=== PATIENT | male | born 1950 | race Caucasian/White ===

== ENCOUNTER 2019-10-28 12:38 | Emergency (ER) | payer OTHER ==
[2019-10-28 14:39] LABS: INR 1.2 (<1.2); Partial Thromboplastin Time 25.7 sec (22.0-30.0); Prothrombin Time 12.2 sec (9.0-12.0)
[2019-10-28 14:46] LABS: Albumin 3.4 g/dL (3.5-5.0); Calcium 8.4 mg/dL (8.4-10.2); Potassium 4.8 mmol/L (3.5-5.1); Total Bilirubin 0.5 mg/dL (0.2-1.3); Total Protein 6.2 g/dL (6.3-8.2)
[2019-10-28 14:49] LABS: Anisocytosis Slight; Basophils % (A) 1 %; Eosinophils % (A) 1 %; HCT 24.4 % (39.0-53.0); Hypochromasia Marked; Lymphocytes # (A) 0.5 k/uL (1.0-4.8); Lymphocytes % (A) 16 %; MCHC 27.3 g/dL (31.0-37.0); MCV 84.3 fL (80.0-100.0); Mean Platelet Volume 9.6; Monocytes # (A) 0.2 k/uL (0-1.0); Monocytes % (A) 6 %; Neutrophils # (A) 2.3 k/uL (1.3-7.7); Neutrophils % (A) 75 %; Platelet Count 115 k/uL (150-450); Poikilocytosis Moderate; RDW 18.5 % (11.5-15.5); WBC 3.1 k/uL (3.8-10.6)
[2019-10-28 14:52] LABS: HGB 6.7 gm/dL (13.0-17.5)
--- NOTE | 2019-10-28 15:34 | ED ---
General Adult HPI <Aníbal Dale - Last Filed: 10/28/19 15:52> - General Source: patient, RN notes reviewed Mode of arrival: wheelchair Limitations: physical limitation <Arnold Israel - Last Filed: 10/28/19 16:27> - General Chief complaint: Recheck/Abnormal Lab/Rx Stated complaint: abn labs Time Seen by Provider: 10/28/19 14:57 - History of Present Illness Initial comments: This a 69-year-old male presents emergency Department from home chief complaint of low hemoglobin. Patient states he had work on Monday received a call phone call from his primary to go to the emergency Department. Patient states that has not required transfusion in the past. Patient does admit that approximately month ago had some bleeding from his ileostomy. Patient does not take any current blood thinners. He states his stool is normal color at this time. Patient denies any fevers, chills, shortness breath, headache or dizziness. 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 (Arnold Israel) - Related Data Home Medications Medication Instructions Recorded Confirmed Ibuprofen [Motrin] 600 mg PO Q6H PRN 10/28/19 10/28/19 Lidocaine 5% Patch [Lidoderm] 1 patch TOPICAL DAILY 10/28/19 10/28/19 Methadone [Dolophine] 10 mg PO TID PRN 10/28/19 10/28/19 Metoprolol Tartrate [Lopressor] 25 mg PO BID 10/28/19 10/28/19 Naloxone HCl [Narcan] 4 mg NASAL ONCE PRN 10/28/19 10/28/19 amLODIPine [Norvasc] 10 mg PO DAILY 10/28/19 10/28/19 glipiZIDE [Glucotrol] 10 mg PO AC-BID 10/28/19 10/28/19 tiZANidine [Zanaflex] 8 mg PO TID 10/28/19 10/28/19 Allergies Allergy/AdvReac Type Severity Reaction Status Date / Time baclofen Allergy Rash/Hives Verified 10/28/19 15:34 Review of Systems ROS Other: All systems not noted in ROS Statement are negative. <Aníbal Dale - Last Filed: 10/28/19 15:52> ROS Other: All systems not noted in ROS Statement are negative. <Arnold Israel - Last Filed: 10/28/19 16:27> ROS Statement: Those systems with pertinent positive or pertinent negative responses have been documented in the HPI. 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 self caths. left foot 3 toes amputated 1990. back sx Past Psychological History: No Psychological Hx Reported Smoking Status: Never smoker Past Alcohol Use History: None Reported Past Drug Use History: None Reported <Arnold Israel - Last Filed: 10/28/19 16:27> General Exam Limitations: physical limitation General appearance: alert, in no apparent distress Head exam: Present: atraumatic, normocephalic, normal inspection Eye exam: Present: normal appearance, PERRL, EOMI. Absent: scleral icterus, conjunctival injection, periorbital swelling ENT exam: Present: normal exam, normal oropharynx, mucous membranes moist, TM's normal bilaterally Neck exam: Present: normal inspection, full ROM. Absent: tenderness, meningismus, lymphadenopathy Respiratory exam: Present: normal lung sounds bilaterally. Absent: respiratory distress, wheezes, rales, rhonchi, stridor Cardiovascular Exam: Present: regular rate, normal rhythm, normal heart sounds. Absent: systolic murmur, diastolic murmur, rubs, gallop, clicks Neurological exam: Present: alert, oriented X3, CN II-XII intact Skin exam: Present: warm, dry, intact, normal color. Absent: rash <Arnold Israel - Last Filed: 10/28/19 16:27> Course <Aníbal Dale - Last Filed: 10/28/19 15:52> Vital Signs 10/28/19 13:04 Temperature 98.5 F Pulse Rate 65 Respiratory 18 Rate Blood Pressure 144/70 O2 Sat by Pulse 98 Oximetry - Reevaluation(s) Reevaluation #1: 10/28/19 15:52 PA supervision: I did personally evaluate this case patient was sent in for evaluation of low hemoglobin will require a transfusion he was offered admission but is refusing at this time. He will state however to get a unit of blood and is signing out against our advice. (Aníbal Dale) Procedures - [facility] Protocol (Time Out) Nurse: Julissa Johnson <Arnold Israel - Last Filed: 10/28/19 16:27> Medical Decision Making - Lab Data Result diagrams: 10/28/19 14:16 10/28/19 14:16 <Aníbal Dale - Last Filed: 10/28/19 15:52> - Lab Data Result diagrams: 10/28/19 14:16 10/28/19 14:16 <Arnold Israel - Last Filed: 10/28/19 16:27> - Medical Decision Making 69-year-old male presented from for abnormal labs. Patient has a hemoglobin is 6.8 patient's reports that it was 6.1 on Monday. Patient does have iron pills at home and which she'll start. Patient advised that he needs to be adm itted for further evaluation by hematology and GI. Patient refuses admission patient is willing to receive his blood transfusion and will sign out AGAINST MEDICAL ADVICE understands risk of . (Arnold Israel) - Lab Data Lab Results 10/28/19 10/28/19 10/28/19 Range/Units 14:16 14:16 14:16 WBC 3.1 L (3.8-10.6) k/uL RBC 2.90 L (4.30-5.90) m/uL Hgb 6.7 L* (13.0-17.5) gm/dL Hct 24.4 L (39.0-53.0) % MCV 84.3 (80.0-100.0) fL MCH 23.0 L (25.0-35.0) pg MCHC 27.3 L (31.0-37.0) g/dL RDW 18.5 H (11.5-15.5) % Plt Count 115 L (150-450) k/uL Neutrophils % 75 % Lymphocytes % 16 % Monocytes % 6 % Eosinophils % 1 % Basophils % 1 % Neutrophils # 2.3 (1.3-7.7) k/uL Lymphocytes # 0.5 L (1.0-4.8) k/uL Monocytes # 0.2 (0-1.0) k/uL Eosinophils # 0.0 (0-0.7) k/uL Basophils # 0.0 (0-0.2) k/uL Hypochromasia Marked Poikilocytosis Moderate Anisocytosis Slight PT 12.2 H (9.0-12.0) sec INR 1.2 H (<1.2) APTT 25.7 (22.0-30.0) sec Sodium 134 L (137-145) mmol/L Potassium 4.8 (3.5-5.1) mmol/L Chloride 106 (98-107) mmol/L Carbon Dioxide 22 (22-30) mmol/L Anion Gap 6 mmol/L BUN 16 (9-20) mg/dL Creatinine 1.22 (0.66-1.25) mg/dL Est GFR (CKD-EPI)AfAm 70 (>60 ml/min/1.73 sqM) Est GFR (CKD-EPI)NonAf 61 (>60 ml/min/1.73 sqM) Glucose 226 H (74-99) mg/dL Calcium 8.4 (8.4-10.2) mg/dL Total Bilirubin 0.5 (0.2-1.3) mg/dL AST 27 (17-59) U/L ALT 13 (4-49) U/L Alkaline Phosphatase 86 (38-126) U/L Troponin I (0.000-0.034) ng/mL Total Protein 6.2 L (6.3-8.2) g/dL Albumin 3.4 L (3.5-5.0) g/dL 10/28/19 Range/Units 14:16 WBC (3.8-10.6) k/uL RBC (4.30-5.90) m/uL Hgb (13.0-17.5) gm/dL Hct (39.0-53.0) % MCV (80.0-100.0) fL MCH (25.0-35.0) pg MCHC (31.0-37.0) g/dL RDW (11.5-15.5) % Plt Count (150-450) k/uL Neutrophils % % Lymphocytes % % Monocytes % % Eosinophils % % Basophils % % Neutrophils # (1.3-7.7) k/uL Lymphocytes # (1.0-4.8) k/uL Monocytes # (0-1.0) k/uL Eosinophils # (0-0.7) k/uL Basophils # (0-0.2) k/uL Hypochromasia Poikilocytosis Anisocytosis PT (9.0-12.0) sec INR (<1.2) APTT (22.0-30.0) sec Sodium (137-145) mmol/L Potassium (3.5-5.1) mmol/L Chloride (98-107) mmol/L Carbon Dioxide (22-30) mmol/L Anion Gap mmol/L BUN (9-20) mg/dL Creatinine (0.66-1.25) mg/dL Est GFR (CKD-EPI)AfAm (>60 ml/min/1.73 sqM) Est GFR (CKD-EPI)NonAf (>60 ml/min/1.73 sqM) Glucose (74-99) mg/dL Calcium (8.4-10.2) mg/dL Total Bilirubin (0.2-1.3) mg/dL AST (17-59) U/L ALT (4-49) U/L Alkaline Phosphatase (38-126) U/L Troponin I <0.012 (0.000-0.034) ng/mL Total Protein (6.3-8.2) g/dL Albumin (3.5-5.0) g/dL Disposition <Aníbal Dale - Last Filed: 10/28/19 15:52> Is patient prescribed a controlled substance at d/c from ED?: No Time of Disposition: 16:27 <Arnold Israel - Last Filed: 10/28/19 16:27> Clinical Impression: Anemia Disposition: Left Against Medical Advice Instructions (If sedation given, give patient instructions): Anemia (ED) Additional Instructions: Please return to the Emergency Department if symptoms worsen or any other concerns. Referrals: [facility],Clinic [Primary Care Provider] - 1-2 days Glenn Boucher MD [STAFF PHYSICIAN] - 1-2 days Fadi Hahn MD [STAFF PHYSICIAN] - 1-2 days
[2019-10-28 19:44] VITALS: BP 141/68; PULSE 47; RESP 416; TEMP 97
== END 2019-10-28 20:01 | disposition left against medical advice (07) ==
LOC: EC 12:38
DX: D64.9 Anemia, unspecified (principal); E11.9 Type 2 diabetes mellitus without complications; I10 Essential (primary) hypertension; Z79.84 Long term (current) use of oral hypoglycemic drugs; Z79.899 Other long term (current) drug therapy; Z88.8 Allergy status to other drugs, medicaments and biological substances; Z86.14 Personal history of Methicillin resistant Staphylococcus aureus infection; Z93.2 Ileostomy status; Z53.29 Procedure and treatment not carried out because of patient's decision for other reasons
CPT/HCPCS: 36415; 86900; 86901; 80053; 84484; 85025; 85610; 85730; 86850; 86920; 99283; P9016; 36430

== ENCOUNTER 2020-06-22 10:27 | Inpatient (IN) | payer OTHER, MEDICARE ==
[2020-06-22] MEDS ORDERED: MORPHINE SULFATE 4 MG/ML SYRINGE IV STA (11:03)
[2020-06-22] MEDS ORDERED: ONDANSETRON 4 MG/2 ML VIAL IVP STA (11:03)
[2020-06-22] MEDS ORDERED: SODIUM CHLORIDE 0.9% 1,000 ML IV STA ×2 (11:03→12:34)
[2020-06-22] MEDS ORDERED: PIPERACILLIN-TAZOBACTAM 3.375 GM in SODIUM CHLORIDE 0.9% 100 ML IVPB STA (11:05)
--- NOTE | 2020-06-22 11:09 | ED ---
General Adult HPI <Aníbal Dale - Last Filed: 06/22/20 11:31> - General Source: patient, RN notes reviewed Mode of arrival: EMS Limitations: physical limitation <Moris Hoskins - Last Filed: 06/22/20 12:03> - General Chief complaint: Skin/Abscess/Foreign Body Stated complaint: Wound Time Seen by Provider: 06/22/20 10:43 - History of Present Illness Initial comments: Patient is a 70-year-old male significant past medical history for paraplegia, presented to the emergency room today with a chief complaint of decubitus ulcer. Some that it started as a small spot approximal to go. She states even family doctor last week for this. He was supposed to get into her care. He states it is trying to be set up. They did start him on oral antibiotic. He does admit that over the last few days she's noticed that it is getting worse. His has been checking it. Patient does admit that he's been feeling hot and cold been running fever at home. Patient denies any other complaints or symptoms. Patient denies any shortness of breath, chest pain, back pain, abdominal pain, nausea or vomiting, headaches or visual changes, or any other complaints. (Moris Hoskins) - Related Data Home Medications Medication Instructions Recorded Confirmed Lidocaine 5% Patch [Lidoderm] 1 patch TRANSDERM DAILY PRN 10/28/19 06/22/20 Methadone [Dolophine] 10 mg PO TID PRN 10/28/19 06/22/20 Metoprolol Tartrate [Lopressor] 12.5 mg PO BID 10/28/19 06/22/20 amLODIPine [Norvasc] 10 mg PO DAILY 10/28/19 06/22/20 glipiZIDE [Glucotrol] 10 mg PO AC-BID 10/28/19 06/22/20 tiZANidine [Zanaflex] 8 mg PO TID 10/28/19 06/22/20 Ferrous Sulfate [Feosol] 325 mg PO BID 06/22/20 06/22/20 Allergies Allergy/AdvReac Type Severity Reaction Status Date / Time baclofen Allergy Nausea & Verified 06/22/20 11:26 Vomiting meperidine [From Demerol] Allergy Rash/Hives Verified 06/22/20 11:26 sulfamethoxazole AdvReac Dry Verified 06/22/20 11:26 [From Bactrim] Mouth/Tremors trimethoprim [From Bactrim] AdvReac Dry Verified 06/22/20 11:26 Mouth/Tremors Review of Systems ROS Other: All systems not noted in ROS Statement are negative. <Aníbal Dale - Last Filed: 06/22/20 11:31> ROS Other: All systems not noted in ROS Statement are negative. <Moris Hoskins - Last Filed: 06/22/20 12:03> ROS Statement: Those systems with pertinent positive or pertinent negative responses have been documented in the HPI. 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 self caths. left foot 3 toes amputated 1990. back sx Past Psychological History: No Psychological Hx Reported Smoking Status: Never smoker Past Alcohol Use History: Occasional Past Drug Use History: None Reported <Moris Hoskins - Last Filed: 06/22/20 12:03> General Exam Limitations: physical limitation <Moris Hoskins - Last Filed: 06/22/20 12:03> - General Exam Comments Initial Comments: General: The patient is awake and alert, in no distress, and does not appear acutely ill. Eye: , extra-ocular movements are intact. There is normal conjunctiva bilaterally. No signs of icterus. Ears, nose, mouth and throat: There are moist mucous membranes and no oral lesions. Neck: The neck is supple Cardiovascular: There is a regular rate and rhythm. no rub or gallop is appreciated. Respiratory: Lungs are clear to auscultation, respirations are non-labored, breath sounds are equal. No wheezes, stridor, rales, or rhonchi. Musculoskeletal: Normal ROM, no tenderness. Strength 5/5. Sensation intact. Pulses equal bilaterally 2+. Neurological: A&O x 3. CN II-XII intact, There are no obvious motor or sensory deficits. Coordination appears grossly intact. Speech is normal. Skin: Patient does have a decubitus ulcer to the left buttocks. There is a tunneling wound that measures approximately 3 cm across with a eschar area measuring approximately another 4-5 cm. Psychiatric: Cooperative, appropriate mood & affect, normal judgment. (Moris Hoskins) Course <Aníbal Dale - Last Filed: 06/22/20 11:31> Vital Signs 06/22/20 06/22/20 10:50 11:32 Temperature 100.4 F H 99.1 F Pulse Rate 121 H 133 H Respiratory 18 18 Rate Blood Pressure 178/82 173/78 O2 Sat by Pulse 98 99 Oximetry - Reevaluation(s) Reevaluation #1: 06/22/20 11:31 PA supervision: I did personally do evaluation the patient he did present with complains of a pressure sore. He does have evidence of decubitus ulceration on the buttock on the left. Will be admitted. The case was discussed with Dr. Rubin. (Aníbal Dale) Medical Decision Making - Lab Data Result diagrams: 06/22/20 11:26 06/22/20 11:26 <Moris Hoskins - Last Filed: 06/22/20 12:03> - Medical Decision Making Patient reexamined shows an comfortably. Patient does have a decubitus ulcer to the left buttocks. States does have fever and was tachycardic at triage. Was given liter bolus along with Tylenol for fever. Patient's blood pressure is stable. Patient's creatinine is mildly elevated. Patient started on antibiotics of Zosyn here in emergency room. Patient will be admitted to the hospital case was discussed with Dr. Rubin. Patient is aware of plan states understanding and is in agreement. (Moris Hoskins) - Lab Data Lab Results 06/22/20 06/22/20 06/22/20 Range/Units 11:26 11:26 11:26 WBC 10.9 H (3.8-10.6) k/uL RBC 4.60 (4.30-5.90) m/uL Hgb 13.1 (13.0-17.5) gm/dL Hct 41.0 (39.0-53.0) % MCV 89.2 (80.0-100.0) fL MCH 28.5 (25.0-35.0) pg MCHC 31.9 (31.0-37.0) g/dL RDW 15.6 H (11.5-15.5) % Plt Count 100 L (150-450) k/uL MPV 10.0 Neutrophils % 85 % Lymphocytes % 1 % Monocytes % 7 % Eosinophils % 1 % Basophils % 3 % Neutrophils # 9.3 H (1.3-7.7) k/uL Lymphocytes # 0.1 L (1.0-4.8) k/uL Monocytes # 0.7 (0-1.0) k/uL Eosinophils # 0.1 (0-0.7) k/uL Basophils # 0.3 H (0-0.2) k/uL Hypochromasia Moderate PT 14.7 H (9.0-12.0) sec INR 1.5 H (<1.2) APTT 26.8 (22.0-30.0) sec Sodium 132 L (137-145) mmol/L Potassium 4.9 (3.5-5.1) mmol/L Chloride 100 (98-107) mmol/L Carbon Dioxide 18 L (22-30) mmol/L Anion Gap 14 mmol/L BUN 42 H (9-20) mg/dL Creatinine 1.83 H (0.66-1.25) mg/dL Est GFR (CKD-EPI)AfAm 43 (>60 ml/min/1.73 sqM) Est GFR (CKD-EPI)NonAf 37 (>60 ml/min/1.73 sqM) Glucose 318 H (74-99) mg/dL Calcium 8.4 (8.4-10.2) mg/dL Total Bilirubin 1.0 (0.2-1.3) mg/dL AST 28 (17-59) U/L ALT 29 (4-49) U/L Alkaline Phosphatase 151 H (38-126) U/L Total Protein 5.8 L (6.3-8.2) g/dL Albumin 2.6 L (3.5-5.0) g/dL Disposition <Aníbal Dale - Last Filed: 06/22/20 11:31> Is patient prescribed a controlled substance at d/c from ED?: No Time of Disposition: 12:03 <Moris Hoskins - Last Filed: 06/22/20 12:03> Clinical Impression: Decubitus ulcer, Failure of outpatient treatment, Sepsis Disposition: ADMITTED IP TO THIS [facility] Condition: Stable Referrals: [facility],Clinic [Primary Care Provider] - 1-2 days
[2020-06-22 11:34] LABS: Basophils # (A) 0.3 k/uL (0-0.2); Basophils % (A) 3 %; Eosinophils # (A) 0.1 k/uL (0-0.7); Eosinophils % (A) 1 %; HGB 13.1 gm/dL (13.0-17.5); Hypochromasia Moderate; Lymphocytes # (A) 0.1 k/uL (1.0-4.8); Lymphocytes % (A) 1 %; MCH 28.5 pg (25.0-35.0); MCHC 31.9 g/dL (31.0-37.0); MCV 89.2 fL (80.0-100.0); Monocytes # (A) 0.7 k/uL (0-1.0); Monocytes % (A) 7 %; Neutrophils # (A) 9.3 k/uL (1.3-7.7); Neutrophils % (A) 85 %; Platelet Count 100 k/uL (150-450); RDW 15.6 % (11.5-15.5); WBC 10.9 k/uL (3.8-10.6)
[2020-06-22 11:45] LABS: INR 1.5 (<1.2); Partial Thromboplastin Time 26.8 sec (22.0-30.0); Prothrombin Time 14.7 sec (9.0-12.0)
[2020-06-22 11:46] LABS: Albumin 2.6 g/dL (3.5-5.0); Calcium 8.4 mg/dL (8.4-10.2); Potassium 4.9 mmol/L (3.5-5.1); Total Protein 5.8 g/dL (6.3-8.2)
[2020-06-22] MEDS ORDERED: ACETAMINOPHEN TAB 500 MG TAB PO STA (12:02)
[2020-06-22] MEDS ORDERED: NALOXONE 0.4 MG/ML 1 ML VIAL IV PRN (12:03)
[2020-06-22] MEDS ORDERED: ONDANSETRON 4 MG/2 ML VIAL IVP PRN (12:03)
[2020-06-22 12:29] LABS: Appearance,Urine Turbid (Clear); Bilirubin,Urine Negative (Negative); Blood,Urine Large (Negative); Budding Yeast,Urine Many /hpf; Color,Urine Yellow; Glucose,Urine (UA) Negative (Negative); Hyaline Casts,Urine 57 /lpf (0-2); Ketones,Urine Negative (Negative); Leukocyte Esterase,Urine Large (Negative); Mucus,Urine Few /hpf; Nitrite,Urine Negative (Negative); PH, Urine 5.5 (5.0-8.0); Protein,Urine 2+ (Negative); RBC,Urine >182 /hpf (0-5); Squamous Epithelial Cell,Urine 13 /hpf (0-4); Urobilinogen,Urine <2.0 mg/dL (<2.0); WBC,Urine >182 /hpf (0-5)
[2020-06-22 12:30] LABS: Specific Gravity,Urine 1.019 (1.001-1.035)
[2020-06-22] MEDS ORDERED: SODIUM CHLORIDE 0.9% 500 ML 500 ML IV STA (12:34)
[2020-06-22] MEDS: SODIUM CHLORIDE 0.9% 1,000 ML IV SCH (12:59)
--- NOTE | 2020-06-22 13:51 | ED ---
Medical Decision Making - Lab Data Result diagrams: 06/22/20 11:26 06/22/20 11:26 Lab Results 06/22/20 06/22/20 06/22/20 Range/Units 11:26 11:26 11:26 WBC 10.9 H (3.8-10.6) k/uL RBC 4.60 (4.30-5.90) m/uL Hgb 13.1 (13.0-17.5) gm/dL Hct 41.0 (39.0-53.0) % MCV 89.2 (80.0-100.0) fL MCH 28.5 (25.0-35.0) pg MCHC 31.9 (31.0-37.0) g/dL RDW 15.6 H (11.5-15.5) % Plt Count 100 L (150-450) k/uL MPV 10.0 Neutrophils % 85 % Lymphocytes % 1 % Monocytes % 7 % Eosinophils % 1 % Basophils % 3 % Neutrophils # 9.3 H (1.3-7.7) k/uL Lymphocytes # 0.1 L (1.0-4.8) k/uL Monocytes # 0.7 (0-1.0) k/uL Eosinophils # 0.1 (0-0.7) k/uL Basophils # 0.3 H (0-0.2) k/uL Hypochromasia Moderate PT 14.7 H (9.0-12.0) sec INR 1.5 H (<1.2) APTT 26.8 (22.0-30.0) sec Sodium 132 L (137-145) mmol/L Potassium 4.9 (3.5-5.1) mmol/L Chloride 100 (98-107) mmol/L Carbon Dioxide 18 L (22-30) mmol/L Anion Gap 14 mmol/L BUN 42 H (9-20) mg/dL Creatinine 1.83 H (0.66-1.25) mg/dL Est GFR (CKD-EPI)AfAm 43 (>60 ml/min/1.73 sqM) Est GFR (CKD-EPI)NonAf 37 (>60 ml/min/1.73 sqM) Glucose 318 H (74-99) mg/dL Plasma Lactic Acid Davion (0.7-2.0) mmol/L Calcium 8.4 (8.4-10.2) mg/dL Total Bilirubin 1.0 (0.2-1.3) mg/dL AST 28 (17-59) U/L ALT 29 (4-49) U/L Alkaline Phosphatase 151 H (38-126) U/L Total Protein 5.8 L (6.3-8.2) g/dL Albumin 2.6 L (3.5-5.0) g/dL 06/22/20 Range/Units 11:26 WBC (3.8-10.6) k/uL RBC (4.30-5.90) m/uL Hgb (13.0-17.5) gm/dL Hct (39.0-53.0) % MCV (80.0-100.0) fL MCH (25.0-35.0) pg MCHC (31.0-37.0) g/dL RDW (11.5-15.5) % Plt Count (150-450) k/uL MPV Neutrophils % % Lymphocytes % % Monocytes % % Eosinophils % % Basophils % % Neutrophils # (1.3-7.7) k/uL Lymphocytes # (1.0-4.8) k/uL Monocytes # (0-1.0) k/uL Eosinophils # (0-0.7) k/uL Basophils # (0-0.2) k/uL Hypochromasia PT (9.0-12.0) sec INR (<1.2) APTT (22.0-30.0) sec Sodium (137-145) mmol/L Potassium (3.5-5.1) mmol/L Chloride (98-107) mmol/L Carbon Dioxide (22-30) mmol/L Anion Gap mmol/L BUN (9-20) mg/dL Creatinine (0.66-1.25) mg/dL Est GFR (CKD-EPI)AfAm (>60 ml/min/1.73 sqM) Est GFR (CKD-EPI)NonAf (>60 ml/min/1.73 sqM) Glucose (74-99) mg/dL Plasma Lactic Acid Davion 4.0 H* (0.7-2.0) mmol/L Calcium (8.4-10.2) mg/dL Total Bilirubin (0.2-1.3) mg/dL AST (17-59) U/L ALT (4-49) U/L Alkaline Phosphatase (38-126) U/L Total Protein (6.3-8.2) g/dL Albumin (3.5-5.0) g/dL Disposition Clinical Impression: Decubitus ulcer, Failure of outpatient treatment, Sepsis Disposition: ADMITTED IP TO THIS HOSP Condition: Stable Procedures - Sepsis Sepsis Focused Exam #1 Time Sepsis Criteria Met: 11:10 Sepsis Focused Exam Date: 06/22/20 Sepsis Focused Exam Time: 12:30 Sepsis Focused Exam Complete: Yes Vital Signs & RN Notes Reviewed: Yes Capillary Refill: < 2 Seconds: Fingers, Toes Peripheral Pulses: Normal: Radial (R), Radial (L), Dorsalis Pedis (R), Dorsalis Pedis (L) Skin Color: Normal for Patient Respiratory Exam: normal lung sounds Cardiovascular Exam: tachycardia
[2020-06-22] MEDS ORDERED: VANCOMYCIN IV PER PHARMACY 1 EACH MISC MISCELLANE PRN (15:15)
[2020-06-22] MEDS ORDERED: LIDOCAINE 5% PATCH TOPICAL PRN (15:18)
[2020-06-22] MEDS ORDERED: METHADONE 10 MG TAB PO PRN (15:18)
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
[2020-06-22] MEDS ORDERED: VANCOMYCIN 2,000 MG in SODIUM CHLORIDE 0.9% 500 ML 500 ML IVPB ONE (15:30)
[2020-06-22] MEDS: tiZANidine 4 MG TAB PO SCH (16:50)
[2020-06-22 17:55] LABS: Glucose,Whole Blood 253 mg/dL (75-99)
[2020-06-22] MEDS: INSULIN ASPART (NovoLOG) 100 UNIT/ML VIAL SQ SCH ×2 (18:21→21:20)
[2020-06-22] MEDS: glipiZIDE 10 MG TAB PO SCH (18:23)
[2020-06-22] MEDS ORDERED: PIPERACILLIN-TAZOBACTAM 3.375 GM in SODIUM CHLORIDE 0.9% 100 ML IVPB SCH (19:00)
[2020-06-22 19:32] LABS: Glucose,Whole Blood 275 mg/dL (75-99)
[2020-06-22 20:09] LABS: Glucose,Whole Blood 298 mg/dL (75-99)
[2020-06-22 21:18] LABS: Glucose,Whole Blood 308 mg/dL (75-99)
[2020-06-22] MEDS: HEPARIN SODIUM,PORCINE 5,000 UNIT/ML 1 ML VIAL SQ SCH (21:20)
[2020-06-22] MEDS: METOPROLOL TARTRATE 12.5 MG TAB PO SCH (23:08)
--- NOTE | 2020-06-22 23:17 | CONS ---
CONSULTATION DATE OF SERVICE: 06/22/2020 REASON FOR CONSULTATION: Infected pressure ulcer. HISTORY OF PRESENT ILLNESS: The patient is a 70 -year-old male with a past medical history significant for T11 paraplegia. He also has diabetes and hypertension. Patient presented to the ER with worsening of his sacral pressure ulcer. Apparently the patient developed small ulcers about a month ago. They seemed to have gotten worse, and have been worse in the last one week. The patient was evaluated in the outpatient setting by his primary care physician. The patient was started on oral Keflex, without any significant improvement. The patient was noted to have more discoloration and blackish surrounding redness and minimally foul-smelling. With that concern by his , the patient was brought into the ER. The patient does not have any sensation in his lumbosacral spine area; hence denies any pain. The patient denies having any headache. No chest pain, shortness of breath or cough. No abdominal pain or diarrhea. On presentation to the hospital the patient did have a fever of 100.4 degrees Fahrenheit. The patient was tachycardic. He did have a white count of 10.9 with a left shift. Lactic acid was 2.4. Creatinine was 1.83. The patient was started on vancomycin and Zosyn. Infectious Disease was consulted for further management of antibiotic therapy. REVIEW OF SYSTEMS: Positive points have been mentioned in the HPI. Rest of the systems are negative. PAST MEDICAL HISTORY: T11 paraplegia, hypertension, diabetes mellitus, previous history of MRSA infection from the leg wound, positive history of ileostomy, self-catheterization, three toes removed from the left foot, and back surgery. SOCIAL HISTORY: No history of smoking. Occasionally drinks. No drug use. FAMILY HISTORY: No pertinent findings noticed. ALLERGIES: SULFAMETHOXAZOLE, MEPERIDINE AND BACLOFEN. MEDICATIONS: The patient is currently on Tylenol, Norvasc, glucotrol, heparin, NovoLog, Lidoderm, Dolophine, Lopressor, Narcan, Zofran, piperacillin tazobactam, Zanaflex, vancomycin. PHYSICAL EXAMINATION: Blood pressure is 112/60 with a pulse of 58, temperature 97.5. He is 96% on room air. General description is an elderly male lying in bed in no distress. No tachypnea or accessory muscle of respiration use. HEENT: Examination shows no pallor or scleral icterus. Oral mucous membrane is dry. No pharyngeal erythema or thrush. NECK: Trachea is central. No thyromegaly. LUNGS: Unlabored breathing. Clear to auscultation anteriorly. No wheeze or crackle. HEART: S1, S2. Regular rate and rhythm. ABDOMEN: Soft. No tenderness. No guarding or rigidity. EXTREMITIES: No edema of the feet. SKIN EXAMINATION: No rash or mass palpable. Neurologically the patient is awake, alert, oriented x3. Mood and affect normal. LABS: Hemoglobin 13.1, white count 10.9. Lactic acid 2.4, BUN of 42, creatinine is 1.83. Urine is positive. [place]into PCR was negative. DIAGNOSTIC IMPRESSION AND PLAN: 1. Patient admitted to hospital with sepsis in this patient who did have a fever, tachycardia, elevated lactic acid, white count with a left shift. Source is likely infected sacral pressure ulcer plus/minus catheter-associated UTI. We will need to cover for both Gram-positive skin aaliyah as well as Gram-negative pathogen. 2. Patient with renal insufficiency; high risk of nephrotoxicity from vancomycin, especially with the Zosyn combination. PLAN: 1. Will wait for the surgical debridement and deep culture. 2. Will keep the patient on vancomycin while watching his kidney function closely; however, switch Zosyn to Unasyn. 3. Will follow his clinical condition and culture to further adjust medication if needed. Patient's at the bedside; questions and concerns were answered. MMODL / IJN: [id number] / MTDD
[2020-06-23] MEDS: tiZANidine 4 MG TAB PO SCH ×4 (00:42→20:53)
[2020-06-23] MEDS: SODIUM CHLORIDE 0.9% 1,000 ML IV SCH ×4 (00:47→23:34)
[2020-06-23] MEDS: AMPICILLIN-SULBACTAM 3 GM in SODIUM CHLORIDE 0.9% 100 ML IVPB SCH ×4 (01:27→17:49)
[2020-06-23 06:53] LABS: Glucose,Whole Blood 209 mg/dL (75-99)
[2020-06-23] MEDS: amLODIPine 10 MG TAB PO SCH (08:00)
[2020-06-23] MEDS: HEPARIN SODIUM,PORCINE 5,000 UNIT/ML 1 ML VIAL SQ SCH ×2 (08:00→20:51)
[2020-06-23] MEDS: METOPROLOL TARTRATE 12.5 MG TAB PO SCH ×2 (08:00→20:53)
[2020-06-23] MEDS: glipiZIDE 10 MG TAB PO SCH (08:00)
[2020-06-23] MEDS: INSULIN ASPART (NovoLOG) 100 UNIT/ML VIAL SQ SCH ×4 (08:00→20:54)
[2020-06-23] MEDS ORDERED: VANCOMYCIN 2,000 MG in SODIUM CHLORIDE 0.9% 500 ML 500 ML IVPB SCH (09:00)
[2020-06-23 09:50] LABS: African American GFR (CKD) 43.5 (60.0-200.0); Anion Gap 7.8 mmol/L (4.00-12.00); Calcium 7.6 mg/dL (8.7-10.3); Carbon Dioxide 22.2 mmol/L (21.6-31.8); Non-African American GFR(CKD) 37.6 (60.0-200.0); Potassium 5.1 mmol/L (3.5-5.5)
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
[2020-06-23 11:57] LABS: Glucose,Whole Blood 208 mg/dL (75-99)
[2020-06-23 12:01] LABS: INR 1.7 (<1.2); Prothrombin Time 16.8 sec (9.0-12.0)
[2020-06-23 12:03] LABS: Basophils # (A) 0.03 X 10*3/uL (0.00-0.10); Basophils % (A) 0.3 %; Eosinophils # (A) 0.04 X 10*3/uL (0.04-0.35); Eosinophils % (A) 0.5 %; HCT 34.7 % (39.6-50.0); HGB 10.8 g/dL (13.0-17.0); Lymphocytes # (A) 0.29 X 10*3/uL (0.90-5.00); Lymphocytes % (A) 3.3 %; MCH 27.1 pg (27.0-32.0); MCHC 31.1 g/dL (32.0-37.0); MCV 87.2 fL (80.0-97.0); Mean Platelet Volume 12.5 fL (9.5-12.2); Monocytes # (A) 0.61 X 10*3/uL (0.20-1.00); Monocytes % (A) 6.9 %; Neutrophils # (A) 7.75 X 10*3/uL (1.80-7.70); Neutrophils % (A) 88.1 %; Platelet Count 104 X 10*3/uL (140-440); RBC 3.98 X 10*6/uL (4.40-5.60); RDW 15.6 % (11.5-14.5)
--- NOTE | 2020-06-23 14:42 | P.PN ---
Subjective Progress Note Date: 06/23/20 68-year-old pleasant gentleman with paraplegia came in because of infection of the decubitus ulcer. Patient had a small 6 sparred started a few days ago which was initially clean and now appear to be infected with the redness local is of temperature in the surrounding skin and pulses swelling discharge. Patient has a big sacral acute is ulcer appears to be stage IV ulcer. Patient was started on oral antibiotic. I do not have any cultures available from the wound cultures will be obtained aerobic and anaerobic patient will be admitted with broad-spectrum antibiotics. She was having on and off fevers with chills patient is a low-grade fever here. Patient's creatinine is 1.83 baseline is around 1.2 patient is bit hyponatremic as well. Patient denied any dysuria patient has a Bacon catheter urine is significantly abnormal with large leukocyte esterase with WBC clumps, squamous epithelial cells 06/23/2020 Patient seen and evaluated and follow-up currently awaiting to undergo surgical debridement for decubitus ulcer. Patient is lethargic although arousable alert and oriented 3. Retina and continues to be 1.8 and BUN is 45. Current INR is 1.7. White blood count is 8.80 and hemoglobin is 10.8. Will decrease methadone to twice daily. Blood pressure elevated today and will continue to monitor and continue with Norvasc and resume home dose after the procedure. Patient has been afebrile since yesterday. Patient is maintained on IV antibiotics in the form of Unasyn and vancomycin while awaiting cultures. Infectious disease following. Preliminary culture showing gram-negative bacilli. Review of systems: Constitutional: No reports of fatigue, fever, or chills Cardiovascular: No reports of chest pain or palpitations Respiratory: No reports of shortness of breath or cough GI: No reports of nausea, vomiting, or diarrhea : No reports of dysuria or retention Neurovascular: Reports weakness All medications have been reviewed Objective - Vital Signs Vital signs: Vital Signs Temp 98.0 F 06/23/20 07:23 Pulse 84 06/23/20 07:23 Resp 19 06/23/20 07:23 BP 179/64 06/23/20 07:23 Pulse Ox 96 06/23/20 07:23 Intake & Output 06/22/20 06/23/20 06/23/20 18:59 06:59 18:59 Output Total 300 Balance -300 Weight 124.738 kg Output: Urine 300 Other: Voiding Method Indwelling Catheter - Exam GENERAL: The patient is lethargic although arousable, alert and oriented x3, not in any acute distress. Obese HEENT: Pupils are round and equally reacting to light. EOMI. No scleral icterus. No conjunctival pallor. Normocephalic, atraumatic. No pharyngeal erythema. No thyromegaly. CARDIOVASCULAR: S1 and S2 present. No murmurs, rubs, or gallops. PULMONARY: Chest is clear to auscultation, no wheezing or crackles. ABDOMEN: Soft, nontender, nondistended, normoactive bowel sounds. No palpable organomegaly. MUSCULOSKELETAL: No joint swelling or deformity. EXTREMITIES: No cyanosis, clubbing, or pedal edema. NEUROLOGICAL: Gross neurological examination did not reveal any new focal deficits. Paraplegic SKIN: sacral decubitus ulcer with a blackish or surrounding skin redness localization of temperature and surrounding cellulitis - Labs CBC & Chem 7: 06/23/20 05:40 06/23/20 05:40 Labs: Abnormal Lab Results - Last 24 Hours (Table) 06/22/20 06/22/20 06/22/20 Range/Units 15:08 17:53 17:56 RBC (4.40-5.60) X 10*6/uL Hgb (13.0-17.0) g/dL Hct (39.6-50.0) % MCHC (32.0-37.0) g/dL RDW (11.5-14.5) % Plt Count (140-440) X 10*3/uL Plt Count Comment MPV (9.5-12.2) fL Immature Gran # (0.00-0.04) X 10*3/uL Neutrophils # (1.80-7.70) X 10*3/uL Lymphocytes # (0.90-5.00) X 10*3/uL PT (9.0-12.0) sec INR (<1.2) BUN (9.0-27.0) mg/dL Creatinine (0.6-1.5) mg/dL Est GFR (CKD-EPI)AfAm (60.0-200.0) Est GFR (CKD-EPI)NonAf (60.0-200.0) BUN/Creatinine Ratio (12.00-20.00) Ratio Glucose (70-110) mg/dL POC Glucose (mg/dL) 253 H (75-99) mg/dL Plasma Lactic Acid Davion 3.1 H* 2.4 H* (0.7-2.0) mmol/L Calcium (8.7-10.3) mg/dL 06/22/20 06/22/20 06/22/20 Range/Units 19:28 19:58 21:06 RBC (4.40-5.60) X 10*6/uL Hgb (13.0-17.0) g/dL Hct (39.6-50.0) % MCHC (32.0-37.0) g/dL RDW (11.5-14.5) % Plt Count (140-440) X 10*3/uL Plt Count Comment MPV (9.5-12.2) fL Immature Gran # (0.00-0.04) X 10*3/uL Neutrophils # (1.80-7.70) X 10*3/uL Lymphocytes # (0.90-5.00) X 10*3/uL PT (9.0-12.0) sec INR (<1.2) BUN (9.0-27.0) mg/dL Creatinine (0.6-1.5) mg/dL Est GFR (CKD-EPI)AfAm (60.0-200.0) Est GFR (CKD-EPI)NonAf (60.0-200.0) BUN/Creatinine Ratio (12.00-20.00) Ratio Glucose (70-110) mg/dL POC Glucose (mg/dL) 275 H 298 H 308 H (75-99) mg/dL Plasma Lactic Acid Davion (0.7-2.0) mmol/L Calcium (8.7-10.3) mg/dL 06/23/20 06/23/20 06/23/20 Range/Units 05:40 05:40 06:51 RBC 3.98 L (4.40-5.60) X 10*6/uL Hgb 10.8 L (13.0-17.0) g/dL Hct 34.7 L (39.6-50.0) % MCHC 31.1 L (32.0-37.0) g/dL RDW 15.6 H (11.5-14.5) % Plt Count 104 L (140-440) X 10*3/uL Plt Count Comment DECREASED A MPV 12.5 H (9.5-12.2) fL Immature Gran # 0.08 H (0.00-0.04) X 10*3/uL Neutrophils # 7.75 H (1.80-7.70) X 10*3/uL Lymphocytes # 0.29 L (0.90-5.00) X 10*3/uL PT (9.0-12.0) sec INR (<1.2) BUN 45.0 H (9.0-27.0) mg/dL Creatinine 1.8 H (0.6-1.5) mg/dL Est GFR (CKD-EPI)AfAm 43.5 L (60.0-200.0) Est GFR (CKD-EPI)NonAf 37.6 L (60.0-200.0) BUN/Creatinine Ratio 25.00 H (12.00-20.00) Ratio Glucose 226 H (70-110) mg/dL POC Glucose (mg/dL) 209 H (75-99) mg/dL Plasma Lactic Acid Davion (0.7-2.0) mmol/L Calcium 7.6 L (8.7-10.3) mg/dL 06/23/20 06/23/20 Range/Units 10:54 11:55 RBC (4.40-5.60) X 10*6/uL Hgb (13.0-17.0) g/dL Hct (39.6-50.0) % MCHC (32.0-37.0) g/dL RDW (11.5-14.5) % Plt Count (140-440) X 10*3/uL Plt Count Comment MPV (9.5-12.2) fL Immature Gran # (0.00-0.04) X 10*3/uL Neutrophils # (1.80-7.70) X 10*3/uL Lymphocytes # (0.90-5.00) X 10*3/uL PT 16.8 H (9.0-12.0) sec INR 1.7 H (<1.2) BUN (9.0-27.0) mg/dL Creatinine (0.6-1.5) mg/dL Est GFR (CKD-EPI)AfAm (60.0-200.0) Est GFR (CKD-EPI)NonAf (60.0-200.0) BUN/Creatinine Ratio (12.00-20.00) Ratio Glucose (70-110) mg/dL POC Glucose (mg/dL) 208 H (75-99) mg/dL Plasma Lactic Acid Davion (0.7-2.0) mmol/L Calcium (8.7-10.3) mg/dL Microbiology - Last 24 Hours (Table) 06/22/20 14:47 Gram Stain - Preliminary Buttock Wound Culture - Preliminary Gram Neg Bacilli 06/22/20 14:47 Anaerobic Culture - Preliminary Buttock 06/22/20 11:32 Urine Culture - Preliminary Urine,Voided Assessment and Plan Assessment: -Severe sepsis: Secondary to infected sacral decubitus stage IV ulcer, present on admission. lactic acidosis with elevated lactic acid of 24. Patient will be continued on IV fluids and the patient will be started on broad-spectrum antibiotics in the form of Unasyn and vancomycin. Infectious disease following. Surgery following as well and patient will undergo debridement today of the decubitus ulcer -Type 2 diabetes mellitus; continue with sliding scale insulin, hold off on glipizide -acute renal failure: Secondary to prerenal azotemia secondary to sepsis patient will be continued on IV fluids -Hypertension -Hypovolemic hyponatremia IV fluids as mentioned above -Tachycardia and due to sepsis continue with IV fluids and patient was started back on metoprolol -DVT prophylaxis with subcutaneous heparin -GI prophylaxis Pepcid Plan: Continue with current medications and IV antibiotics. Infectious disease and surgery following. Patient to undergo surgical debridement of the decubitus ulcer. Will await report. Will continue with IV fluids and monitor vital signs and labs closely. Will repeat a.m. labs. Preliminary culture showing gram- negative bacilli and awaiting finalization to determine antibiotic coverage.
[2020-06-23 15:44] VITALS: BMI 35.3
[2020-06-23] MEDS ORDERED: IV FLUID CONTINUATION 900 ML IV ONE (15:50)
[2020-06-23 15:58] LABS: Glucose,Whole Blood 231 mg/dL (75-99)
[2020-06-23] MEDS ORDERED: MIDAZOLAM 2 MG/2 ML VIAL ONE (16:13)
[2020-06-23] MEDS ORDERED: fentaNYL (PF) 50 MCG/ML 2 ML AMP ONE (16:13)
--- NOTE | 2020-06-23 17:58 | P.OP ---
Date of Procedure: 06/23/20 Procedure(s) Performed: PREOPERATIVE DIAGNOSIS: Left buttocks decubitus ulcer POSTOPERATIVE DIAGNOSIS: Same PROCEDURE: Debridement left buttocks decubitus ulcer SURGEON: Camille EBL: 10 mL ANESTHESIA: Sedation COMPLICATIONS: None OPERATIVE PROCEDURE: Patient placed in the operating table in the right decubitu s position. The patient's left buttock was sterilely prepped. The patient had a 6 x 7 cm area of necrotic skin. The necrotic skin and subcutaneous fat and muscle was excised sharply using a scalpel. The depth of dissection 4-5 cm. No palpable necrotic bone. Minimal necrotic tissue left after the debridement. Bleeding controlled using electrocautery. Wound packed with sterile saline soaked Kerlix roll. DISPOSITION: Stable to recovery room
[2020-06-23 20:26] LABS: Glucose,Whole Blood 235 mg/dL (75-99)
[2020-06-23] MEDS: METHADONE 10 MG TAB PO SCH (20:52)
--- NOTE | 2020-06-23 22:59 | PN ---
PROGRESS NOTE DATE OF SERVICE: 06/23/2020 REASON FOR FOLLOWUP: Pressure ulcer. INTERVAL HISTORY: The patient did have a low-grade fever of 100.2. The patient is status post debridement of his pressure ulcer. The patient tolerated the procedure. He denies having any chest pain, shortness of breath or cough. No abdominal pain or diarrhea. PHYSICAL EXAMINATION: Blood pressure 101/66, pulse of 73, temperature 99.2. He is 94% on room air. General description is an elderly male lying in bed in no distress. RESPIRATORY SYSTEM: Unlabored breathing. Clear to auscultation anteriorly. HEART: S1, S2. Regular rate and rhythm. ABDOMEN: Soft. No tenderness. LABS: Culture is currently showing Gram-negative. Urine is showing yeast. DIAGNOSTIC IMPRESSION AND PLAN: 1. Patient with left gluteal/sacral area pressure ulcer, status post debridement, stage III. Culture has been obtained which is currently pending. Initial culture shows Gram-negative. Antibiotic will be adjusted to Zosyn. 2. Urine culture positive for yeast. Bacon catheter will be changed. Diflucan will be added and we will monitor his clinical course closely. MMODL / IJN: [id number] /
[2020-06-23] MEDS: PIPERACILLIN-TAZOBACTAM 3.375 GM in SODIUM CHLORIDE 0.9% 100 ML IVPB SCH (23:33)
[2020-06-24 07:15] LABS: Glucose,Whole Blood 292 mg/dL (75-99)
[2020-06-24] MEDS: PIPERACILLIN-TAZOBACTAM 3.375 GM in SODIUM CHLORIDE 0.9% 100 ML IVPB SCH ×3 (07:56→21:53)
[2020-06-24] MEDS: INSULIN ASPART (NovoLOG) 100 UNIT/ML VIAL SQ SCH ×4 (07:57→21:09)
[2020-06-24] MEDS: HEPARIN SODIUM,PORCINE 5,000 UNIT/ML 1 ML VIAL SQ SCH ×2 (07:57→21:55)
[2020-06-24] MEDS: METOPROLOL TARTRATE 12.5 MG TAB PO SCH ×2 (07:57→21:54)
[2020-06-24] MEDS: METHADONE 10 MG TAB PO SCH ×2 (07:57→21:54)
[2020-06-24] MEDS: amLODIPine 10 MG TAB PO SCH (07:57)
[2020-06-24] MEDS: FLUCONAZOLE 100 MG TAB PO SCH (07:57)
[2020-06-24] MEDS: tiZANidine 4 MG TAB PO SCH ×3 (07:58→21:57)
[2020-06-24 09:46] LABS: African American GFR (CKD) 54.3 (60.0-200.0); Non-African American GFR(CKD) 46.8 (60.0-200.0)
[2020-06-24 10:13] LABS: African American GFR (CKD) 54 (>60 ml/min/1.73 sqM); Anion Gap 5 mmol/L; Blood Urea Nitrogen 39 mg/dL (9-20); Calcium 7.5 mg/dL (8.4-10.2); Carbon Dioxide 21 mmol/L (22-30); Chloride 107 mmol/L (98-107); Glucose 337 mg/dL (74-99); Non-African American GFR(CKD) 47 (>60 ml/min/1.73 sqM); Potassium 5.4 mmol/L (3.5-5.1); Sodium 133 mmol/L (137-145)
[2020-06-24] MEDS: ACETAMINOPHEN TAB 325 MG TAB PO PRN (10:58)
--- NOTE | 2020-06-24 11:30 | P.PN ---
<Agnes Rodriguez - Last Filed: 06/24/20 11:21> Subjective Progress Note Date: 06/24/20 CHIEF COMPLAINT: Left buttocks decubitus ulcer HISTORY OF PRESENT ILLNESS: Patient is status post debridement of left buttocks decubitus ulcer on 06/23/2020. Patient is lying in bed comfortably. He reports feeling better today. He is complaining of mild earache on the right side. He denies any nausea or vomiting. He has had no significant drainage from ulcer per nursing staff. He is tolerating regular diet. Patient did have low-grade temps last night. T-max 100.2 and he had also been tachycardic. Heart rate has shown improvement this morning. Sodium 133 potassium 5.4 BUN 39 creatinine 1.50 wound culture Proteus mirabilis PHYSICAL EXAM: VITAL SIGNS: Reviewed. GENERAL: Well-developed in no acute distress. HEENT: No sclera icterus. Extraocular movements grossly intact. Moist buccal mucosa. Head is atraumatic, normocephalic. ABDOMEN: Soft. Nondistended. Nontender. NEUROLOGIC: Alert and oriented. Cranial nerves II through XII grossly intact. ASSESSMENT: 1. Left buttocks decubitus ulcer status post debridement PLAN: -Continue local wound care -Continue antibiotics per ID -Hyperkalemia treatment per medicine service Physician Mangle Catcher note has been reviewed by physician. Signing provider agrees with the documented findings, assessment, and plan of care. Objective - Vital Signs Vital signs: Vital Signs Temp 98.3 F 06/24/20 08:00 Pulse 62 06/24/20 08:00 Resp 17 06/24/20 08:00 BP 136/52 06/24/20 08:00 Pulse Ox 95 06/24/20 08:00 Intake & Output 06/23/20 06/24/20 06/24/20 18:59 06:59 18:59 Intake Total 100 Output Total 5 350 300 Balance 95 -350 -300 Weight 124.738 kg Intake: IV 100 Output: Urine 350 300 Estimated Blood Loss 5 Other: Voiding Method Indwelling Catheter Indwelling Catheter - Labs CBC & Chem 7: 06/23/20 05:40 06/24/20 09:35 Labs: Abnormal Lab Results - Last 24 Hours (Table) 06/23/20 06/23/20 06/23/20 Range/Units 05:40 10:54 11:55 RBC 3.98 L (4.40-5.60) X 10*6/uL Hgb 10.8 L (13.0-17.0) g/dL Hct 34.7 L (39.6-50.0) % MCHC 31.1 L (32.0-37.0) g/dL RDW 15.6 H (11.5-14.5) % Plt Count 104 L (140-440) X 10*3/uL Plt Count Comment DECREASED A MPV 12.5 H (9.5-12.2) fL Immature Gran # 0.08 H (0.00-0.04) X 10*3/uL Neutrophils # 7.75 H (1.80-7.70) X 10*3/uL Lymphocytes # 0.29 L (0.90-5.00) X 10*3/uL PT 16.8 H (9.0-12.0) sec INR 1.7 H (<1.2) Sodium (137-145) mmol/L Potassium (3.5-5.1) mmol/L Carbon Dioxide (22-30) mmol/L BUN (9-20) mg/dL Creatinine (0.66-1.25) mg/dL Est GFR (CKD-EPI)AfAm (60.0-200.0) Est GFR (CKD-EPI)NonAf (60.0-200.0) Glucose (74-99) mg/dL POC Glucose (mg/dL) 208 H (75-99) mg/dL Calcium (8.4-10.2) mg/dL 06/23/20 06/23/20 06/24/20 Range/Units 15:56 20:24 06:33 RBC (4.40-5.60) X 10*6/uL Hgb (13.0-17.0) g/dL Hct (39.6-50.0) % MCHC (32.0-37.0) g/dL RDW (11.5-14.5) % Plt Count (140-440) X 10*3/uL Plt Count Comment MPV (9.5-12.2) fL Immature Gran # (0.00-0.04) X 10*3/uL Neutrophils # (1.80-7.70) X 10*3/uL Lymphocytes # (0.90-5.00) X 10*3/uL PT (9.0-12.0) sec INR (<1.2) Sodium (137-145) mmol/L Potassium (3.5-5.1) mmol/L Carbon Dioxide (22-30) mmol/L BUN (9-20) mg/dL Creatinine (0.66-1.25) mg/dL Est GFR (CKD-EPI)AfAm 54.3 L (60.0-200.0) Est GFR (CKD-EPI)NonAf 46.8 L (60.0-200.0) Glucose (74-99) mg/dL POC Glucose (mg/dL) 231 H 235 H (75-99) mg/dL Calcium (8.4-10.2) mg/dL 06/24/20 06/24/20 Range/Units 07:14 09:35 RBC (4.40-5.60) X 10*6/uL Hgb (13.0-17.0) g/dL Hct (39.6-50.0) % MCHC (32.0-37.0) g/dL RDW (11.5-14.5) % Plt Count (140-440) X 10*3/uL Plt Count Comment MPV (9.5-12.2) fL Immature Gran # (0.00-0.04) X 10*3/uL Neutrophils # (1.80-7.70) X 10*3/uL Lymphocytes # (0.90-5.00) X 10*3/uL PT (9.0-12.0) sec INR (<1.2) Sodium 133 L (137-145) mmol/L Potassium 5.4 H (3.5-5.1) mmol/L Carbon Dioxide 21 L (22-30) mmol/L BUN 39 H (9-20) mg/dL Creatinine 1.50 H (0.66-1.25) mg/dL Est GFR (CKD-EPI)AfAm (60.0-200.0) Est GFR (CKD-EPI)NonAf (60.0-200.0) Glucose 337 H (74-99) mg/dL POC Glucose (mg/dL) 292 H (75-99) mg/dL Calcium 7.5 L (8.4-10.2) mg/dL Microbiology - Last 24 Hours (Table) 06/22/20 14:47 Gram Stain - Preliminary Buttock Wound Culture - Preliminary Proteus mirabilis Gram Neg Bacilli 06/23/20 16:55 Gram Stain - Preliminary Buttock Wound Culture - Preliminary 06/23/20 16:55 Anaerobic Culture - Preliminary Buttock 06/22/20 11:32 Urine Culture - Preliminary Urine,Voided Yeast species 06/22/20 11:26 Blood Culture - Preliminary Blood No Growth after 24 hours <Moris Obrien - Last Filed: 06/24/20 12:25> Subjective As above. Wound clean. Some serosanguineous drainage noted. Await Dr. Perez opinion regarding possible wound VAC. Objective - Vital Signs Vital signs: Vital Signs Temp 98.3 F 06/24/20 08:00 Pulse 62 06/24/20 08:00 Resp 17 06/24/20 08:00 BP 136/52 06/24/20 08:00 Pulse Ox 95 06/24/20 08:00 Intake & Output 06/23/20 06/24/20 06/24/20 18:59 06:59 18:59 Intake Total 100 Output Total 5 350 300 Balance 95 -350 -300 Weight 124.738 kg Intake: IV 100 Output: Urine 350 300 Estimated Blood Loss 5 Other: Voiding Method Indwelling Catheter Indwelling Catheter - Labs CBC & Chem 7: 06/23/20 05:40 06/24/20 09:35 Labs: Abnormal Lab Results - Last 24 Hours (Table) 06/23/20 06/23/20 06/24/20 Range/Units 15:56 20:24 06:33 Sodium (137-145) mmol/L Potassium (3.5-5.1) mmol/L Carbon Dioxide (22-30) mmol/L BUN (9-20) mg/dL Creatinine (0.66-1.25) mg/dL Est GFR (CKD-EPI)AfAm 54.3 L (60.0-200.0) Est GFR (CKD-EPI)NonAf 46.8 L (60.0-200.0) Glucose (74-99) mg/dL POC Glucose (mg/dL) 231 H 235 H (75-99) mg/dL Calcium (8.4-10.2) mg/dL 06/24/20 06/24/20 06/24/20 Range/Units 07:14 09:35 12:03 Sodium 133 L (137-145) mmol/L Potassium 5.4 H (3.5-5.1) mmol/L Carbon Dioxide 21 L (22-30) mmol/L BUN 39 H (9-20) mg/dL Creatinine 1.50 H (0.66-1.25) mg/dL Est GFR (CKD-EPI)AfAm (60.0-200.0) Est GFR (CKD-EPI)NonAf (60.0-200.0) Glucose 337 H (74-99) mg/dL POC Glucose (mg/dL) 292 H 435 H (75-99) mg/dL Calcium 7.5 L (8.4-10.2) mg/dL Microbiology - Last 24 Hours (Table) 06/22/20 14:47 Gram Stain - Preliminary Buttock Wound Culture - Preliminary Proteus mirabilis Enterococcus faecalis Gram Neg Bacilli 06/23/20 16:55 Gram Stain - Preliminary Buttock Wound Culture - Preliminary 06/23/20 16:55 Anaerobic Culture - Preliminary Buttock 06/22/20 11:32 Urine Culture - Preliminary Urine,Voided Yeast species 06/22/20 11:26 Blood Culture - Preliminary Blood No Growth after 24 hours
[2020-06-24 12:04] LABS: Glucose,Whole Blood 435 mg/dL (75-99)
[2020-06-24] MEDS ORDERED: SODIUM POLYSTYRENE SULFONATE 15 GM/60 ML BOTTLE PO STA (12:29)
[2020-06-24] MEDS ORDERED: INSULIN ASPART (NovoLOG) 100 UNIT/ML VIAL SQ ONE ×2 (12:45→21:15)
--- NOTE | 2020-06-24 13:28 | P.PN ---
Subjective Progress Note Date: 06/24/20 68-year-old pleasant gentleman with paraplegia came in because of infection of the decubitus ulcer. Patient had a small 6 sparred started a few days ago which was initially clean and now appear to be infected with the redness local is of temperature in the surrounding skin and pulses swelling discharge. Patient has a big sacral acute is ulcer appears to be stage IV ulcer. Patient was started on oral antibiotic. I do not have any cultures available from the wound cultures will be obtained aerobic and anaerobic patient will be admitted with broad-spectrum antibiotics. She was having on and off fevers with chills patient is a low-grade fever here. Patient's creatinine is 1.83 baseline is around 1.2 patient is bit hyponatremic as well. Patient denied any dysuria patient has a Bacon catheter urine is significantly abnormal with large leukocyte esterase with WBC clumps, squamous epithelial cells 06/23/2020 Patient seen and evaluated and follow-up currently awaiting to undergo surgical debridement for decubitus ulcer. Patient is lethargic although arousable alert and oriented 3. Retina and continues to be 1.8 and BUN is 45. Current INR is 1.7. White blood count is 8.80 and hemoglobin is 10.8. Will decrease methadone to twice daily. Blood pressure elevated today and will continue to monitor and continue with Norvasc and resume home dose after the procedure. Patient has been afebrile since yesterday. Patient is maintained on IV antibiotics in the form of Unasyn and vancomycin while awaiting cultures. Infectious disease following. Preliminary culture showing gram-negative bacilli. 06/24/2020 Patient is seen this morning complains of a dull headache and right ear disc omfort and Tylenol was given. Patient denies any dizziness lightheadedness or visual disturbances. Patient blood sugar also found to be elevated in the 3 and 400s and will start long-acting and continue with sliding scale. Patient is more alert and awake today and has been tolerating diet with no reports of nausea or vomiting noted. Patient is status post surgical debridement of the decubitus ulcer with Dr. Obrien and surgery is following. Infectious disease is also following and patient's preliminary cultures finalized showing Proteus mirabilis, enterococcus, gram-negative bacilli and patient is maintained on Zosyn and will continue at this time. Awaiting deep wound cultures from [facility]. Potassium was also found to be slightly elevated at 5.4 and will give capsulate. Creatinine stable at 1.5 BUN of 39. Review of systems: Constitutional: No reports of fatigue, fever, or chills HEENT: Reports dull headache with right ear discomfort Cardiovascular: No reports of chest pain or palpitations Respiratory: No reports of shortness of breath or cough GI: No reports of nausea, vomiting, or diarrhea : No reports of dysuria or retention Neurovascular: Reports weakness All medications have been reviewed Objective - Vital Signs Vital signs: Vital Signs Temp 98.3 F 06/24/20 08:00 Pulse 62 06/24/20 08:00 Resp 17 06/24/20 08:00 BP 136/52 06/24/20 08:00 Pulse Ox 95 06/24/20 08:00 Intake & Output 06/23/20 06/24/20 06/24/20 18:59 06:59 18:59 Intake Total 100 Output Total 5 350 Balance 95 -350 Weight 124.738 kg Intake: IV 100 Output: Urine 350 Estimated Blood Loss 5 Other: Voiding Method Indwelling Catheter - Exam GENERAL: The patient is awake, alert and oriented x3, not in any acute distress. Obese HEENT: Pupils are round and equally reacting to light. EOMI. No scleral icterus. No conjunctival pallor. Normocephalic, atraumatic. No pharyngeal erythema. No thyromegaly. No drainage, redness, or swelling noted of the right ear on exam and nontender to the touch CARDIOVASCULAR: S1 and S2 present. No murmurs, rubs, or gallops. PULMONARY: Chest is clear to auscultation, no wheezing or crackles. ABDOMEN: Soft, obese, nontender, nondistended, normoactive bowel sounds. No palpable organomegaly. Right side colostomy noted MUSCULOSKELETAL: No joint swelling or deformity. EXTREMITIES: No cyanosis, clubbing, or pedal edema. NEUROLOGICAL: Gross neurological examination did not reveal any new focal deficits. Paraplegic SKIN: sacral decubitus ulcer with surgical dressings noted - Labs CBC & Chem 7: 06/23/20 05:40 06/24/20 09:35 Labs: Abnormal Lab Results - Last 24 Hours (Table) 06/23/20 06/23/20 06/23/20 Range/Units 05:40 05:40 10:54 RBC 3.98 L (4.40-5.60) X 10*6/uL Hgb 10.8 L (13.0-17.0) g/dL Hct 34.7 L (39.6-50.0) % MCHC 31.1 L (32.0-37.0) g/dL RDW 15.6 H (11.5-14.5) % Plt Count 104 L (140-440) X 10*3/uL Plt Count Comment DECREASED A MPV 12.5 H (9.5-12.2) fL Immature Gran # 0.08 H (0.00-0.04) X 10*3/uL Neutrophils # 7.75 H (1.80-7.70) X 10*3/uL Lymphocytes # 0.29 L (0.90-5.00) X 10*3/uL PT 16.8 H (9.0-12.0) sec INR 1.7 H (<1.2) BUN 45.0 H (9.0-27.0) mg/dL Creatinine 1.8 H (0.6-1.5) mg/dL Est GFR (CKD-EPI)AfAm 43.5 L (60.0-200.0) Est GFR (CKD-EPI)NonAf 37.6 L (60.0-200.0) BUN/Creatinine Ratio 25.00 H (12.00-20.00) Ratio Glucose 226 H (70-110) mg/dL POC Glucose (mg/dL) (75-99) mg/dL Calcium 7.6 L (8.7-10.3) mg/dL 06/23/20 06/23/20 06/23/20 Range/Units 11:55 15:56 20:24 RBC (4.40-5.60) X 10*6/uL Hgb (13.0-17.0) g/dL Hct (39.6-50.0) % MCHC (32.0-37.0) g/dL RDW (11.5-14.5) % Plt Count (140-440) X 10*3/uL Plt Count Comment MPV (9.5-12.2) fL Immature Gran # (0.00-0.04) X 10*3/uL Neutrophils # (1.80-7.70) X 10*3/uL Lymphocytes # (0.90-5.00) X 10*3/uL PT (9.0-12.0) sec INR (<1.2) BUN (9.0-27.0) mg/dL Creatinine (0.6-1.5) mg/dL Est GFR (CKD-EPI)AfAm (60.0-200.0) Est GFR (CKD-EPI)NonAf (60.0-200.0) BUN/Creatinine Ratio (12.00-20.00) Ratio Glucose (70-110) mg/dL POC Glucose (mg/dL) 208 H 231 H 235 H (75-99) mg/dL Calcium (8.7-10.3) mg/dL 06/24/20 Range/Units 07:14 RBC (4.40-5.60) X 10*6/uL Hgb (13.0-17.0) g/dL Hct (39.6-50.0) % MCHC (32.0-37.0) g/dL RDW (11.5-14.5) % Plt Count (140-440) X 10*3/uL Plt Count Comment MPV (9.5-12.2) fL Immature Gran # (0.00-0.04) X 10*3/uL Neutrophils # (1.80-7.70) X 10*3/uL Lymphocytes # (0.90-5.00) X 10*3/uL PT (9.0-12.0) sec INR (<1.2) BUN (9.0-27.0) mg/dL Creatinine (0.6-1.5) mg/dL Est GFR (CKD-EPI)AfAm (60.0-200.0) Est GFR (CKD-EPI)NonAf (60.0-200.0) BUN/Creatinine Ratio (12.00-20.00) Ratio Glucose (70-110) mg/dL POC Glucose (mg/dL) 292 H (75-99) mg/dL Calcium (8.7-10.3) mg/dL Microbiology - Last 24 Hours (Table) 06/23/20 16:55 Gram Stain - Preliminary Buttock Wound Culture - Preliminary 06/23/20 16:55 Anaerobic Culture - Preliminary Buttock 06/22/20 11:32 Urine Culture - Preliminary Urine,Voided Yeast species 06/22/20 11:26 Blood Culture - Preliminary Blood No Growth after 24 hours 06/22/20 14:47 Gram Stain - Preliminary Buttock Wound Culture - Preliminary Gram Neg Bacilli Assessment and Plan Assessment: -Severe sepsis: Secondary to infected sacral decubitus stage IV ulcer, present on admission. -lactic acidosis with elevated lactic acid of 4.0, present on admission, secondary to above, improved. -Status post debridement of sacral decubitus ulcer -Type 2 diabetes mellitus; uncontrolled with hyperglycemia, continue with sliding scale insulin, will add long-acting and monitor before meals and at bedtime -acute renal failure: Secondary to prerenal azotemia secondary to sepsis , currently 1.5 -Hypertension -Hypovolemic hyponatremia, improving -Tachycardia and due to sepsis -DVT prophylaxis with subcutaneous heparin -GI prophylaxis Pepcid Plan: Continue with current medications and IV antibiotics. Infectious disease and surgery following. Patient is on Zosyn and cultures finalized showing Proteus mirabilis, enterococcus, and gram-negative bacilli and awaiting the cultures from debridement yesterday. Potassium slightly elevated at 5.4 will give a dose of Late. Blood sugars elevated and will continue with sliding scale and will add long-acting is well area did Will repeat a.m. labs.
[2020-06-24 14:56] LABS: Glucose,Whole Blood 425 mg/dL (75-99)
[2020-06-24 14:56] LABS: Glucose,Whole Blood 379 mg/dL (75-99)
[2020-06-24] MEDS: SODIUM CHLORIDE 0.9% 1,000 ML IV SCH (15:50)
[2020-06-24 16:36] LABS: Glucose,Whole Blood 306 mg/dL (75-99)
[2020-06-24 20:53] LABS: Glucose,Whole Blood 415 mg/dL (75-99)
[2020-06-24] MEDS ORDERED: INSULIN DETEMIR (LEVEMIR) 100 UNIT/ML SYR SQ SCH ×2 (21:00→21:30)
--- NOTE | 2020-06-24 22:32 | PN ---
PROGRESS NOTE DATE OF SERVICE: 06/24/2020 REASON FOR FOLLOWUP: 1. Left gluteal stage IV pressure ulcer, infected. 2. UTI. INTERVAL HISTORY: The patient is currently afebrile. The patient is breathing comfortably. The patient denies having any chest pain, shortness of breath or cough. No nausea, no vomiting, no abdominal pain or diarrhea. PHYSICAL EXAMINATION: Blood pressure 124/71, pulse of 69, temperature of 97.7. He is 99% on room air. General description is an elderly male lying in bed in no distress. RESPIRATORY SYSTEM: Unlabored breathing. Clear to auscultation anteriorly. HEART: S1, S2. Regular rate and rhythm. ABDOMEN: Soft. No tenderness. LABS: BUN of 39, creatinine 1.50. Local culture positive for Proteus, Enterococcus faecalis and Gram-negative bacilli. DIAGNOSTIC IMPRESSION AND PLAN: 1. Patient with a left gluteal stage IV pressure ulcer. Culture with multiple pathogens, including Proteus, Enterococcus and Gram-negative. Patient is covered with Zosyn; to continue. He will need a PICC line. Local wound care with a wound V.A.C. and his monitor clinical course closely. 2. Urinary tract infection, catheter-associated. Bacon catheter has been changed. Repeat UA requested but not done. Will check a repeat UA. Continue with the Diflucan. MMODL / IJN: [id number] /
[2020-06-25] MEDS: SODIUM CHLORIDE 0.9% 1,000 ML IV SCH ×3 (01:56→16:45)
[2020-06-25 07:02] LABS: Glucose,Whole Blood 320 mg/dL (75-99)
[2020-06-25] MEDS: METHADONE 10 MG TAB PO SCH ×2 (07:29→20:17)
[2020-06-25] MEDS: tiZANidine 4 MG TAB PO SCH ×3 (07:29→20:18)
[2020-06-25] MEDS: METOPROLOL TARTRATE 12.5 MG TAB PO SCH ×2 (07:29→20:17)
[2020-06-25] MEDS: amLODIPine 10 MG TAB PO SCH (07:30)
[2020-06-25] MEDS: FLUCONAZOLE 100 MG TAB PO SCH (07:30)
[2020-06-25] MEDS: HEPARIN SODIUM,PORCINE 5,000 UNIT/ML 1 ML VIAL SQ SCH ×2 (07:30→20:18)
[2020-06-25] MEDS: INSULIN ASPART (NovoLOG) 100 UNIT/ML VIAL SQ SCH ×6 (07:30→20:18)
[2020-06-25] MEDS: PIPERACILLIN-TAZOBACTAM 3.375 GM in SODIUM CHLORIDE 0.9% 100 ML IVPB SCH ×3 (07:35→23:37)
[2020-06-25 10:47] LABS: African American GFR (CKD) 54.3 (60.0-200.0); Anion Gap 4.1 mmol/L (4.00-12.00); BUN/Creat Ratio 23.33 Ratio (12.00-20.00); Calcium 7.8 mg/dL (8.7-10.3); Carbon Dioxide 21.9 mmol/L (21.6-31.8); Non-African American GFR(CKD) 46.8 (60.0-200.0); Potassium 5.8 mmol/L (3.5-5.5)
--- NOTE | 2020-06-25 11:07 | P.PN ---
<Agnes Rodriguez - Last Filed: 06/25/20 10:59> Subjective Progress Note Date: 06/25/20 CHIEF COMPLAINT: Left buttocks decubitus ulcer HISTORY OF PRESENT ILLNESS: Patient is status post debridement of left buttocks decubitus ulcer on 06/23/2020. Patient had wound VAC placed. Dr. Perez is recommending IV antibiotics outpatient and the patient will need a PICC line. Patient is sitting up in bed comfortably. Patient has no new complaints. He denies any nausea or vomiting. He is tolerating regular diet. Afebrile. Sodium 133 potassium 5.8 creatinine 1.5 PHYSICAL EXAM: VITAL SIGNS: Reviewed. GENERAL: Well-developed in no acute distress. HEENT: No sclera icterus. Extraocular movements grossly intact. Moist buccal mucosa. Head is atraumatic, normocephalic. ABDOMEN: Soft. Nondistended. Nontender. NEUROLOGIC: Alert and oriented. Cranial nerves II through XII grossly intact. ASSESSMENT: 1. Left buttocks decubitus ulcer status post debridement PLAN: -Continue wound vac -Continue antibiotics per ID -Hyperkalemia treatment per medicine service Physician Global Position System Technician note has been reviewed by physician. Signing provider agrees with the documented findings, assessment, and plan of care. Objective - Vital Signs Vital signs: Vital Signs Temp 98.2 F 06/25/20 07:20 Pulse 59 L 06/25/20 07:20 Resp 18 06/25/20 07:20 BP 133/77 06/25/20 07:20 Pulse Ox 97 06/25/20 07:20 Intake & Output 06/24/20 06/25/20 06/25/20 18:59 06:59 18:59 Output Total 700 800 300 Balance -700 -800 -300 Output: Urine 700 800 Stool 300 Other: Voiding Method Indwelling Catheter Indwelling Catheter Indwelling Catheter - Labs CBC & Chem 7: 06/23/20 05:40 06/25/20 06:07 Labs: Abnormal Lab Results - Last 24 Hours (Table) 06/24/20 06/24/20 06/24/20 Range/Units 12:03 14:53 14:54 Sodium (135-145) mmol/L Potassium (3.5-5.5) mmol/L BUN (9.0-27.0) mg/dL Est GFR (CKD-EPI)AfAm (60.0-200.0) Est GFR (CKD-EPI)NonAf (60.0-200.0) BUN/Creatinine Ratio (12.00-20.00) Ratio Glucose (70-110) mg/dL POC Glucose (mg/dL) 435 H 425 H 379 H (75-99) mg/dL Calcium (8.7-10.3) mg/dL 06/24/20 06/24/20 06/25/20 Range/Units 16:34 20:52 06:07 Sodium 133 L (135-145) mmol/L Potassium 5.8 H (3.5-5.5) mmol/L BUN 35.0 H (9.0-27.0) mg/dL Est GFR (CKD-EPI)AfAm 54.3 L (60.0-200.0) Est GFR (CKD-EPI)NonAf 46.8 L (60.0-200.0) BUN/Creatinine Ratio 23.33 H (12.00-20.00) Ratio Glucose 177 H (70-110) mg/dL POC Glucose (mg/dL) 306 H 415 H (75-99) mg/dL Calcium 7.8 L (8.7-10.3) mg/dL 06/25/20 Range/Units 06:58 Sodium (135-145) mmol/L Potassium (3.5-5.5) mmol/L BUN (9.0-27.0) mg/dL Est GFR (CKD-EPI)AfAm (60.0-200.0) Est GFR (CKD-EPI)NonAf (60.0-200.0) BUN/Creatinine Ratio (12.00-20.00) Ratio Glucose (70-110) mg/dL POC Glucose (mg/dL) 320 H (75-99) mg/dL Calcium (8.7-10.3) mg/dL Microbiology - Last 24 Hours (Table) 06/22/20 11:32 Urine Culture - Final Urine,Voided Carly albicans 06/23/20 16:55 Gram Stain - Preliminary Buttock Wound Culture - Preliminary Gram Neg Bacilli 06/22/20 11:26 Blood Culture - Preliminary Blood No Growth after 48 hours 06/22/20 14:47 Gram Stain - Preliminary Buttock Wound Culture - Preliminary Proteus mirabilis Enterococcus faecalis Gram Neg Bacilli <Moris Obrien - Last Filed: 06/25/20 14:07> Subjective As above. Patient febrile at this time. Wound VAC was placed. Minimal drainage from the wound VAC system at this time. Cultures noted. Continue antibiotics. Objective - Vital Signs Vital signs: Vital Signs Temp 100 F H 06/25/20 13:55 Pulse 59 L 06/25/20 07:20 Resp 18 06/25/20 07:20 BP 133/77 06/25/20 07:20 Pulse Ox 97 06/25/20 07:20 Intake & Output 06/24/20 06/25/20 06/25/20 18:59 06:59 18:59 Output Total 700 800 300 Balance -700 -800 -300 Weight 124.738 kg Output: Urine 700 800 Stool 300 Other: Voiding Method Indwelling Catheter Indwelling Catheter Indwelling Catheter - Labs CBC & Chem 7: 06/23/20 05:40 06/25/20 06:07 Labs: Abnormal Lab Results - Last 24 Hours (Table) 06/24/20 06/24/20 06/24/20 Range/Units 14:53 14:54 16:34 Sodium (135-145) mmol/L Potassium (3.5-5.5) mmol/L BUN (9.0-27.0) mg/dL Est GFR (CKD-EPI)AfAm (60.0-200.0) Est GFR (CKD-EPI)NonAf (60.0-200.0) BUN/Creatinine Ratio (12.00-20.00) Ratio Glucose (70-110) mg/dL POC Glucose (mg/dL) 425 H 379 H 306 H (75-99) mg/dL Calcium (8.7-10.3) mg/dL 06/24/20 06/25/20 06/25/20 Range/Units 20:52 06:07 06:58 Sodium 133 L (135-145) mmol/L Potassium 5.8 H (3.5-5.5) mmol/L BUN 35.0 H (9.0-27.0) mg/dL Est GFR (CKD-EPI)AfAm 54.3 L (60.0-200.0) Est GFR (CKD-EPI)NonAf 46.8 L (60.0-200.0) BUN/Creatinine Ratio 23.33 H (12.00-20.00) Ratio Glucose 177 H (70-110) mg/dL POC Glucose (mg/dL) 415 H 320 H (75-99) mg/dL Calcium 7.8 L (8.7-10.3) mg/dL 06/25/20 06/25/20 Range/Units 11:32 11:32 Sodium (135-145) mmol/L Potassium (3.5-5.5) mmol/L BUN (9.0-27.0) mg/dL Est GFR (CKD-EPI)AfAm (60.0-200.0) Est GFR (CKD-EPI)NonAf (60.0-200.0) BUN/Creatinine Ratio (12.00-20.00) Ratio Glucose (70-110) mg/dL POC Glucose (mg/dL) >600 H 397 H (75-99) mg/dL Calcium (8.7-10.3) mg/dL Microbiology - Last 24 Hours (Table) 06/22/20 11:26 Blood Culture - Preliminary Blood No Growth after 72 hours 06/22/20 14:47 Gram Stain - Final Buttock Wound Culture - Final Proteus mirabilis Enterococcus faecalis Klebsiella oxytoca 06/22/20 11:32 Urine Culture - Final Urine,Voided Carly albicans 06/23/20 16:55 Gram Stain - Preliminary Buttock Wound Culture - Preliminary Gram Neg Bacilli
[2020-06-25 11:34] LABS: Glucose,Whole Blood 397 mg/dL (75-99); Glucose,Whole Blood >600 mg/dL (75-99)
[2020-06-25] MEDS ORDERED: DEXTROSE 50% SYRINGE 50 ML IVP STA (12:03)
[2020-06-25] MEDS ORDERED: INSULIN REGULAR 100 UNIT/ML VIAL (IV) IV ONE (12:03)
--- NOTE | 2020-06-25 12:42 | P.PN ---
Subjective Progress Note Date: 06/25/20 HISTORY OF PRESENT ILLNESS This is a 70-year-old male patient treated for infected left gluteal stage IV p ressure ulcer status post debridement left buttocks. Wound culture positive for Proteus, enterococcus and gram-negative. Gram-negative sensitivity is still pending. Pathology report is pending. Patient is covered with Zosyn for now. PICC line will be ordered. Patient denies having any nausea vomiting. No abdominal pain. No cough, shortness of breath. Wound VAC has been placed. Patient has been afebrile, heart rate 59, blood pressure 133/77, pulse ox 97% on room air. Sodium 133, potassium 5.8, BUN 35 and creatinine 1.5. Blood sugars are elevated and 300s and 400s. PHYSICAL EXAMINATION Gen: This is a 70-year-old male. His resting bed appears to be comfortable. HEENT: Head is atraumatic, normocephalic. Pupils equal, round. Sclerae is anicteric. LUNGS: Clear to auscultation. No wheezes or rhonchi. No intercostal retractions. HEART: Regular rate and rhythm. ABDOMEN: Soft. No tenderness. EXTREMITIES: No pedal edema. No calf tenderness. NEUROLOGICAL: Patient is awake, alert and oriented. ASSESSMENT Infected left gluteal stage IV pressure ulcer status post debridement Culture positive for Proteus, enterococcus and gram-negative bacilli PLAN Continue Zosyn 3.375 g IV piggyback every 8 hours Antibiotics for discharge will be determined once gram-negative bacilli has been identified and sensitivity available PICC line insertion order Further recommendations as patient progresses. The above dictated assessment and findings were discussed with Dr. Perez. The impression and plan of care have been directed as dictated. Alysha Lopez nurse practitioner acting as scribe for Dr. Perez. Objective - Vital Signs Vital signs: Vital Signs Temp 98.2 F 06/25/20 07:20 Pulse 59 L 06/25/20 07:20 Resp 18 06/25/20 07:20 BP 133/77 06/25/20 07:20 Pulse Ox 97 06/25/20 07:20 Intake & Output 06/24/20 06/25/20 06/25/20 18:59 06:59 18:59 Output Total 700 800 300 Balance -700 -800 -300 Output: Urine 700 800 Stool 300 Other: Voiding Method Indwelling Catheter Indwelling Catheter Indwelling Catheter - Labs CBC & Chem 7: 06/23/20 05:40 06/25/20 06:07 Labs: Abnormal Lab Results - Last 24 Hours (Table) 06/24/20 06/24/20 06/24/20 Range/Units 12:03 14:53 14:54 Sodium (135-145) mmol/L Potassium (3.5-5.5) mmol/L BUN (9.0-27.0) mg/dL Est GFR (CKD-EPI)AfAm (60.0-200.0) Est GFR (CKD-EPI)NonAf (60.0-200.0) BUN/Creatinine Ratio (12.00-20.00) Ratio Glucose (70-110) mg/dL POC Glucose (mg/dL) 435 H 425 H 379 H (75-99) mg/dL Calcium (8.7-10.3) mg/dL 06/24/20 06/24/20 06/25/20 Range/Units 16:34 20:52 06:07 Sodium 133 L (135-145) mmol/L Potassium 5.8 H (3.5-5.5) mmol/L BUN 35.0 H (9.0-27.0) mg/dL Est GFR (CKD-EPI)AfAm 54.3 L (60.0-200.0) Est GFR (CKD-EPI)NonAf 46.8 L (60.0-200.0) BUN/Creatinine Ratio 23.33 H (12.00-20.00) Ratio Glucose 177 H (70-110) mg/dL POC Glucose (mg/dL) 306 H 415 H (75-99) mg/dL Calcium 7.8 L (8.7-10.3) mg/dL 06/25/20 06/25/20 06/25/20 Range/Units 06:58 11:32 11:32 Sodium (135-145) mmol/L Potassium (3.5-5.5) mmol/L BUN (9.0-27.0) mg/dL Est GFR (CKD-EPI)AfAm (60.0-200.0) Est GFR (CKD-EPI)NonAf (60.0-200.0) BUN/Creatinine Ratio (12.00-20.00) Ratio Glucose (70-110) mg/dL POC Glucose (mg/dL) 320 H >600 H 397 H (75-99) mg/dL Calcium (8.7-10.3) mg/dL Microbiology - Last 24 Hours (Table) 06/22/20 11:32 Urine Culture - Final Urine,Voided Carly albicans 06/23/20 16:55 Gram Stain - Preliminary Buttock Wound Culture - Preliminary Gram Neg Bacilli 06/22/20 11:26 Blood Culture - Preliminary Blood No Growth after 48 hours 06/22/20 14:47 Gram Stain - Preliminary Buttock Wound Culture - Preliminary Proteus mirabilis Enterococcus faecalis Gram Neg Bacilli
[2020-06-25] MEDS ORDERED: LIDOCAINE 1% INJ 10MG/ML (20 ML MDV) SQ ONE (12:44)
--- NOTE | 2020-06-25 13:30 | IR ---
PICC LINE PLACEMENT: HISTORY: Infection requiring long-term antibiotic therapy PROCEDURE: Ultrasound and fluoroscopic guidance of PICC line placement. COMPLICATIONS: None ANESTHESIA: 1. 1% Lidocaine locally. FINDINGS/TECHNIQUE: The procedure was explained to the patient. The risks, complications, benefits and alternatives were discussed and any questions were answered. Informed consent was obtained. The patient was placed supine on the fluoroscopic table and prepped and draped in the usual sterile fash ion. Utilizing a 21 gauge needle and sonographic and fluoroscopic guidance, access in the left basi lic vein was achieved and there is placement of a 0.018 guidewire. The vein is patent. A 4-F sheath was placed over the guidewire. The guidewire and dilator were removed and a 4-F. PICC line was plac ed through the sheath with the tip at the level of the SVC. The sheath was removed, the catheter was flushed and sutured into position. The patient was stable throughout the procedure and remained sta ble upon discharge from the Department of Radiology. The vein puncture was patent under ultrasound. A huff scale image was obtained to document patency of the vein punctured. All elements of the maximal barrier technique were utilized. FLUOROSCOPY TIME: 0.2 minutes and one images IMPRESSION: Successful PICC line placement under ultrasound and fluoroscopic guidance.
--- NOTE | 2020-06-25 13:50 | P.PN ---
Subjective Progress Note Date: 06/25/20 68-year-old pleasant gentleman with paraplegia came in because of infection of the decubitus ulcer. Patient had a small 6 sparred started a few days ago which was initially clean and now appear to be infected with the redness local is of temperature in the surrounding skin and pulses swelling discharge. Patient has a big sacral acute is ulcer appears to be stage IV ulcer. Patient was started on oral antibiotic. I do not have any cultures available from the wound cultures will be obtained aerobic and anaerobic patient will be admitted with broad-spectrum antibiotics. She was having on and off fevers with chills patient is a low-grade fever here. Patient's creatinine is 1.83 baseline is around 1.2 patient is bit hyponatremic as well. Patient denied any dysuria patient has a Bacon catheter urine is significantly abnormal with large leukocyte esterase with WBC clumps, squamous epithelial cells 06/23/2020 Patient seen and evaluated and follow-up currently awaiting to undergo surgical debridement for decubitus ulcer. Patient is lethargic although arousable alert and oriented 3. Retina and continues to be 1.8 and BUN is 45. Current INR is 1.7. White blood count is 8.80 and hemoglobin is 10.8. Will decrease methadone to twice daily. Blood pressure elevated today and will continue to monitor and continue with Norvasc and resume home dose after the procedure. Patient has been afebrile since yesterday. Patient is maintained on IV antibiotics in the form of Unasyn and vancomycin while awaiting cultures. Infectious disease following. Preliminary culture showing gram-negative bacilli. 06/24/2020 Patient is seen this morning complains of a dull headache and right ear disc omfort and Tylenol was given. Patient denies any dizziness lightheadedness or visual disturbances. Patient blood sugar also found to be elevated in the 3 and 400s and will start long-acting and continue with sliding scale. Patient is more alert and awake today and has been tolerating diet with no reports of nausea or vomiting noted. Patient is status post surgical debridement of the decubitus ulcer with Dr. Obrien and surgery is following. Infectious disease is also following and patient's preliminary cultures finalized showing Proteus mirabilis, enterococcus, gram-negative bacilli and patient is maintained on Zosyn and will continue at this time. Awaiting deep wound cultures from [facility]. Potassium was also found to be slightly elevated at 5.4 and will give capsulate. Creatinine stable at 1.5 BUN of 39. 06/25/2020 Patient is seen this morning and blood sugars continue to be elevated and patient was started on long-acting although continues to have blood sugars in the 300 to 400s. Will increase long-acting and initiate pre-meal insulins and continue with sliding scale and continue to monitor blood sugars closely. Resume glipizide as well. Patient had wound VAC applied and infectious disease following. Patient to receive a PICC line. PT/OT to evaluate the patient. Discussed with case management about discharge planning needs and patient follows with the OR and discharge antibiotics are pending as the cultures are pending preliminary showing gram-negative bacilli. Once cultures are finalized will have to await authorization through the OR for outpatient IV antibiotic therapy. Potassium was 5.8 today and given 10 units of insulin IV along with an amp of D50 and will repeat labs. Creatinine stable at 1.5. Review of systems: Constitutional: No reports of fatigue, fever, or chills HEENT: No reports of headache Cardiovascular: No reports of chest pain or palpitations Respiratory: No reports of shortness of breath or cough GI: No reports of nausea, vomiting, or diarrhea : No reports of dysuria or retention Neurovascular: Reports generalized weakness All medications have been reviewed Objective - Vital Signs Vital signs: Vital Signs Temp 98.2 F 06/25/20 07:20 Pulse 59 L 06/25/20 07:20 Resp 18 06/25/20 07:20 BP 133/77 06/25/20 07:20 Pulse Ox 97 06/25/20 07:20 Intake & Output 06/24/20 06/25/20 06/25/20 18:59 06:59 18:59 Output Total 700 800 300 Balance -700 -800 -300 Output: Urine 700 800 Stool 300 Other: Voiding Method Indwelling Catheter Indwelling Catheter Indwelling Catheter - Exam GENERAL: The patient is awake, alert and oriented x3, not in any acute distress. Obese HEENT: Pupils are round and equally reacting to light. EOMI. No scleral icterus. No conjunctival pallor. Normocephalic, atraumatic. No pharyngeal erythema. No thyromegaly. No drainage, redness, or swelling noted of the right ear on exam and nontender to the touch CARDIOVASCULAR: S1 and S2 present. No murmurs, rubs, or gallops. PULMONARY: Chest is clear to auscultation, no wheezing or crackles. ABDOMEN: Soft, obese, nontender, nondistended, normoactive bowel sounds. No palpable organomegaly. Right side colostomy noted MUSCULOSKELETAL: No joint swelling or deformity. EXTREMITIES: No cyanosis, clubbing, or pedal edema. NEUROLOGICAL: Gross neurological examination did not reveal any new focal d eficits. Paraplegic SKIN: sacral decubitus ulcer with wound vac noted - Labs CBC & Chem 7: 06/23/20 05:40 06/25/20 06:07 Labs: Abnormal Lab Results - Last 24 Hours (Table) 06/24/20 06/24/20 06/24/20 Range/Units 06:33 09:35 12:03 Sodium 133 L (137-145) mmol/L Potassium 5.4 H (3.5-5.1) mmol/L Carbon Dioxide 21 L (22-30) mmol/L BUN 39 H (9-20) mg/dL Creatinine 1.50 H (0.66-1.25) mg/dL Est GFR (CKD-EPI)AfAm 54.3 L (60.0-200.0) Est GFR (CKD-EPI)NonAf 46.8 L (60.0-200.0) Glucose 337 H (74-99) mg/dL POC Glucose (mg/dL) 435 H (75-99) mg/dL Calcium 7.5 L (8.4-10.2) mg/dL 06/24/20 06/24/20 06/24/20 Range/Units 14:53 14:54 16:34 Sodium (137-145) mmol/L Potassium (3.5-5.1) mmol/L Carbon Dioxide (22-30) mmol/L BUN (9-20) mg/dL Creatinine (0.66-1.25) mg/dL Est GFR (CKD-EPI)AfAm (60.0-200.0) Est GFR (CKD-EPI)NonAf (60.0-200.0) Glucose (74-99) mg/dL POC Glucose (mg/dL) 425 H 379 H 306 H (75-99) mg/dL Calcium (8.4-10.2) mg/dL 06/24/20 06/25/20 Range/Units 20:52 06:58 Sodium (137-145) mmol/L Potassium (3.5-5.1) mmol/L Carbon Dioxide (22-30) mmol/L BUN (9-20) mg/dL Creatinine (0.66-1.25) mg/dL Est GFR (CKD-EPI)AfAm (60.0-200.0) Est GFR (CKD-EPI)NonAf (60.0-200.0) Glucose (74-99) mg/dL POC Glucose (mg/dL) 415 H 320 H (75-99) mg/dL Calcium (8.4-10.2) mg/dL Microbiology - Last 24 Hours (Table) 06/22/20 11:32 Urine Culture - Final Urine,Voided Carly albicans 06/23/20 16:55 Gram Stain - Preliminary Buttock Wound Culture - Preliminary Gram Neg Bacilli 06/22/20 11:26 Blood Culture - Preliminary Blood No Growth after 48 hours 06/22/20 14:47 Gram Stain - Preliminary Buttock Wound Culture - Preliminary Proteus mirabilis Enterococcus faecalis Gram Neg Bacilli Assessment and Plan Assessment: -Severe sepsis: Secondary to infected sacral decubitus stage IV ulcer, present on admission. -lactic acidosis with elevated lactic acid of 4.0, present on admission, second dayan to above, improved. -Status post debridement of sacral decubitus ulcer, preliminary culture showing gram-negative bacilli and awaiting finalization to determine discharge antibiotics. Patient receiving a PICC line. Wound VAC applied. -Type 2 diabetes mellitus; uncontrolled with hyperglycemia, continue with sliding scale insulin, will increase long-acting and also add pre-meal insulin and resume glipizide. and continue to monitor before meals and at bedtime -acute renal failure: Secondary to prerenal azotemia secondary to sepsis , currently 1.5 -Hyperkalemia -Hypertension -Hypovolemic hyponatremia, improving -Tachycardia and due to sepsis -DVT prophylaxis with subcutaneous heparin -GI prophylaxis Pepcid Plan: Continue with current medications and IV antibiotics. Infectious disease and surgery following. Patient is on Zosyn and initial cultures finalized showing Proteus mirabilis, enterococcus, and gram-negative bacilli and awaiting the cultures from debridement yesterday. Preliminary continues to show gram- negative bacilli. Patient to receive a PICC line and case management is following and [facility]. Potassium slightly elevated at 5.8 will give a dose insulin with dextrose. Blood sugars elevated and will continue with sliding scale, long-acting, will add pre-meal insulin and resume glipizide. Will repeat a.m. labs.
[2020-06-25] MEDS: ACETAMINOPHEN TAB 325 MG TAB PO PRN (13:53)
[2020-06-25 14:49] LABS: Glucose,Whole Blood 248 mg/dL (75-99)
[2020-06-25 14:49] LABS: Glucose,Whole Blood 284 mg/dL (75-99); Glucose,Whole Blood >600 mg/dL (75-99)
[2020-06-25] MEDS ORDERED: ACETAMINOPHEN TAB 500 MG TAB PO PRN (15:04)
[2020-06-25] MEDS ORDERED: SODIUM CHLORIDE 0.9% 500 ML 500 ML IV ONE (15:48)
[2020-06-25 15:50] LABS: Basophils # (A) 0.5 k/uL (0-0.2); Basophils % (A) 5 %; Eosinophils % (A) 0 %; HCT 32.9 % (39.0-53.0); Hypochromasia Marked; Lymphocytes # (A) 0.9 k/uL (1.0-4.8); Lymphocytes % (A) 9 %; MCH 27.1 pg (25.0-35.0); MCHC 30.4 g/dL (31.0-37.0); MCV 89.2 fL (80.0-100.0); Mean Platelet Volume 10.6; Monocytes # (A) 0.5 k/uL (0-1.0); Monocytes % (A) 4 %; Neutrophils # (A) 9.1 k/uL (1.3-7.7); Neutrophils % (A) 85 %; Platelet Count 110 k/uL (150-450); RBC 3.69 m/uL (4.30-5.90); WBC 10.7 k/uL (3.8-10.6)
[2020-06-25 16:33] LABS: Band Neutrophils % 4 %; Eosinophils # (M) 0.11 k/uL (0-0.7); Lymphocytes # (M) 0.64 k/uL (1.0-4.8); Metamyelocytes # (M) 0.21 k/uL (0); Metamyelocytes % 2 %; Monocytes # (M) 0.21 k/uL (0-1.0); Neutrophils % (M) 86 %; Nucleated Red Blood Cells 0 /100 WBC (0-0); Polychromasia Present; Total Cells Counted 200
[2020-06-25 16:51] LABS: Glucose,Whole Blood 146 mg/dL (75-99)
[2020-06-25] MEDS: INSULIN DETEMIR (LEVEMIR) 100 UNIT/ML SYR SQ SCH (16:54)
[2020-06-25] MEDS: glipiZIDE 10 MG TAB PO SCH (17:17)
[2020-06-25 17:58] LABS: Glucose,Whole Blood 176 mg/dL (75-99)
[2020-06-25 19:55] LABS: Glucose,Whole Blood 309 mg/dL (75-99)
[2020-06-26] MEDS: ACETAMINOPHEN TAB 500 MG TAB PO PRN (04:21)
[2020-06-26 07:20] LABS: Glucose,Whole Blood 328 mg/dL (75-99)
[2020-06-26] MEDS: INSULIN ASPART (NovoLOG) 100 UNIT/ML VIAL SQ SCH ×7 (07:46→21:35)
[2020-06-26] MEDS: PIPERACILLIN-TAZOBACTAM 3.375 GM in SODIUM CHLORIDE 0.9% 100 ML IVPB SCH ×3 (07:47→23:48)
[2020-06-26] MEDS: glipiZIDE 10 MG TAB PO SCH ×2 (07:47→17:32)
--- NOTE | 2020-06-26 07:51 | XR ---
EXAMINATION TYPE: XR chest 1V portable DATE OF EXAM: 06/26/2020 COMPARISON: 07/08/2010 INDICATION: Shortness of breath TECHNIQUE: Single frontal view of the chest is obtained. FINDINGS: The heart size is mildly prominent. The pulmonary vasculature is normal. Mild right basilar infiltrate is present. Correlate for atelectasis or pneumonia. IMPRESSION: 1. Mild infiltrate at the right base some elevation of the diaphragm. Correlate for atelectasis. Deve loping pneumonia should be considered.
[2020-06-26] MEDS: METHADONE 10 MG TAB PO SCH ×2 (08:21→20:37)
[2020-06-26] MEDS: FLUCONAZOLE 100 MG TAB PO SCH (08:21)
[2020-06-26] MEDS: METOPROLOL TARTRATE 12.5 MG TAB PO SCH ×2 (08:21→20:37)
[2020-06-26] MEDS: tiZANidine 4 MG TAB PO SCH ×3 (08:21→21:36)
[2020-06-26] MEDS: amLODIPine 10 MG TAB PO SCH (08:21)
[2020-06-26] MEDS: HEPARIN SODIUM,PORCINE 5,000 UNIT/ML 1 ML VIAL SQ SCH ×2 (08:22→20:38)
[2020-06-26 09:50] LABS: African American GFR (CKD) 54.3 (60.0-200.0); Anion Gap 6.5 mmol/L (4.00-12.00); BUN/Creat Ratio 23.33 Ratio (12.00-20.00); Calcium 7.4 mg/dL (8.7-10.3); Carbon Dioxide 17.5 mmol/L (21.6-31.8); Non-African American GFR(CKD) 46.8 (60.0-200.0); Potassium 5.1 mmol/L (3.5-5.5)
--- NOTE | 2020-06-26 10:42 | P.PN ---
<Agnes Rodriguez - Last Filed: 06/26/20 10:39> Subjective Progress Note Date: 06/26/20 CHIEF COMPLAINT: Left buttocks decubitus ulcer HISTORY OF PRESENT ILLNESS: Patient is status post debridement of left buttocks decubitus ulcer on 06/23/2020. Patient has wound VAC. Patient had PICC line placed for IV antibiotics. Patient sitting up in bed comfortably. Patient has no new complaints. He denies any nausea or vomiting. He is tolerating regular diet. Patient did have a temp of 100 yesterday afternoon. This morning 97.6. Sodium 132 potassium 5.1 creatinine 1.5 hyperkalemia resolved. Chest x-ray mild infiltrate at the right base some elevation of the diaphragm. Correlate for atelectasis. Developing pneumonia should be considered PHYSICAL EXAM: VITAL SIGNS: Reviewed. GENERAL: Well-developed in no acute distress. HEENT: No sclera icterus. Extraocular movements grossly intact. Moist buccal mucosa. Head is atraumatic, normocephalic. ABDOMEN: Soft. Nondistended. Nontender. NEUROLOGIC: Alert and oriented. Cranial nerves II through XII grossly intact. ASSESSMENT: 1. Left buttocks decubitus ulcer status post debridement PLAN: -Continue wound vac -Continue antibiotics per ID -Ordered incentive spirometer Physician [place] Guide note has been reviewed by physician. Signing provider agrees with the documented findings, assessment, and plan of care. Objective - Vital Signs Vital signs: Vital Signs Temp 97.6 F 06/26/20 07:54 Pulse 51 L 06/26/20 07:54 Resp 16 06/26/20 07:54 BP 110/61 06/26/20 07:54 Pulse Ox 96 06/26/20 07:54 Intake & Output 06/25/20 06/26/20 06/26/20 18:59 06:59 18:59 Intake Total 200 Output Total 400 500 400 Balance -400 -300 -400 Weight 124.738 kg Intake: Oral 200 Output: Urine 100 500 Uretheral (Bacon) 100 Stool 300 400 Other: Voiding Method Indwelling Catheter Indwelling Catheter Indwelling Catheter # Bowel Movements 1 - Labs CBC & Chem 7: 06/25/20 15:10 06/26/20 05:43 Labs: Abnormal Lab Results - Last 24 Hours (Table) 06/25/20 06/25/20 06/25/20 Range/Units 06:07 11:32 11:32 WBC (3.8-10.6) k/uL RBC (4.30-5.90) m/uL Hgb (13.0-17.5) gm/dL Hct (39.0-53.0) % MCHC (31.0-37.0) g/dL RDW (11.5-15.5) % Plt Count (150-450) k/uL Neutrophils # (1.3-7.7) k/uL Neutrophils # (Manual) (1.3-7.7) k/uL Lymphocytes # (1.0-4.8) k/uL Lymphocytes # (Manual) (1.0-4.8) k/uL Basophils # (0-0.2) k/uL Metamyelocytes # (Man) (0) k/uL Sodium 133 L (135-145) mmol/L Potassium 5.8 H (3.5-5.5) mmol/L Carbon Dioxide (21.6-31.8) mmol/L BUN 35.0 H (9.0-27.0) mg/dL Est GFR (CKD-EPI)AfAm 54.3 L (60.0-200.0) Est GFR (CKD-EPI)NonAf 46.8 L (60.0-200.0) BUN/Creatinine Ratio 23.33 H (12.00-20.00) Ratio Glucose 177 H (70-110) mg/dL POC Glucose (mg/dL) >600 H 397 H (75-99) mg/dL Plasma Lactic Acid Davion (0.7-2.0) mmol/L Calcium 7.8 L (8.7-10.3) mg/dL 06/25/20 06/25/20 06/25/20 Range/Units 14:46 14:46 14:47 WBC (3.8-10.6) k/uL RBC (4.30-5.90) m/uL Hgb (13.0-17.5) gm/dL Hct (39.0-53.0) % MCHC (31.0-37.0) g/dL RDW (11.5-15.5) % Plt Count (150-450) k/uL Neutrophils # (1.3-7.7) k/uL Neutrophils # (Manual) (1.3-7.7) k/uL Lymphocytes # (1.0-4.8) k/uL Lymphocytes # (Manual) (1.0-4.8) k/uL Basophils # (0-0.2) k/uL Metamyelocytes # (Man) (0) k/uL Sodium (135-145) mmol/L Potassium (3.5-5.5) mmol/L Carbon Dioxide (21.6-31.8) mmol/L BUN (9.0-27.0) mg/dL Est GFR (CKD-EPI)AfAm (60.0-200.0) Est GFR (CKD-EPI)NonAf (60.0-200.0) BUN/Creatinine Ratio (12.00-20.00) Ratio Glucose (70-110) mg/dL POC Glucose (mg/dL) >600 H 284 H 248 H (75-99) mg/dL Plasma Lactic Acid Davion (0.7-2.0) mmol/L Calcium (8.7-10.3) mg/dL 06/25/20 06/25/20 06/25/20 Range/Units 15:10 15:10 16:48 WBC 10.7 H (3.8-10.6) k/uL RBC 3.69 L (4.30-5.90) m/uL Hgb 10.0 L D (13.0-17.5) gm/dL Hct 32.9 L (39.0-53.0) % MCHC 30.4 L (31.0-37.0) g/dL RDW 16.0 H (11.5-15.5) % Plt Count 110 L (150-450) k/uL Neutrophils # 9.1 H (1.3-7.7) k/uL Neutrophils # (Manual) 9.60 H (1.3-7.7) k/uL Lymphocytes # 0.9 L (1.0-4.8) k/uL Lymphocytes # (Manual) 0.64 L (1.0-4.8) k/uL Basophils # 0.5 H (0-0.2) k/uL Metamyelocytes # (Man) 0.21 H (0) k/uL Sodium (135-145) mmol/L Potassium (3.5-5.5) mmol/L Carbon Dioxide (21.6-31.8) mmol/L BUN (9.0-27.0) mg/dL Est GFR (CKD-EPI)AfAm (60.0-200.0) Est GFR (CKD-EPI)NonAf (60.0-200.0) BUN/Creatinine Ratio (12.00-20.00) Ratio Glucose (70-110) mg/dL POC Glucose (mg/dL) 146 H (75-99) mg/dL Plasma Lactic Acid Davion 3.7 H* (0.7-2.0) mmol/L Calcium (8.7-10.3) mg/dL 06/25/20 06/25/20 06/25/20 Range/Units 17:52 18:14 19:53 WBC (3.8-10.6) k/uL RBC (4.30-5.90) m/uL Hgb (13.0-17.5) gm/dL Hct (39.0-53.0) % MCHC (31.0-37.0) g/dL RDW (11.5-15.5) % Plt Count (150-450) k/uL Neutrophils # (1.3-7.7) k/uL Neutrophils # (Manual) (1.3-7.7) k/uL Lymphocytes # (1.0-4.8) k/uL Lymphocytes # (Manual) (1.0-4.8) k/uL Basophils # (0-0.2) k/uL Metamyelocytes # (Man) (0) k/uL Sodium (135-145) mmol/L Potassium (3.5-5.5) mmol/L Carbon Dioxide (21.6-31.8) mmol/L BUN (9.0-27.0) mg/dL Est GFR (CKD-EPI)AfAm (60.0-200.0) Est GFR (CKD-EPI)NonAf (60.0-200.0) BUN/Creatinine Ratio (12.00-20.00) Ratio Glucose (70-110) mg/dL POC Glucose (mg/dL) 176 H 309 H (75-99) mg/dL Plasma Lactic Acid Davion 2.6 H* (0.7-2.0) mmol/L Calcium (8.7-10.3) mg/dL 02/26/21 02/26/21 Range/Units 05:43 07:19 WBC (3.8-10.6) k/uL RBC (4.30-5.90) m/uL Hgb (13.0-17.5) gm/dL Hct (39.0-53.0) % MCHC (31.0-37.0) g/dL RDW (11.5-15.5) % Plt Count (150-450) k/uL Neutrophils # (1.3-7.7) k/uL Neutrophils # (Manual) (1.3-7.7) k/uL Lymphocytes # (1.0-4.8) k/uL Lymphocytes # (Manual) (1.0-4.8) k/uL Basophils # (0-0.2) k/uL Metamyelocytes # (Man) (0) k/uL Sodium 132 L (135-145) mmol/L Potassium (3.5-5.5) mmol/L Carbon Dioxide 17.5 L (21.6-31.8) mmol/L BUN 35.0 H (9.0-27.0) mg/dL Est GFR (CKD-EPI)AfAm 54.3 L (60.0-200.0) Est GFR (CKD-EPI)NonAf 46.8 L (60.0-200.0) BUN/Creatinine Ratio 23.33 H (12.00-20.00) Ratio Glucose 192 H (70-110) mg/dL POC Glucose (mg/dL) 328 H (75-99) mg/dL Plasma Lactic Acid Davion (0.7-2.0) mmol/L Calcium 7.4 L (8.7-10.3) mg/dL Microbiology - Last 24 Hours (Table) 06/23/20 16:55 Gram Stain - Preliminary Buttock Wound Culture - Preliminary Proteus mirabilis Enterococcus faecalis Gram Neg Bacilli 06/23/20 16:55 Anaerobic Culture - Preliminary Buttock 06/22/20 11:26 Blood Culture - Preliminary Blood No Growth after 72 hours 06/22/20 14:47 Gram Stain - Final Buttock Wound Culture - Final Proteus mirabilis Enterococcus faecalis Klebsiella oxytoca <Moris Obrien - Last Filed: 06/26/20 12:27> Subjective As above. Patient feels well today. No fevers or chills currently. Wound VAC was changed today. I will be out of town this weekend. Dr. Nick hernandez. I will ask her to see the patient on an as-needed basis this weekend. Please call her if necessary. Objective - Vital Signs Vital signs: Vital Signs Temp 97.6 F 06/26/20 07:54 Pulse 51 L 06/26/20 07:54 Resp 16 06/26/20 07:54 BP 110/61 06/26/20 07:54 Pulse Ox 96 06/26/20 07:54 Intake & Output 06/25/20 06/26/20 06/26/20 18:59 06:59 18:59 Intake Total 200 Output Total 400 500 900 Balance -400 -300 -900 Weight 124.738 kg Intake: Oral 200 Output: Urine 100 500 500 Uretheral (Bacon) 100 Stool 300 400 Other: Voiding Method Indwelling Catheter Indwelling Catheter Indwelling Catheter # Bowel Movements 1 - Labs CBC & Chem 7: 06/25/20 15:10 06/26/20 05:43 Labs: Abnormal Lab Results - Last 24 Hours (Table) 06/25/20 06/25/20 06/25/20 Range/Units 14:46 14:46 14:47 WBC (3.8-10.6) k/uL RBC (4.30-5.90) m/uL Hgb (13.0-17.5) gm/dL Hct (39.0-53.0) % MCHC (31.0-37.0) g/dL RDW (11.5-15.5) % Plt Count (150-450) k/uL Neutrophils # (1.3-7.7) k/uL Neutrophils # (Manual) (1.3-7.7) k/uL Lymphocytes # (1.0-4.8) k/uL Lymphocytes # (Manual) (1.0-4.8) k/uL Basophils # (0-0.2) k/uL Metamyelocytes # (Man) (0) k/uL Sodium (135-145) mmol/L Carbon Dioxide (21.6-31.8) mmol/L BUN (9.0-27.0) mg/dL Est GFR (CKD-EPI)AfAm (60.0-200.0) Est GFR (CKD-EPI)NonAf (60.0-200.0) BUN/Creatinine Ratio (12.00-20.00) Ratio Glucose (70-110) mg/dL POC Glucose (mg/dL) >600 H 284 H 248 H (75-99) mg/dL Plasma Lactic Acid Davion (0.7-2.0) mmol/L Calcium (8.7-10.3) mg/dL 06/25/20 06/25/20 06/25/20 Range/Units 15:10 15:10 16:48 WBC 10.7 H (3.8-10.6) k/uL RBC 3.69 L (4.30-5.90) m/uL Hgb 10.0 L D (13.0-17.5) gm/dL Hct 32.9 L (39.0-53.0) % MCHC 30.4 L (31.0-37.0) g/dL RDW 16.0 H (11.5-15.5) % Plt Count 110 L (150-450) k/uL Neutrophils # 9.1 H (1.3-7.7) k/uL Neutrophils # (Manual) 9.60 H (1.3-7.7) k/uL Lymphocytes # 0.9 L (1.0-4.8) k/uL Lymphocytes # (Manual) 0.64 L (1.0-4.8) k/uL Basophils # 0.5 H (0-0.2) k/uL Metamyelocytes # (Man) 0.21 H (0) k/uL Sodium (135-145) mmol/L Carbon Dioxide (21.6-31.8) mmol/L BUN (9.0-27.0) mg/dL Est GFR (CKD-EPI)AfAm (60.0-200.0) Est GFR (CKD-EPI)NonAf (60.0-200.0) BUN/Creatinine Ratio (12.00-20.00) Ratio Glucose (70-110) mg/dL POC Glucose (mg/dL) 146 H (75-99) mg/dL Plasma Lactic Acid Davion 3.7 H* (0.7-2.0) mmol/L Calcium (8.7-10.3) mg/dL 06/25/20 06/25/2021 Range/Units 17:52 18:14 19:53 WBC (3.8-10.6) k/uL RBC (4.30-5.90) m/uL Hgb (13.0-17.5) gm/dL Hct (39.0-53.0) % MCHC (31.0-37.0) g/dL RDW (11.5-15.5) % Plt Count (150-450) k/uL Neutrophils # (1.3-7.7) k/uL Neutrophils # (Manual) (1.3-7.7) k/uL Lymphocytes # (1.0-4.8) k/uL Lymphocytes # (Manual) (1.0-4.8) k/uL Basophils # (0-0.2) k/uL Metamyelocytes # (Man) (0) k/uL Sodium (135-145) mmol/L Carbon Dioxide (21.6-31.8) mmol/L BUN (9.0-27.0) mg/dL Est GFR (CKD-EPI)AfAm (60.0-200.0) Est GFR (CKD-EPI)NonAf (60.0-200.0) BUN/Creatinine Ratio (12.00-20.00) Ratio Glucose (70-110) mg/dL POC Glucose (mg/dL) 176 H 309 H (75-99) mg/dL Plasma Lactic Acid Davion 2.6 H* (0.7-2.0) mmol/L Calcium (8.7-10.3) mg/dL 06/26/20 06/26/20 06/26/20 Range/Units 05:43 07:19 11:47 WBC (3.8-10.6) k/uL RBC (4.30-5.90) m/uL Hgb (13.0-17.5) gm/dL Hct (39.0-53.0) % MCHC (31.0-37.0) g/dL RDW (11.5-15.5) % Plt Count (150-450) k/uL Neutrophils # (1.3-7.7) k/uL Neutrophils # (Manual) (1.3-7.7) k/uL Lymphocytes # (1.0-4.8) k/uL Lymphocytes # (Manual) (1.0-4.8) k/uL Basophils # (0-0.2) k/uL Metamyelocytes # (Man) (0) k/uL Sodium 132 L (135-145) mmol/L Carbon Dioxide 17.5 L (21.6-31.8) mmol/L BUN 35.0 H (9.0-27.0) mg/dL Est GFR (CKD-EPI)AfAm 54.3 L (60.0-200.0) Est GFR (CKD-EPI)NonAf 46.8 L (60.0-200.0) BUN/Creatinine Ratio 23.33 H (12.00-20.00) Ratio Glucose 192 H (70-110) mg/dL POC Glucose (mg/dL) 328 H 185 H (75-99) mg/dL Plasma Lactic Acid Davion (0.7-2.0) mmol/L Calcium 7.4 L (8.7-10.3) mg/dL Microbiology - Last 24 Hours (Table) 06/22/20 14:47 Anaerobic Culture - Final Buttock Anaerobic Gm Negative Bacilli Anaerobic Gm Negative Bacilli#2 06/23/20 16:55 Gram Stain - Preliminary Buttock Wound Culture - Preliminary Proteus mirabilis Enterococcus faecalis Gram Neg Bacilli 06/23/20 16:55 Anaerobic Culture - Preliminary Buttock 06/22/20 11:26 Blood Culture - Preliminary Blood No Growth after 72 hours 06/22/20 14:47 Gram Stain - Final Buttock Wound Culture - Final Proteus mirabilis Enterococcus faecalis Klebsiella oxytoca
[2020-06-26 11:49] LABS: Glucose,Whole Blood 185 mg/dL (75-99)
[2020-06-26] MEDS: SODIUM CHLORIDE 0.9% 1,000 ML IV SCH ×2 (12:21→21:35)
--- NOTE | 2020-06-26 13:11 | P.PN ---
Subjective Progress Note Date: 06/26/20 HISTORY OF PRESENT ILLNESS This is a 70-year-old male patient treated for infected left gluteal stage IV p ressure ulcer status post debridement left buttocks. Wound culture positive for Proteus, enterococcus and gram-negative. Gram-negative sensitivity is still pending. Pathology report is pending. Patient is covered with Zosyn for now. PICC line has been inserted and wound VAC has been ordered and is at bedside. Prescription for Unasyn was provided registered nurse hh case manager this morning to make arrangements through [facility]. Plan is for home IV antibiotic therapy. Patient denies having any nausea vomiting. No abdominal pain. No cough, shortness of breath. Patient has been afebrile, heart rate 51, blood pressure on 110/61, pulse ox 96% on room air. Creatinine 1.5. PHYSICAL EXAMINATION Gen: This is a 70-year-old male. His resting bed appears to be comfortable. HEENT: Head is atraumatic, normocephalic. Pupils equal, round. Sclerae is anicteric. LUNGS: Clear to auscultation. No wheezes or rhonchi. No intercostal retractions. HEART: Regular rate and rhythm. ABDOMEN: Soft. No tenderness. EXTREMITIES: No pedal edema. No calf tenderness. NEUROLOGICAL: Patient is awake, alert and oriented. ASSESSMENT Infected left gluteal stage IV pressure ulcer status post debridement Culture positive for Proteus, enterococcus and gram-negative bacilli PLAN Continue Zosyn 3.375 g IV piggyback every 8 hours Unasyn 3 g IV piggyback every 6 hours for 6 week course, completed on August 07. PICC line has been inserted Wound VAC has been obtained for home Patient is cleared for discharge from infectious disease. Follow up as outpatient. The above dictated assessment and findings were discussed with Dr. Perez. The impression and plan of care have been directed as dictated. Alysha Lopez nurse practitioner acting as scribe for Dr. Perez. Objective - Vital Signs Vital signs: Vital Signs Temp 97.6 F 06/26/20 07:54 Pulse 51 L 06/26/20 07:54 Resp 16 06/26/20 07:54 BP 110/61 06/26/20 07:54 Pulse Ox 96 06/26/20 07:54 Intake & Output 02/25/21 02/26/21 02/26/21 18:59 06:59 18:59 Intake Total 200 Output Total 400 500 900 Balance -400 -300 -900 Weight 124.738 kg Intake: Oral 200 Output: Urine 100 500 500 Uretheral (Bacon) 100 Stool 300 400 Other: Voiding Method Indwelling Catheter Indwelling Catheter Indwelling Catheter # Bowel Movements 1 - Labs CBC & Chem 7: 06/25/20 15:10 06/26/20 05:43 Labs: Abnormal Lab Results - Last 24 Hours (Table) 06/25/20 06/25/20 06/25/20 Range/Units 14:46 14:46 14:47 WBC (3.8-10.6) k/uL RBC (4.30-5.90) m/uL Hgb (13.0-17.5) gm/dL Hct (39.0-53.0) % MCHC (31.0-37.0) g/dL RDW (11.5-15.5) % Plt Count (150-450) k/uL Neutrophils # (1.3-7.7) k/uL Neutrophils # (Manual) (1.3-7.7) k/uL Lymphocytes # (1.0-4.8) k/uL Lymphocytes # (Manual) (1.0-4.8) k/uL Basophils # (0-0.2) k/uL Metamyelocytes # (Man) (0) k/uL Sodium (135-145) mmol/L Carbon Dioxide (21.6-31.8) mmol/L BUN (9.0-27.0) mg/dL Est GFR (CKD-EPI)AfAm (60.0-200.0) Est GFR (CKD-EPI)NonAf (60.0-200.0) BUN/Creatinine Ratio (12.00-20.00) Ratio Glucose (70-110) mg/dL POC Glucose (mg/dL) >600 H 284 H 248 H (75-99) mg/dL Plasma Lactic Acid Davion (0.7-2.0) mmol/L Calcium (8.7-10.3) mg/dL 06/25/20 06/25/20 06/25/20 Range/Units 15:10 15:10 16:48 WBC 10.7 H (3.8-10.6) k/uL RBC 3.69 L (4.30-5.90) m/uL Hgb 10.0 L D (13.0-17.5) gm/dL Hct 32.9 L (39.0-53.0) % MCHC 30.4 L (31.0-37.0) g/dL RDW 16.0 H (11.5-15.5) % Plt Count 110 L (150-450) k/uL Neutrophils # 9.1 H (1.3-7.7) k/uL Neutrophils # (Manual) 9.60 H (1.3-7.7) k/uL Lymphocytes # 0.9 L (1.0-4.8) k/uL Lymphocytes # (Manual) 0.64 L (1.0-4.8) k/uL Basophils # 0.5 H (0-0.2) k/uL Metamyelocytes # (Man) 0.21 H (0) k/uL Sodium (135-145) mmol/L Carbon Dioxide (21.6-31.8) mmol/L BUN (9.0-27.0) mg/dL Est GFR (CKD-EPI)AfAm (60.0-200.0) Est GFR (CKD-EPI)NonAf (60.0-200.0) BUN/Creatinine Ratio (12.00-20.00) Ratio Glucose (70-110) mg/dL POC Glucose (mg/dL) 146 H (75-99) mg/dL Plasma Lactic Acid Davion 3.7 H* (0.7-2.0) mmol/L Calcium (8.7-10.3) mg/dL 06/25/20 06/25/20 06/25/20 Range/Units 17:52 18:14 19:53 WBC (3.8-10.6) k/uL RBC (4.30-5.90) m/uL Hgb (13.0-17.5) gm/dL Hct (39.0-53.0) % MCHC (31.0-37.0) g/dL RDW (11.5-15.5) % Plt Count (150-450) k/uL Neutrophils # (1.3-7.7) k/uL Neutrophils # (Manual) (1.3-7.7) k/uL Lymphocytes # (1.0-4.8) k/uL Lymphocytes # (Manual) (1.0-4.8) k/uL Basophils # (0-0.2) k/uL Metamyelocytes # (Man) (0) k/uL Sodium (135-145) mmol/L Carbon Dioxide (21.6-31.8) mmol/L BUN (9.0-27.0) mg/dL Est GFR (CKD-EPI)AfAm (60.0-200.0) Est GFR (CKD-EPI)NonAf (60.0-200.0) BUN/Creatinine Ratio (12.00-20.00) Ratio Glucose (70-110) mg/dL POC Glucose (mg/dL) 176 H 309 H (75-99) mg/dL Plasma Lactic Acid Davion 2.6 H* (0.7-2.0) mmol/L Calcium (8.7-10.3) mg/dL 06/26/20 06/26/20 06/26/20 Range/Units 05:43 07:19 11:47 WBC (3.8-10.6) k/uL RBC (4.30-5.90) m/uL Hgb (13.0-17.5) gm/dL Hct (39.0-53.0) % MCHC (31.0-37.0) g/dL RDW (11.5-15.5) % Plt Count (150-450) k/uL Neutrophils # (1.3-7.7) k/uL Neutrophils # (Manual) (1.3-7.7) k/uL Lymphocytes # (1.0-4.8) k/uL Lymphocytes # (Manual) (1.0-4.8) k/uL Basophils # (0-0.2) k/uL Metamyelocytes # (Man) (0) k/uL Sodium 132 L (135-145) mmol/L Carbon Dioxide 17.5 L (21.6-31.8) mmol/L BUN 35.0 H (9.0-27.0) mg/dL Est GFR (CKD-EPI)AfAm 54.3 L (60.0-200.0) Est GFR (CKD-EPI)NonAf 46.8 L (60.0-200.0) BUN/Creatinine Ratio 23.33 H (12.00-20.00) Ratio Glucose 192 H (70-110) mg/dL POC Glucose (mg/dL) 328 H 185 H (75-99) mg/dL Plasma Lactic Acid Davion (0.7-2.0) mmol/L Calcium 7.4 L (8.7-10.3) mg/dL Microbiology - Last 24 Hours (Table) 06/22/20 14:47 Anaerobic Culture - Final Buttock Anaerobic Gm Negative Bacilli Anaerobic Gm Negative Bacilli#2 06/23/20 16:55 Gram Stain - Preliminary Buttock Wound Culture - Preliminary Proteus mirabilis Enterococcus faecalis Gram Neg Bacilli 06/23/20 16:55 Anaerobic Culture - Preliminary Buttock 06/22/20 11:26 Blood Culture - Preliminary Blood No Growth after 72 hours 06/22/20 14:47 Gram Stain - Final Buttock Wound Culture - Final Proteus mirabilis Enterococcus faecalis Klebsiella oxytoca
--- NOTE | 2020-06-26 16:17 | P.PN ---
Subjective Progress Note Date: 06/26/20 68-year-old pleasant gentleman with paraplegia came in because of infection of the decubitus ulcer. Patient had a small 6 sparred started a few days ago which was initially clean and now appear to be infected with the redness local is of temperature in the surrounding skin and pulses swelling discharge. Patient has a big sacral acute is ulcer appears to be stage IV ulcer. Patient was started on oral antibiotic. I do not have any cultures available from the wound cultures will be obtained aerobic and anaerobic patient will be admitted with broad-spectrum antibiotics. She was having on and off fevers with chills patient is a low-grade fever here. Patient's creatinine is 1.83 baseline is around 1.2 patient is bit hyponatremic as well. Patient denied any dysuria patient has a Bacon catheter urine is significantly abnormal with large leukocyte esterase with WBC clumps, squamous epithelial cells 06/23/2020 Patient seen and evaluated and follow-up currently awaiting to undergo surgical debridement for decubitus ulcer. Patient is lethargic although arousable alert and oriented 3. Retina and continues to be 1.8 and BUN is 45. Current INR is 1.7. White blood count is 8.80 and hemoglobin is 10.8. Will decrease methadone to twice daily. Blood pressure elevated today and will continue to monitor and continue with Norvasc and resume home dose after the procedure. Patient has been afebrile since yesterday. Patient is maintained on IV antibiotics in the form of Unasyn and vancomycin while awaiting cultures. Infectious disease following. Preliminary culture showing gram-negative bacilli. 06/24/2020 Patient is seen this morning complains of a dull headache and right ear disc omfort and Tylenol was given. Patient denies any dizziness lightheadedness or visual disturbances. Patient blood sugar also found to be elevated in the 3 and 400s and will start long-acting and continue with sliding scale. Patient is more alert and awake today and has been tolerating diet with no reports of nausea or vomiting noted. Patient is status post surgical debridement of the decubitus ulcer with Dr. Obrien and surgery is following. Infectious disease is also following and patient's preliminary cultures finalized showing Proteus mirabilis, enterococcus, gram-negative bacilli and patient is maintained on Zosyn and will continue at this time. Awaiting deep wound cultures from timothy dumont. Potassium was also found to be slightly elevated at 5.4 and will give capsulate. Creatinine stable at 1.5 BUN of 39. 06/25/2020 Patient is seen this morning and blood sugars continue to be elevated and patient was started on long-acting although continues to have blood sugars in the 300 to 400s. Will increase long-acting and initiate pre-meal insulins and continue with sliding scale and continue to monitor blood sugars closely. Resume glipizide as well. Patient had wound VAC applied and infectious disease following. Patient to receive a PICC line. PT/OT to evaluate the patient. Discussed with case management about discharge planning needs and patient follows with the [facility] and discharge antibiotics are pending as the cultures are pending preliminary showing gram-negative bacilli. Once cultures are finalized will have to await authorization through the [facility] for outpatient IV antibiotic therapy. Potassium was 5.8 today and given 10 units of insulin IV along with an amp of D50 and will repeat labs. Creatinine stable at 1.5. 06/26/2020 Patient is seen this morning with no acute overnight issues. Blood sugars continue to be elevated and will continue sliding scale along with long-acting. Possible insulin upon discharge. Patient's cultures finalized showing Proteus m irabilis, enterococcus faecalis, and gram-negative bacilli and infectious disease is following. Patient has a PICC line in case management working on arrangements for outpatient antibiotic therapy along with home care. Patient does follow with the [facility] and will continue to do so in the outpatient setting. Potassium slightly improved at 5.1 today, creatinine is stable at 1.5 and lactic acid has improved. Patient is tolerating diet with no reports of nausea or vomiting noted. at the bedside. Surgery also following along closely status post debridement and patient does have wound VAC applied. Review of systems: Constitutional: No reports of fatigue, fever, or chills HEENT: No reports of headache Cardiovascular: No reports of chest pain or palpitations Respiratory: No reports of shortness of breath or cough GI: No reports of nausea, vomiting, or diarrhea : No reports of dysuria or retention Neurovascular: Reports generalized weakness All medications have been reviewed Objective - Vital Signs Vital signs: Vital Signs Temp 97.6 F 06/26/20 07:54 Pulse 51 L 06/26/20 07:54 Resp 16 06/26/20 07:54 BP 110/61 06/26/20 07:54 Pulse Ox 96 06/26/20 07:54 Intake & Output 06/25/20 06/26/20 06/26/20 18:59 06:59 18:59 Intake Total 200 Output Total 400 500 900 Balance -400 -300 -900 Weight 124.738 kg Intake: Oral 200 Output: Urine 100 500 500 Uretheral (Bacon) 100 Stool 300 400 Other: Voiding Method Indwelling Catheter Indwelling Catheter Indwelling Catheter # Bowel Movements 1 - Exam GENERAL: The patient is awake, alert and oriented x3, not in any acute distress. Obese HEENT: Pupils are round and equally reacting to light. EOMI. No scleral icterus. No conjunctival pallor. Normocephalic, atraumatic. No pharyngeal erythema. No thyromegaly. No drainage, redness, or swelling noted of the right ear on exam and nontender to the touch CARDIOVASCULAR: S1 and S2 present. No murmurs, rubs, or gallops. PULMONARY: Chest is clear to auscultation, no wheezing or crackles. ABDOMEN: Soft, obese, nontender, nondistended, normoactive bowel sounds. No palpable organomegaly. Right side colostomy noted MUSCULOSKELETAL: No joint swelling or deformity. EXTREMITIES: No cyanosis, clubbing, or pedal edema. NEUROLOGICAL: Gross neurological examination did not reveal any new focal deficits. Paraplegic SKIN: sacral decubitus ulcer with wound vac noted - Labs CBC & Chem 7: 06/25/20 15:10 06/26/20 05:43 Labs: Abnormal Lab Results - Last 24 Hours (Table) 06/25/20 06/25/20 06/25/20 Range/Units 14:46 14:46 14:47 WBC (3.8-10.6) k/uL RBC (4.30-5.90) m/uL Hgb (13.0-17.5) gm/dL Hct (39.0-53.0) % MCHC (31.0-37.0) g/dL RDW (11.5-15.5) % Plt Count (150-450) k/uL Neutrophils # (1.3-7.7) k/uL Neutrophils # (Manual) (1.3-7.7) k/uL Lymphocytes # (1.0-4.8) k/uL Lymphocytes # (Manual) (1.0-4.8) k/uL Basophils # (0-0.2) k/uL Metamyelocytes # (Man) (0) k/uL Sodium (135-145) mmol/L Carbon Dioxide (21.6-31.8) mmol/L BUN (9.0-27.0) mg/dL Est GFR (CKD-EPI)AfAm (60.0-200.0) Est GFR (CKD-EPI)NonAf (60.0-200.0) BUN/Creatinine Ratio (12.00-20.00) Ratio Glucose (70-110) mg/dL POC Glucose (mg/dL) >600 H 284 H 248 H (75-99) mg/dL Plasma Lactic Acid Davion (0.7-2.0) mmol/L Calcium (8.7-10.3) mg/dL 06/25/20 06/25/20 06/25/20 Range/Units 15:10 15:10 16:48 WBC 10.7 H (3.8-10.6) k/uL RBC 3.69 L (4.30-5.90) m/uL Hgb 10.0 L D (13.0-17.5) gm/dL Hct 32.9 L (39.0-53.0) % MCHC 30.4 L (31.0-37.0) g/dL RDW 16.0 H (11.5-15.5) % Plt Count 110 L (150-450) k/uL Neutrophils # 9.1 H (1.3-7.7) k/uL Neutrophils # (Manual) 9.60 H (1.3-7.7) k/uL Lymphocytes # 0.9 L (1.0-4.8) k/uL Lymphocytes # (Manual) 0.64 L (1.0-4.8) k/uL Basophils # 0.5 H (0-0.2) k/uL Metamyelocytes # (Man) 0.21 H (0) k/uL Sodium (135-145) mmol/L Carbon Dioxide (21.6-31.8) mmol/L BUN (9.0-27.0) mg/dL Est GFR (CKD-EPI)AfAm (60.0-200.0) Est GFR (CKD-EPI)NonAf (60.0-200.0) BUN/Creatinine Ratio (12.00-20.00) Ratio Glucose (70-110) mg/dL POC Glucose (mg/dL) 146 H (75-99) mg/dL Plasma Lactic Acid Davion 3.7 H* (0.7-2.0) mmol/L Calcium (8.7-10.3) mg/dL 06/25/20 06/25/20 06/25/20 Range/Units 17:52 18:14 19:53 WBC (3.8-10.6) k/uL RBC (4.30-5.90) m/uL Hgb (13.0-17.5) gm/dL Hct (39.0-53.0) % MCHC (31.0-37.0) g/dL RDW (11.5-15.5) % Plt Count (150-450) k/uL Neutrophils # (1.3-7.7) k/uL Neutrophils # (Manual) (1.3-7.7) k/uL Lymphocytes # (1.0-4.8) k/uL Lymphocytes # (Manual) (1.0-4.8) k/uL Basophils # (0-0.2) k/uL Metamyelocytes # (Man) (0) k/uL Sodium (135-145) mmol/L Carbon Dioxide (21.6-31.8) mmol/L BUN (9.0-27.0) mg/dL Est GFR (CKD-EPI)AfAm (60.0-200.0) Est GFR (CKD-EPI)NonAf (60.0-200.0) BUN/Creatinine Ratio (12.00-20.00) Ratio Glucose (70-110) mg/dL POC Glucose (mg/dL) 176 H 309 H (75-99) mg/dL Plasma Lactic Acid Davion 2.6 H* (0.7-2.0) mmol/L Calcium (8.7-10.3) mg/dL 06/26/20 06/26/20 06/26/20 Range/Units 05:43 07:19 11:47 WBC (3.8-10.6) k/uL RBC (4.30-5.90) m/uL Hgb (13.0-17.5) gm/dL Hct (39.0-53.0) % MCHC (31.0-37.0) g/dL RDW (11.5-15.5) % Plt Count (150-450) k/uL Neutrophils # (1.3-7.7) k/uL Neutrophils # (Manual) (1.3-7.7) k/uL Lymphocytes # (1.0-4.8) k/uL Lymphocytes # (Manual) (1.0-4.8) k/uL Basophils # (0-0.2) k/uL Metamyelocytes # (Man) (0) k/uL Sodium 132 L (135-145) mmol/L Carbon Dioxide 17.5 L (21.6-31.8) mmol/L BUN 35.0 H (9.0-27.0) mg/dL Est GFR (CKD-EPI)AfAm 54.3 L (60.0-200.0) Est GFR (CKD-EPI)NonAf 46.8 L (60.0-200.0) BUN/Creatinine Ratio 23.33 H (12.00-20.00) Ratio Glucose 192 H (70-110) mg/dL POC Glucose (mg/dL) 328 H 185 H (75-99) mg/dL Plasma Lactic Acid Davion (0.7-2.0) mmol/L Calcium 7.4 L (8.7-10.3) mg/dL Microbiology - Last 24 Hours (Table) 06/22/20 14:47 Anaerobic Culture - Final Buttock Anaerobic Gm Negative Bacilli Anaerobic Gm Negative Bacilli#2 06/23/20 16:55 Gram Stain - Preliminary Buttock Wound Culture - Preliminary Proteus mirabilis Enterococcus faecalis Gram Neg Bacilli 06/23/20 16:55 Anaerobic Culture - Preliminary Buttock 06/22/20 11:26 Blood Culture - Preliminary Blood No Growth after 72 hours 06/22/20 14:47 Gram Stain - Final Buttock Wound Culture - Final Proteus mirabilis Enterococcus faecalis Klebsiella oxytoca Assessment and Plan Assessment: -Severe sepsis: Secondary to infected sacral decubitus stage IV ulcer, present on admission. -lactic acidosis with elevated lactic acid of 4.0, present on admission, secondary to above, improved. -Status post debridement of sacral decubitus ulcer, culture showing gram- negative bacilli, enterococcus, and Proteus mirabilis. Infectious disease following Patient has a PICC line. Wound VAC applied. -Type 2 diabetes mellitus; uncontrolled with hyperglycemia, continue with sliding scale insulin, will increase long-acting and also add pre-meal insulin and resume glipizide. and continue to monitor before meals and at bedtime -acute renal failure: Secondary to prerenal azotemia secondary to sepsis , currently 1.5 -Hyperkalemia, improving currently 5.1 -Hypertension -Hypovolemic hyponatremia, improving -Tachycardia and due to sepsis, improved -DVT prophylaxis with subcutaneous heparin -GI prophylaxis Pepcid Plan: Continue with current medications and IV antibiotics. Infectious disease and surgery following. Patient is on Zosyn and cultures finalized showing Proteus mirabilis, enterococcus, and gram-negative bacilli Patient received a PICC line and case management is following and [facility]. Blood sugars elevated and will continue with sliding scale, long-acting, will add pre-meal insulin and resume glipizide. Patient may possibly need insulin upon discharge. Will repeat a.m. labs.
[2020-06-26 17:02] LABS: Glucose,Whole Blood 124 mg/dL (75-99)
[2020-06-26 21:07] LABS: Glucose,Whole Blood 192 mg/dL (75-99)
[2020-06-26] MEDS: INSULIN DETEMIR (LEVEMIR) 100 UNIT/ML SYR SQ SCH (21:35)
[2020-06-27 07:13] LABS: Glucose,Whole Blood 78 mg/dL (75-99)
[2020-06-27] MEDS: amLODIPine 10 MG TAB PO SCH (07:41)
[2020-06-27] MEDS: glipiZIDE 10 MG TAB PO SCH ×2 (07:41→17:46)
[2020-06-27] MEDS: FLUCONAZOLE 100 MG TAB PO SCH (07:41)
[2020-06-27] MEDS: METOPROLOL TARTRATE 12.5 MG TAB PO SCH ×2 (07:41→21:01)
[2020-06-27] MEDS: HEPARIN SODIUM,PORCINE 5,000 UNIT/ML 1 ML VIAL SQ SCH ×2 (07:41→21:01)
[2020-06-27] MEDS: METHADONE 10 MG TAB PO SCH ×2 (07:41→21:00)
[2020-06-27] MEDS: PIPERACILLIN-TAZOBACTAM 3.375 GM in SODIUM CHLORIDE 0.9% 100 ML IVPB SCH ×2 (07:42→15:25)
[2020-06-27] MEDS: tiZANidine 4 MG TAB PO SCH (07:45)
[2020-06-27] MEDS: INSULIN ASPART (NovoLOG) 100 UNIT/ML VIAL SQ SCH ×5 (07:46→20:59)
[2020-06-27] MEDS: SODIUM CHLORIDE 0.9% 1,000 ML IV SCH ×2 (07:52→16:38)
[2020-06-27 09:46] LABS: African American GFR (CKD) 43.5 (60.0-200.0); Anion Gap 12.2 mmol/L (4.00-12.00); BUN/Creat Ratio 21.67 Ratio (12.00-20.00); Calcium 7.7 mg/dL (8.7-10.3); Carbon Dioxide 12.8 mmol/L (21.6-31.8); Non-African American GFR(CKD) 37.6 (60.0-200.0); Potassium 5.5 mmol/L (3.5-5.5)
[2020-06-27 11:37] LABS: Glucose,Whole Blood 234 mg/dL (75-99)
--- NOTE | 2020-06-27 12:14 | P.PN ---
Subjective Progress Note Date: 06/27/20 68-year-old pleasant gentleman with paraplegia came in because of infection of the decubitus ulcer. Patient had a small 6 sparred started a few days ago which was initially clean and now appear to be infected with the redness local is of temperature in the surrounding skin and pulses swelling discharge. Patient has a big sacral acute is ulcer appears to be stage IV ulcer. Patient was started on oral antibiotic. I do not have any cultures available from the wound cultures will be obtained aerobic and anaerobic patient will be admitted with broad-spectrum antibiotics. She was having on and off fevers with chills patient is a low-grade fever here. Patient's creatinine is 1.83 baseline is around 1.2 patient is bit hyponatremic as well. Patient denied any dysuria patient has a Bacon catheter urine is significantly abnormal with large leukocyte esterase with WBC clumps, squamous epithelial cells 06/23/2020 Patient seen and evaluated and follow-up currently awaiting to undergo surgical debridement for decubitus ulcer. Patient is lethargic although arousable alert and oriented 3. Retina and continues to be 1.8 and BUN is 45. Current INR is 1.7. White blood count is 8.80 and hemoglobin is 10.8. Will decrease methadone to twice daily. Blood pressure elevated today and will continue to monitor and continue with Norvasc and resume home dose after the procedure. Patient has been afebrile since yesterday. Patient is maintained on IV antibiotics in the form of Unasyn and vancomycin while awaiting cultures. Infectious disease following. Preliminary culture showing gram-negative bacilli. 06/24/2020 Patient is seen this morning complains of a dull headache and right ear disc omfort and Tylenol was given. Patient denies any dizziness lightheadedness or visual disturbances. Patient blood sugar also found to be elevated in the 3 and 400s and will start long-acting and continue with sliding scale. Patient is more alert and awake today and has been tolerating diet with no reports of nausea or vomiting noted. Patient is status post surgical debridement of the decubitus ulcer with Dr. Obrien and surgery is following. Infectious disease is also following and patient's preliminary cultures finalized showing Proteus mirabilis, enterococcus, gram-negative bacilli and patient is maintained on Zosyn and will continue at this time. Awaiting deep wound cultures from [facility]othy dum[facility]. Potassium was also found to be slightly elevated at 5.4 and will give capsulate. Creatinine stable at 1.5 BUN of 39. 06/25/2020 Patient is seen this morning and blood sugars continue to be elevated and patient was started on long-acting although continues to have blood sugars in the 300 to 400s. Will increase long-acting and initiate pre-meal insulins and continue with sliding scale and continue to monitor blood sugars closely. Resume glipizide as well. Patient had wound VAC applied and infectious disease following. Patient to receive a PICC line. PT/OT to evaluate the patient. Discussed with case management about discharge planning needs and patient follows with the [place] and discharge antibiotics are pending as the cultures are pending preliminary showing gram-negative bacilli. Once cultures are finalized will have to await authorization through the [place] for outpatient IV antibiotic therapy. Potassium was 5.8 today and given 10 units of insulin IV along with an amp of D50 and will repeat labs. Creatinine stable at 1.5. 06/26/2020 Patient is seen this morning with no acute overnight issues. Blood sugars continue to be elevated and will continue sliding scale along with long-acting. Possible insulin upon discharge. Patient's cultures finalized showing Proteus m irabilis, enterococcus faecalis, and gram-negative bacilli and infectious disease is following. Patient has a PICC line in case management working on arrangements for outpatient antibiotic therapy along with home care. Patient does follow with the [place] and will continue to do so in the outpatient setting. Potassium slightly improved at 5.1 today, creatinine is stable at 1.5 and lactic acid has improved. Patient is tolerating diet with no reports of nausea or vomiting noted. at the bedside. Surgery also following along closely status post debridement and patient does have wound VAC applied. 06/27/2020 Patient is seen this morning alert and oriented 2-3. Patient has moments of loss of thoughts which is baseline. Zanaflex being discontinued as is concerned that this medication is strong. Patient is maintained on IV fluids and will continue at this time. Patient continues to be on IV antibiotics and infectious disease is following. Patient has received a PICC line and [facility] with [facility] care for discharge next week. Patient creatinine continues to be elevated at 1.8 and will continue to monitor closely. Blood sugars this morning found to be 65 and is maintained on pre-meal insulin along with sliding scale and long-acting. Will discontinue pre-meals and continue sliding scale along with long-acting and monitor closely. Review of systems: Constitutional: No reports of fatigue, fever, or chills HEENT: No reports of headache Cardiovascular: No reports of chest pain or palpitations Respiratory: No reports of shortness of breath or cough GI: No reports of nausea, vomiting, or diarrhea : No reports of dysuria or retention Neurovascular: Reports generalized weakness All medications have been reviewed Objective - Vital Signs Vital signs: Vital Signs Temp 98.2 F 06/27/20 07:55 Pulse 152 H 06/27/20 07:55 Resp 26 H 06/27/20 07:55 BP 157/80 06/27/20 07:55 Pulse Ox 95 06/27/20 07:55 Intake & Output 06/26/20 06/27/20 06/27/20 18:59 06:59 18:59 Intake Total 240 300 Output Total 1050 800 Balance -810 -500 Intake: Oral 240 300 Output: Urine 650 800 Uretheral (Bacon) 800 Stool 400 Other: Voiding Method Indwelling Catheter Indwelling Catheter Indwelling Catheter # Bowel Movements 1 1 1 - Exam GENERAL: The patient is awake, alert and oriented x2-3, not in any acute distress. Obese HEENT: Pupils are round and equally reacting to light. EOMI. No scleral icterus. No conjunctival pallor. Normocephalic, atraumatic. No pharyngeal erythema. No thyromegaly. No drainage, redness, or swelling noted of the right ear on exam and nontender to the touch CARDIOVASCULAR: S1 and S2 present. No murmurs, rubs, or gallops. PULMONARY: Chest is clear to auscultation, no wheezing or crackles. ABDOMEN: Soft, obese, nontender, nondistended, normoactive bowel sounds. No palpable organomegaly. Right side colostomy noted MUSCULOSKELETAL: No joint swelling or deformity. EXTREMITIES: No cyanosis, clubbing, or pedal edema. NEUROLOGICAL: Gross neurological examination did not reveal any new focal deficits. Paraplegic SKIN: sacral decubitus ulcer with wound vac noted - Labs CBC & Chem 7: 06/25/20 15:10 06/27/20 05:57 Labs: Abnormal Lab Results - Last 24 Hours (Table) 02/06/26/20 06/26/20 Range/Units 11:47 17:01 20:59 Chloride (96-109) mmol/L Carbon Dioxide (21.6-31.8) mmol/L Anion Gap (4.00-12.00) mmol/L BUN (9.0-27.0) mg/dL Creatinine (0.6-1.5) mg/dL Est GFR (CKD-EPI)AfAm (60.0-200.0) Est GFR (CKD-EPI)NonAf (60.0-200.0) BUN/Creatinine Ratio (12.00-20.00) Ratio Glucose (70-110) mg/dL POC Glucose (mg/dL) 185 H 124 H 192 H (75-99) mg/dL Calcium (8.7-10.3) mg/dL 06/27/20 Range/Units 05:57 Chloride 110 H (96-109) mmol/L Carbon Dioxide 12.8 L (21.6-31.8) mmol/L Anion Gap 12.20 H (4.00-12.00) mmol/L BUN 39.0 H (9.0-27.0) mg/dL Creatinine 1.8 H (0.6-1.5) mg/dL Est GFR (CKD-EPI)AfAm 43.5 L (60.0-200.0) Est GFR (CKD-EPI)NonAf 37.6 L (60.0-200.0) BUN/Creatinine Ratio 21.67 H (12.00-20.00) Ratio Glucose 65 L (70-110) mg/dL POC Glucose (mg/dL) (75-99) mg/dL Calcium 7.7 L (8.7-10.3) mg/dL Microbiology - Last 24 Hours (Table) 06/23/20 16:55 Gram Stain - Final Buttock Wound Culture - Final Proteus mirabilis Enterococcus faecalis Klebsiella oxytoca 06/22/20 11:26 Blood Culture - Preliminary Blood No Growth after 96 hours 06/22/20 14:47 Anaerobic Culture - Final Buttock Anaerobic Gm Negative Bacilli Anaerobic Gm Negative Bacilli#2 Assessment and Plan Assessment: -Severe sepsis: Secondary to infected sacral decubitus stage IV ulcer, present on admission. -lactic acidosis with elevated lactic acid of 4.0, present on admission, secondary to above, improved. -Status post debridement of sacral decubitus ulcer, culture showing gram- negative bacilli, enterococcus, and Proteus mirabilis. Infectious disease following Patient has a PICC line. Wound VAC applied. -Type 2 diabetes mellitus; uncontrolled with hyperglycemia, continue with sliding scale insulin, patient had an episode of low blood sugar in the 60s and will discontinue pre-meals and continue sliding scale and long-acting. Continue to monitor before meals at bedtime -acute renal failure: Secondary to prerenal azotemia secondary to sepsis , currently 1.8, continue with IV fluids and will repeat a.m. labs. -Hyperkalemia, improving currently 5.0 -Hypertension -Hypovolemic hyponatremia, improving -Tachycardia and due to sepsis, improved -DVT prophylaxis with subcutaneous heparin -GI prophylaxis Pepcid Plan: Continue with current medications and IV antibiotics. Infectious disease and surgery following. Patient is on Zosyn and cultures finalized showing Proteus mirabilis, enterococcus, and gram-negative bacilli Patient received a PICC line and case management is following and [facility]. Blood sugars continue to be uncontrolled with one episode of low blood sugar and elevated and will continue with sliding scale, long-acting, will discontinue pre-meal insulin. Patient may possibly need insulin upon discharge. Will repeat a.m. labs.
--- NOTE | 2020-06-27 13:07 | PN ---
PROGRESS NOTE DATE OF SERVICE: 06/27/2020 REASON FOR FOLLOWUP: 1. Left gluteal stage IV pressure ulcer, infected. 2. Possible UTI. INTERVAL HISTORY: Patient is currently afebrile, he has been complaining of discomfort to the low back area. No chest pain, shortness of breath. No cough. No abdominal pain. No diarrhea has been reported. PHYSICAL EXAMINATION: Blood pressure is 157/88, pulse of 52, temperature 98.2. He is 95% on room air. General description: The patient is an elderly male lying in bed in no distress. Respiratory system: Unlabored breathing. Clear to auscultation anteriorly. Heart S1, S2. Regular rate and rhythm. Abdomen soft. No tenderness. LABS: BUN of 39, creatinine 1.8. DIAGNOSTIC IMPRESSION AND PLAN: Patient with infected right gluteal pressure ulcer. Culture with Proteus, Enterococcus, Klebsiella and anaerobes. Patient is covered with Zosyn. Antibiotic can be transitioned to Unasyn 3 g q.6h on discharge. Currently waiting for the [place] authorization. Local care to continue with wound VAC. MMODL / IJN: [id number] /
[2020-06-27] MEDS ORDERED: FUROSEMIDE 10 MG/ML 4 ML VIAL IV STA (15:49)
[2020-06-27] MEDS: TAMSULOSIN 0.4 MG CAP.ER.24H PO SCH (16:06)
[2020-06-27 16:29] LABS: Glucose,Whole Blood 130 mg/dL (75-99)
--- NOTE | 2020-06-27 19:01 | P.PN ---
Subjective Progress Note Date: 06/27/20 CHIEF COMPLAINT: Left decubiti ulcer of the buttock HISTORY OF PRESENT ILLNESS: The patient is a 70-year-old male status post debridement of left buttock decubiti ulcer. He has a wound VAC. He reports tr ouble with ileostomy leaking and was changed by RN today. He is in a specialty air mattress bed. Plan for wound vac change tomorrow. ROS: No reports of nausea and vomiting. No bowel movements. No fevers or chills. No new chest pain. No productive sputum PHYSICAL EXAM: VITAL SIGNS: Reviewed CONSTITUTIONAL: Well developed and in no acute distress. EYES: Conjuctivae without sclera icterus. Extraocular movements grossly intact. HEAD, EARS, NOSE, THROAT: Moist buccal mucosa. Head is atraumatic, normocephalic. Hears conversational speech. No nasal drainage. NECK: Supple. No thyroidomegaly. RESPIRATORY: Non-labored respirations and equal bilateral excursions. CARDIOVASCULAR: Regular rate. Regular rhythm. ABDOMEN: Protuberant. Ileostomy patent and functioning. MUSCULOSKELETAL: No clubbing. No cyanosis. SKIN: Good skin turgor. Well perfused. Wound VAC functioning. NEUROLOGIC: Cranial nerves II through XII grossly intact. No focal or lateralizing signs. PSYCH: Appropriate affect. Alert and oriented to person, place and time. GENITOURINARY: mccauley clear. CLINICAL LABS: White blood cell count eleavted 10.7, platelets low 110. Potassium elevated at 5.5 ASSESSMENT: 1. Left buttock decubiti ulcer 2. Ileostomy 3. Morbid obesity, BMI 35.3. PLAN: 1. Plan for wound vac change tomorrow. 2. Continue IV antibiotics Objective - Vital Signs Vital signs: Vital Signs Temp 98.2 F 06/27/20 13:36 Pulse 77 06/27/20 13:36 Resp 19 06/27/20 13:36 BP 109/57 06/27/20 13:36 Pulse Ox 94 L 06/27/20 13:36 Intake & Output 06/27/20 06/27/20 06/28/20 06:59 18:59 06:59 Intake Total 300 Output Total 800 180 Balance -500 -180 Intake: Oral 300 Output: Urine 800 180 Uretheral (Mccauley) 800 40 Other: Voiding Method Indwelling Catheter Indwelling Catheter # Bowel Movements 1 1 - Labs CBC & Chem 7: 06/28/20 06:18 06/30/20 05:45 Labs: Abnormal Lab Results - Last 24 Hours (Table) 06/26/20 06/27/20 06/27/20 Range/Units 20:59 05:57 11:25 Chloride 110 H (96-109) mmol/L Carbon Dioxide 12.8 L (21.6-31.8) mmol/L Anion Gap 12.20 H (4.00-12.00) mmol/L BUN 39.0 H (9.0-27.0) mg/dL Creatinine 1.8 H (0.6-1.5) mg/dL Est GFR (CKD-EPI)AfAm 43.5 L (60.0-200.0) Est GFR (CKD-EPI)NonAf 37.6 L (60.0-200.0) BUN/Creatinine Ratio 21.67 H (12.00-20.00) Ratio Glucose 65 L (70-110) mg/dL POC Glucose (mg/dL) 192 H 234 H (75-99) mg/dL Calcium 7.7 L (8.7-10.3) mg/dL 06/27/20 Range/Units 16:26 Chloride (96-109) mmol/L Carbon Dioxide (21.6-31.8) mmol/L Anion Gap (4.00-12.00) mmol/L BUN (9.0-27.0) mg/dL Creatinine (0.6-1.5) mg/dL Est GFR (CKD-EPI)AfAm (60.0-200.0) Est GFR (CKD-EPI)NonAf (60.0-200.0) BUN/Creatinine Ratio (12.00-20.00) Ratio Glucose (70-110) mg/dL POC Glucose (mg/dL) 130 H (75-99) mg/dL Calcium (8.7-10.3) mg/dL Microbiology - Last 24 Hours (Table) 06/22/20 11:26 Blood Culture - Preliminary Blood No Growth after 120 hours 06/23/20 16:55 Gram Stain - Final Buttock Wound Culture - Final Proteus mirabilis Enterococcus faecalis Klebsiella oxytoca Assessment and Plan (1) Hyperkalemia Status: Acute Code(s): E87.5 - HYPERKALEMIA SNOMED Code(s): 85987640 (2) Decubitus ulcer Status: Acute Code(s): L89.90 - PRESSURE ULCER OF UNSPECIFIED SITE, UNSPECIFIED STAGE SNOMED Code(s): 703225691 (3) Sepsis Status: Acute Code(s): A41.9 - SEPSIS, UNSPECIFIED ORGANISM SNOMED Code(s): 71640555
[2020-06-27 20:45] LABS: Glucose,Whole Blood 177 mg/dL (75-99)
[2020-06-27] MEDS: INSULIN DETEMIR (LEVEMIR) 100 UNIT/ML SYR SQ SCH (21:15)
[2020-06-28] MEDS: PIPERACILLIN-TAZOBACTAM 3.375 GM in SODIUM CHLORIDE 0.9% 100 ML IVPB SCH ×3 (01:00→17:31)
[2020-06-28 07:01] LABS: Glucose,Whole Blood 176 mg/dL (75-99)
[2020-06-28] MEDS: HEPARIN SODIUM,PORCINE 5,000 UNIT/ML 1 ML VIAL SQ SCH ×2 (09:39→20:20)
[2020-06-28] MEDS: INSULIN ASPART (NovoLOG) 100 UNIT/ML VIAL SQ SCH ×4 (09:39→20:33)
[2020-06-28] MEDS: METOPROLOL TARTRATE 12.5 MG TAB PO SCH ×2 (09:40→20:21)
[2020-06-28] MEDS: glipiZIDE 10 MG TAB PO SCH ×2 (09:40→17:31)
[2020-06-28] MEDS: TAMSULOSIN 0.4 MG CAP.ER.24H PO SCH (09:40)
[2020-06-28] MEDS: amLODIPine 10 MG TAB PO SCH (09:40)
[2020-06-28] MEDS: METHADONE 10 MG TAB PO SCH ×2 (09:40→20:21)
[2020-06-28] MEDS: FLUCONAZOLE 100 MG TAB PO SCH (09:40)
[2020-06-28 09:47] LABS: African American GFR (CKD) 40.8 (60.0-200.0); Anion Gap 8.6 mmol/L (4.00-12.00); BUN/Creat Ratio 22.11 Ratio (12.00-20.00); Calcium 7.1 mg/dL (8.7-10.3); Carbon Dioxide 15.4 mmol/L (21.6-31.8); Non-African American GFR(CKD) 35.2 (60.0-200.0); Potassium 4.6 mmol/L (3.5-5.5)
[2020-06-28 11:28] LABS: Basophils # (A) 0.02 X 10*3/uL (0.00-0.10); Basophils % (A) 0.2 %; Eosinophils # (A) 0.02 X 10*3/uL (0.04-0.35); Eosinophils % (A) 0.2 %; HCT 29.5 % (39.6-50.0); HGB 9.2 g/dL (13.0-17.0); Lymphocytes # (A) 0.64 X 10*3/uL (0.90-5.00); Lymphocytes % (A) 6.1 %; MCH 26.7 pg (27.0-32.0); MCHC 31.2 g/dL (32.0-37.0); MCV 85.8 fL (80.0-97.0); Monocytes # (A) 0.66 X 10*3/uL (0.20-1.00); Monocytes % (A) 6.3 %; Neutrophils # (A) 9.02 X 10*3/uL (1.80-7.70); Neutrophils % (A) 86.4 %; Platelet Count 67 X 10*3/uL (140-440); RBC 3.44 X 10*6/uL (4.40-5.60); RDW 16.7 % (11.5-14.5); WBC 10.44 X 10*3/uL (4.50-10.00)
[2020-06-28 11:31] LABS: Glucose,Whole Blood 270 mg/dL (75-99)
[2020-06-28] MEDS ORDERED: FUROSEMIDE 10 MG/ML 4 ML VIAL IV STA (11:37)
--- NOTE | 2020-06-28 12:16 | P.PN ---
Subjective Progress Note Date: 06/28/20 68-year-old pleasant gentleman with paraplegia came in because of infection of the decubitus ulcer. Patient had a small 6 sparred started a few days ago which was initially clean and now appear to be infected with the redness local is of temperature in the surrounding skin and pulses swelling discharge. Patient has a big sacral acute is ulcer appears to be stage IV ulcer. Patient was started on oral antibiotic. I do not have any cultures available from the wound cultures will be obtained aerobic and anaerobic patient will be admitted with broad-spectrum antibiotics. She was having on and off fevers with chills patient is a low-grade fever here. Patient's creatinine is 1.83 baseline is around 1.2 patient is bit hyponatremic as well. Patient denied any dysuria patient has a Bacon catheter urine is significantly abnormal with large leukocyte esterase with WBC clumps, squamous epithelial cells 06/23/2020 Patient seen and evaluated and follow-up currently awaiting to undergo surgical debridement for decubitus ulcer. Patient is lethargic although arousable alert and oriented 3. Retina and continues to be 1.8 and BUN is 45. Current INR is 1.7. White blood count is 8.80 and hemoglobin is 10.8. Will decrease methadone to twice daily. Blood pressure elevated today and will continue to monitor and continue with Norvasc and resume home dose after the procedure. Patient has been afebrile since yesterday. Patient is maintained on IV antibiotics in the form of Unasyn and vancomycin while awaiting cultures. Infectious disease following. Preliminary culture showing gram-negative bacilli. 06/24/2020 Patient is seen this morning complains of a dull headache and right ear disc omfort and Tylenol was given. Patient denies any dizziness lightheadedness or visual disturbances. Patient blood sugar also found to be elevated in the 3 and 400s and will start long-acting and continue with sliding scale. Patient is more alert and awake today and has been tolerating diet with no reports of nausea or vomiting noted. Patient is status post surgical debridement of the decubitus ulcer with Dr. Obrien and surgery is following. Infectious disease is also following and patient's preliminary cultures finalized showing Proteus mirabilis, enterococcus, gram-negative bacilli and patient is maintained on Zosyn and will continue at this time. Awaiting deep wound cultures from [facility]. Potassium was also found to be slightly elevated at 5.4 and will give capsulate. Creatinine stable at 1.5 BUN of 39. 06/25/2020 Patient is seen this morning and blood sugars continue to be elevated and patient was started on long-acting although continues to have blood sugars in the 300 to 400s. Will increase long-acting and initiate pre-meal insulins and continue with sliding scale and continue to monitor blood sugars closely. Resume glipizide as well. Patient had wound VAC applied and infectious disease following. Patient to receive a PICC line. PT/OT to evaluate the patient. Discussed with case management about discharge planning needs and [facility] and [facility] antibiotics are pending as the cultures are pending preliminary showing gram-negative bacilli. Once cultures are finalized will have to await authorization through the [facility] for outpatient IV antibiotic therapy. Potassium was 5.8 today and given 10 units of insulin IV along with an amp of D50 and will repeat labs. Creatinine stable at 1.5. 06/26/2020 Patient is seen this morning with no acute overnight issues. Blood sugars continue to be elevated and will continue sliding scale along with long-acting. Possible insulin upon discharge. Patient's cultures finalized showing Proteus m irabilis, enterococcus faecalis, and gram-negative bacilli and infectious disease is following. Patient has a PICC line in case management working on arrangements for outpatient antibiotic therapy along with home care. Patient does follow with the [facility] and will continue to do so in the outpatient setting. Potassium slightly improved at 5.1 today, creatinine is stable at 1.5 and lactic acid has improved. Patient is tolerating diet with no reports of nausea or vomiting noted. at the bedside. Surgery also following along closely status post debridement and patient does have wound VAC applied. 06/27/2020 Patient is seen this morning alert and oriented 2-3. Patient has moments of loss of thoughts which is baseline. Zanaflex being discontinued as is concerned that this medication is strong. Patient is maintained on IV fluids and will continue at this time. Patient continues to be on IV antibiotics and infectious disease is following. Patient has received a PICC line and [facility] along with [facility] care for discharge next week. Patient creatinine continues to be elevated at 1.8 and will continue to monitor closely. Blood sugars this morning found to be 65 and is maintained on pre-meal insulin along with sliding scale and long-acting. Will discontinue pre-meals and continue sliding scale along with long-acting and monitor closely. 06/28/2020 Patient is seen and evaluated this morning and continues to have generalized swelling and edema to the lower extremities and testicles. Was given a dose of IV Lasix yesterday with some improvement in output although creatinine is 1.9 today. Will consult nephrology and discontinue IV fluids. Patient will be given another dose of IV Lasix. Patient is maintained on IV antibiotics and to continue with outpatient IV antibiotic therapy and Homecare being planned [facility]. at the bedside asking multiple questions and had an extensive conversation about treatment plan. is very concerned about his mobility as he normally transfers in and out of bed, in and out of the wheelchair, in the vehicle on his own and is not doing so at this time. Will kilpatrick ve PT/OT reevaluate in the morning. Patient was on Zanaflex which as been discontinued and patient is more alert and awake today and is alert and oriented 3. Patient is maintained on methadone although was decreased to twice daily and requesting something for back spasms. Patient blood sugars 3 to be elevated although slightly better and will continue with current regimen. Review of systems: Constitutional: No reports of fatigue, fever, or chills HEENT: No reports of headache Cardiovascular: No reports of chest pain or palpitations Respiratory: No reports of shortness of breath or cough GI: No reports of nausea, vomiting, or diarrhea : No reports of dysuria or retention Neurovascular: Reports generalized weakness and generalized swelling of lower extremities and testicles All medications have been reviewed Objective - Vital Signs Vital signs: Vital Signs Temp 97.9 F 06/28/20 06:50 Pulse 88 06/28/20 06:50 Resp 19 06/28/20 06:50 BP 155/77 06/28/20 06:50 Pulse Ox 98 06/28/20 06:50 Intake & Output 06/27/20 06/28/20 06/28/20 18:59 06:59 18:59 Output Total 180 1000 Balance -180 -1000 Output: Drainage 50 Left Buttock 50 Urine 180 700 Uretheral (Bacon) 40 Stool 250 Other: Voiding Method Indwelling Catheter Indwelling Catheter # Bowel Movements 1 - Exam GENERAL: The patient is awake, alert and oriented x2-3, not in any acute distress. Obese HEENT: Pupils are round and equally reacting to light. EOMI. No scleral icterus. No conjunctival pallor. Normocephalic, atraumatic. No pharyngeal erythema. No thyromegaly. No drainage, redness, or swelling noted of the right ear on exam and nontender to the touch CARDIOVASCULAR: S1 and S2 present. No murmurs, rubs, or gallops. PULMONARY: Chest is clear to auscultation, no wheezing or crackles. ABDOMEN: Soft, obese, nontender, nondistended, normoactive bowel sounds. No palpable organomegaly. Right side colostomy noted MUSCULOSKELETAL: No joint swelling or deformity. EXTREMITIES: No cyanosis, clubbing, bilateral lower extremity edema 1+ pitting low slightly improved from yesterday, testicular swelling noted as well with slight improvement NEUROLOGICAL: Gross neurological examination did not reveal any new focal deficits. Paraplegic SKIN: sacral decubitus ulcer with wound vac noted - Labs CBC & Chem 7: 06/28/20 06:18 06/28/20 06:18 Labs: Abnormal Lab Results - Last 24 Hours (Table) 06/27/20 06/27/20 06/27/20 Range/Units 11:25 16:26 20:44 Sodium (135-145) mmol/L Chloride (96-109) mmol/L Carbon Dioxide (21.6-31.8) mmol/L BUN (9.0-27.0) mg/dL Creatinine (0.6-1.5) mg/dL Est GFR (CKD-EPI)AfAm (60.0-200.0) Est GFR (CKD-EPI)NonAf (60.0-200.0) BUN/Creatinine Ratio (12.00-20.00) Ratio Glucose (70-110) mg/dL POC Glucose (mg/dL) 234 H 130 H 177 H (75-99) mg/dL Calcium (8.7-10.3) mg/dL 06/28/20 06/28/20 Range/Units 06:18 06:54 Sodium 134 L (135-145) mmol/L Chloride 110 H (96-109) mmol/L Carbon Dioxide 15.4 L (21.6-31.8) mmol/L BUN 42.0 H (9.0-27.0) mg/dL Creatinine 1.9 H (0.6-1.5) mg/dL Est GFR (CKD-EPI)AfAm 40.8 L (60.0-200.0) Est GFR (CKD-EPI)NonAf 35.2 L (60.0-200.0) BUN/Creatinine Ratio 22.11 H (12.00-20.00) Ratio Glucose 191 H (70-110) mg/dL POC Glucose (mg/dL) 176 H (75-99) mg/dL Calcium 7.1 L (8.7-10.3) mg/dL Microbiology - Last 24 Hours (Table) 06/22/20 11:26 Blood Culture - Preliminary Blood No Growth after 120 hours Assessment and Plan Assessment: -Severe sepsis: Secondary to infected sacral decubitus stage IV ulcer, present on admission. -lactic acidosis with elevated lactic acid of 4.0, present on admission, secondary to above, improved. -Status post debridement of sacral decubitus ulcer, culture showing gram- negative bacilli, enterococcus, and Proteus mirabilis. Infectious disease following Patient has a PICC line. Wound VAC applied. -Type 2 diabetes mellitus; uncontrolled with hyperglycemia, continue with sliding scale insulin, patient had an episode of low blood sugar in the 60s and will discontinue pre-meals and continue sliding scale and long-acting. Continue to monitor before meals at bedtime -acute renal failure: Secondary to prerenal azotemia secondary to sepsis , currently 1.9, will repeat a.m. labs. Nephrology consulted. -Hyperkalemia, improving currently 4.6 -Hypertension -Hypovolemic hyponatremia, improving -Tachycardia and due to sepsis, improved -DVT prophylaxis with subcutaneous heparin -GI prophylaxis Pepcid Plan: Continue with current medications and IV antibiotics. Infectious disease and surgery following. Patient is on Zosyn and cultures finalized showing Proteus mirabilis, enterococcus, and gram-negative bacilli Patient received a PICC line and case management is following and will be working with the [facility] for [facility] therapy outpatient. Blood sugars continue to be uncontrolled with one episode of low blood sugar and elevated and will continue with sliding scale, long-acting, discontinued pre-meal insulin. Patient may possibly need insulin upon discharge. Creatinine continues to elevate and is currently 1.9 and patient continues to have lower extremity swelling and pitting edema with testicular swelling as well. Will discontinue IV fluids and give a dose of Lasix and consult nephrology. is at the bedside and this was discussed with her as well. Will also have PT/OT reevaluate the patient as she is concerned about his limited mobility at this time and has been not getting up and moving around himself per usual. Will repeat a.m. labs.
--- NOTE | 2020-06-28 16:06 | P.PN ---
Subjective Progress Note Date: 06/28/20 CHIEF COMPLAINT: Left decubiti ulcer of the buttock HISTORY OF PRESENT ILLNESS: The patient is a 70-year-old male status post debridement of left buttock decubiti ulcer and sepsis. He is resting comfortab ly. Denies abdominal pain. His ostomy functions. No leaks from wound vac. Wound vac last changed Monday. ROS: No reports of nausea and vomiting. No bowel movements. No fevers or chills. No new chest pain. No productive sputum PHYSICAL EXAM: VITAL SIGNS: Reviewed CONSTITUTIONAL: Well developed and in no acute distress. EYES: Conjuctivae without sclera icterus. Extraocular movements grossly intact. HEAD, EARS, NOSE, THROAT: Moist buccal mucosa. Head is atraumatic, normocephalic. Hears conversational speech. No nasal drainage. RESPIRATORY: Non-labored respirations and equal bilateral excursions. CARDIOVASCULAR: Regular rate. Regular rhythm. ABDOMEN: Protuberant. Ileostomy present MUSCULOSKELETAL: No clubbing. No cyanosis. SKIN: Good skin turgor. Well perfused. Wound VAC functioning. NEUROLOGIC: Cranial nerves II through XII grossly intact. No focal or lateralizing signs. PSYCH: Appropriate affect. Alert and oriented to person, place and time. GENITOURINARY: mccauley clear. CLINICAL LABS: White blood cell count elevated 10.4, platelets low 67. Creatinine elevated. Hemoglobin down to 10.0-9.2 ASSESSMENT: 1. Left buttock decubiti ulcer 2. Ileostomy 3. Morbid obesity, BMI 35.3. 4. Thrombocytopenia 5. Chronic renal insufficiency 6. Anemia PLAN: 1. On Mon schedule for wound vac changes. 2. Continue IV antibiotics 3. Continue specialty bed Objective - Vital Signs Vital signs: Vital Signs Temp 98.0 F 06/28/20 14:00 Pulse 96 06/28/20 14:00 Resp 18 06/28/20 14:00 BP 148/76 06/28/20 14:00 Pulse Ox 97 06/28/20 14:00 Intake & Output 06/27/20 06/28/20 06/28/20 18:59 06:59 18:59 Output Total 180 1000 1275 Balance -180 -1000 -1275 Output: Drainage 50 Left Buttock 50 Urine 322 130 2566 Uretheral (Mccauley) 40 650 Stool 250 25 Other: Voiding Method Indwelling Catheter Indwelling Catheter Indwelling Catheter # Bowel Movements 1 - Labs CBC & Chem 7: 06/28/20 06:18 06/30/20 05:45 Labs: Abnormal Lab Results - Last 24 Hours (Table) 06/27/20 06/27/20 06/28/20 Range/Units 16:26 20:44 06:18 WBC (4.50-10.00) X 10*3/uL RBC (4.40-5.60) X 10*6/uL Hgb (13.0-17.0) g/dL Hct (39.6-50.0) % MCH (27.0-32.0) pg MCHC (32.0-37.0) g/dL RDW (11.5-14.5) % Plt Count (140-440) X 10*3/uL Plt Count Comment Immature Gran # (0.00-0.04) X 10*3/uL Neutrophils # (1.80-7.70) X 10*3/uL Lymphocytes # (0.90-5.00) X 10*3/uL Eosinophils # (0.04-0.35) X 10*3/uL Immature Plt Fraction (1.1-6.1) % Sodium 134 L (135-145) mmol/L Chloride 110 H (96-109) mmol/L Carbon Dioxide 15.4 L (21.6-31.8) mmol/L BUN 42.0 H (9.0-27.0) mg/dL Creatinine 1.9 H (0.6-1.5) mg/dL Est GFR (CKD-EPI)AfAm 40.8 L (60.0-200.0) Est GFR (CKD-EPI)NonAf 35.2 L (60.0-200.0) BUN/Creatinine Ratio 22.11 H (12.00-20.00) Ratio Glucose 191 H (70-110) mg/dL POC Glucose (mg/dL) 130 H 177 H (75-99) mg/dL Calcium 7.1 L (8.7-10.3) mg/dL 06/28/20 06/28/20 06/28/20 Range/Units 06:18 06:54 11:28 WBC 10.44 H (4.50-10.00) X 10*3/uL RBC 3.44 L (4.40-5.60) X 10*6/uL Hgb 9.2 L (13.0-17.0) g/dL Hct 29.5 L (39.6-50.0) % MCH 26.7 L (27.0-32.0) pg MCHC 31.2 L (32.0-37.0) g/dL RDW 16.7 H (11.5-14.5) % Plt Count 67 L (140-440) X 10*3/uL Plt Count Comment DECREASED A Immature Gran # 0.08 H (0.00-0.04) X 10*3/uL Neutrophils # 9.02 H (1.80-7.70) X 10*3/uL Lymphocytes # 0.64 L (0.90-5.00) X 10*3/uL Eosinophils # 0.02 L (0.04-0.35) X 10*3/uL Immature Plt Fraction 9.6 H (1.1-6.1) % Sodium (135-145) mmol/L Chloride (96-109) mmol/L Carbon Dioxide (21.6-31.8) mmol/L BUN (9.0-27.0) mg/dL Creatinine (0.6-1.5) mg/dL Est GFR (CKD-EPI)AfAm (60.0-200.0) Est GFR (CKD-EPI)NonAf (60.0-200.0) BUN/Creatinine Ratio (12.00-20.00) Ratio Glucose (70-110) mg/dL POC Glucose (mg/dL) 176 H 270 H (75-99) mg/dL Calcium (8.7-10.3) mg/dL Microbiology - Last 24 Hours (Table) 06/22/20 11:26 Blood Culture - Final Blood No Growth after 144 hours Assessment and Plan (1) Thrombocytopenia Status: Acute Code(s): D69.6 - THROMBOCYTOPENIA, UNSPECIFIED SNOMED Code(s): 448802315 (2) Acute kidney injury Status: Acute Code(s): N17.9 - ACUTE KIDNEY FAILURE, UNSPECIFIED SNOMED Code(s): 37370620 (3) Decubitus ulcer Status: Acute Code(s): L89.90 - PRESSURE ULCER OF UNSPECIFIED SITE, UNSPECIFIED STAGE SNOMED Code(s): 432834002 (4) Sepsis Status: Acute Code(s): A41.9 - SEPSIS, UNSPECIFIED ORGANISM SNOMED Code(s): 44344014
[2020-06-28 16:31] LABS: Glucose,Whole Blood 204 mg/dL (75-99)
[2020-06-28 20:30] LABS: Glucose,Whole Blood 186 mg/dL (75-99)
[2020-06-28] MEDS: INSULIN DETEMIR (LEVEMIR) 100 UNIT/ML SYR SQ SCH (20:33)
[2020-06-28] MEDS: SODIUM BICARBONATE TAB 650 MG TAB PO SCH (20:40)
[2020-06-29] MEDS: PIPERACILLIN-TAZOBACTAM 3.375 GM in SODIUM CHLORIDE 0.9% 100 ML IVPB SCH ×2 (00:07→07:54)
--- NOTE | 2020-06-29 06:27 | PN ---
PROGRESS NOTE DATE OF SERVICE: 06/28/2019 REASON FOR FOLLOWUP: Left gluteal stage IV pressure ulcer. INTERVAL HISTORY: The patient is currently afebrile. Patient is breathing comfortably. The patient denies having any chest pain or shortness of breath or cough. No nausea, vomiting or abdominal pain. No diarrhea. PHYSICAL EXAMINATION: Blood pressure 133/76, pulse of 121, temperature 98.1, he is 98% on room air. General description is an elderly male lying in bed in no distress. Respiratory system: Unlabored breathing, clear to auscultation anteriorly. Heart S1, S2. Regular rate and rhythm. Abdomen is soft, no tenderness. LABS: Hemoglobin is 9.2, white count 10.44, creatinine slightly elevated at 1.9. DIAGNOSTIC IMPRESSION AND PLAN: Patient with right gluteal pressure ulcer. Culture positive for proteus mirabilis enterococcus, Klebsiella and anaerobes. Patient is covered with Zosyn and transition to Unasyn. Local wound care with wound VAC. Did have worsening of his kidney function and will be monitored closely. Lasix has been discontinued. MMODL / IJN: [id number] / [id number]
[2020-06-29 07:38] LABS: Glucose,Whole Blood 170 mg/dL (75-99)
[2020-06-29] MEDS: METHADONE 10 MG TAB PO SCH ×2 (07:53→20:23)
[2020-06-29] MEDS: TAMSULOSIN 0.4 MG CAP.ER.24H PO SCH (07:53)
[2020-06-29] MEDS: HEPARIN SODIUM,PORCINE 5,000 UNIT/ML 1 ML VIAL SQ SCH ×2 (07:53→20:23)
[2020-06-29] MEDS: SODIUM BICARBONATE TAB 650 MG TAB PO SCH ×2 (07:53→20:22)
[2020-06-29] MEDS: FLUCONAZOLE 100 MG TAB PO SCH (07:53)
[2020-06-29] MEDS: METOPROLOL TARTRATE 12.5 MG TAB PO SCH ×2 (07:53→20:23)
[2020-06-29] MEDS: glipiZIDE 10 MG TAB PO SCH ×2 (07:53→17:39)
[2020-06-29] MEDS: INSULIN ASPART (NovoLOG) 100 UNIT/ML VIAL SQ SCH ×4 (07:54→20:43)
[2020-06-29] MEDS ORDERED: amLODIPine 5 MG TAB PO ONE (09:00)
[2020-06-29] MEDS ORDERED: amLODIPine 5 MG TAB PO SCH (09:00)
[2020-06-29] MEDS: AMPICILLIN-SULBACTAM 3 GM in SODIUM CHLORIDE 0.9% 100 ML IVPB SCH ×3 (09:22→22:24)
[2020-06-29 09:29] LABS: African American GFR (CKD) 50.2 (60.0-200.0); Anion Gap 9.7 mmol/L (4.00-12.00); BUN/Creat Ratio 22.5 Ratio (12.00-20.00); Calcium 7.2 mg/dL (8.7-10.3); Carbon Dioxide 19.3 mmol/L (21.6-31.8); Magnesium 1.5 mg/dL (1.5-2.4); Non-African American GFR(CKD) 43.3 (60.0-200.0); Potassium 3.7 mmol/L (3.5-5.5)
--- NOTE | 2020-06-29 10:59 | P.PN ---
<Agnes Rodriguez - Last Filed: 06/29/20 10:54> Subjective Progress Note Date: 06/29/20 CHIEF COMPLAINT: Left buttocks decubitus ulcer HISTORY OF PRESENT ILLNESS: Patient is status post debridement of left buttocks decubitus ulcer on 06/23/2020. Patient is scheduled to have wound VAC changed today. Patient sitting up in bed comfortably. Patient has no new complaints. He denies any nausea or vomiting. He is tolerating regular diet. Afebrile. Creatinine down from 1.9-1.6. Magnesium 1.5. Patient did receive a dose of IV Lasix by medicine service yesterday for generalized swelling and edema of the lower extremities and testicles. Nephrology has been consulted. PHYSICAL EXAM: VITAL SIGNS: Reviewed. GENERAL: Well-developed in no acute distress. HEENT: No sclera icterus. Extraocular movements grossly intact. Moist buccal mucosa. Head is atraumatic, normocephalic. ABDOMEN: Soft. Nondistended. Nontender. NEUROLOGIC: Alert and oriented. Cranial nerves II through XII grossly intact. ASSESSMENT: 1. Left buttocks decubitus ulcer status post debridement on 06/23/20 PLAN: -Continue supportive care -Continue wound vac -Continue antibiotics per ID Physician Spa Coordinator note has been reviewed by physician. Signing provider agrees with the documented findings, assessment, and plan of care. Objective - Vital Signs Vital signs: Vital Signs Temp 97.9 F 06/29/20 07:59 Pulse 105 H 06/29/20 07:59 Resp 20 06/29/20 07:59 BP 160/70 06/29/20 09:23 Pulse Ox 95 06/29/20 07:59 Intake & Output 06/28/20 06/29/20 06/29/20 18:59 06:59 18:59 Output Total 2775 2250 Balance -2775 -2250 Output: Urine 2750 2250 Uretheral (Bacon) 650 Stool 25 Other: Voiding Method Indwelling Catheter Indwelling Catheter - Labs CBC & Chem 7: 06/28/20 06:18 06/29/20 05:42 Labs: Abnormal Lab Results - Last 24 Hours (Table) 06/28/20 06/28/20 06/28/20 Range/Units 06:18 11:28 16:28 WBC 10.44 H (4.50-10.00) X 10*3/uL RBC 3.44 L (4.40-5.60) X 10*6/uL Hgb 9.2 L (13.0-17.0) g/dL Hct 29.5 L (39.6-50.0) % MCH 26.7 L (27.0-32.0) pg MCHC 31.2 L (32.0-37.0) g/dL RDW 16.7 H (11.5-14.5) % Plt Count 67 L (140-440) X 10*3/uL Plt Count Comment DECREASED A Immature Gran # 0.08 H (0.00-0.04) X 10*3/uL Neutrophils # 9.02 H (1.80-7.70) X 10*3/uL Lymphocytes # 0.64 L (0.90-5.00) X 10*3/uL Eosinophils # 0.02 L (0.04-0.35) X 10*3/uL Immature Plt Fraction 9.6 H (1.1-6.1) % Carbon Dioxide (21.6-31.8) mmol/L BUN (9.0-27.0) mg/dL Creatinine (0.6-1.5) mg/dL Est GFR (CKD-EPI)AfAm (60.0-200.0) Est GFR (CKD-EPI)NonAf (60.0-200.0) BUN/Creatinine Ratio (12.00-20.00) Ratio Glucose (70-110) mg/dL POC Glucose (mg/dL) 270 H 204 H (75-99) mg/dL Calcium (8.7-10.3) mg/dL 06/28/20 06/29/20 06/29/20 Range/Units 20:29 05:42 07:11 WBC (4.50-10.00) X 10*3/uL RBC (4.40-5.60) X 10*6/uL Hgb (13.0-17.0) g/dL Hct (39.6-50.0) % MCH (27.0-32.0) pg MCHC (32.0-37.0) g/dL RDW (11.5-14.5) % Plt Count (140-440) X 10*3/uL Plt Count Comment Immature Gran # (0.00-0.04) X 10*3/uL Neutrophils # (1.80-7.70) X 10*3/uL Lymphocytes # (0.90-5.00) X 10*3/uL Eosinophils # (0.04-0.35) X 10*3/uL Immature Plt Fraction (1.1-6.1) % Carbon Dioxide 19.3 L (21.6-31.8) mmol/L BUN 36.0 H (9.0-27.0) mg/dL Creatinine 1.6 H (0.6-1.5) mg/dL Est GFR (CKD-EPI)AfAm 50.2 L (60.0-200.0) Est GFR (CKD-EPI)NonAf 43.3 L (60.0-200.0) BUN/Creatinine Ratio 22.50 H (12.00-20.00) Ratio Glucose 167 H (70-110) mg/dL POC Glucose (mg/dL) 186 H 170 H (75-99) mg/dL Calcium 7.2 L (8.7-10.3) mg/dL Microbiology - Last 24 Hours (Table) 06/23/20 16:55 Anaerobic Culture - Final Buttock Anaerobic Gm Negative Bacilli 06/22/20 11:26 Blood Culture - Final Blood No Growth after 144 hours <Moris Obrien - Last Filed: 06/29/20 14:07> Subjective As above. No new complaints. Wound VAC was changed yesterday. We'll try to be there for dressing change tomorrow. Continue antibiotics per infectious disease. Objective - Vital Signs Vital signs: Vital Signs Temp 97.9 F 06/29/20 07:59 Pulse 105 H 06/29/20 08:00 Resp 20 06/29/20 08:00 BP 160/70 06/29/20 09:23 Pulse Ox 95 06/29/20 07:59 Intake & Output 06/28/20 06/29/20 06/29/20 18:59 06:59 18:59 Output Total 2775 2250 Balance -2775 -2250 Output: Urine 2750 2250 Uretheral (Bacon) 650 Stool 25 Other: Voiding Method Indwelling Catheter Indwelling Catheter Indwelling Catheter - Labs CBC & Chem 7: 06/28/20 06:18 06/29/20 05:42 Labs: Abnormal Lab Results - Last 24 Hours (Table) 06/28/20 06/28/20 06/29/20 Range/Units 16:28 20:29 05:42 Carbon Dioxide 19.3 L (21.6-31.8) mmol/L BUN 36.0 H (9.0-27.0) mg/dL Creatinine 1.6 H (0.6-1.5) mg/dL Est GFR (CKD-EPI)AfAm 50.2 L (60.0-200.0) Est GFR (CKD-EPI)NonAf 43.3 L (60.0-200.0) BUN/Creatinine Ratio 22.50 H (12.00-20.00) Ratio Glucose 167 H (70-110) mg/dL POC Glucose (mg/dL) 204 H 186 H (75-99) mg/dL Calcium 7.2 L (8.7-10.3) mg/dL 06/29/20 06/29/20 Range/Units 07:11 11:28 Carbon Dioxide (21.6-31.8) mmol/L BUN (9.0-27.0) mg/dL Creatinine (0.6-1.5) mg/dL Est GFR (CKD-EPI)AfAm (60.0-200.0) Est GFR (CKD-EPI)NonAf (60.0-200.0) BUN/Creatinine Ratio (12.00-20.00) Ratio Glucose (70-110) mg/dL POC Glucose (mg/dL) 170 H 251 H (75-99) mg/dL Calcium (8.7-10.3) mg/dL Microbiology - Last 24 Hours (Table) 06/23/20 16:55 Anaerobic Culture - Final Buttock Anaerobic Gm Negative Bacilli 06/22/20 11:26 Blood Culture - Final Blood No Growth after 144 hours
[2020-06-29 11:33] LABS: Glucose,Whole Blood 251 mg/dL (75-99)
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
--- NOTE | 2020-06-29 14:44 | CDI ---
Documentation Clarification Form Date: 06/29/2020 02:31:12 PM From: Joellen CliftonBIANKA martinez, CCDS Admit Date: 06/22/2020 11:29:00 AM Patient Name: Clem Parra Visit Number: [id number] Discharge Date: ATTENTION: The Clinical Documentation Specialists (CDI) and [facility] Coding Staff appreciate your assistance in clarifying documentation. Please respond to the clarification below the line at the bottom and electronically sign. The CDI & [facility] Coding staff will review the response and follow-up if needed. Please note: Queries are made part of the Legal Health Record. If you have any questions, please contact the author of this message via ITS. Dr. Shane Malone: Per the 06/22 Infectious Disease Consult: "Patient admitted to hospital with sepsis in this patient who did have a fever, tachycardia, elevated lactic acid, white count with a left shift. Source is likely infected sacral pressure ulcer plus/minus catheter-associated UTI. Per the 06/24 Infectious Disease Progress Note: "Urinary tract infection, catheter-associated. Bacon catheter has been changed." Per the 06/22 History & Physical: "Patient denied any dysuria patient has a Bacon catheter urine is significantly abnormal with large leukocyte esterase with WBC clumps, squamous epithelial cells. History/Risk Factors: DM, Hypertension, CKD IIIa, T11 Fracture, Paraplegia, Ileostomy, Neurogenic Bladder: self caths, MRSA. Clinical Indicators: Presented to the ED on 06/22 with Stage IV Decubitus Sacral Ulcer and Sepsis, Failed outpatient treatment. 06/22 VS: T 100.4, P 121, R 18, BP 178/82, PO 98 RA 06/22 LAB: WBC 10.9, neutrophils 9.3, Lymphocytes 0.1, Lactic Acid 4.0, 3.1, 2.4. 06/22 UA: Turbid, 2+ Protein, Large Blood, Large Esterase, RBC <182, WBC >182 Treatment: 06/23 Bacon Catheter changed. IV Morphine, IV Zofran, IV fluid 1,000 mls @ 999 mls/hr q1H, IV Zosyn 100 mls @ 200 mls/hr x1, IV fluid bolus 1,000 mls @ 999 mls/hr q1H, IV Vancomycin 500 mls @ 167 mls/hr x1, IV Zosyn 100 mls @ 25 mls/hr q8H. In your professional opinion, can you please clarify the etiology of the UTI, if known? o UTI not related to Bacon Catheter o UTI related to Bacon Catheter o Other condition, please specify o Unable to determine If an infective organism is present, please specify cause and effect relationship if applicable: (Last Revision: July 2017) MTDD
[2020-06-29] MEDS ORDERED: Magnesium Replacement Protocol 1 EACH MISC MISCELLANE PRN (15:29)
--- NOTE | 2020-06-29 15:31 | P.PN ---
Subjective Progress Note Date: 06/29/20 68-year-old pleasant gentleman with paraplegia came in because of infection of the decubitus ulcer. Patient had a small 6 sparred started a few days ago which was initially clean and now appear to be infected with the redness local is of temperature in the surrounding skin and pulses swelling discharge. Patient has a big sacral acute is ulcer appears to be stage IV ulcer. Patient was started on oral antibiotic. I do not have any cultures available from the wound cultures will be obtained aerobic and anaerobic patient will be admitted with broad-spectrum antibiotics. She was having on and off fevers with chills patient is a low-grade fever here. Patient's creatinine is 1.83 baseline is around 1.2 patient is bit hyponatremic as well. Patient denied any dysuria patient has a Bacon catheter urine is significantly abnormal with large leukocyte esterase with WBC clumps, squamous epithelial cells 06/23/2020 Patient seen and evaluated and follow-up currently awaiting to undergo surgical debridement for decubitus ulcer. Patient is lethargic although arousable alert and oriented 3. Retina and continues to be 1.8 and BUN is 45. Current INR is 1.7. White blood count is 8.80 and hemoglobin is 10.8. Will decrease methadone to twice daily. Blood pressure elevated today and will continue to monitor and continue with Norvasc and resume home dose after the procedure. Patient has been afebrile since yesterday. Patient is maintained on IV antibiotics in the form of Unasyn and vancomycin while awaiting cultures. Infectious disease following. Preliminary culture showing gram-negative bacilli. 06/24/2020 Patient is seen this morning complains of a dull headache and right ear disc omfort and Tylenol was given. Patient denies any dizziness lightheadedness or visual disturbances. Patient blood sugar also found to be elevated in the 3 and 400s and will start long-acting and continue with sliding scale. Patient is more alert and awake today and has been tolerating diet with no reports of nausea or vomiting noted. Patient is status post surgical debridement of the decubitus ulcer with Dr. Obrien and surgery is following. Infectious disease is also following and patient's preliminary cultures finalized showing Proteus mirabilis, enterococcus, gram-negative bacilli and patient is maintained on Zosyn and will continue at this time. Awaiting deep wound cultures from [facility]. Potassium was also found to be slightly elevated at 5.4 and will give capsulate. Creatinine stable at 1.5 BUN of 39. 06/25/2020 Patient is seen this morning and blood sugars continue to be elevated and patient was started on long-acting although continues to have blood sugars in the 300 to 400s. Will increase long-acting and initiate pre-meal insulins and continue with sliding scale and continue to monitor blood sugars closely. Resume glipizide as well. Patient had wound VAC applied and infectious disease following. Patient to receive a PICC line. PT/OT to evaluate the patient. Discussed with case management about discharge planning needs and patient follows with the [facility] and discharge antibiotics are pending as the cultures are pending preliminary showing gram-negative bacilli. Once cultures are finalized will have to await authorization through the [facility] for outpatient IV antibiotic therapy. Potassium was 5.8 today and given 10 units of insulin IV along with an amp of D50 and will repeat labs. Creatinine stable at 1.5. 06/26/2020 Patient is seen this morning with no acute overnight issues. Blood sugars continue to be elevated and will continue sliding scale along with long-acting. Possible insulin upon discharge. Patient's cultures finalized showing Proteus m irabilis, enterococcus faecalis, and gram-negative bacilli and infectious disease is following. Patient has a PICC line in case management working on arrangements for outpatient antibiotic therapy along with home care. Patient does follow with the [facility] and will continue to do so in the outpatient setting. Potassium slightly improved at 5.1 today, creatinine is stable at 1.5 and lactic acid has improved. Patient is tolerating diet with no reports of nausea or vomiting noted. at the bedside. Surgery also following along closely status post debridement and patient does have wound VAC applied. 06/27/2020 Patient is seen this morning alert and oriented 2-3. Patient has moments of loss of thoughts which is baseline. Zanaflex being discontinued as is concerned that this medication is strong. Patient is maintained on IV fluids and will continue at this time. Patient continues to be on IV antibiotics and infectious disease is following. Patient has received a PICC line and [facility] with [facility] care for discharge next week. Patient creatinine continues to be elevated at 1.8 and will continue to monitor closely. Blood sugars this morning found to be 65 and is maintained on pre-meal insulin along with sliding scale and long-acting. Will discontinue pre-meals and continue sliding scale along with long-acting and monitor closely. 06/28/2020 Patient is seen and evaluated this morning and continues to have generalized swelling and edema to the lower extremities and testicles. Was given a dose of IV Lasix yesterday with some improvement in output although creatinine is 1.9 today. Will consult nephrology and discontinue IV fluids. Patient will be given another dose of IV Lasix. Patient is maintained on IV antibiotics and to continue with outpatient IV antibiotic therapy and Homecare being planned with case management through the [facility]. at the bedside asking multiple questions and had an extensive conversation about treatment plan. is very concerned about his mobility as he normally transfers in and out of bed, in and out of the wheelchair, in the vehicle on his own and is not doing so at this time. Will kilpatrick ve PT/OT reevaluate in the morning. Patient was on Zanaflex which as been discontinued and patient is more alert and awake today and is alert and oriented 3. Patient is maintained on methadone although was decreased to twice daily and requesting something for back spasms. Patient blood sugars 3 to be elevated although slightly better and will continue with current regimen. 06/29/2020 Patient is seen this morning and continues to be closely monitored. Patient is currently maintained on IV antibiotic therapy in the form of Unasyn which was recently changed from Zosyn. Infectious disease is following. Wound culture showing Proteus mirabilis, enterococcus, Klebsiella oxytoca and anaerobic cultures showing gram-negative bacilli. Patient continues to have lower extremity and testicular swelling and was given a dose of Lasix and IV fluids discontinued. Swelling continues of the lower extremities and is showing some slight improvement. Nephrology consulted and following. Patient is maintained on oral bicarbonate and will continue at this time. Renal ultrasound ordered and pending at this time. Hydralazine also started. Patient continues to be quite weak and was seen and evaluated by PT/OT recommending subacute rehab. Case management is following and working on accepting facility. Sodium is 137 today with a potassium of 3.7, BUN of 36, creatinine slightly improved at 1.6. Magnesium is 1.5 and will replace. Will repeat a.m. labs. Review of systems: Constitutional: No reports of fatigue, fever, or chills HEENT: No reports of headache Cardiovascular: No reports of chest pain or palpitations Respiratory: No reports of shortness of breath or cough GI: No reports of nausea, vomiting, or diarrhea : No reports of dysuria or retention Neurovascular: Reports generalized weakness and generalized swelling of lower extremities and testicles All medications have been reviewed Active Medications Acetaminophen (Acetaminophen Tab 500 Mg Tab) 1,000 mg PO Q6HR PRN PRN Reason: Fever and/ or Pain Last Admin: 06/26/20 04:21 Dose: 1,000 mg Documented by: Amlodipine Besylate (Amlodipine 10 Mg Tab) 10 mg PO DAILY [facility] Fluconazole (Fluconazole 100 Mg Tab) 100 mg PO DAILY [facility] Last Admin: 06/29/20 07:53 Dose: 100 mg Documented by: Glipizide (Glipizide 10 Mg Tab) 10 mg PO AC-BID [facility] Last Admin: 06/29/20 07:53 Dose: 10 mg Documented by: Heparin Sodium (Porcine) (Heparin Sodium,Porcine 5,000 Unit/Ml 1 Ml Vial) 5,000 unit SQ Q12HR [facility] Last Admin: 06/29/20 07:53 Dose: 5,000 unit Documented by: Hydralazine HCl (Hydralazine Hcl 25 Mg Tab) 25 mg PO TID [facility] Ampicillin Sodium/Sulbactam (Sodium 3 gm/ Sodium Chloride) 100 mls @ 200 mls/hr IVPB Q6H [facility] Last Admin: 06/29/20 09:22 Dose: 200 mls/hr Documented by: Insulin Aspart (Insulin Aspart (Novolog) 100 Unit/Ml Vial) 0 unit SQ ACHS [facility]; Protocol Last Admin: 06/29/20 12:27 Dose: 4 unit Documented by: Insulin Detemir (Insulin Detemir (Levemir) 100 Unit/Ml Syr) 15 unit SQ HS [facility] Last Admin: 06/28/20 20:33 Dose: 15 unit Documented by: Lidocaine (Lidocaine 5% Patch) 1 patch TOPICAL DAILY PRN PRN Reason: left back hip pain Methadone HCl (Methadone 10 Mg Tab) 10 mg PO BID [facility] Last Admin: 06/29/20 07:53 Dose: 10 mg Documented by: Metoprolol Tartrate (Metoprolol Tartrate 12.5 Mg Tab) 12.5 mg PO BID [facility] Last Admin: 06/29/20 07:53 Dose: 12.5 mg Documented by: Naloxone HCl (Naloxone 0.4 Mg/Ml 1 Ml Vial) 0.2 mg IV Q2M PRN PRN Reason: Opioid Reversal Ondansetron HCl (Ondansetron 4 Mg/2 Ml Vial) 4 mg IVP Q8HR PRN PRN Reason: Nausea And Vomiting Sodium Bicarbonate (Sodium Bicarbonate Tab 650 Mg Tab) 650 mg PO BID [facility] Last Admin: 06/29/20 07:53 Dose: 650 mg Documented by: Tamsulosin HCl (Tamsulosin 0.4 Mg Cap.Er.24h) 0.4 mg PO PC-BRKFST [facility] Last Admin: 06/29/20 07:53 Dose: 0.4 mg Documented by: Objective - Vital Signs Vital signs: Vital Signs Temp 97.9 F 06/29/20 07:59 Pulse 105 H 06/29/20 07:59 Resp 20 06/29/20 07:59 BP 183/74 06/29/20 07:59 Pulse Ox 95 06/29/20 07:59 Intake & Output 06/28/20 06/29/20 06/29/20 18:59 06:59 18:59 Output Total 2775 2250 Balance -2775 -2250 Output: Urine 2750 2250 Uretheral (Bacon) 650 Stool 25 Other: Voiding Method Indwelling Catheter Indwelling Catheter - Exam GENERAL: The patient is awake, alert and oriented x2-3, not in any acute distress. Obese. Temp is 97.9F, pulse is 105, respirations are 20, blood pressure is 160/70, oxygen saturation is 96% on room air. HEENT: Pupils are round and equally reacting to light. EOMI. No scleral icterus. No conjunctival pallor. Normocephalic, atraumatic. No pharyngeal erythema. No thyromegaly. No drainage, redness, or swelling noted of the right ear on exam and nontender to the touch CARDIOVASCULAR: S1, S2 are muffled PULMONARY: Diminished breath sounds bilaterally with no wheezing or rhonchi noted. ABDOMEN: Soft, obese, nontender, nondistended, normoactive bowel sounds. No palpable organomegaly. Right side colostomy noted MUSCULOSKELETAL: No joint swelling or deformity. EXTREMITIES: No cyanosis, clubbing, bilateral lower extremity edema 1+ pitting low slightly improved from yesterday, testicular swelling noted as well with slight improvement NEUROLOGICAL: Gross neurological examination did not reveal any new focal deficits. Paraplegic SKIN: sacral decubitus ulcer with wound vac noted - Labs CBC & Chem 7: 06/28/20 06:18 06/29/20 05:42 Labs: Abnormal Lab Results - Last 24 Hours (Table) 06/28/20 06/28/20 06/28/20 Range/Units 06:18 06:18 11:28 WBC 10.44 H (4.50-10.00) X 10*3/uL RBC 3.44 L (4.40-5.60) X 10*6/uL Hgb 9.2 L (13.0-17.0) g/dL Hct 29.5 L (39.6-50.0) % MCH 26.7 L (27.0-32.0) pg MCHC 31.2 L (32.0-37.0) g/dL RDW 16.7 H (11.5-14.5) % Plt Count 67 L (140-440) X 10*3/uL Plt Count Comment DECREASED A Immature Gran # 0.08 H (0.00-0.04) X 10*3/uL Neutrophils # 9.02 H (1.80-7.70) X 10*3/uL Lymphocytes # 0.64 L (0.90-5.00) X 10*3/uL Eosinophils # 0.02 L (0.04-0.35) X 10*3/uL Immature Plt Fraction 9.6 H (1.1-6.1) % Sodium 134 L (135-145) mmol/L Chloride 110 H (96-109) mmol/L Carbon Dioxide 15.4 L (21.6-31.8) mmol/L BUN 42.0 H (9.0-27.0) mg/dL Creatinine 1.9 H (0.6-1.5) mg/dL Est GFR (CKD-EPI)AfAm 40.8 L (60.0-200.0) Est GFR (CKD-EPI)NonAf 35.2 L (60.0-200.0) BUN/Creatinine Ratio 22.11 H (12.00-20.00) Ratio Glucose 191 H (70-110) mg/dL POC Glucose (mg/dL) 270 H (75-99) mg/dL Calcium 7.1 L (8.7-10.3) mg/dL 06/28/20 06/28/20 06/29/20 Range/Units 16:28 20:29 07:11 WBC (4.50-10.00) X 10*3/uL RBC (4.40-5.60) X 10*6/uL Hgb (13.0-17.0) g/dL Hct (39.6-50.0) % MCH (27.0-32.0) pg MCHC (32.0-37.0) g/dL RDW (11.5-14.5) % Plt Count (140-440) X 10*3/uL Plt Count Comment Immature Gran # (0.00-0.04) X 10*3/uL Neutrophils # (1.80-7.70) X 10*3/uL Lymphocytes # (0.90-5.00) X 10*3/uL Eosinophils # (0.04-0.35) X 10*3/uL Immature Plt Fraction (1.1-6.1) % Sodium (135-145) mmol/L Chloride (96-109) mmol/L Carbon Dioxide (21.6-31.8) mmol/L BUN (9.0-27.0) mg/dL Creatinine (0.6-1.5) mg/dL Est GFR (CKD-EPI)AfAm (60.0-200.0) Est GFR (CKD-EPI)NonAf (60.0-200.0) BUN/Creatinine Ratio (12.00-20.00) Ratio Glucose (70-110) mg/dL POC Glucose (mg/dL) 204 H 186 H 170 H (75-99) mg/dL Calcium (8.7-10.3) mg/dL Microbiology - Last 24 Hours (Table) 06/23/20 16:55 Anaerobic Culture - Final Buttock Anaerobic Gm Negative Bacilli 06/22/20 11:26 Blood Culture - Final Blood No Growth after 144 hours Assessment and Plan Assessment: -Severe sepsis: Secondary to infected sacral decubitus stage IV ulcer, present on admission. -lactic acidosis with elevated lactic acid of 4.0, present on admission, secondary to above, improved. -Status post debridement of sacral decubitus ulcer, culture showing gram- negative bacilli, enterococcus, and Proteus mirabilis -Type 2 diabetes mellitus; uncontrolled with hyperglycemia -acute renal failure: Secondary to prerenal azotemia secondary to sepsis -Hyperkalemia, improved -Hypertension -Hypovolemic hyponatremia, improving -Tachycardia secondary to sepsis, improved -DVT prophylaxis with subcutaneous heparin -GI prophylaxis Pepcid -Full code Recommendations and discussion: Recommend to continue with current medications, management, and symptomatic treatment. Multiple medical consultations following including infectious disease, nephrology, and wound care. Patient is maintained on IV antibiotics in the form of Unasyn and will continue at this time. Patient was started on sodium bicarb. Creatinine slightly improved at 1.6 today. Renal ultrasound ordered and pending. IV fluids discontinued. Patient has continued swelling of the lower extremities and weakness. Patient is paraplegic although per patient and he is completely independent in transfers and still drives. Patient is quite weak and was seen and evaluated by PT/OT recommending subacute rehab. Case management is following and working on accepting facility. Will repeat a.m. labs. Due to multiple complex medical issues, prognosis is guarded. Further recommendations to follow. Possible discharge in 24-48 hours.
[2020-06-29] MEDS: MAGNESIUM SULFATE-D5W PMX 1 GM in DEXTROSE/WATER 1 100ML.BAG IVPB SCH ×2 (16:07→17:40)
[2020-06-29] MEDS: hydrALAZINE HCL 25 MG TAB PO SCH ×2 (16:08→22:25)
[2020-06-29 16:48] LABS: Glucose,Whole Blood 341 mg/dL (75-99)
--- NOTE | 2020-06-29 17:25 | US ---
EXAMINATION TYPE: US kidneys/renal and bladder DATE OF EXAM: 06/29/2020 COMPARISON: NONE CLINICAL HISTORY: 70 year-old male acute kidney injury. TECHNIQUE: Multiple sonographic images of the kidneys and bladder are obtained. FINDINGS: Lighting Adviser notes: Exam limited due to body habitus. The patient is paralyzed, unable to roll. EXAM MEASUREMENTS: Right Kidney: 9.7 x 6.0 x 5.3 cm Left Kidney: 9.3 x 5.8 x 4.5 cm Right Kidney: Limited, cortical thinning, borders ill defined. Left Kidney: Limited, cortical thinning, borders ill defined. No evident hydronephrosis on either side. Bladder: Bacon catheter in place, unable to adequately assess. Bilateral Jets seen: no IMPRESSION: Technically limited exam due to patient body habitus and inability to cooperate for the exam. No evid ent hydronephrosis. Suspect underlying chronic medical renal disease.
[2020-06-29] MEDS: ACETAMINOPHEN TAB 500 MG TAB PO PRN (20:22)
[2020-06-29 20:33] LABS: Glucose,Whole Blood 335 mg/dL (75-99)
[2020-06-29] MEDS: INSULIN DETEMIR (LEVEMIR) 100 UNIT/ML SYR SQ SCH (20:43)
--- NOTE | 2020-06-29 22:44 | PN ---
PROGRESS NOTE DATE OF SERVICE: 06/29/2020 REASON FOR FOLLOWUP: Left gluteal stage IV pressure ulcer. INTERVAL HISTORY: The patient is currently afebrile, breathing comfortably. No chest pain, shortness of breath or cough. No nausea. No vomiting. No abdominal pain. No diarrhea. PHYSICAL EXAMINATION: Blood pressure 122/69, pulse 100. Temperature 98.3. He is 98% on room air. General description is an elderly male lying in bed in no distress. Respiratory system: Unlabored breathing, clear to auscultation anteriorly. Heart S1, S2. Regular rate and rhythm. Abdomen: Soft, no tenderness. LABS: BUN of 36, creatinine 1.6. DIAGNOSTIC IMPRESSION AND PLAN: Patient with left gluteal pressure ulcer stage IV with multiple pathogen growing Proteus, Enterococcus, Klebsiella and anaerobes. The patient is covered with Unasyn. Will continue to finish a 6 week course of therapy. Local wound care with wound VAC. Continue supportive care. MMODL / IJN: [id number] /
[2020-06-30] MEDS: AMPICILLIN-SULBACTAM 3 GM in SODIUM CHLORIDE 0.9% 100 ML IVPB SCH ×3 (02:30→15:42)
[2020-06-30 06:43] LABS: Glucose,Whole Blood 111 mg/dL (75-99)
[2020-06-30 07:34] VITALS: RESP 18
[2020-06-30] MEDS: INSULIN ASPART (NovoLOG) 100 UNIT/ML VIAL SQ SCH ×3 (08:05→17:23)
[2020-06-30] MEDS: METHADONE 10 MG TAB PO SCH (08:09)
[2020-06-30] MEDS: SODIUM BICARBONATE TAB 650 MG TAB PO SCH (08:09)
[2020-06-30] MEDS: METOPROLOL TARTRATE 12.5 MG TAB PO SCH (08:09)
[2020-06-30] MEDS: TAMSULOSIN 0.4 MG CAP.ER.24H PO SCH (08:09)
[2020-06-30] MEDS: hydrALAZINE HCL 25 MG TAB PO SCH ×2 (08:10→15:43)
[2020-06-30] MEDS: FLUCONAZOLE 100 MG TAB PO SCH (08:10)
[2020-06-30] MEDS: glipiZIDE 10 MG TAB PO SCH ×2 (08:10→17:24)
[2020-06-30] MEDS: HEPARIN SODIUM,PORCINE 5,000 UNIT/ML 1 ML VIAL SQ SCH (08:11)
[2020-06-30] MEDS ORDERED: amLODIPine 10 MG TAB PO SCH (09:00)
[2020-06-30 09:47] LABS: African American GFR (CKD) 54.3 (60.0-200.0); Albumin 2.1 g/dL (3.80-4.90); Albumin/Globulin Ratio 0.75 (1.60-3.17); Anion Gap 10.2 mmol/L (4.00-12.00); Calcium 7.2 mg/dL (8.7-10.3); Carbon Dioxide 20.8 mmol/L (21.6-31.8); Globulin 2.8 g/dL (1.6-3.3); Magnesium 1.8 mg/dL (1.5-2.4); Non-African American GFR(CKD) 46.8 (60.0-200.0); Potassium 3.2 mmol/L (3.5-5.5); Total Bilirubin 2.8 mg/dL (0.2-1.2); Total Protein 4.9 g/dL (6.2-8.2)
[2020-06-30 11:33] LABS: Glucose,Whole Blood 169 mg/dL (75-99)
[2020-06-30] MEDS ORDERED: POTASSIUM CHLORIDE ER 20 MEQ TAB.ER PO STA (11:44)
--- NOTE | 2020-06-30 11:46 | P.PN ---
Subjective Patient is seen in follow-up for acute kidney injury on chronic kidney disease. Renal function stable. Good urine output. No chest pain or shortness of breath. Urine output about 2 L in the last 24 hours. Has a Bacon catheter. Blood pressure stable. Vital signs are stable. General: The patient appeared well nourished and normally developed. HEENT: Head exam is unremarkable. Neck is without jugular venous distension. LUNGS: Breath sounds decreased. HEART: Rate and Rhythm are regular. ABDOMEN: Soft, nontender. Obese. EXTREMITITES: Trace edema. Objective - Vital Signs Vital signs: Vital Signs Temp 97.5 F L 06/30/20 07:33 Pulse 95 06/30/20 07:33 Resp 18 06/30/20 07:33 BP 141/66 06/30/20 07:33 Pulse Ox 96 06/30/20 07:33 Intake & Output 06/29/20 06/30/20 06/30/20 18:59 06:59 18:59 Output Total 1600 450 Balance -1600 -450 Output: Urine 1600 450 Uretheral (Bacon) 1200 Other: Voiding Method Indwelling Catheter Indwelling Catheter Indwelling Catheter - Labs CBC & Chem 7: 06/28/20 06:18 06/30/20 05:45 Labs: Abnormal Lab Results - Last 24 Hours (Table) 06/29/20 06/29/20 06/30/20 Range/Units 16:46 20:31 05:45 Potassium 3.2 L (3.5-5.5) mmol/L Carbon Dioxide 20.8 L (21.6-31.8) mmol/L BUN 33.0 H (9.0-27.0) mg/dL Est GFR (CKD-EPI)AfAm 54.3 L (60.0-200.0) Est GFR (CKD-EPI)NonAf 46.8 L (60.0-200.0) BUN/Creatinine Ratio 22.00 H (12.00-20.00) Ratio Glucose 112 H (70-110) mg/dL POC Glucose (mg/dL) 341 H 335 H (75-99) mg/dL Calcium 7.2 L (8.7-10.3) mg/dL Total Bilirubin 2.8 H (0.2-1.2) mg/dL Alkaline Phosphatase 173 H (41-126) U/L Total Protein 4.9 L (6.2-8.2) g/dL Albumin 2.10 L (3.80-4.90) g/dL Albumin/Globulin Ratio 0.75 L (1.60-3.17) g/dL 06/30/20 06/30/20 Range/Units 06:42 11:28 Potassium (3.5-5.5) mmol/L Carbon Dioxide (21.6-31.8) mmol/L BUN (9.0-27.0) mg/dL Est GFR (CKD-EPI)AfAm (60.0-200.0) Est GFR (CKD-EPI)NonAf (60.0-200.0) BUN/Creatinine Ratio (12.00-20.00) Ratio Glucose (70-110) mg/dL POC Glucose (mg/dL) 111 H 169 H (75-99) mg/dL Calcium (8.7-10.3) mg/dL Total Bilirubin (0.2-1.2) mg/dL Alkaline Phosphatase (41-126) U/L Total Protein (6.2-8.2) g/dL Albumin (3.80-4.90) g/dL Albumin/Globulin Ratio (1.60-3.17) g/dL Assessment and Plan Plan: Assessment: 1. Acute kidney injury secondary to ATN secondary to infection and component of cardiorenal syndrome. Creatinine peaked at 1.9 this admission and is 1.5 today. No hydronephrosis noted on kidney ultrasound. 2. Chronic kidney disease stage IIIa with baseline creatinine 1.2-1.4 secondary to diabetic kidney disease. 3. Sacral decubitus ulcer status post debridement with wound VAC. Surgery and infectious disease following. 4. Metabolic acidosis secondary to acute kidney injury and IV fluids. Better. 5. Volume overload. Status post IV Lasix June 20. Improved. 6. Hypervolemic hyponatremia. Improved with diuresis. 7. Diabetes mellitus. 8. Hypertension with chronic kidney disease. Stable. 9. Hypokalemia from diuresis. Plan: Continue to hold diuretics. Maintain oral bicarbonate. Continue to monitor renal function and urine output. Replace potassium. 40 mEq today.
--- NOTE | 2020-06-30 11:57 | P.PN ---
<Agnes Rodriguez - Last Filed: 06/30/20 11:43> Subjective Progress Note Date: 06/30/20 CHIEF COMPLAINT: Left buttocks decubitus ulcer HISTORY OF PRESENT ILLNESS: Patient is status post debridement of left buttocks decubitus ulcer on 06/23/2020. Patient has wound VAC in place. Patient sitting up in bed comfortably. Patient has no new complaints. He denies any nausea or vomiting. He feels that his edema is improving with the IV lasix. He is tolerating regular diet. Afebrile. Potassium 3.2 and being replaced c reatinine 1.5 PHYSICAL EXAM: VITAL SIGNS: Reviewed. GENERAL: Well-developed in no acute distress. HEENT: No sclera icterus. Extraocular movements grossly intact. Moist buccal mucosa. Head is atraumatic, normocephalic. ABDOMEN: Soft. Nondistended. Nontender. NEUROLOGIC: Alert and oriented. Cranial nerves II through XII grossly intact. ASSESSMENT: 1. Left buttocks decubitus ulcer status post debridement on 06/23/20 PLAN: -Continue supportive care -Continue wound vac -Continue antibiotics per ID Physician Environmental Analyst note has been reviewed by physician. Signing provider agrees with the documented findings, assessment, and plan of care. Objective - Vital Signs Vital signs: Vital Signs Temp 97.5 F L 06/30/20 07:33 Pulse 95 06/30/20 07:33 Resp 18 06/30/20 07:33 BP 141/66 06/30/20 07:33 Pulse Ox 96 06/30/20 07:33 Intake & Output 06/29/20 06/30/20 06/30/20 18:59 06:59 18:59 Output Total 1600 450 Balance -1600 -450 Output: Urine 1600 450 Uretheral (Bacon) 1200 Other: Voiding Method Indwelling Catheter Indwelling Catheter Indwelling Catheter - Labs CBC & Chem 7: 06/28/20 06:18 06/30/20 05:45 Labs: Abnormal Lab Results - Last 24 Hours (Table) 06/29/20 06/29/20 06/30/20 Range/Units 16:46 20:31 05:45 Potassium 3.2 L (3.5-5.5) mmol/L Carbon Dioxide 20.8 L (21.6-31.8) mmol/L BUN 33.0 H (9.0-27.0) mg/dL Est GFR (CKD-EPI)AfAm 54.3 L (60.0-200.0) Est GFR (CKD-EPI)NonAf 46.8 L (60.0-200.0) BUN/Creatinine Ratio 22.00 H (12.00-20.00) Ratio Glucose 112 H (70-110) mg/dL POC Glucose (mg/dL) 341 H 335 H (75-99) mg/dL Calcium 7.2 L (8.7-10.3) mg/dL Total Bilirubin 2.8 H (0.2-1.2) mg/dL Alkaline Phosphatase 173 H (41-126) U/L Total Protein 4.9 L (6.2-8.2) g/dL Albumin 2.10 L (3.80-4.90) g/dL Albumin/Globulin Ratio 0.75 L (1.60-3.17) g/dL 06/30/20 06/30/20 Range/Units 06:42 11:28 Potassium (3.5-5.5) mmol/L Carbon Dioxide (21.6-31.8) mmol/L BUN (9.0-27.0) mg/dL Est GFR (CKD-EPI)AfAm (60.0-200.0) Est GFR (CKD-EPI)NonAf (60.0-200.0) BUN/Creatinine Ratio (12.00-20.00) Ratio Glucose (70-110) mg/dL POC Glucose (mg/dL) 111 H 169 H (75-99) mg/dL Calcium (8.7-10.3) mg/dL Total Bilirubin (0.2-1.2) mg/dL Alkaline Phosphatase (41-126) U/L Total Protein (6.2-8.2) g/dL Albumin (3.80-4.90) g/dL Albumin/Globulin Ratio (1.60-3.17) g/dL <Moris Obrien - Last Filed: 06/30/20 14:57> Subjective As above. Feels well. Plans for possible transfer to extended care facility. Wound VAC change performed yesterday. Objective - Vital Signs Vital signs: Vital Signs Temp 97.7 F 06/30/20 13:56 Pulse 96 06/30/20 13:56 Resp 18 06/30/20 13:56 BP 142/70 06/30/20 13:56 Pulse Ox 97 06/30/20 13:56 Intake & Output 06/29/20 06/30/20 06/30/20 18:59 06:59 18:59 Output Total 1600 450 Balance -1600 -450 Output: Urine 1600 450 Uretheral (Bacon) 1200 Other: Voiding Method Indwelling Catheter Indwelling Catheter Indwelling Catheter - Labs CBC & Chem 7: 06/28/20 06:18 06/30/20 05:45 Labs: Abnormal Lab Results - Last 24 Hours (Table) 06/29/20 06/29/20 06/30/20 Range/Units 16:46 20:31 05:45 Potassium 3.2 L (3.5-5.5) mmol/L Carbon Dioxide 20.8 L (21.6-31.8) mmol/L BUN 33.0 H (9.0-27.0) mg/dL Est GFR (CKD-EPI)AfAm 54.3 L (60.0-200.0) Est GFR (CKD-EPI)NonAf 46.8 L (60.0-200.0) BUN/Creatinine Ratio 22.00 H (12.00-20.00) Ratio Glucose 112 H (70-110) mg/dL POC Glucose (mg/dL) 341 H 335 H (75-99) mg/dL Calcium 7.2 L (8.7-10.3) mg/dL Total Bilirubin 2.8 H (0.2-1.2) mg/dL Alkaline Phosphatase 173 H (41-126) U/L Total Protein 4.9 L (6.2-8.2) g/dL Albumin 2.10 L (3.80-4.90) g/dL Albumin/Globulin Ratio 0.75 L (1.60-3.17) g/dL 06/30/20 06/30/20 Range/Units 06:42 11:28 Potassium (3.5-5.5) mmol/L Carbon Dioxide (21.6-31.8) mmol/L BUN (9.0-27.0) mg/dL Est GFR (CKD-EPI)AfAm (60.0-200.0) Est GFR (CKD-EPI)NonAf (60.0-200.0) BUN/Creatinine Ratio (12.00-20.00) Ratio Glucose (70-110) mg/dL POC Glucose (mg/dL) 111 H 169 H (75-99) mg/dL Calcium (8.7-10.3) mg/dL Total Bilirubin (0.2-1.2) mg/dL Alkaline Phosphatase (41-126) U/L Total Protein (6.2-8.2) g/dL Albumin (3.80-4.90) g/dL Albumin/Globulin Ratio (1.60-3.17) g/dL
[2020-06-30 13:57] VITALS: BP 142/70; PULSE 96; TEMP 97.7
--- NOTE | 2020-06-30 14:24 | P.DS ---
Providers Date of admission: 06/22/20 11:29 Expected date of discharge: 06/30/20 Attending physician: Patito Rubin Consults: 06/22/20 14:31 Consult Physician Routine Consulting Provider: Liseth Perez Consult Reason/Comments: Infected ulcer Do you want consulting provider notified?: Yes 06/22/20 15:09 Consult Physician Routine Consulting Provider: Moris Obrien Consult Reason/Comments: Wound debridement Do you want consulting provider notified?: Yes 06/28/20 11:37 Consult Physician Urgent Consulting Provider: Navin Neff Consult Reason/Comments: worsening creatinine/generalized edema Do you want consulting provider notified?: Yes Primary care physician: [facility] Hospital Course: Final Diagnosis -Severe sepsis: Secondary to infected sacral decubitus stage IV ulcer, present on admission. -lactic acidosis with elevated lactic acid of 4.0, present on admission, secondary to above, improved. -Status post debridement of sacral decubitus ulcer, culture showing gram- negative bacilli, enterococcus, and Proteus mirabilis -Type 2 diabetes mellitus; uncontrolled with hyperglycemia -acute renal failure: Secondary to prerenal azotemia secondary to sepsis -Acute urinary tract infection related the Bacon catheter, present on admission with culture showing Carly albicans -Hyperkalemia, improved -Hypertension -Hypovolemic hyponatremia, improving -Tachycardia secondary to sepsis, improved -DVT prophylaxis with subcutaneous heparin -GI prophylaxis Pepcid -Paraplegic -Full code Discharge disposition Patient is being discharged in a stable condition with guarded prognosis to [facility] for continued PT/OT therapy. Patient will follow-up with Dr. Nuñez at [facility]. Patient will follow-up with the [place] clinic Dr. Reina one week from discharge of [facility]. Patient will also be following up outpatient at the wound care center and will be continued on IV antibiotic therapy per infectious disease recommendations in the form of Unasyn. Total time taken is greater than 35 minutes. Hospital course This is a 70-year-old male who was recently admitted for infection of decubitus ulcer was being closely monitored. Patient was initiated on IV antibiotic therapy and cultures finalized showing Proteus mirabilis, enterococcus, Klebsiella oxytoca along with gram-negative and patient is being treated with IV Unasyn and will continue in the outpatient setting. Patient did receive a PICC line and will be following up outpatient with infectious disease. Patient was also seen and evaluated by nephrology for acute kidney injury and has shown improvement and creatinine. Patient is maintained on sodium bicarb tablets and will continue at this time. Patient will need repeat labs in 2-3 days to monitor kidney functions along with electrolytes. Patient is maintained on methadone twice daily and a prescription was provided. Patient will continue with wound VAC and wound care as instructed. Patient to continue with physical therapy for continued strength and mobility. Patient will follow-up with the [place] clinic Dr. Reina once discharged from the [facility]. Patient continues to have some lower extremity edema along with testicle edema noted although has improved. Patient instructed to elevate the testicles while in bed. Patient does have a chronic indwelling Bacon catheter. Patient to continue monitoring blood sugars before meals at bedtime and treat accordingly with sliding scale and long-acting. Patient also encouraged to increase oral intake specifically protein and recommended to continue with Glucerna 3 times daily between meals. Currently no reports of chest pain, shortness of breath, or palpitations. Patient is afebrile. No reports of nausea or vomiting and patient is tolerating diet. Patient will be discharged to [facility] on the aguirre today. Guarded prognosis. On exam vital signs are stable. Temp is 97.7 F, pulse is 96, respirations are 18, blood pressure is 142/70, oxygen saturation is 97% on room air. Cardio S1, S2 are muffled. Respiratory shows diminished breath sounds at the bases with no wheezing or rhonchi noted. Abdomen is soft and obese, and nontender. Patient is a paraplegic. Nervous system shows mild diffuse weakness. Please refer to medication reconciliation sheet for a list of medications. Patient Condition at Discharge: Stable Plan - Discharge Summary Discharge Rx Participant: No New Discharge Prescriptions: New Ampicillin-Sulbactam [Unasyn] 3 gm IVPB Q6HR #168 vial hydrALAZINE HCL [Apresoline] 25 mg PO TID tab Fluconazole [Diflucan] 100 mg PO DAILY tab Methadone [Dolophine] 10 mg PO BID #10 tab Tamsulosin [Flomax] 0.4 mg PO PC-BRKFST cap.er.24h Heparin Sodium,Porcine [Heparin Sodium] 5,000 unit SQ Q12HR vial Insulin Detemir (Levemir) [Levemir] 15 unit SQ HS syr INSULIN ASPART (NovoLOG) [NovoLOG (formulary)] 0 unit SQ ACHS vial Sodium Bicarbonate Tab 650 mg PO BID tab Acetaminophen Tab [Tylenol] 1,000 mg PO Q6HR PRN tab PRN Reason: Fever And/ Or Pain Continue Lidocaine 5% Patch [Lidoderm 5% Patch] 1 patch TRANSDERM DAILY PRN PRN Reason: left back hip pain glipiZIDE [Glucotrol] 10 mg PO AC-BID Metoprolol Tartrate [Lopressor] 12.5 mg PO BID amLODIPine [Norvasc] 10 mg PO DAILY Ferrous Sulfate [Iron (65 MG Elemental)] 325 mg PO BID Discontinued Methadone [Dolophine] 10 mg PO TID PRN PRN Reason: Pain tiZANidine [Zanaflex] 8 mg PO TID Discharge Medication List Lidocaine 5% Patch [Lidoderm 5% Patch] 1 patch TRANSDERM DAILY PRN 10/28/19 [History] Metoprolol Tartrate [Lopressor] 12.5 mg PO BID 10/28/19 [History] amLODIPine [Norvasc] 10 mg PO DAILY 10/28/19 [History] glipiZIDE [Glucotrol] 10 mg PO AC-BID 10/28/19 [History] Ferrous Sulfate [Iron (65 MG Elemental)] 325 mg PO BID 06/22/20 [History] Ampicillin-Sulbactam [Unasyn] 3 gm IVPB Q6HR #168 vial 06/26/20 [Rx] Acetaminophen Tab [Tylenol] 1,000 mg PO Q6HR PRN tab 06/30/20 [Rx] Fluconazole [Diflucan] 100 mg PO DAILY tab 06/30/20 [Rx] Heparin Sodium,Porcine [Heparin Sodium] 5,000 unit SQ Q12HR vial 06/30/20 [Rx] INSULIN ASPART (NovoLOG) [NovoLOG (formulary)] 0 unit SQ ACHS vial 06/30/20 [Rx] Insulin Detemir (Levemir) [Levemir] 15 unit SQ HS syr 06/30/20 [Rx] Methadone [Dolophine] 10 mg PO BID #10 tab 06/30/20 [Rx] Sodium Bicarbonate Tab 650 mg PO BID tab 06/30/20 [Rx] Tamsulosin [Flomax] 0.4 mg PO PC-BRKFST cap.er.24h 06/30/20 [Rx] hydrALAZINE HCL [Apresoline] 25 mg PO TID tab 06/30/20 [Rx] Follow up Appointment(s)/Referral(s): Tima Nuñez MD [STAFF PHYSICIAN] - 1-2 Days [facility] [REFERRING] - Liseth Perez MD [STAFF PHYSICIAN] - 1 Week [facility],Clinic [Primary Care Provider] - 1-2 days Ambulatory/Diagnostic Orders: Basic Metabolic Panel [LAB.AMB] Location: None Selected C Reactive Protein [LAB.AMB] Location: None Selected Complete Blood Count w/diff [LAB.AMB] Location: None Selected Erythrocyte Sedimentation Rate [LAB.AMB] Location: None Selected Magnesium [LAB.AMB] Time Frame: 3 Days, Location: None Selected Activity/Diet/Wound Care/Special Instructions: Patient is going to [facility] Follow-up with Joaquin at [facility] Patient is to follow-up with [place] clinic Dr. Reina in the outpatient setting upon discharge from [facility]. Activity as tolerated Continue current heart healthy diet diabetic diet Continue to monitor Accu-Cheks before meals and at bedtime and treat accordingly with sliding scale Continue with wound care and the wound VAC Repeat labs in 2-3 days to monitor kidney functions and electrolytes Continue with Glucerna drinks 3 times daily in between meals 3M [facility] - wound vac: [phone] [facility]: Discharge Disposition: TRANSFER TO SNF/ECF
--- NOTE | 2020-06-30 14:39 | P.PN ---
Subjective Progress Note Date: 06/30/20 HISTORY OF PRESENT ILLNESS This is a 70-year-old male patient treated for infected left gluteal stage IV p ressure ulcer status post debridement left buttocks. Wound culture positive for Proteus, enterococcus and Klebsiella oxytoca. Pathology report negative for malignancy. Patient is covered with Unasyn. PICC line has been inserted and wound VAC has been ordered and is at bedside. Patient was initially planning to go home with IV antibiotics. Discharge plan has changed to subacute rehab. Today patient states that he is feeling a lot better. He has decreased generalized edema. Wound VAC is to be changed on Monday. Unasyn is to continue for 6 week course. Patient has been afebrile, heart rate 95, blood pressure on 141/66, pulse ox 96% on room air. Creatinine is 1.5. PHYSICAL EXAMINATION Gen: This is a 70-year-old male. His resting bed appears to be co mfortable. HEENT: Head is atraumatic, normocephalic. Pupils equal, round. Sclerae is anicteric. LUNGS: Clear to auscultation. No wheezes or rhonchi. No intercostal retractions. HEART: Regular rate and rhythm. ABDOMEN: Soft. No tenderness. EXTREMITIES: No pedal edema. No calf tenderness. NEUROLOGICAL: Patient is awake, alert and oriented. ASSESSMENT Infected left gluteal stage IV pressure ulcer status post debridement Culture positive for Proteus, enterococcus and Klebsiella PLAN Continue Unasyn 3 g IV piggyback every 6 hours for 6 week course, completed on August 07. PICC line has been inserted Wound VAC has been obtained Patient is cleared for discharge from infectious disease. Follow up as outpatient. The above dictated assessment and findings were discussed with Dr. Perez. The impression and plan of care have been directed as dictated. Alysha Lopez nurse practitioner acting as scribe for Dr. Perez. Objective - Vital Signs Vital signs: Vital Signs Temp 97.5 F L 06/30/20 07:33 Pulse 95 06/30/20 07:33 Resp 18 06/30/20 07:33 BP 141/66 06/30/20 07:33 Pulse Ox 96 06/30/20 07:33 Intake & Output 06/29/20 06/30/20 06/30/20 18:59 06:59 18:59 Output Total 1600 450 Balance -1600 -450 Output: Urine 1600 450 Uretheral (Bacon) 1200 Other: Voiding Method Indwelling Catheter Indwelling Catheter - Labs CBC & Chem 7: 06/28/20 06:18 06/30/20 05:45 Labs: Abnormal Lab Results - Last 24 Hours (Table) 06/29/20 06/29/20 06/29/20 Range/Units 11:28 16:46 20:31 Potassium (3.5-5.5) mmol/L Carbon Dioxide (21.6-31.8) mmol/L BUN (9.0-27.0) mg/dL Est GFR (CKD-EPI)AfAm (60.0-200.0) Est GFR (CKD-EPI)NonAf (60.0-200.0) BUN/Creatinine Ratio (12.00-20.00) Ratio Glucose (70-110) mg/dL POC Glucose (mg/dL) 251 H 341 H 335 H (75-99) mg/dL Calcium (8.7-10.3) mg/dL Total Bilirubin (0.2-1.2) mg/dL Alkaline Phosphatase (41-126) U/L Total Protein (6.2-8.2) g/dL Albumin (3.80-4.90) g/dL Albumin/Globulin Ratio (1.60-3.17) g/dL 06/30/20 06/30/20 Range/Units 05:45 06:42 Potassium 3.2 L (3.5-5.5) mmol/L Carbon Dioxide 20.8 L (21.6-31.8) mmol/L BUN 33.0 H (9.0-27.0) mg/dL Est GFR (CKD-EPI)AfAm 54.3 L (60.0-200.0) Est GFR (CKD-EPI)NonAf 46.8 L (60.0-200.0) BUN/Creatinine Ratio 22.00 H (12.00-20.00) Ratio Glucose 112 H (70-110) mg/dL POC Glucose (mg/dL) 111 H (75-99) mg/dL Calcium 7.2 L (8.7-10.3) mg/dL Total Bilirubin 2.8 H (0.2-1.2) mg/dL Alkaline Phosphatase 173 H (41-126) U/L Total Protein 4.9 L (6.2-8.2) g/dL Albumin 2.10 L (3.80-4.90) g/dL Albumin/Globulin Ratio 0.75 L (1.60-3.17) g/dL
[2020-06-30 16:39] LABS: Glucose,Whole Blood 196 mg/dL (75-99)
== END 2020-06-30 18:37 | DRG 853 ==
LOC: EC 10:27 → 4SSUR 11:29
PROVIDERS: ADMIT Internal Medicine; ATTEND Internal Medicine
PROC: 0KBP0ZZ Excision of Left Hip Muscle, Open Approach (ICD-10-PCS; principal; 2020-06-23 16:30)
PROC: 02HV33Z Insertion of Infusion Device into Superior Vena Cava, Percutaneous Approach (ICD-10-PCS; 2020-06-25)
DX: A41.81 Sepsis due to Enterococcus (principal); L89.154 Pressure ulcer of sacral region, stage 4; L89.324 Pressure ulcer of left buttock, stage 4; N17.0 Acute kidney failure with tubular necrosis; T83.518A Infection and inflammatory reaction due to other urinary catheter, initial encounter; B37.49 Other urogenital candidiasis; E87.1 Hypo-osmolality and hyponatremia; E87.2 Acidosis; G82.20 Paraplegia, unspecified; K94.13 Enterostomy malfunction; L03.116 Cellulitis of left lower limb; L03.115 Cellulitis of right lower limb; A41.59 Other Gram-negative sepsis; R65.20 Severe sepsis without septic shock; E11.22 Type 2 diabetes mellitus with diabetic chronic kidney disease; E11.65 Type 2 diabetes mellitus with hyperglycemia; E66.9 Obesity, unspecified; Z68.35 Body mass index [BMI] 35.0-35.9, adult; Z20.822 Contact with and (suspected) exposure to COVID-19; E86.1 Hypovolemia; E87.5 Hyperkalemia; E87.6 Hypokalemia; E87.70 Fluid overload, unspecified; I13.10 Hypertensive heart and chronic kidney disease without heart failure, with stage 1 through stage 4 chronic kidney disease, or unspecified chronic kidney disease; L89.319 Pressure ulcer of right buttock, unspecified stage; N18.31 Chronic kidney disease, stage 3a; N31.9 Neuromuscular dysfunction of bladder, unspecified; Y84.6 Urinary catheterization as the cause of abnormal reaction of the patient, or of later complication, without mention of misadventure at the time of the procedure; N44.8 Other noninflammatory disorders of the testis; Z79.84 Long term (current) use of oral hypoglycemic drugs; Z79.899 Other long term (current) drug therapy; Z86.14 Personal history of Methicillin resistant Staphylococcus aureus infection; Z87.442 Personal history of urinary calculi; E11.621 Type 2 diabetes mellitus with foot ulcer; L97.529 Non-pressure chronic ulcer of other part of left foot with unspecified severity; L97.519 Non-pressure chronic ulcer of other part of right foot with unspecified severity; Z88.5 Allergy status to narcotic agent; Z88.2 Allergy status to sulfonamides; Z88.8 Allergy status to other drugs, medicaments and biological substances
CPT/HCPCS: 36415; 36573; 71045; 76770; 80048; 80053; 81001; 82565; 83605; 83735; 85025; 85610; 85730; 87040; 87070; 87075; 87077; 87086; 87186; 87205; 87635; 88304; 93005; 96365; 96366; 96367; 96368; 96375; 99284

== ENCOUNTER 2020-07-11 04:18 | Inpatient (IN) | payer OTHER, MEDICARE ==
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
[2020-07-11 05:15] LABS: Calcium 7.2 mg/dL (8.4-10.2); Potassium 5.9 mmol/L (3.5-5.1)
[2020-07-11 06:13] LABS: Anisocytosis Slight; HCT 25.8 % (39.0-53.0); Hypochromasia Moderate; MCH 26.7 pg (25.0-35.0); MCHC 31.1 g/dL (31.0-37.0); MCV 85.7 fL (80.0-100.0); Mean Platelet Volume 12.4; RBC 3.01 m/uL (4.30-5.90); WBC 14.4 k/uL (3.8-10.6)
[2020-07-11 06:47] LABS: Band Neutrophils % 1 %; Lymphocytes # (M) 0.86 k/uL (1.0-4.8); Metamyelocytes # (M) 0.14 k/uL (0); Metamyelocytes % 1 %; Monocytes # (M) 0.14 k/uL (0-1.0); Myelocytes # (M) 0.29 k/uL (0); Myelocytes % 2 %; Neutrophils % (M) 90 %; Nucleated Red Blood Cells 0 /100 WBC (0-0); Total Cells Counted 200
[2020-07-11 06:48] LABS: Platelet Count 135 k/uL (150-450); Toxic Granulation Present
[2020-07-11 06:49] LABS: Poikilocytosis (M) Present
[2020-07-11] MEDS ORDERED: NALOXONE 0.4 MG/ML 1 ML VIAL IV PRN (07:40)
[2020-07-11] MEDS ORDERED: SODIUM CHLORIDE 0.9% 1,000 ML IV SCH ×2 (07:45→08:45)
[2020-07-11] MEDS ORDERED: SODIUM POLYSTYRENE SULFONATE 15 GM/60 ML BOTTLE PO STA (08:04)
[2020-07-11] MEDS: HEPARIN SODIUM,PORCINE 5,000 UNIT/ML 1 ML VIAL SQ SCH ×2 (08:15→21:54)
[2020-07-11] MEDS ORDERED: METHADONE 10 MG TAB PO SCH (09:00)
[2020-07-11] MEDS ORDERED: amLODIPine 10 MG TAB PO SCH (09:00)
[2020-07-11] MEDS ORDERED: SODIUM BICARBONATE TAB 650 MG TAB PO SCH (09:00)
[2020-07-11] MEDS ORDERED: hydrALAZINE HCL 25 MG TAB PO SCH (09:00)
[2020-07-11] MEDS: TAMSULOSIN 0.4 MG CAP.ER.24H PO SCH (10:17)
[2020-07-11] MEDS: METOPROLOL TARTRATE 12.5 MG TAB PO SCH ×2 (10:17→21:55)
[2020-07-11] MEDS: FERROUS SULFATE 325 MG TAB PO SCH ×2 (10:17→21:54)
[2020-07-11 11:36] LABS: Glucose,Whole Blood 84 mg/dL (75-99)
[2020-07-11] MEDS: INSULIN ASPART (NovoLOG) 100 UNIT/ML VIAL SQ SCH ×3 (11:48→21:45)
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
[2020-07-11] MEDS ORDERED: AMPICILLIN-SULBACTAM 3 GM VIAL IVPB SCH (12:00)
[2020-07-11 12:48] LABS: Uric Acid 12.6 mg/dL (3.5-8.5)
[2020-07-11 13:05] LABS: Phosphorus 9.2 mg/dL (2.5-4.5)
[2020-07-11] MEDS: SODIUM BICARBONATE TAB 650 MG TAB PO SCH ×3 (13:57→21:55)
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
--- NOTE | 2020-07-11 14:20 | US ---
EXAMINATION TYPE: US kidneys/renal and bladder DATE OF EXAM: 07/11/2020 COMPARISON: US CLINICAL HISTORY: renal failure. Paraplegia; History of bowel surgery with ostomy. Indwelling bladder catheter is noted; HT6'2, WT 300lbs. EXAM MEASUREMENTS: Right Kidney: 14.3 x 5.8 x 6.9 cm Left Kidney: 14.4 x 7.6 x 6.2 cm Post Void Residual Volume: not assessed on inpatient with indwelling bladder catheter US exam is technically limited by large patient body habitus and patient's limited range of motion. Patient c/o pain with probe pressure. Right Kidney: lower lateral cortical cyst is imaged =1.1 x 1.3 x 1.1cm; lobular cortex Left Kidney: lower pole not well imaged due to above limitations; lobular cortex Bladder: not seen There is no evidence for hydronephrosis at this point in time. IMPRESSION: The kidneys are enlarged. No evidence of solid renal mass or obstruction. Bladder not evaluated.
[2020-07-11 16:51] LABS: Glucose,Whole Blood 176 mg/dL (75-99)
--- NOTE | 2020-07-11 17:24 | CT ---
EXAMINATION TYPE: CODE STROKE: CT brain wo contr DATE OF EXAM: 07/11/2020 COMPARISON: HISTORY: altered mental status CT DLP: 2181.8 mGycm Automated exposure control for dose reduction was used. FINDINGS: There is mild cerebral atrophy. There is no mass effect nor midline shift. There is no sign of intrac ranial hemorrhage. The calvarium is intact. Skull base appears intact.. IMPRESSION: Mild atrophy. No acute intracranial abnormality.
[2020-07-11] MEDS ORDERED: glipiZIDE 10 MG TAB PO SCH (17:30)
[2020-07-11 17:39] LABS: Anisocytosis Slight; HCT 25.1 % (39.0-53.0); HGB 7.7 gm/dL (13.0-17.5); Hypochromasia Marked; INR 1.2 (<1.2); MCH 26.5 pg (25.0-35.0); MCHC 30.6 g/dL (31.0-37.0); MCV 86.5 fL (80.0-100.0); Mean Platelet Volume 12.8; Prothrombin Time 12.3 sec (9.0-12.0); RDW 19.1 % (11.5-15.5); WBC 20.5 k/uL (3.8-10.6)
[2020-07-11] MEDS ORDERED: DEXTROSE 50% SYRINGE 50 ML IVP ONE (17:39)
[2020-07-11] MEDS: SODIUM CHLORIDE 0.9% 1,000 ML IV ONE ×2 (17:42→18:35)
[2020-07-11] MEDS: LACTATED RINGERS 1,000 ML IV SCH (17:42)
[2020-07-11 17:47] LABS: African American GFR (CKD) 21 (>60 ml/min/1.73 sqM); Anion Gap 14 mmol/L; Blood Urea Nitrogen 87 mg/dL (9-20); Calcium 6.7 mg/dL (8.4-10.2); Carbon Dioxide 15 mmol/L (22-30); Chloride 99 mmol/L (98-107); Non-African American GFR(CKD) 18 (>60 ml/min/1.73 sqM); Sodium 128 mmol/L (137-145)
[2020-07-11 17:49] LABS: Glucose,Whole Blood 22 mg/dL (75-99)
[2020-07-11 17:49] LABS: Glucose,Whole Blood 25 mg/dL (75-99)
[2020-07-11 17:51] LABS: Glucose,Whole Blood 122 mg/dL (75-99)
[2020-07-11 17:57] LABS: Glucose 23 mg/dL (74-99); Potassium 6.2 mmol/L (3.5-5.1)
--- NOTE | 2020-07-11 18:07 | XR ---
EXAMINATION TYPE: XR chest 1V portable DATE OF EXAM: 07/11/2020 COMPARISON: 06/26/2020 HISTORY: Short of breath TECHNIQUE: Single view FINDINGS: Heart is normal. There is some mild atelectasis at the left lung base. There is no heart fa ilure. There are chest leads. There is multilevel fusion surgery at the thoracolumbar junction. IMPRESSION: There is some mild atelectasis left lung base slightly increased compared to old exam. No heart failure.
[2020-07-11 18:28] LABS: Band Neutrophils % 5 %; Lymphocytes # (M) 1.85 k/uL (1.0-4.8); Monocytes # (M) 0.82 k/uL (0-1.0); Neutrophils % (M) 82 %; Nucleated Red Blood Cells 0 /100 WBC (0-0); Total Cells Counted 100
[2020-07-11] MEDS ORDERED: SODIUM BICARB 8.4% 50 ML SYR (1 MEQ/ML) IV STA (18:41)
[2020-07-11] MEDS ORDERED: SODIUM POLYSTYRENE SULFONATE 15 GM/60 ML BOTTLE PO ONE (18:41)
[2020-07-11] MEDS ORDERED: INSULIN REGULAR 100 UNIT/ML VIAL IV ONE (18:42)
[2020-07-11] MEDS ORDERED: FUROSEMIDE 10 MG/ML 10 ML VIAL IV STA (18:42)
[2020-07-11] MEDS ORDERED: DEXTROSE 50% SYRINGE 50 ML IVP STA (18:42)
[2020-07-11] MEDS: PIPERACILLIN-TAZOBACTAM 3.375 GM in SODIUM CHLORIDE 0.9% 100 ML IVPB SCH (18:47)
[2020-07-11 20:32] LABS: Glucose,Whole Blood 67 mg/dL (75-99)
[2020-07-11 20:50] LABS: Glucose,Whole Blood 75 mg/dL (75-99)
[2020-07-11] MEDS ORDERED: INSULIN DETEMIR (LEVEMIR) 100 UNIT/ML SYR SQ SCH (21:00)
[2020-07-11 21:23] LABS: Amorphous Sediment,Urine Rare /hpf; Appearance,Urine Cloudy (Clear); Bacteria,Urine Few /hpf; Bilirubin,Urine Negative (Negative); Blood,Urine Small (Negative); Color,Urine Yellow; Glucose,Urine (UA) Negative (Negative); Hyaline Casts,Urine 11 /lpf (0-2); Ketones,Urine Trace (Negative); Leukocyte Esterase,Urine Large (Negative); Mucus,Urine Rare /hpf; Nitrite,Urine Negative (Negative); Protein,Urine Trace (Negative); RBC,Urine 13 /hpf (0-5); Specific Gravity,Urine 1.016 (1.001-1.035); Squamous Epithelial Cell,Urine <1 /hpf (0-4); Urobilinogen,Urine <2.0 mg/dL (<2.0); WBC,Urine 49 /hpf (0-5)
[2020-07-11 21:36] LABS: Amphetamine Screen,Urine Not Detected (NotDetected); Barbiturate Screen,Urine Not Detected (NotDetected); Benzodiazepines Screen,Urine Not Detected (NotDetected); Cocaine Screen,Urine Not Detected (NotDetected); Methadone Screen, Urine Detected (NotDetected); Opiate Screen,Urine Not Detected (NotDetected); Oxycodone Screen, Urine Not Detected (NotDetected); Phencyclidine Screen,Urine Not Detected (NotDetected); Tricyclic Antidepressant,Urine Not Detected (NotDetected); Urn Cannabinoid Scrn Not Detected (NotDetected)
[2020-07-12 00:20] LABS: Glucose,Whole Blood 42 mg/dL (75-99)
[2020-07-12 00:40] LABS: Glucose,Whole Blood 62 mg/dL (75-99)
[2020-07-12 00:57] LABS: Glucose,Whole Blood 87 mg/dL (75-99)
[2020-07-12 03:56] LABS: Glucose,Whole Blood 74 mg/dL (75-99)
[2020-07-12 04:00] LABS: Anisocytosis Slight; Basophils # (A) 0.3 k/uL (0-0.2); Basophils % (A) 1 %; Eosinophils % (A) 0 %; HCT 23.5 % (39.0-53.0); HGB 7.5 gm/dL (13.0-17.5); Hypochromasia Slight; Lymphocytes # (A) 0.5 k/uL (1.0-4.8); Lymphocytes % (A) 3 %; MCH 27.4 pg (25.0-35.0); MCHC 31.9 g/dL (31.0-37.0); Mean Platelet Volume 13.4; Monocytes # (A) 0.6 k/uL (0-1.0); Monocytes % (A) 3 %; Neutrophils # (A) 17.7 k/uL (1.3-7.7); Neutrophils % (A) 92 %; Platelet Count 112 k/uL (150-450); RBC 2.73 m/uL (4.30-5.90); RDW 19.1 % (11.5-15.5); WBC 19.3 k/uL (3.8-10.6)
[2020-07-12] MEDS: PIPERACILLIN-TAZOBACTAM 3.375 GM in SODIUM CHLORIDE 0.9% 100 ML IVPB SCH ×3 (04:00→17:20)
[2020-07-12 04:13] LABS: Potassium 5.6 mmol/L (3.5-5.1)
[2020-07-12 04:16] LABS: Calcium 6.5 mg/dL (8.4-10.2)
[2020-07-12 04:38] LABS: C Reactive Protein 161.7 mg/L (<10.0)
[2020-07-12 05:27] LABS: Erythrocyte Sedimentation Rate 119 mm/hr (0-15)
[2020-07-12] MEDS: LACTATED RINGERS 1,000 ML IV SCH (05:53)
[2020-07-12] MEDS: INSULIN ASPART (NovoLOG) 100 UNIT/ML VIAL SQ SCH ×4 (05:54→20:25)
[2020-07-12 08:07] LABS: Glucose,Whole Blood 45 mg/dL (75-99)
[2020-07-12] MEDS: DEXTROSE 5%-0.9% NACL 1,000 ML IV SCH ×2 (08:12→21:35)
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
[2020-07-12 08:17] LABS: Glucose,Whole Blood 66 mg/dL (75-99)
[2020-07-12] MEDS: SODIUM BICARBONATE TAB 650 MG TAB PO SCH ×4 (08:25→20:34)
[2020-07-12] MEDS: METOPROLOL TARTRATE 12.5 MG TAB PO SCH ×2 (08:25→20:34)
[2020-07-12] MEDS: FERROUS SULFATE 325 MG TAB PO SCH ×2 (08:26→20:34)
[2020-07-12] MEDS: HEPARIN SODIUM,PORCINE 5,000 UNIT/ML 1 ML VIAL SQ SCH ×2 (08:26→20:34)
[2020-07-12] MEDS: TAMSULOSIN 0.4 MG CAP.ER.24H PO SCH (08:26)
[2020-07-12 08:33] LABS: Glucose,Whole Blood 73 mg/dL (75-99)
[2020-07-12] MEDS ORDERED: METHADONE 10 MG TAB PO SCH (09:00)
--- NOTE | 2020-07-12 09:01 | CONS ---
CONSULTATION DATE OF SERVICE: 07/11/2020 REASON FOR FOLLOW UP: Left gluteal infected pressure ulcer. HISTORY OF PRESENT ILLNESS: The patient is a 70-year-old male recently admitted to this facility with left gluteal infected pressure ulcer in this patient who is status post debridement of the wound by Dr. Roger. Patient's local wound culture was positive for Proteus mirabilis and oxacillin Klebsiella and anaerobes. The patient did get a PICC line and was advised a six week course of IV antibiotic therapy. The patient currently on Unasyn. Local wound care with wound VAC. The patient's who provided most of the history mentioned when the patient went to shelter, the patient was not provided with a bariatric bed and has been on a regular bed and apparently did have worsening of his left gluteal pressure ulcer. His local wound care was switched over to Dakin solution with dressing by the wound care physician at the shelter. The patient did have weekly blood draw and he was noticed to have low hemoglobin and worsening of his kidney function for which the patient was transferred to [facility] early this morning. The patient on presentation to hospital has been afebrile. The patient denies having any headache. No chest pain, shortness of breath or cough. No nausea, vomiting, abdominal pain and no diarrhea. On presentation to the hospital the patient was afebrile. The patient did have a hemoglobin of 8 with white count 14.4, repeat is up to 20,000. The patient did have a BUN of 87, creatinine 3.35. Did have a positive UA. Urine drug screen was positive for methadone. [place] PCR was negative. The patient did have ultrasound of the bladder which revealed no renal mass or obstruction. The patient has been admitted to the hospital for further management of antibiotic therapy. REVIEW OF SYSTEMS: Positive points have been mentioned in HPI. Rest of the systems are negative. PAST MEDICAL HISTORY: T11 fracture, paraplegia, neurogenic bladder, diabetes mellitus, hypertension, chronic renal insufficiency, nephrolithiasis, infected left gluteal pressure ulcer, concern for underlying osteomyelitis. PAST SURGICAL HISTORY: Debridement of his left gluteal pressure ulcer, exploratory laparotomy and ileostomy, left foot multiple surgeries and back surgery. SOCIAL HISTORY: No history of smoking, drinking or drug use. FAMILY HISTORY: No pertinent findings noticed. ALLERGIES: BACLOFEN, MEPERIDINE, AND BACTRIM. MEDICATIONS: The patient is currently on Tylenol, iron sulfate, heparin, NovoLog, Levemir, Lopressor, Narcan, Flomax, Dakin solution. PHYSICAL EXAMINATION: Blood pressure is 111/51 with a pulse of 78. Temperature is 96.2. He is 95% on 2 L nasal cannula. General description is an elderly male lying in bed in no distress. No tachypnea or accessory muscles of respiration use. HEENT: Shows pallor. No scleral icterus. Oral mucous membrane is dry. NECK: Trachea is central. No thyromegaly. LUNGS: Unlabored breathing, clear to auscultation anteriorly. No wheeze or crackle. HEART: S1, S2. Regular rate and rhythm. ABDOMEN: Soft, no tenderness. No guarding or rigidity. EXTREMITIES: Diffuse swelling. Examination of the left gluteal area wound with significant amount of necrotic tissue, some surrounding redness. No foul-smelling drainage. NEUROLOGIC: Patient is awake, alert, oriented. Mood and affect normal. LABS: Hemoglobin 7.1, white count 20.5, BUN of 87, creatinine 3.31, ( ) 6.22. Troponin has been negative. Phosphorus was 9.2. DIAGNOSTIC IMPRESSION AND PLAN: Patient with left gluteal infected pressure ulcer in this patient presenting to the hospital with abnormal labs, noticed to have a low hemoglobin and worsening of his kidney function with recent culture positive for multiple pathogens from his left gluteal wound area, now with worsening of his white count, possibly related to ( ) worsening infection with different pathogen. PLAN: 1. Blood cultures will be obtained. 2. We will broaden his antibiotic therapy to Zosyn 3.375 grams q.8 hours. 3. Local care to continue with Dakin solution. We will consult surgery for possible further debridement. 4. We will follow his clinical condition and further adjust medication if needed. Thank you for this consultation. Will follow this patient along with you. MMODL / IJN: [id number] /
[2020-07-12 09:55] LABS: Glucose,Whole Blood 128 mg/dL (75-99)
--- NOTE | 2020-07-12 09:59 | ECHOF ---
Referral Reason:CHF MEASUREMENTS -------- HEIGHT: 188.0 cm WEIGHT: 136.1 kg BP: 105/61 RVIDd: 3.3 cm (< 3.3) IVSd: 1.5 cm (0.6 - 1.1) LVIDd: 4.4 cm (3.9 - 5.3) LVPWd: 1.4 cm (0.6 - 1.1) IVSs: 1.8 cm LVIDs: 3.7 cm LVPWs: 1.9 cm LA Diam: 3.9 cm (2.7 - 3.8) Ao Diam: 4.0 cm (2.0 - 3.7) AV Cusp: 2.3 cm (1.5 - 2.6) MV EXCURSION: 16.312 mm (> 18.000) MV EF SLOPE: 65 mm/s (70 - 150) EPSS: 1.0 cm MV E Keshav: 0.65 m/s MV DecT: 289 ms MV A Keshav: 0.82 m/s MV E/A Ratio: 0.79 FINDINGS -------- Sinus rhythm. This was a technically difficult study with suboptimal apical views. The left ventricular size is normal. There is moderate concentric left ventricular hypertrophy. O verall left ventricular systolic function is normal with, an EF between 60 - 65 %. The right ventricle is mildly enlarged. The left atrium is normal in size. The right atrium is normal in size. Interatrial and interventricular septum intact. The aortic valve is trileaflet and appears structurally normal. The mitral valve is normal. The tricuspid valve appears structurally normal. The pulmonic valve was not well visualized. The aortic root is dilated measuring 4.0cm. IVC Not well visulized. There is no pericardial effusion. CONCLUSIONS -------- 1. The left ventricular size is normal. 2. There is moderate concentric left ventricular hypertrophy. 3. Overall left ventricular systolic function is normal with, an EF between 60 - 65 %. 4. The right ventricle is mildly enlarged. 5. The aortic root is dilated measuring 4.0cm. 6. There is no pericardial effusion. PLASTIC MACHINE OPERATOR: Raina Monae [facility]
[2020-07-12] MEDS: SODIUM HYPOCHLORITE 0.25% 480 ML BOT MISCELLANE SCH (10:06)
[2020-07-12 11:49] LABS: Glucose,Whole Blood 116 mg/dL (75-99)
[2020-07-12 12:47] LABS: Potassium 5.5 mmol/L (3.5-5.1)
[2020-07-12 13:01] LABS: Calcium 6.3 mg/dL (8.4-10.2)
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
--- NOTE | 2020-07-12 15:21 | P.PN ---
Subjective 70-year-old male was sent in because of low hemoglobin. Patient hemoglobin at the retirement was around 6 apparently. Although repeat hemoglobin here twice is around 8. Patient hemoglobin during his last hospital admission and discharge was 9. Patient has a big decubitus ulcer stage IV for which patient is receiving IV antibiotics which had been continued here. Patient is found to have acute renal failure his creatinine during his last hospitalization and discharge was 1.5 presently 3.35. Patient was on Lasix for further hypervolemic state. Patient still has bilateral pedal edema. Patient does have a Bacon catheter nephrology valid the patient they believe Bacon catheter obstruction is a reason why patient has prerenal failure. Recommending flushing the Bacon catheter. Patient was treated for hyperkalemia during her last hospital admission although echocardiac evidence is not available. Patient still has some bilateral pedal edema. Patient was on diuretics since last hospitalization and patient is probably hypotensive from diuretics amlodipine and hydralazine light to possible acute tubular necrosis concern of ALLERGIC interstitial nephritis as well. Urinalysis will be obtained patient renal failure appears to be multifactorial. Do not sound is being obtained nephrology evaluated the patient. 07/12/2020 Patient was transferred to ICU yesterday. Patient had an episode of decreased responsiveness pinpoint pupils which was believed to be secondary to opiates and methadone, as a nursing staff to discontinue methadone unfortunately that was not done patient received 10 mg methadone today. Patient had stroke workup with a CT as stroke call pager was activated. CT did not show any significant abnormality during this event that his blood sugars are within normal limits later after transfer to ICU was found that patient blood sugars are extremely low in 20s after giving D50 50 patient's symptoms completely resolved. Patient is also a poor tensive. All the blood pressure recovered even without receiving any normal saline. Patient is presently in D5 0.9. Urine output is 30-40 mL per hour. Patient creatinine remained stable. Levemir was discontinued patient is presently only on sliding scale insulin patient did not require any pressor support last night. Patient doesn't have any evidence of further GI bleed at this time hemoglobin today 7. patient feels much better today Constitutional: Denied any fatigue denied any fever. Cardio vascular: denied any chest pain, palpitations Gastrointestinal denied any nausea vomiting Pulmonary: Denied any shortness of breath cough Neurologic denied any new focal deficits All inpatient medications were reviewed and appropriate changes in these medi cations as dictated in the interval history and assessment and plan. Objective - Vital Signs Vital signs: Vital Signs Temp 97.3 F L 07/12/20 12:00 Pulse 68 07/12/20 14:00 Resp 14 07/12/20 14:00 BP 89/53 07/12/20 14:00 Pulse Ox 96 07/12/20 14:00 Intake & Output 07/11/20 07/12/20 07/12/20 17:59 06:59 18:59 Intake Total 885 Output Total 645 Balance 240 Weight Intake: IV 485 Dextrose 5%-0.9% NaCl 1, 375 000 ml @ 75 mls/hr IV . [id number] [facility] Rx#:[id number] Piperacillin-Tazobactam 3 100 .375 gm In Sodium Chloride 0.9% 100 ml @ 25 mls/hr IVPB Q8HR [facility] Rx# :[id number] Sodium Chloride 0.9% 1, 10 000 ml @ 20 mls/hr IV . Q24H [facility] Rx#:[id number] Oral 400 Output: Urine 345 Stool 300 Other: Voiding Method Indwelling Catheter # Voids - Exam PHYSICAL EXAMINATION: GENERAL: The patient is alert and oriented x3, not in any acute distress. Well developed, well nourished. HEENT: Pupils are round and equally reacting to light. EOMI. No scleral icterus. No conjunctival pallor. Normocephalic, atraumatic. No pharyngeal erythema. No thyromegaly. CARDIOVASCULAR: S1 and S2 present. No murmurs, rubs, or gallops. PULMONARY: Chest is clear to auscultation, no wheezing or crackles. ABDOMEN: Soft, nontender, nondistended, normoactive bowel sounds. No palpable organomegaly. MUSCULOSKELETAL: No joint swelling or deformity. EXTREMITIES: No cyanosis, clubbing, or pedal edema. NEUROLOGICAL: Gross neurological examination did not reveal any focal deficits. SKIN: Stage IV sacral decubitus ulcer - Labs CBC & Chem 7: 07/12/20 03:29 07/12/20 11:39 Labs: Abnormal Lab Results - Last 24 Hours (Table) 07/11/20 07/11/20 07/11/20 Range/Units 16:41 17:09 17:09 WBC 20.5 H (3.8-10.6) k/uL RBC 2.90 L (4.30-5.90) m/uL Hgb 7.7 L (13.0-17.5) gm/dL Hct 25.1 L (39.0-53.0) % MCHC 30.6 L (31.0-37.0) g/dL RDW 19.1 H (11.5-15.5) % Plt Count (150-450) k/uL Neutrophils # (1.3-7.7) k/uL Neutrophils # (Manual) 17.80 H (1.3-7.7) k/uL Lymphocytes # (1.0-4.8) k/uL Basophils # (0-0.2) k/uL ESR (0-15) mm/hr PT 12.3 H (9.0-12.0) sec INR 1.2 H (<1.2) Sodium (137-145) mmol/L Potassium (3.5-5.1) mmol/L Carbon Dioxide (22-30) mmol/L BUN (9-20) mg/dL Creatinine (0.66-1.25) mg/dL Glucose (74-99) mg/dL POC Glucose (mg/dL) 176 H (75-99) mg/dL Calcium (8.4-10.2) mg/dL Ionized Calcium Valentino (4.5-5.3) mg/dL C-Reactive Protein (<10.0) mg/L Urine Protein (Negative) Urine Ketones (Negative) Urine Blood (Negative) Ur Leukocyte Esterase (Negative) Urine RBC (0-5) /hpf Urine WBC (0-5) /hpf Amorphous Sediment (None) /hpf Urine Bacteria (None) /hpf Hyaline Casts (0-2) /lpf Urine Mucus (None) /hpf Urine Methadone Screen (NotDetected) 07/11/20 07/11/20 07/11/20 Range/Units 17:09 17:38 17:39 WBC (3.8-10.6) k/uL RBC (4.30-5.90) m/uL Hgb (13.0-17.5) gm/dL Hct (39.0-53.0) % MCHC (31.0-37.0) g/dL RDW (11.5-15.5) % Plt Count (150-450) k/uL Neutrophils # (1.3-7.7) k/uL Neutrophils # (Manual) (1.3-7.7) k/uL Lymphocytes # (1.0-4.8) k/uL Basophils # (0-0.2) k/uL ESR (0-15) mm/hr PT (9.0-12.0) sec INR (<1.2) Sodium 128 L (137-145) mmol/L Potassium 6.2 H* (3.5-5.1) mmol/L Carbon Dioxide 15 L (22-30) mmol/L BUN 87 H (9-20) mg/dL Creatinine 3.31 H (0.66-1.25) mg/dL Glucose 23 L* (74-99) mg/dL POC Glucose (mg/dL) 25 L 22 L (75-99) mg/dL Calcium 6.7 L (8.4-10.2) mg/dL Ionized Calcium Valentino (4.5-5.3) mg/dL C-Reactive Protein (<10.0) mg/L Urine Protein (Negative) Urine Ketones (Negative) Urine Blood (Negative) Ur Leukocyte Esterase (Negative) Urine RBC (0-5) /hpf Urine WBC (0-5) /hpf Amorphous Sediment (None) /hpf Urine Bacteria (None) /hpf Hyaline Casts (0-2) /lpf Urine Mucus (None) /hpf Urine Methadone Screen (NotDetected) 07/11/20 07/11/20 07/11/20 Range/Units 17:50 20:30 20:31 WBC (3.8-10.6) k/uL RBC (4.30-5.90) m/uL Hgb (13.0-17.5) gm/dL Hct (39.0-53.0) % MCHC (31.0-37.0) g/dL RDW (11.5-15.5) % Plt Count (150-450) k/uL Neutrophils # (1.3-7.7) k/uL Neutrophils # (Manual) (1.3-7.7) k/uL Lymphocytes # (1.0-4.8) k/uL Basophils # (0-0.2) k/uL ESR (0-15) mm/hr PT (9.0-12.0) sec INR (<1.2) Sodium (137-145) mmol/L Potassium 5.7 H (3.5-5.1) mmol/L Carbon Dioxide (22-30) mmol/L BUN (9-20) mg/dL Creatinine (0.66-1.25) mg/dL Glucose (74-99) mg/dL POC Glucose (mg/dL) 122 H 67 L (75-99) mg/dL Calcium (8.4-10.2) mg/dL Ionized Calcium Valentino (4.5-5.3) mg/dL C-Reactive Protein (<10.0) mg/L Urine Protein (Negative) Urine Ketones (Negative) Urine Blood (Negative) Ur Leukocyte Esterase (Negative) Urine RBC (0-5) /hpf Urine WBC (0-5) /hpf Amorphous Sediment (None) /hpf Urine Bacteria (None) /hpf Hyaline Casts (0-2) /lpf Urine Mucus (None) /hpf Urine Methadone Screen (NotDetected) 07/11/20 07/11/20 07/12/20 Range/Units 20:55 21:00 00:19 WBC (3.8-10.6) k/uL RBC (4.30-5.90) m/uL Hgb (13.0-17.5) gm/dL Hct (39.0-53.0) % MCHC (31.0-37.0) g/dL RDW (11.5-15.5) % Plt Count (150-450) k/uL Neutrophils # (1.3-7.7) k/uL Neutrophils # (Manual) (1.3-7.7) k/uL Lymphocytes # (1.0-4.8) k/uL Basophils # (0-0.2) k/uL ESR (0-15) mm/hr PT (9.0-12.0) sec INR (<1.2) Sodium (137-145) mmol/L Potassium (3.5-5.1) mmol/L Carbon Dioxide (22-30) mmol/L BUN (9-20) mg/dL Creatinine (0.66-1.25) mg/dL Glucose (74-99) mg/dL POC Glucose (mg/dL) 42 L (75-99) mg/dL Calcium (8.4-10.2) mg/dL Ionized Calcium Valentino (4.5-5.3) mg/dL C-Reactive Protein (<10.0) mg/L Urine Protein Trace H (Negative) Urine Ketones Trace H (Negative) Urine Blood Small H (Negative) Ur Leukocyte Esterase Large H (Negative) Urine RBC 13 H (0-5) /hpf Urine WBC 49 H (0-5) /hpf Amorphous Sediment Rare H (None) /hpf Urine Bacteria Few H (None) /hpf Hyaline Casts 11 H (0-2) /lpf Urine Mucus Rare H (None) /hpf Urine Methadone Screen Detected H (NotDetected) 07/12/20 07/12/20 07/12/20 Range/Units 00:38 03:29 03:29 WBC 19.3 H (3.8-10.6) k/uL RBC 2.73 L (4.30-5.90) m/uL Hgb 7.5 L (13.0-17.5) gm/dL Hct 23.5 L (39.0-53.0) % MCHC (31.0-37.0) g/dL RDW 19.1 H (11.5-15.5) % Plt Count 112 L (150-450) k/uL Neutrophils # 17.7 H (1.3-7.7) k/uL Neutrophils # (Manual) (1.3-7.7) k/uL Lymphocytes # 0.5 L (1.0-4.8) k/uL Basophils # 0.3 H (0-0.2) k/uL ESR 119 H (0-15) mm/hr PT (9.0-12.0) sec INR (<1.2) Sodium 128 L (137-145) mmol/L Potassium 5.6 H (3.5-5.1) mmol/L Carbon Dioxide 16 L (22-30) mmol/L BUN 84 H (9-20) mg/dL Creatinine 3.38 H (0.66-1.25) mg/dL Glucose 71 L (74-99) mg/dL POC Glucose (mg/dL) 62 L (75-99) mg/dL Calcium 6.5 L (8.4-10.2) mg/dL Ionized Calcium Valentino (4.5-5.3) mg/dL C-Reactive Protein 161.7 H (<10.0) mg/L Urine Protein (Negative) Urine Ketones (Negative) Urine Blood (Negative) Ur Leukocyte Esterase (Negative) Urine RBC (0-5) /hpf Urine WBC (0-5) /hpf Amorphous Sediment (None) /hpf Urine Bacteria (None) /hpf Hyaline Casts (0-2) /lpf Urine Mucus (None) /hpf Urine Methadone Screen (NotDetected) 07/12/20 07/12/20 07/12/20 Range/Units 03:55 08:04 08:15 WBC (3.8-10.6) k/uL RBC (4.30-5.90) m/uL Hgb (13.0-17.5) gm/dL Hct (39.0-53.0) % MCHC (31.0-37.0) g/dL RDW (11.5-15.5) % Plt Count (150-450) k/uL Neutrophils # (1.3-7.7) k/uL Neutrophils # (Manual) (1.3-7.7) k/uL Lymphocytes # (1.0-4.8) k/uL Basophils # (0-0.2) k/uL ESR (0-15) mm/hr PT (9.0-12.0) sec INR (<1.2) Sodium (137-145) mmol/L Potassium (3.5-5.1) mmol/L Carbon Dioxide (22-30) mmol/L BUN (9-20) mg/dL Creatinine (0.66-1.25) mg/dL Glucose (74-99) mg/dL POC Glucose (mg/dL) 74 L 45 L 66 L (75-99) mg/dL Calcium (8.4-10.2) mg/dL Ionized Calcium Valentino (4.5-5.3) mg/dL C-Reactive Protein (<10.0) mg/L Urine Protein (Negative) Urine Ketones (Negative) Urine Blood (Negative) Ur Leukocyte Esterase (Negative) Urine RBC (0-5) /hpf Urine WBC (0-5) /hpf Amorphous Sediment (None) /hpf Urine Bacteria (None) /hpf Hyaline Casts (0-2) /lpf Urine Mucus (None) /hpf Urine Methadone Screen (NotDetected) 07/12/20 07/12/20 07/12/20 Range/Units 08:31 09:52 11:39 WBC (3.8-10.6) k/uL RBC (4.30-5.90) m/uL Hgb (13.0-17.5) gm/dL Hct (39.0-53.0) % MCHC (31.0-37.0) g/dL RDW (11.5-15.5) % Plt Count (150-450) k/uL Neutrophils # (1.3-7.7) k/uL Neutrophils # (Manual) (1.3-7.7) k/uL Lymphocytes # (1.0-4.8) k/uL Basophils # (0-0.2) k/uL ESR (0-15) mm/hr PT (9.0-12.0) sec INR (<1.2) Sodium 128 L (137-145) mmol/L Potassium 5.5 H (3.5-5.1) mmol/L Carbon Dioxide 17 L (22-30) mmol/L BUN 84 H (9-20) mg/dL Creatinine 3.16 H (0.66-1.25) mg/dL Glucose (74-99) mg/dL POC Glucose (mg/dL) 73 L 128 H (75-99) mg/dL Calcium 6.3 L* (8.4-10.2) mg/dL Ionized Calcium Valentino (4.5-5.3) mg/dL C-Reactive Protein (<10.0) mg/L Urine Protein (Negative) Urine Ketones (Negative) Urine Blood (Negative) Ur Leukocyte Esterase (Negative) Urine RBC (0-5) /hpf Urine WBC (0-5) /hpf Amorphous Sediment (None) /hpf Urine Bacteria (None) /hpf Hyaline Casts (0-2) /lpf Urine Mucus (None) /hpf Urine Methadone Screen (NotDetected) 07/12/20 07/12/20 Range/Units 11:48 13:22 WBC (3.8-10.6) k/uL RBC (4.30-5.90) m/uL Hgb (13.0-17.5) gm/dL Hct (39.0-53.0) % MCHC (31.0-37.0) g/dL RDW (11.5-15.5) % Plt Count (150-450) k/uL Neutrophils # (1.3-7.7) k/uL Neutrophils # (Manual) (1.3-7.7) k/uL Lymphocytes # (1.0-4.8) k/uL Basophils # (0-0.2) k/uL ESR (0-15) mm/hr PT (9.0-12.0) sec INR (<1.2) Sodium (137-145) mmol/L Potassium (3.5-5.1) mmol/L Carbon Dioxide (22-30) mmol/L BUN (9-20) mg/dL Creatinine (0.66-1.25) mg/dL Glucose (74-99) mg/dL POC Glucose (mg/dL) 116 H (75-99) mg/dL Calcium (8.4-10.2) mg/dL Ionized Calcium Valentino 3.9 L (4.5-5.3) mg/dL C-Reactive Protein (<10.0) mg/L Urine Protein (Negative) Urine Ketones (Negative) Urine Blood (Negative) Ur Leukocyte Esterase (Negative) Urine RBC (0-5) /hpf Urine WBC (0-5) /hpf Amorphous Sediment (None) /hpf Urine Bacteria (None) /hpf Hyaline Casts (0-2) /lpf Urine Mucus (None) /hpf Urine Methadone Screen (NotDetected) Microbiology - Last 24 Hours (Table) 07/11/20 20:55 Urine Culture - Preliminary Urine,Clean Catch Assessment and Plan Plan: -Altered mental status decreased responsiveness secondary to hypoglycemia which resolved her baby competent of toxic encephalopathy from methadone which will be discontinued. Patient has poor renal function patient probably has significantly decreased clearance of methadone. he is presently on D5 normal saline, Levemir was discontinued -Acute renal failure on chronic kidney disease stage III: Acute renal failure most probably multifactorial including obstructive uropathy , urinary bladder ultrasound did not show any hydronephrosis. Can be related to ALLERGIC interstitial nephritis from antibiotics your urine analysis will be obtained. The possibility of acute tubular necrosis from hypotension hold off antihypertensive medications hold off diuretics for now. Echocardiac exam was obtained which showed normal ejection fraction no evidence of diastolic dysfunction at this time. She is on D5 half-normal saline at this time -Hyperkalemia secondary to acute renal failure. -Metabolic acidosis both the anion gap and non-and gap metabolic acidosis secondary to renal dysfunction patient is on bicarbonate supplementation -Hyperphosphatasemia secondary to acute renal failure on chronic kidney disease. 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 DVT prophylaxis with subcutaneous heparin
[2020-07-12 15:47] LABS: Glucose,Whole Blood 109 mg/dL (75-99)
[2020-07-12] MEDS ORDERED: CALCIUM CHLORIDE 2,000 MG in SODIUM CHLORIDE 0.9% 100 ML IV ONE (16:00)
--- NOTE | 2020-07-12 18:25 | PN ---
PROGRESS NOTE DATE OF SERVICE: 07/12/2020 REASON FOR FOLLOWUP: Infected gluteal pressure ulcer. INTERVAL HISTORY: Patient is currently afebrile. Patient is feeling better. Breathing comfortably. Denies having any chest pain, shortness of breath or cough. No abdominal pain or pain to the gluteal area. PHYSICAL EXAMINATION: Blood pressure 129/70 with a pulse of 70, temperature 98. She is 95% on room air. General Description is an elderly male lying in bed in no distress. Respiratory system: Unlabored breathing, clear to auscultation anteriorly. Heart S1, S2. Regular rate and rhythm. Abdomen: Soft, no tenderness. LABS: BUN of 84, creatinine 3.16, white count 19.3. DIAGNOSTIC IMPRESSION AND PLAN: Patient with gluteal pressure ulcer with concern for underlying osteomyelitis. Culture positive predominantly with Gram-negative. Patient is covered with Zosyn. Will get an opinion from his surgeon if any further need for debridement of his gluteal pressure ulcer. at the bedside. Questions were answered. MMODL / IJN: [id number] /
[2020-07-12 20:01] LABS: Glucose,Whole Blood 65 mg/dL (75-99)
[2020-07-12 20:20] LABS: Glucose,Whole Blood 99 mg/dL (75-99)
[2020-07-13 00:01] LABS: Glucose,Whole Blood 47 mg/dL (75-99)
[2020-07-13 00:18] LABS: Glucose,Whole Blood 64 mg/dL (75-99)
[2020-07-13 00:33] LABS: Glucose,Whole Blood 77 mg/dL (75-99)
[2020-07-13 04:01] LABS: Glucose,Whole Blood 47 mg/dL (75-99)
[2020-07-13 04:12] LABS: Ionized Calcium 4.1 mg/dL (4.5-5.3)
[2020-07-13 04:15] LABS: Potassium 5.3 mmol/L (3.5-5.1)
[2020-07-13 04:16] LABS: Glucose,Whole Blood 63 mg/dL (75-99)
[2020-07-13 04:23] LABS: Anisocytosis Slight; Basophils % (A) 0 %; Eosinophils # (A) 0.1 k/uL (0-0.7); Eosinophils % (A) 0 %; HCT 23.5 % (39.0-53.0); HGB 7.3 gm/dL (13.0-17.5); Hypochromasia Moderate; Lymphocytes # (A) 0.9 k/uL (1.0-4.8); Lymphocytes % (A) 7 %; MCH 26.6 pg (25.0-35.0); MCHC 30.9 g/dL (31.0-37.0); MCV 86.1 fL (80.0-100.0); Mean Platelet Volume 13.4; Monocytes # (A) 0.5 k/uL (0-1.0); Monocytes % (A) 4 %; Neutrophils # (A) 11.7 k/uL (1.3-7.7); Neutrophils % (A) 88 %; Platelet Count 107 k/uL (150-450); RBC 2.73 m/uL (4.30-5.90); RDW 19.5 % (11.5-15.5); WBC 13.3 k/uL (3.8-10.6)
[2020-07-13 04:26] LABS: Calcium 6.4 mg/dL (8.4-10.2)
[2020-07-13] MEDS ORDERED: DEXTROSE 50% SYRINGE 50 ML IVP ONE (04:47)
[2020-07-13 04:48] LABS: Glucose,Whole Blood 59 mg/dL (75-99)
[2020-07-13 05:13] LABS: Glucose,Whole Blood 127 mg/dL (75-99)
[2020-07-13] MEDS ORDERED: CALCIUM GLUCONATE 2 GM in SODIUM CHLORIDE 0.9% 100 ML IVPB ONE ×3 (06:03→15:30)
[2020-07-13] MEDS: INSULIN ASPART (NovoLOG) 100 UNIT/ML VIAL SQ SCH ×4 (06:09→20:52)
[2020-07-13 07:56] LABS: Glucose,Whole Blood 143 mg/dL (75-99)
[2020-07-13] MEDS: traMADol 50 MG TAB PO PRN ×3 (08:44→20:51)
[2020-07-13] MEDS: PIPERACILLIN-TAZOBACTAM 3.375 GM in SODIUM CHLORIDE 0.9% 100 ML IVPB SCH ×4 (08:44→16:06)
[2020-07-13] MEDS: METOPROLOL TARTRATE 12.5 MG TAB PO SCH ×2 (08:45→20:51)
[2020-07-13] MEDS: HEPARIN SODIUM,PORCINE 5,000 UNIT/ML 1 ML VIAL SQ SCH ×2 (08:45→20:51)
[2020-07-13] MEDS: FERROUS SULFATE 325 MG TAB PO SCH ×2 (08:45→20:50)
[2020-07-13] MEDS: TAMSULOSIN 0.4 MG CAP.ER.24H PO SCH (08:45)
[2020-07-13] MEDS: SODIUM BICARBONATE TAB 650 MG TAB PO SCH ×4 (08:46→20:51)
[2020-07-13] MEDS ORDERED: FUROSEMIDE 10 MG/ML 10 ML VIAL IV STA (09:25)
[2020-07-13] MEDS ORDERED: SODIUM BICARB 8.4% 50 ML SYR (1 MEQ/ML) IV STA (10:00)
--- NOTE | 2020-07-13 10:01 | P.PN ---
Subjective Patient is seen in follow-up for acute kidney injury on chronic kidney disease. Creatinine was 3.35 on admission and is 3.07 today. Oral intake is fair. Denies chest pain or shortness of breath. Has quite a bit of edema in the lower extremities. Potassium level 5.3 this morning. Vital signs are stable. General: The patient appeared well nourished and normally developed. HEENT: Head exam is unremarkable. LUNGS: Breath sounds decreased. HEART: Rate and Rhythm are regular. ABDOMEN: Soft, obese. EXTREMITITES: 2+ edema. Objective - Vital Signs Vital signs: Vital Signs Temp 97.5 F L 07/13/20 08:00 Pulse 77 07/13/20 09:00 Resp 13 07/13/20 09:00 BP 103/62 07/13/20 09:00 Pulse Ox 98 07/13/20 09:00 Intake & Output 07/12/20 07/13/20 07/13/20 18:59 06:59 18:59 Intake Total 1460 900 250 Output Total 840 980 95 Balance 620 -80 155 Intake: IV 1060 900 150 Calcium Chloride 2,000 mg 100 In Sodium Chloride 0.9% 100 ml @ 100 mls/hr IV ONCE ONE Rx#:[id number] Dextrose 5%-0.9% NaCl 1, 750 900 150 000 ml @ 75 mls/hr IV . [id number] [facility] Rx#:[id number] Piperacillin-Tazobactam 3 200 .375 gm In Sodium Chloride 0.9% 100 ml @ 25 mls/hr IVPB Q8HR [facility] Rx# :[id number] Sodium Chloride 0.9% 1, 10 000 ml @ 20 mls/hr IV . Q24H [facility] Rx#:[id number] Oral 400 100 Output: Urine 540 580 95 Stool 300 400 Other: Voiding Method Indwelling Catheter Indwelling Catheter Indwelling Catheter - Labs CBC & Chem 7: 07/13/20 03:27 07/13/20 03:27 Labs: Abnormal Lab Results - Last 24 Hours (Table) 07/12/20 07/12/20 07/12/20 Range/Units 09:52 11:39 11:48 WBC (3.8-10.6) k/uL RBC (4.30-5.90) m/uL Hgb (13.0-17.5) gm/dL Hct (39.0-53.0) % MCHC (31.0-37.0) g/dL RDW (11.5-15.5) % Plt Count (150-450) k/uL Neutrophils # (1.3-7.7) k/uL Lymphocytes # (1.0-4.8) k/uL Sodium 128 L (137-145) mmol/L Potassium 5.5 H (3.5-5.1) mmol/L Carbon Dioxide 17 L (22-30) mmol/L BUN 84 H (9-20) mg/dL Creatinine 3.16 H (0.66-1.25) mg/dL Glucose (74-99) mg/dL POC Glucose (mg/dL) 128 H 116 H (75-99) mg/dL Calcium 6.3 L* (8.4-10.2) mg/dL Ionized Calcium Valentino (4.5-5.3) mg/dL 07/12/20 07/12/20 07/12/20 Range/Units 13:22 15:45 20:00 WBC (3.8-10.6) k/uL RBC (4.30-5.90) m/uL Hgb (13.0-17.5) gm/dL Hct (39.0-53.0) % MCHC (31.0-37.0) g/dL RDW (11.5-15.5) % Plt Count (150-450) k/uL Neutrophils # (1.3-7.7) k/uL Lymphocytes # (1.0-4.8) k/uL Sodium (137-145) mmol/L Potassium (3.5-5.1) mmol/L Carbon Dioxide (22-30) mmol/L BUN (9-20) mg/dL Creatinine (0.66-1.25) mg/dL Glucose (74-99) mg/dL POC Glucose (mg/dL) 109 H 65 L (75-99) mg/dL Calcium (8.4-10.2) mg/dL Ionized Calcium Valentino 3.9 L (4.5-5.3) mg/dL 07/13/20 07/13/20 07/13/20 Range/Units 00:00 00:17 03:27 WBC (3.8-10.6) k/uL RBC (4.30-5.90) m/uL Hgb (13.0-17.5) gm/dL Hct (39.0-53.0) % MCHC (31.0-37.0) g/dL RDW (11.5-15.5) % Plt Count (150-450) k/uL Neutrophils # (1.3-7.7) k/uL Lymphocytes # (1.0-4.8) k/uL Sodium 128 L (137-145) mmol/L Potassium 5.3 H (3.5-5.1) mmol/L Carbon Dioxide 17 L (22-30) mmol/L BUN 85 H (9-20) mg/dL Creatinine 3.07 H (0.66-1.25) mg/dL Glucose 41 L* (74-99) mg/dL POC Glucose (mg/dL) 47 L 64 L (75-99) mg/dL Calcium 6.4 L* (8.4-10.2) mg/dL Ionized Calcium Valentino 4.1 L (4.5-5.3) mg/dL 07/13/20 07/13/20 07/13/20 Range/Units 03:27 03:58 04:14 WBC 13.3 H (3.8-10.6) k/uL RBC 2.73 L (4.30-5.90) m/uL Hgb 7.3 L (13.0-17.5) gm/dL Hct 23.5 L (39.0-53.0) % MCHC 30.9 L (31.0-37.0) g/dL RDW 19.5 H (11.5-15.5) % Plt Count 107 L (150-450) k/uL Neutrophils # 11.7 H (1.3-7.7) k/uL Lymphocytes # 0.9 L (1.0-4.8) k/uL Sodium (137-145) mmol/L Potassium (3.5-5.1) mmol/L Carbon Dioxide (22-30) mmol/L BUN (9-20) mg/dL Creatinine (0.66-1.25) mg/dL Glucose (74-99) mg/dL POC Glucose (mg/dL) 47 L 63 L (75-99) mg/dL Calcium (8.4-10.2) mg/dL Ionized Calcium Valentino (4.5-5.3) mg/dL 07/13/20 07/13/20 07/13/20 Range/Units 04:46 05:11 07:55 WBC (3.8-10.6) k/uL RBC (4.30-5.90) m/uL Hgb (13.0-17.5) gm/dL Hct (39.0-53.0) % MCHC (31.0-37.0) g/dL RDW (11.5-15.5) % Plt Count (150-450) k/uL Neutrophils # (1.3-7.7) k/uL Lymphocytes # (1.0-4.8) k/uL Sodium (137-145) mmol/L Potassium (3.5-5.1) mmol/L Carbon Dioxide (22-30) mmol/L BUN (9-20) mg/dL Creatinine (0.66-1.25) mg/dL Glucose (74-99) mg/dL POC Glucose (mg/dL) 59 L 127 H 143 H (75-99) mg/dL Calcium (8.4-10.2) mg/dL Ionized Calcium Valentino (4.5-5.3) mg/dL Microbiology - Last 24 Hours (Table) 07/11/20 20:55 Urine Culture - Final Urine,Clean Catch 07/12/20 03:29 Blood Culture - Preliminary Blood No Growth after 24 hours Assessment and Plan Plan: Assessment: 1. Acute kidney injury secondary to ATN secondary to acute blood loss anemia and hypotension. Creatinine was 3.35 on admission and is 3.07 today. 2. Chronic kidney disease stage IIIa with baseline creatinine near 1.5 secondary to diabetic kidney disease. 3. Acute on chronic diastolic CHF. 4. Lower extremity edema. 5. Gluteal pressure ulcer with concern for underlying osteomyelitis. Infectious disease following. 6. Diabetes mellitus with hypoglycemia. 7. Metabolic acidosis secondary to acute kidney injury and IV fluids. 8. Hypervolemic hyponatremia. 9. Hypocalcemia secondary to acute kidney injury. 10. Hyperphosphatemia secondary to acute kidney injury. Plan: Lasix 60 mg IV once now. Stop D5 normal saline and change to D10 at 25 mL an hour as needed for hypoglycemia. Maintain oral bicarb. I will give him 2 A of sodium bicarb IV push now. Calcium was replaced this morning. Repeat CMP and an ionized calcium level this afternoon. Low-salt diet and 1200 mL fluid restriction. Repeat phosphorus level in the morning.
[2020-07-13] MEDS: DEXTROSE 10% IN WATER 500 ML in EMPTY BAG 1 BAG IV SCH (10:27)
--- NOTE | 2020-07-13 10:38 | P.PN ---
Subjective Progress Note Date: 07/13/20 Principal diagnosis: Altered mental status secondary to hypoglycemia acute metabolic encephalopathy This is a 70-year-old white male with history of multiple medical problems, quan yee is paraplegic related to previous fall and T11 fracture patient is also known to have history of ileostomy, neurogenic bladder, chronic bilateral lower extremity cellulitis, chronic left foot ulcers, sacral decubitus ulcer, type 2 diabetes, nephrolithiasis, patient was sent from the intermediate on 07/11/2020, mostly because he was noted to have a low hemoglobin and based on the blood test he had at the intermediate. However repeat hemoglobin in the ER showed a hemoglobin of 8. Further workup in the ER showed that the patient had a bit of acute renal failure with significant rise in his creatinine, it was 3.35 compared to 1.5 earlier. His rise in his creatinine was felt to be related to diuretics. That he was receiving during his inpatient stay last. Patient was admitted mostly for hydration to regular medical floor, but while on the floor, he had an episode of unresponsiveness, and profound weakness, GERD without to be that the patient had a very low blood sugar. Responded well to treatment with 1 amp of D50. However prior to this the patient had a CT of the brain, and it was basically unremarkable. Considering his sudden change in his neurological status, patient was transferred to the ICU, and I was asked to see him on consultation. Apparently his neurological status significantly improved post treatment of his hypoglycemia. I saw the patient this morning, and he seems to be doing quite well. Continues to have intermittent drops in her blood sugar, and he was placed on D5 0.9 normal saline by nephrology, and that seems to be helping. Again the patient is now back to his baseline. He is on room air with O2 saturation of 96%. His repeat hemoglobin today is 7.5. His urine output is about 30-40 mL/h. And he is hemodynamically stable. Not requiring any pressors. On 07/13/2020 patient seen in follow-up in the intensive care unit, he is awake and alert, oriented 3, neurologically intact, and some questions appropriately seems to be in no acute distress, breathing comfortably, he is on room air with pulse ox of 98%, his had no fever or chills, blood pressure has been stable, D5.9 at a rate of 75 ML per hour, his Levemir and Glucotrol have been on hold. he did have a hypoglycemic episode early this morning with a blood sugar of 47 which was treated, and most recent blood sugar is 143. His had no nausea vomiting or diarrhea, he is tolerating a renal diet. The rest of his labs reviewed today, showing white blood cell count 13.3, improved from admission, hemoglobin is 7.3, serum sodium remained stable at 128, potassium is 5.3, BUN of 85, creatinine of 3.07, his calcium level was 6.4 with ionized calcium at 4.1. Urinalysis showed possibility of urinary tract infection and patient Is currently on Zosyn. His urine culture has been Negative, blood culture show no growth at the 24-hour brayan, patient denies any cough, no phlegm production, no chest pain. He is breathing comfortably, although appears to be generally fluid overloaded, his IV fluids were switched from D5 point in the same to 10% dextrose at a rate of 25 ML per hour, he was also given a dose of IV Lasix 60 mg per nephrology, and he remains on oral sodium bicarbonate. Overnight he's had no other acute issues, he is receiving local wound care to stage IV coccyx dec ubitus ulcer, and infectious disease is managing that Objective - Vital Signs Vital signs: Vital Signs Temp 97.5 F L 07/13/20 08:00 Pulse 77 07/13/20 09:00 Resp 13 07/13/20 09:00 BP 103/62 07/13/20 09:00 Pulse Ox 98 07/13/20 09:00 Intake & Output 07/12/20 07/13/20 07/13/20 18:59 06:59 18:59 Intake Total 1460 900 250 Output Total 840 980 95 Balance 620 -80 155 Intake: IV 1060 900 150 Calcium Chloride 2,000 mg 100 In Sodium Chloride 0.9% 100 ml @ 100 mls/hr IV ONCE ONE Rx#:[id number] Dextrose 5%-0.9% NaCl 1, 750 900 150 000 ml @ 75 mls/hr IV . [id number] [facility] Rx#:[id number] Piperacillin-Tazobactam 3 200 .375 gm In Sodium Chloride 0.9% 100 ml @ 25 mls/hr IVPB Q8HR [facility] Rx# :[id number] Sodium Chloride 0.9% 1, 10 000 ml @ 20 mls/hr IV . Q24H [facility] Rx#:[id number] Oral 400 100 Output: Urine 540 580 95 Stool 300 400 Other: Voiding Method Indwelling Catheter Indwelling Catheter Indwelling Catheter - Exam GENERAL EXAM: Alert, very pleasant, 70-year-old white male, on room air comfortable in no apparent distress. HEAD: Normocephalic/atraumatic. EYES: Normal reaction of pupils, equal size. Conjunctiva pink, sclera white. NOSE: Clear with pink turbinates. THROAT: No erythema or exudates. NECK: No masses, no JVD, no thyroid enlargement, no adenopathy. CHEST: No chest wall deformity. Symmetrical expansion. LUNGS: Equal air entry with no crackles, wheeze, rhonchi or dullness. CVS: Regular rate and rhythm, normal S1 and S2, no gallops, no murmurs, no rubs ABDOMEN: Soft, nontender. No hepatosplenomegaly, normal bowel sounds, no guarding or rigidity. EXTREMITIES: No clubbing, 1-2+ lower extremity edema no cyanosis, 2+ pulses and upper and lower extremities. MUSCULOSKELETAL: Muscle strength and tone normal. SPINE: No scoliosis or deformity SKIN: No rashes CENTRAL NERVOUS SYSTEM: Alert and oriented -3. No focal deficits, tone is normal in all 4 extremities. PSYCHIATRIC: Alert and oriented -3. Appropriate affect. Intact judgment and insight. - Labs CBC & Chem 7: 07/13/20 03:27 07/13/20 03:27 Labs: Abnormal Lab Results - Last 24 Hours (Table) 07/12/20 07/12/20 07/12/20 Range/Units 11:39 11:48 13:22 WBC (3.8-10.6) k/uL RBC (4.30-5.90) m/uL Hgb (13.0-17.5) gm/dL Hct (39.0-53.0) % MCHC (31.0-37.0) g/dL RDW (11.5-15.5) % Plt Count (150-450) k/uL Neutrophils # (1.3-7.7) k/uL Lymphocytes # (1.0-4.8) k/uL Sodium 128 L (137-145) mmol/L Potassium 5.5 H (3.5-5.1) mmol/L Carbon Dioxide 17 L (22-30) mmol/L BUN 84 H (9-20) mg/dL Creatinine 3.16 H (0.66-1.25) mg/dL Glucose (74-99) mg/dL POC Glucose (mg/dL) 116 H (75-99) mg/dL Calcium 6.3 L* (8.4-10.2) mg/dL Ionized Calcium Valentino 3.9 L (4.5-5.3) mg/dL 07/12/20 07/12/20 07/13/20 Range/Units 15:45 20:00 00:00 WBC (3.8-10.6) k/uL RBC (4.30-5.90) m/uL Hgb (13.0-17.5) gm/dL Hct (39.0-53.0) % MCHC (31.0-37.0) g/dL RDW (11.5-15.5) % Plt Count (150-450) k/uL Neutrophils # (1.3-7.7) k/uL Lymphocytes # (1.0-4.8) k/uL Sodium (137-145) mmol/L Potassium (3.5-5.1) mmol/L Carbon Dioxide (22-30) mmol/L BUN (9-20) mg/dL Creatinine (0.66-1.25) mg/dL Glucose (74-99) mg/dL POC Glucose (mg/dL) 109 H 65 L 47 L (75-99) mg/dL Calcium (8.4-10.2) mg/dL Ionized Calcium Valentino (4.5-5.3) mg/dL 07/13/20 07/13/20 07/13/20 Range/Units 00:17 03:27 03:27 WBC 13.3 H (3.8-10.6) k/uL RBC 2.73 L (4.30-5.90) m/uL Hgb 7.3 L (13.0-17.5) gm/dL Hct 23.5 L (39.0-53.0) % MCHC 30.9 L (31.0-37.0) g/dL RDW 19.5 H (11.5-15.5) % Plt Count 107 L (150-450) k/uL Neutrophils # 11.7 H (1.3-7.7) k/uL Lymphocytes # 0.9 L (1.0-4.8) k/uL Sodium 128 L (137-145) mmol/L Potassium 5.3 H (3.5-5.1) mmol/L Carbon Dioxide 17 L (22-30) mmol/L BUN 85 H (9-20) mg/dL Creatinine 3.07 H (0.66-1.25) mg/dL Glucose 41 L* (74-99) mg/dL POC Glucose (mg/dL) 64 L (75-99) mg/dL Calcium 6.4 L* (8.4-10.2) mg/dL Ionized Calcium Valentino 4.1 L (4.5-5.3) mg/dL 07/13/20 07/13/20 07/13/20 Range/Units 03:58 04:14 04:46 WBC (3.8-10.6) k/uL RBC (4.30-5.90) m/uL Hgb (13.0-17.5) gm/dL Hct (39.0-53.0) % MCHC (31.0-37.0) g/dL RDW (11.5-15.5) % Plt Count (150-450) k/uL Neutrophils # (1.3-7.7) k/uL Lymphocytes # (1.0-4.8) k/uL Sodium (137-145) mmol/L Potassium (3.5-5.1) mmol/L Carbon Dioxide (22-30) mmol/L BUN (9-20) mg/dL Creatinine (0.66-1.25) mg/dL Glucose (74-99) mg/dL POC Glucose (mg/dL) 47 L 63 L 59 L (75-99) mg/dL Calcium (8.4-10.2) mg/dL Ionized Calcium Valentino (4.5-5.3) mg/dL 07/13/20 07/13/20 Range/Units 05:11 07:55 WBC (3.8-10.6) k/uL RBC (4.30-5.90) m/uL Hgb (13.0-17.5) gm/dL Hct (39.0-53.0) % MCHC (31.0-37.0) g/dL RDW (11.5-15.5) % Plt Count (150-450) k/uL Neutrophils # (1.3-7.7) k/uL Lymphocytes # (1.0-4.8) k/uL Sodium (137-145) mmol/L Potassium (3.5-5.1) mmol/L Carbon Dioxide (22-30) mmol/L BUN (9-20) mg/dL Creatinine (0.66-1.25) mg/dL Glucose (74-99) mg/dL POC Glucose (mg/dL) 127 H 143 H (75-99) mg/dL Calcium (8.4-10.2) mg/dL Ionized Calcium Valentino (4.5-5.3) mg/dL Microbiology - Last 24 Hours (Table) 07/11/20 20:55 Urine Culture - Final Urine,Clean Catch 07/12/20 03:29 Blood Culture - Preliminary Blood No Growth after 24 hours Assessment and Plan Plan: Assessment: #1. Altered mental status, secondary to hypoglycemia/acute metabolic encephalopathy, improved however patient still requiring 10% dextrose. His Glucotrol and Levemir are on hold #2. Acute on chronic kidney disease stage III #3. Hyponatremia, likely hypercholesterolemic, patient was given a dose of IV Lasix, nephrology is following #4. History of paraplegia secondary to T11 fracture #5. History of neurogenic bladder #6. Type 2 diabetes mellitus #7. Multiple decubitus ulcers, including stage IV on the sacrum #8. Possible urinary tract infection although urinary cultures have shown no gr owth, currently covered with Zosyn #9. Benign essential hypertension #10. Anemia of chronic kidney disease Plan: Continue holding Levemir and Glucotrol, continue with D10 infusion, and blood sugar checks, hemodynamically stable, maintaining stable O2 saturations no difficulty breathing, continue antibiotics per ID service recommendations and wound care per ID service recommendations. Still appears to be generally fluid overloaded, received a dose of IV Lasix per nephrology, his labs have been noted, neurologically he seems to be intact. From pulmonary/critical care perspective he stable to go out to general medical floor. Close monitoring of his blood sugars I performed a history & physical examination of the patient and discussed their management with my nurse practitioner, Mag Frost. I reviewed the nurse practitioner's note and agree with the documented findings and plan of care. Lung sounds are positive for diminished breath sounds. The findings and the impression was discussed with the patient. I attest to the documentation by the nurse practitioner. Time with Patient: Less than 30
[2020-07-13] MEDS: SODIUM HYPOCHLORITE 0.25% 480 ML BOT MISCELLANE SCH (10:49)
--- NOTE | 2020-07-13 11:08 | P.PN ---
Subjective 70-year-old male was sent in because of low hemoglobin. Patient hemoglobin at the care home was around 6 apparently. Although repeat hemoglobin here twice is around 8. Patient hemoglobin during his last hospital admission and discharge was 9. Patient has a big decubitus ulcer stage IV for which patient is receiving IV antibiotics which had been continued here. Patient is found to have acute renal failure his creatinine during his last hospitalization and discharge was 1.5 presently 3.35. Patient was on Lasix for further hypervolemic state. Patient still has bilateral pedal edema. Patient does have a Bacon catheter nephrology valid the patient they believe Bacon catheter obstruction is a reason why patient has prerenal failure. Recommending flushing the Bacon catheter. Patient was treated for hyperkalemia during her last hospital admission although echocardiac evidence is not available. Patient still has some bilateral pedal edema. Patient was on diuretics since last hospitalization and patient is probably hypotensive from diuretics amlodipine and hydralazine light to possible acute tubular necrosis concern of ALLERGIC interstitial nephritis as well. Urinalysis will be obtained patient renal failure appears to be multifactorial. Do not sound is being obtained nephrology evaluated the patient. 07/12/2020 Patient was transferred to ICU yesterday. Patient had an episode of decreased responsiveness pinpoint pupils which was believed to be secondary to opiates and methadone, as a nursing staff to discontinue methadone unfortunately that was not done patient received 10 mg methadone today. Patient had stroke workup with a CT as stroke call pager was activated. CT did not show any significant abnormality during this event that his blood sugars are within normal limits later after transfer to ICU was found that patient blood sugars are extremely low in 20s after giving D50 50 patient's symptoms completely resolved. Patient is also a poor tensive. All the blood pressure recovered even without receiving any normal saline. Patient is presently in D5 0.9. Urine output is 30-40 mL per hour. Patient creatinine remained stable. Levemir was discontinued patient is presently only on sliding scale insulin patient did not require any pressor support last night. Patient doesn't have any evidence of further GI bleed at this time hemoglobin today 7. patient feels much better today 07/13/2020 Patient is receiving Lasix today because she has significant anasarca. Patient blood sugars are still low earlier today because of which D5 was switched to D10 at 20 mL per hour to decrease third spacing of fluids. Patient is more awake feels much better today patient pain is fairly well controlled with tramadol. Constitutional: Denied any fatigue denied any fever. Cardio vascular: denied any chest pain, palpitations Gastrointestinal denied any nausea vomiting Pulmonary: Denied any shortness of breath cough Neurologic denied any new focal deficits All inpatient medications were reviewed and appropriate changes in these medications as dictated in the interval history and assessment and plan. Objective - Vital Signs Vital signs: Vital Signs Temp 97.5 F L 07/13/20 08:00 Pulse 64 07/13/20 10:00 Resp 12 07/13/20 10:00 BP 108/55 07/13/20 10:00 Pulse Ox 100 07/13/20 10:00 Intake & Output 07/12/20 07/13/20 07/13/20 18:59 06:59 18:59 Intake Total 1460 900 400 Output Total 840 980 175 Balance 620 -80 225 Intake: IV 1060 900 300 Calcium Chloride 2,000 mg 100 In Sodium Chloride 0.9% 100 ml @ 100 mls/hr IV ONCE ONE Rx#:[id number] Dextrose 5%-0.9% NaCl 1, 750 900 300 000 ml @ 75 mls/hr IV . [id number] [facility] Rx#:[id number] Piperacillin-Tazobactam 3 200 .375 gm In Sodium Chloride 0.9% 100 ml @ 25 mls/hr IVPB Q8HR [facility] Rx# :[id number] Sodium Chloride 0.9% 1, 10 000 ml @ 20 mls/hr IV . Q24H [facility] Rx#:[id number] Oral 400 100 Output: Urine 540 580 175 Stool 300 400 Other: Voiding Method Indwelling Catheter Indwelling Catheter Indwelling Catheter - Exam PHYSICAL EXAMINATION: GENERAL: The patient is alert and oriented x3, not in any acute distress. Well developed, well nourished. Patient has significant anasarca extremity edema HEENT: Pupils are round and equally reacting to light. EOMI. No scleral icterus. No conjunctival pallor. Normocephalic, atraumatic. No pharyngeal erythema. No thyromegaly. CARDIOVASCULAR: S1 and S2 present. No murmurs, rubs, or gallops. PULMONARY: Chest is clear to auscultation, no wheezing or crackles. ABDOMEN: Soft, nontender, nondistended, normoactive bowel sounds. No palpable organomegaly. MUSCULOSKELETAL: No joint swelling or deformity. EXTREMITIES: No cyanosis, clubbing, does have some pedal edema NEUROLOGICAL: Gross neurological examination did not reveal any focal deficits. SKIN: Stage IV sacral decubitus ulcer - Labs CBC & Chem 7: 07/13/20 03:27 07/13/20 03:27 Labs: Abnormal Lab Results - Last 24 Hours (Table) 07/12/20 07/12/20 07/12/20 Range/Units 11:39 11:48 13:22 WBC (3.8-10.6) k/uL RBC (4.30-5.90) m/uL Hgb (13.0-17.5) gm/dL Hct (39.0-53.0) % MCHC (31.0-37.0) g/dL RDW (11.5-15.5) % Plt Count (150-450) k/uL Neutrophils # (1.3-7.7) k/uL Lymphocytes # (1.0-4.8) k/uL Sodium 128 L (137-145) mmol/L Potassium 5.5 H (3.5-5.1) mmol/L Carbon Dioxide 17 L (22-30) mmol/L BUN 84 H (9-20) mg/dL Creatinine 3.16 H (0.66-1.25) mg/dL Glucose (74-99) mg/dL POC Glucose (mg/dL) 116 H (75-99) mg/dL Calcium 6.3 L* (8.4-10.2) mg/dL Ionized Calcium Valentino 3.9 L (4.5-5.3) mg/dL 07/12/20 07/12/20 07/13/20 Range/Units 15:45 20:00 00:00 WBC (3.8-10.6) k/uL RBC (4.30-5.90) m/uL Hgb (13.0-17.5) gm/dL Hct (39.0-53.0) % MCHC (31.0-37.0) g/dL RDW (11.5-15.5) % Plt Count (150-450) k/uL Neutrophils # (1.3-7.7) k/uL Lymphocytes # (1.0-4.8) k/uL Sodium (137-145) mmol/L Potassium (3.5-5.1) mmol/L Carbon Dioxide (22-30) mmol/L BUN (9-20) mg/dL Creatinine (0.66-1.25) mg/dL Glucose (74-99) mg/dL POC Glucose (mg/dL) 109 H 65 L 47 L (75-99) mg/dL Calcium (8.4-10.2) mg/dL Ionized Calcium Valentino (4.5-5.3) mg/dL 07/13/20 07/13/20 07/13/20 Range/Units 00:17 03:27 03:27 WBC 13.3 H (3.8-10.6) k/uL RBC 2.73 L (4.30-5.90) m/uL Hgb 7.3 L (13.0-17.5) gm/dL Hct 23.5 L (39.0-53.0) % MCHC 30.9 L (31.0-37.0) g/dL RDW 19.5 H (11.5-15.5) % Plt Count 107 L (150-450) k/uL Neutrophils # 11.7 H (1.3-7.7) k/uL Lymphocytes # 0.9 L (1.0-4.8) k/uL Sodium 128 L (137-145) mmol/L Potassium 5.3 H (3.5-5.1) mmol/L Carbon Dioxide 17 L (22-30) mmol/L BUN 85 H (9-20) mg/dL Creatinine 3.07 H (0.66-1.25) mg/dL Glucose 41 L* (74-99) mg/dL POC Glucose (mg/dL) 64 L (75-99) mg/dL Calcium 6.4 L* (8.4-10.2) mg/dL Ionized Calcium Valentino 4.1 L (4.5-5.3) mg/dL 07/13/20 07/13/20 07/13/20 Range/Units 03:58 04:14 04:46 WBC (3.8-10.6) k/uL RBC (4.30-5.90) m/uL Hgb (13.0-17.5) gm/dL Hct (39.0-53.0) % MCHC (31.0-37.0) g/dL RDW (11.5-15.5) % Plt Count (150-450) k/uL Neutrophils # (1.3-7.7) k/uL Lymphocytes # (1.0-4.8) k/uL Sodium (137-145) mmol/L Potassium (3.5-5.1) mmol/L Carbon Dioxide (22-30) mmol/L BUN (9-20) mg/dL Creatinine (0.66-1.25) mg/dL Glucose (74-99) mg/dL POC Glucose (mg/dL) 47 L 63 L 59 L (75-99) mg/dL Calcium (8.4-10.2) mg/dL Ionized Calcium Valentino (4.5-5.3) mg/dL 07/13/20 07/13/20 Range/Units 05:11 07:55 WBC (3.8-10.6) k/uL RBC (4.30-5.90) m/uL Hgb (13.0-17.5) gm/dL Hct (39.0-53.0) % MCHC (31.0-37.0) g/dL RDW (11.5-15.5) % Plt Count (150-450) k/uL Neutrophils # (1.3-7.7) k/uL Lymphocytes # (1.0-4.8) k/uL Sodium (137-145) mmol/L Potassium (3.5-5.1) mmol/L Carbon Dioxide (22-30) mmol/L BUN (9-20) mg/dL Creatinine (0.66-1.25) mg/dL Glucose (74-99) mg/dL POC Glucose (mg/dL) 127 H 143 H (75-99) mg/dL Calcium (8.4-10.2) mg/dL Ionized Calcium Valentino (4.5-5.3) mg/dL Microbiology - Last 24 Hours (Table) 07/11/20 20:55 Urine Culture - Final Urine,Clean Catch 07/12/20 03:29 Blood Culture - Preliminary Blood No Growth after 24 hours Assessment and Plan Plan: -Altered mental status decreased responsiveness secondary to hypoglycemia which resolved her baby competent of toxic encephalopathy from methadone which will be discontinued. Patient has poor renal function patient probably has significantly decreased clearance of methadone. he is presently on D5 normal saline, Levemir was discontinued -Acute renal failure on chronic kidney disease stage III: Acute renal failure most probably multifactorial including obstructive uropathy , urinary bladder ultrasound did not show any hydronephrosis. Can be related to ALLERGIC interstitial nephritis from antibiotics your urine analysis will be obtained. The possibility of acute tubular necrosis from hypotension hold off a ntihypertensive medications . Patient is volume overloaded today is receiving IV Lasix.. Echocardiac exam was obtained which showed normal ejection fraction no evidence of diastolic dysfunction at this time. Patient is on D10 normal saline at 20 mL per hour at this time. Patient still hypoglycemic -Hyperkalemia secondary to acute renal failure. -Metabolic acidosis both the anion gap and non-and gap metabolic acidosis secondary to renal dysfunction patient is on bicarbonate supplementation -Hyperphosphatasemia secondary to acute renal failure on chronic kidney disease. 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 DVT prophylaxis with subcutaneous heparin
[2020-07-13 11:21] VITALS: BMI 38.5
[2020-07-13 12:08] LABS: Glucose,Whole Blood 158 mg/dL (75-99)
[2020-07-13 12:08] LABS: Glucose,Whole Blood 322 mg/dL (75-99)
[2020-07-13] MEDS ORDERED: LIDOCAINE 1% INJ 10MG/ML (20 ML MDV) SQ ONE (13:00)
--- NOTE | 2020-07-13 13:27 | IR ---
PICC LINE PLACEMENT: HISTORY: Infection requiring long-term antibiotic therapy PROCEDURE: Ultrasound guidance of PICC line placement. PORCELAIN TECHNICIAN: COMPLICATIONS: None ANESTHESIA: 1. 1% Lidocaine locally. FINDINGS/TECHNIQUE: The procedure was explained to the patient. The risks, complications, benefits and alternatives were discussed and any questions were answered. Informed consent was obtained. The patient was placed supine on the fluoroscopic table and prepped and draped in the usual sterile fash ion. Utilizing a 21 gauge needle and sonographic guidance, access in the right cephalic vein was ac hieved and there is placement of a 0.018 guidewire. The vein is patent. A 5-F. sheath was placed ov er the guidewire. The guidewire and dilator were removed and a 5-F. Double lumen PICC line was place d through the sheath with the chest x-ray confirming the tip at the level of the SVC. The sheath was removed, the catheter was flushed and sutured into position. The patient was stable throughout the procedure and remained stable upon discharge from the Department of Radiology. The vein puncture was patent under ultrasound. A huff scale image was obtained to document patency of the vein punctured. All elements of the maximal barrier technique were utilized. IMPRESSION: 1. Successful PICC line placement under ultrasound performed bedside within the ICU.
--- NOTE | 2020-07-13 13:48 | XR ---
EXAMINATION TYPE: XR chest 1V portable DATE OF EXAM: 07/13/2020 CLINICAL HISTORY: PICC line placement. TECHNIQUE: Single AP portable semiupright view of the chest is obtained. COMPARISON: Chest x-ray from 2 days earlier FINDINGS: New right-sided PICC line terminates in SVC. Cardiac silhouette size is stable and mildly enlarged. Suspect tiny left pleural effusion and associa stephanie basilar atelectasis and/or infiltrate. Right lung remains clear. Low lung volumes redemonstrated. Postsurgical change lower thoracic spine again seen. IMPRESSION: As above. New right-sided PICC line otherwise no significant change from 2 days earlier.
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
[2020-07-13 15:03] LABS: Ionized Calcium 3.9 mg/dL (4.5-5.3)
[2020-07-13 15:10] LABS: Albumin 1.8 g/dL (3.5-5.0); Potassium 5.2 mmol/L (3.5-5.1); Total Bilirubin 1.2 mg/dL (0.2-1.3); Total Protein 4.8 g/dL (6.3-8.2)
[2020-07-13 15:16] LABS: Calcium 6.3 mg/dL (8.4-10.2)
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
[2020-07-13 17:48] LABS: Glucose,Whole Blood 167 mg/dL (75-99)
[2020-07-13 20:42] LABS: Glucose,Whole Blood 188 mg/dL (75-99)
[2020-07-14] MEDS: PIPERACILLIN-TAZOBACTAM 3.375 GM in SODIUM CHLORIDE 0.9% 100 ML IVPB SCH ×4 (00:07→23:54)
[2020-07-14 00:28] LABS: Glucose,Whole Blood 221 mg/dL (75-99)
[2020-07-14] MEDS: ACETAMINOPHEN TAB 325 MG TAB PO PRN (00:33)
[2020-07-14] MEDS: INSULIN ASPART (NovoLOG) 100 UNIT/ML VIAL SQ SCH ×6 (00:58→20:45)
--- NOTE | 2020-07-14 03:32 | PN ---
PROGRESS NOTE DATE OF SERVICE: 07/13/2020 REASON FOR FOLLOWUP: Right gluteal infected pressure ulcer. INTERVAL HISTORY: Patient is currently afebrile. Patient is breathing comfortably. The patient denies having any chest pain. No shortness of breath or cough. No abdominal pain. No pain to the right gluteal wound area. EXAMINATION: Blood pressure is 103/80 with a pulse of 72, temperature 98.7. He is 97% on room air. General description: The patient is an elderly male lying in bed in no distress. Respiratory system: Unlabored breathing, decreased breath sounds in the bases. No wheeze. HEART: S1, S2. Regular rate and rhythm. ABDOMEN: Soft, no tenderness. LABS: BUN of 27, creatinine is 2.9. DIAGNOSTIC IMPRESSION AND PLAN: Patient with right gluteal pressure ulcer infected status post surgical debridement. Consultation with general surgery for evaluation and possible further debridement. Patient to continue Zosyn and monitor clinical course closely. MMODL / IJN: [id number] /
[2020-07-14 04:23] LABS: Glucose,Whole Blood 188 mg/dL (75-99)
[2020-07-14] MEDS: DEXTROSE 10% IN WATER 500 ML in EMPTY BAG 1 BAG IV SCH (05:03)
[2020-07-14 06:55] LABS: Glucose,Whole Blood 161 mg/dL (75-99)
[2020-07-14] MEDS: SODIUM BICARBONATE TAB 650 MG TAB PO SCH ×4 (08:36→20:46)
[2020-07-14] MEDS: METOPROLOL TARTRATE 12.5 MG TAB PO SCH ×2 (08:36→20:46)
[2020-07-14] MEDS: HEPARIN SODIUM,PORCINE 5,000 UNIT/ML 1 ML VIAL SQ SCH ×2 (08:36→20:46)
[2020-07-14] MEDS: TAMSULOSIN 0.4 MG CAP.ER.24H PO SCH (08:36)
[2020-07-14] MEDS: FERROUS SULFATE 325 MG TAB PO SCH ×2 (08:36→20:46)
[2020-07-14] MEDS ORDERED: IV FLUID CONTINUATION 1,000 ML IV ONE (11:19)
--- NOTE | 2020-07-14 11:21 | P.PN ---
Subjective Patient is seen in follow-up for acute kidney injury on chronic kidney disease. Creatinine was 3.35 on admission and was 2.98 as of yesterday. Oral intake is fair. Denies chest pain or shortness of breath. Has quite a bit of edema in the lower extremities. No vomiting or diarrhea. Vital signs are stable. General: The patient appeared well nourished and normally developed. HEENT: Head exam is unremarkable. LUNGS: Breath sounds decreased. HEART: Rate and Rhythm are regular. ABDOMEN: Soft, obese. EXTREMITITES: 2+ edema. Objective - Vital Signs Vital signs: Vital Signs Temp 97.9 F 07/14/20 07:27 Pulse 82 07/14/20 08:35 Resp 18 07/14/20 08:35 BP 96/54 07/14/20 07:27 Pulse Ox 95 07/14/20 08:46 Intake & Output 07/13/20 07/14/20 07/14/20 18:59 06:59 18:59 Intake Total 700 790 Output Total 675 200 Balance 25 790 -200 Weight 136.078 kg Intake: IV 300 100 Dextrose 5%-0.9% NaCl 1, 300 000 ml @ 75 mls/hr IV . [id number] [facility] Rx#:[id number] Piperacillin-Tazobactam 3 100 .375 gm In Sodium Chloride 0.9% 100 ml @ 25 mls/hr IVPB Q8HR [facility] Rx# :[id number] Intake, IV Titration 300 150 Amount Calcium Gluconate 2 gm In 100 Sodium Chloride 0.9% 100 ml @ 100 mls/hr IVPB ONCE ONE Rx#:[id number] Dextrose 10% in Water 500 200 150 ml In Empty Bag 1 bag @ 25 mls/hr IV .Q20H [facility] Rx #:[id number] Oral 100 Other 540 Output: Urine 475 Stool 200 200 Other: Voiding Method Indwelling Catheter Indwelling Catheter Indwelling Catheter - Labs CBC & Chem 7: 07/13/20 03:27 07/13/20 14:27 Labs: Abnormal Lab Results - Last 24 Hours (Table) 07/13/20 07/13/20 07/13/20 Range/Units 12:06 12:07 14:27 Sodium 130 L (137-145) mmol/L Potassium 5.2 H (3.5-5.1) mmol/L Carbon Dioxide 18 L (22-30) mmol/L BUN 87 H (9-20) mg/dL Creatinine 2.98 H (0.66-1.25) mg/dL Glucose 143 H (74-99) mg/dL POC Glucose (mg/dL) 322 H 158 H (75-99) mg/dL Calcium 6.3 L* (8.4-10.2) mg/dL Ionized Calcium Valentino 3.9 L (4.5-5.3) mg/dL Alkaline Phosphatase 135 H (38-126) U/L Total Protein 4.8 L (6.3-8.2) g/dL Albumin 1.8 L (3.5-5.0) g/dL 07/13/20 07/13/20 07/14/20 Range/Units 17:46 20:40 00:26 Sodium (137-145) mmol/L Potassium (3.5-5.1) mmol/L Carbon Dioxide (22-30) mmol/L BUN (9-20) mg/dL Creatinine (0.66-1.25) mg/dL Glucose (74-99) mg/dL POC Glucose (mg/dL) 167 H 188 H 221 H (75-99) mg/dL Calcium (8.4-10.2) mg/dL Ionized Calcium Valentino (4.5-5.3) mg/dL Alkaline Phosphatase (38-126) U/L Total Protein (6.3-8.2) g/dL Albumin (3.5-5.0) g/dL 07/14/20 07/14/20 Range/Units 04:20 06:53 Sodium (137-145) mmol/L Potassium (3.5-5.1) mmol/L Carbon Dioxide (22-30) mmol/L BUN (9-20) mg/dL Creatinine (0.66-1.25) mg/dL Glucose (74-99) mg/dL POC Glucose (mg/dL) 188 H 161 H (75-99) mg/dL Calcium (8.4-10.2) mg/dL Ionized Calcium Valentino (4.5-5.3) mg/dL Alkaline Phosphatase (38-126) U/L Total Protein (6.3-8.2) g/dL Albumin (3.5-5.0) g/dL Microbiology - Last 24 Hours (Table) 07/12/20 03:29 Blood Culture - Preliminary Blood No Growth after 48 hours 07/11/20 20:55 Urine Culture - Final Urine,Clean Catch Assessment and Plan Plan: Assessment: 1. Acute kidney injury secondary to ATN secondary to acute blood loss anemia and hypotension. Creatinine was 3.35 on admission and 2.98 as of yesterday. 2. Chronic kidney disease stage IIIa with baseline creatinine near 1.5 secondar y to diabetic kidney disease. 3. Acute on chronic diastolic CHF. 4. Lower extremity edema. 5. Gluteal pressure ulcer with concern for underlying osteomyelitis. Infectious disease following. Scheduled for debridement today. 6. Diabetes mellitus with hypoglycemia. 7. Metabolic acidosis secondary to acute kidney injury and IV fluids. 8. Hypervolemic hyponatremia. 9. Hypocalcemia secondary to acute kidney injury. Replaced. 10. Hyperphosphatemia secondary to acute kidney injury. Plan: Add torsemide 20 mg once daily. 25 g IV albumin 2 doses today. Maintain oral bicarb. Low-salt diet and 1200 mL fluid restriction. Morning labs pending.
[2020-07-14 11:28] LABS: Glucose,Whole Blood 128 mg/dL (75-99)
[2020-07-14 11:40] LABS: African American GFR (CKD) 25.5 (60.0-200.0); Albumin 1.9 g/dL (3.80-4.90); Albumin/Globulin Ratio 0.7 (1.60-3.17); Anion Gap 11.2 mmol/L (4.00-12.00); BUN/Creat Ratio 31.79 Ratio (12.00-20.00); Calcium 6.6 mg/dL (8.7-10.3); Carbon Dioxide 18.8 mmol/L (21.6-31.8); Globulin 2.7 g/dL (1.6-3.3); Magnesium 1.9 mg/dL (1.5-2.4); Phosphorus 7.5 mg/dL (2.4-5.1); Total Protein 4.6 g/dL (6.2-8.2)
[2020-07-14] MEDS ORDERED: MIDAZOLAM 2 MG/2 ML VIAL ONE (12:42)
[2020-07-14] MEDS ORDERED: PHENYLEPHRINE-0.9% NACL SYG 1,000 MCG/10 ML SYRINGE ONE (12:42)
[2020-07-14] MEDS ORDERED: fentaNYL (PF) 50 MCG/ML 2 ML AMP ONE (12:42)
[2020-07-14] MEDS ORDERED: SODIUM CHLORIDE 0.9% 250 ML IV ONE (13:03)
--- NOTE | 2020-07-14 14:12 | P.OP ---
Date of Procedure: 07/14/20 Procedure(s) Performed: PREOPERATIVE DIAGNOSIS: Left buttocks decubitus ulcer POSTOPERATIVE DIAGNOSIS: Same PROCEDURE: Debridement left buttocks decubitus ulcer SURGEON: Camille EBL: 10 mL ANESTHESIA: Sedation COMPLICATIONS: None OPERATIVE PROCEDURE: Patient placed in the operating table in the right decubitu s position. The patient's left buttock was sterilely prepped. The patient had a 6 x 7 cm area of skin that was lateral to the previous deeper open wound that had been previously debrided. This area of skin measuring 6 x 7 cm had superficial necrosis of the skin and superficial fat. This was sharply debrided in its entirety. Thankfully we only needed to reach a depth of approximately 1 cm in the subcutaneous fat before we met viable tissue. Small areas of bleeding were controlled using electrocautery. The larger 7 x 7 cm decubitus ulcer that had been previously debrided had some superficial necrotic fat along the peripheral margins. These were sharply debrided again and an excisional manner using the scalpel. Some of the fascia overlying the underlying bone was noted to be ischemic as well and excised sharply. Bleeding points were controlled using electrocautery. The depth of dissection 5 cm. No palpable necrotic bone. Wound packed with sterile saline soaked Kerlix roll. Covered with sterile dressings. DISPOSITION: Stable to recovery room
[2020-07-14 14:27] LABS: Glucose,Whole Blood 112 mg/dL (75-99)
[2020-07-14 14:53] LABS: Glucose,Whole Blood 138 mg/dL (75-99)
--- NOTE | 2020-07-14 15:17 | P.PN ---
Subjective Progress Note Date: 07/14/20 Principal diagnosis: Altered mental status secondary to hypoglycemia acute metabolic encephalopathy This is a 70-year-old white male with history of multiple medical problems, quan yee is paraplegic related to previous fall and T11 fracture patient is also known to have history of ileostomy, neurogenic bladder, chronic bilateral lower extremity cellulitis, chronic left foot ulcers, sacral decubitus ulcer, type 2 diabetes, nephrolithiasis, patient was sent from the senior care on 07/11/2020, mostly because he was noted to have a low hemoglobin and based on the blood test he had at the senior care. However repeat hemoglobin in the ER showed a hemoglobin of 8. Further workup in the ER showed that the patient had a bit of acute renal failure with significant rise in his creatinine, it was 3.35 compared to 1.5 earlier. His rise in his creatinine was felt to be related to diuretics. That he was receiving during his inpatient stay last. Patient was admitted mostly for hydration to regular medical floor, but while on the floor, he had an episode of unresponsiveness, and profound weakness, GERD without to be that the patient had a very low blood sugar. Responded well to treatment with 1 amp of D50. However prior to this the patient had a CT of the brain, and it was basically unremarkable. Considering his sudden change in his neurological status, patient was transferred to the ICU, and I was asked to see him on consultation. Apparently his neurological status significantly improved post treatment of his hypoglycemia. I saw the patient this morning, and he seems to be doing quite well. Continues to have intermittent drops in her blood sugar, and he was placed on D5 0.9 normal saline by nephrology, and that seems to be helping. Again the patient is now back to his baseline. He is on room air with O2 saturation of 96%. His repeat hemoglobin today is 7.5. His urine output is about 30-40 mL/h. And he is hemodynamically stable. Not requiring any pressors. On 07/13/2020 patient seen in follow-up in the intensive care unit, he is awake and alert, oriented 3, neurologically intact, and some questions appropriately seems to be in no acute distress, breathing comfortably, he is on room air with pulse ox of 98%, his had no fever or chills, blood pressure has been stable, D5.9 at a rate of 75 ML per hour, his Levemir and Glucotrol have been on hold. he did have a hypoglycemic episode early this morning with a blood sugar of 47 which was treated, and most recent blood sugar is 143. His had no nausea vomiting or diarrhea, he is tolerating a renal diet. The rest of his labs reviewed today, showing white blood cell count 13.3, improved from admission, hemoglobin is 7.3, serum sodium remained stable at 128, potassium is 5.3, BUN of 85, creatinine of 3.07, his calcium level was 6.4 with ionized calcium at 4.1. Urinalysis showed possibility of urinary tract infection and patient Is currently on Zosyn. His urine culture has been Negative, blood culture show no growth at the 24-hour brayan, patient denies any cough, no phlegm production, no chest pain. He is breathing comfortably, although appears to be generally fluid overloaded, his IV fluids were switched from D5 point in the same to 10% dextrose at a rate of 25 ML per hour, he was also given a dose of IV Lasix 60 mg per nephrology, and he remains on oral sodium bicarbonate. Overnight he's had no other acute issues, he is receiving local wound care to stage IV coccyx dec ubitus ulcer, and infectious disease is managing that On 07/14/2020 patient seen in follow-up on medical floor. He is resting comfortably in bed, he is currently on 10% dextrose running at 20 ML per hour, no altered mentation at the time of our evaluation patient is on room air, breathing comfortably, lung sounds are clear, his had no fever or chills. He had episode of hypoglycemia at midnight with a blood sugar of 47, and again at 358 with a blood sugar of 47. Since then his Percent dextrose was increased to 20 ML. Patient currently nothing by mouth after midnight for debridement of the left buttocks decubitus ulcer. His diet will be restarted this afternoon, his labs have been reviewed, his serum sodium is improving up to 131, patient was given additional dose of Lasix, nephrology is following and managing serum sodium, no worsening dyspnea, however patient has generalized edema. Potassium is 5.0, BUN is 89, creatinine is 2.8. Remains on oral Demadex. He is on heparin 5000 units subcu every 12 hours. He remains on Zosyn for possibility of wound infection in the sacral stage IV decubitus ulcer. Objective - Vital Signs Vital signs: Vital Signs Temp 97.9 F 07/14/20 14:00 Pulse 76 07/14/20 14:34 Resp 16 07/14/20 14:34 BP 86/54 07/14/20 14:34 Pulse Ox 100 07/14/20 14:34 Intake & Output 07/13/20 07/14/20 07/14/20 18:59 06:59 18:59 Intake Total 700 790 225 Output Total 675 210 Balance 25 790 15 Weight 136.078 kg Intake: IV 300 100 225 Dextrose 5%-0.9% NaCl 1, 300 000 ml @ 75 mls/hr IV . [id number] [facility] Rx#:[id number] Piperacillin-Tazobactam 3 100 .375 gm In Sodium Chloride 0.9% 100 ml @ 25 mls/hr IVPB Q8HR [facility] Rx# :[id number] Intake, IV Titration 300 150 Amount Calcium Gluconate 2 gm In 100 Sodium Chloride 0.9% 100 ml @ 100 mls/hr IVPB ONCE ONE Rx#:[id number] Dextrose 10% in Water 500 200 150 ml In Empty Bag 1 bag @ 25 mls/hr IV .Q20H [facility] Rx #:[id number] Oral 100 Other 540 Output: Urine 475 Stool 200 200 Estimated Blood Loss 10 Other: Voiding Method Indwelling Catheter Indwelling Catheter Indwelling Catheter - Exam GENERAL EXAM: Alert, very pleasant, 70-year-old white male, on room air comfortable in no apparent distress. HEAD: Normocephalic/atraumatic. EYES: Normal reaction of pupils, equal size. Conjunctiva pink, sclera white. NOSE: Clear with pink turbinates. THROAT: No erythema or exudates. NECK: No masses, no JVD, no thyroid enlargement, no adenopathy. CHEST: No chest wall deformity. Symmetrical expansion. LUNGS: Equal air entry with no crackles, wheeze, rhonchi or dullness. CVS: Regular rate and rhythm, normal S1 and S2, no gallops, no murmurs, no rubs ABDOMEN: Soft, nontender. No hepatosplenomegaly, normal bowel sounds, no guarding or rigidity. EXTREMITIES: No clubbing, 1-2+ lower extremity edema no cyanosis, 2+ pulses and upper and lower extremities. MUSCULOSKELETAL: Muscle strength and tone normal. SPINE: No scoliosis or deformity SKIN: No rashes CENTRAL NERVOUS SYSTEM: Alert and oriented -3. No focal deficits, tone is normal in all 4 extremities. PSYCHIATRIC: Alert and oriented -3. Appropriate affect. Intact judgment and insight. - Labs CBC & Chem 7: 07/13/20 03:27 07/14/20 06:50 Labs: Abnormal Lab Results - Last 24 Hours (Table) 07/13/20 07/13/20 07/13/20 Range/Units 14:27 17:46 20:40 Sodium 130 L (137-145) mmol/L Potassium 5.2 H (3.5-5.1) mmol/L Carbon Dioxide 18 L (22-30) mmol/L BUN 87 H (9-20) mg/dL Creatinine 2.98 H (0.66-1.25) mg/dL Est GFR (CKD-EPI)AfAm (60.0-200.0) Est GFR (CKD-EPI)NonAf (60.0-200.0) BUN/Creatinine Ratio (12.00-20.00) Ratio Glucose 143 H (74-99) mg/dL POC Glucose (mg/dL) 167 H 188 H (75-99) mg/dL Calcium 6.3 L* (8.4-10.2) mg/dL Ionized Calcium Valentino 3.9 L (4.5-5.3) mg/dL Phosphorus (2.4-5.1) mg/dL Alkaline Phosphatase 135 H (38-126) U/L Total Protein 4.8 L (6.3-8.2) g/dL Albumin 1.8 L (3.5-5.0) g/dL Albumin/Globulin Ratio (1.60-3.17) g/dL 07/14/20 07/14/20 07/14/20 Range/Units 00:26 04:20 06:50 Sodium 131 L (137-145) mmol/L Potassium (3.5-5.1) mmol/L Carbon Dioxide 18.8 L (22-30) mmol/L BUN 89.0 H (9-20) mg/dL Creatinine 2.8 H (0.66-1.25) mg/dL Est GFR (CKD-EPI)AfAm 25.5 L (60.0-200.0) Est GFR (CKD-EPI)NonAf 22.0 L (60.0-200.0) BUN/Creatinine Ratio 31.79 H (12.00-20.00) Ratio Glucose 142 H (74-99) mg/dL POC Glucose (mg/dL) 221 H 188 H (75-99) mg/dL Calcium 6.6 L (8.4-10.2) mg/dL Ionized Calcium Valentino (4.5-5.3) mg/dL Phosphorus 7.5 H (2.4-5.1) mg/dL Alkaline Phosphatase 145 H (38-126) U/L Total Protein 4.6 L (6.3-8.2) g/dL Albumin 1.90 L (3.5-5.0) g/dL Albumin/Globulin Ratio 0.70 L (1.60-3.17) g/dL 07/14/20 07/14/20 07/14/20 Range/Units 06:53 11:26 14:24 Sodium (137-145) mmol/L Potassium (3.5-5.1) mmol/L Carbon Dioxide (22-30) mmol/L BUN (9-20) mg/dL Creatinine (0.66-1.25) mg/dL Est GFR (CKD-EPI)AfAm (60.0-200.0) Est GFR (CKD-EPI)NonAf (60.0-200.0) BUN/Creatinine Ratio (12.00-20.00) Ratio Glucose (74-99) mg/dL POC Glucose (mg/dL) 161 H 128 H 112 H (75-99) mg/dL Calcium (8.4-10.2) mg/dL Ionized Calcium Valentino (4.5-5.3) mg/dL Phosphorus (2.4-5.1) mg/dL Alkaline Phosphatase (38-126) U/L Total Protein (6.3-8.2) g/dL Albumin (3.5-5.0) g/dL Albumin/Globulin Ratio (1.60-3.17) g/dL 07/14/20 Range/Units 14:52 Sodium (137-145) mmol/L Potassium (3.5-5.1) mmol/L Carbon Dioxide (22-30) mmol/L BUN (9-20) mg/dL Creatinine (0.66-1.25) mg/dL Est GFR (CKD-EPI)AfAm (60.0-200.0) Est GFR (CKD-EPI)NonAf (60.0-200.0) BUN/Creatinine Ratio (12.00-20.00) Ratio Glucose (74-99) mg/dL POC Glucose (mg/dL) 138 H (75-99) mg/dL Calcium (8.4-10.2) mg/dL Ionized Calcium Valentino (4.5-5.3) mg/dL Phosphorus (2.4-5.1) mg/dL Alkaline Phosphatase (38-126) U/L Total Protein (6.3-8.2) g/dL Albumin (3.5-5.0) g/dL Albumin/Globulin Ratio (1.60-3.17) g/dL Microbiology - Last 24 Hours (Table) 07/12/20 03:29 Blood Culture - Preliminary Blood No Growth after 48 hours Assessment and Plan Plan: Assessment: #1. Altered mental status, secondary to hypoglycemia/acute metabolic encephalopathy, improved however patient still requiring 10% dextrose. His Glucotrol and Levemir are on hold #2. Acute on chronic kidney disease stage III #3. Hyponatremia, likely hypervolemic, patient was given a dose of IV Lasix, nephrology is following #4. History of paraplegia secondary to T11 fracture #5. History of neurogenic bladder #6. Type 2 diabetes mellitus #7. Multiple decubitus ulcers, including stage IV on the sacrum #8. Possible urinary tract infection although urinary cultures have shown no growth, currently covered with Zosyn #9. Benign essential hypertension #10. Anemia of chronic kidney disease Plan: Continue close blood glucose monitoring, no worsening dyspnea, patient has received a dose of Lasix, his sodium is improving, she continues on 10% dextrose, after his echo wound debridement anticipate restarting his oral diet, and gradually weaning off the 10% dextrose. No worsening dyspnea. Follow-up labs, electrolytes and renal profile in the morning I performed a history & physical examination of the patient and discussed their management with my nurse practitioner, Mag Frost. I reviewed the nurse practitioner's note and agree with the documented findings and plan of care. Lung sounds are positive for diminished breath sounds. The findings and the impression was discussed with the patient. I attest to the documentation by the nurse practitioner. Time with Patient: Less than 30
[2020-07-14] MEDS: SODIUM HYPOCHLORITE 0.25% 480 ML BOT MISCELLANE SCH (15:23)
[2020-07-14] MEDS: traMADol 50 MG TAB PO PRN ×2 (15:25→19:49)
[2020-07-14] MEDS: TORSEMIDE 20 MG TAB PO SCH (15:26)
[2020-07-14] MEDS: ALBUMIN HUMAN 25% 50 ML in EMPTY BAG 1 BAG IVPB SCH ×4 (15:26→22:02)
--- NOTE | 2020-07-14 15:58 | P.PN ---
Subjective Progress Note Date: 07/14/20 70-year-old male was sent in because of low hemoglobin. Patient hemoglobin at the intermediate was around 6 apparently. Although repeat hemoglobin here twice is around 8. Patient hemoglobin during his last hospital admission and discharge was 9. Patient has a big decubitus ulcer stage IV for which patient is receiving IV antibiotics which had been continued here. Patient is found to have acute renal failure his creatinine during his last hospitalization and discharge was 1.5 presently 3.35. Patient was on Lasix for further hypervolemic state. Patient still has bilateral pedal edema. Patient does have a Bacon catheter nephrology valid the patient they believe Bacon catheter obstruction is a reason why patient has prerenal failure. Recommending flushing the Bacon catheter. Patient was treated for hyperkalemia during her last hospital admission although echocardiac evidence is not available. Patient still has some bilateral pedal edema. Patient was on diuretics since last hospitalization and patient is probably hypotensive from diuretics amlodipine and hydralazine light to possible acute tubular necrosis concern of ALLERGIC interstitial nephritis as well. Urinalysis will be obtained patient renal failure appears to be multifactorial. Do not sound is being obtained nephrology evaluated the patient. 07/12/2020 Patient was transferred to ICU yesterday. Patient had an episode of decreased responsiveness pinpoint pupils which was believed to be secondary to opiates and methadone, as a nursing staff to discontinue methadone unfortunately that was not done patient received 10 mg methadone today. Patient had stroke workup with a CT as stroke call pager was activated. CT did not show any significant abnormality during this event that his blood sugars are within normal limits later after transfer to ICU was found that patient blood sugars are extremely low in 20s after giving D50 50 patient's symptoms completely resolved. Patient is also a poor tensive. All the blood pressure recovered even without receiving any normal saline. Patient is presently in D5 0.9. Urine output is 30-40 mL per hour. Patient creatinine remained stable. Levemir was discontinued patient is presently only on sliding scale insulin patient did not require any pressor support last night. Patient doesn't have any evidence of further GI bleed at this time hemoglobin today 7. patient feels much better today 07/13/2020 Patient is receiving Lasix today because she has significant anasarca. Patient blood sugars are still low earlier today because of which D5 was switched to D10 at 20 mL per hour to decrease third spacing of fluids. Patient is more awake feels much better today patient pain is fairly well controlled with tramadol. 07/14/2020 Patient is seen and evaluated this morning and follow-up continues on Lasix with multiple medical consultations following. Surgery scheduled for debridement of decubitus ulcer today. Patient was lethargic on exam although arousable. Sodium slightly improved at 131 with a potassium of 5.0, current creatinine is 2.8 just trending down and nephrology following. She is maintained on dextrose with water and will also be receiving a dose of albumin today. Patient to continue with Demadex and patient is also maintained on sodium bicarb. Patient continues with IV Zosyn and infectious disease is following. Constitutional: Denied any fatigue denied any fever. Cardio vascular: denied any chest pain, palpitations Gastrointestinal denied any nausea vomiting Pulmonary: Denied any shortness of breath cough Neurologic denied any new focal deficits All inpatient medications were reviewed and appropriate changes in these medications as dictated in the interval history and assessment and plan. Objective - Vital Signs Vital signs: Vital Signs Temp 97.6 F 07/14/20 11:20 Pulse 71 07/14/20 11:20 Resp 17 07/14/20 11:20 BP 118/54 07/14/20 11:20 Pulse Ox 98 07/14/20 11:20 Intake & Output 07/13/20 07/14/20 07/14/20 18:59 06:59 18:59 Intake Total 700 790 Output Total 675 200 Balance 25 790 -200 Weight 136.078 kg Intake: IV 300 100 Dextrose 5%-0.9% NaCl 1, 300 000 ml @ 75 mls/hr IV . [id number] Rx#:[id number] Piperacillin-Tazobactam 3 100 .375 gm In Sodium Chloride 0.9% 100 ml @ 25 mls/hr IVPB Q8HR [facility] Rx# :[id number] Intake, IV Titration 300 150 Amount Calcium Gluconate 2 gm In 100 Sodium Chloride 0.9% 100 ml @ 100 mls/hr [facility] Rx#:[id number] Dextrose 10% in Water 500 200 150 ml In Empty Bag 1 bag @ 25 mls/hr IV .Q20H [facility] Rx #:[id number] Oral 100 Other 540 Output: Urine 475 Stool 200 200 Other: Voiding Method Indwelling Catheter Indwelling Catheter Indwelling Catheter - Exam -Altered mental status decreased responsiveness secondary to hypoglycemia which resolved, may be a component of toxic encephalopathy from methadone which was discontinued. Patient has poor renal function patient probably has significantly decreased clearance of methadone. he is presently on D5 normal saline, Levemir was discontinued -Acute renal failure on chronic kidney disease stage III: Acute renal failure most probably multifactorial including obstructive uropathy , urinary bladder ultrasound did not show any hydronephrosis. Can be related to interstitial nephritis from antibiotics. The possibility of acute tubular necrosis from hypotension hold off antihypertensive medications . Patient is volume overloaded and was receiving IV Lasix and recently switched to Demadex. Nephrology following. Echocardiac exam was obtained which showed normal ejection fraction no evidence of diastolic dysfunction at this time. Patient is on D10 normal saline at 20 mL per hour at this time. Patient still hypoglycemic -Hyperkalemia secondary to acute renal failure. -Metabolic acidosis both the anion gap and non-and gap metabolic acidosis secondary to renal dysfunction patient is on bicarbonate supplementation -Hyperphosphatasemia secondary to acute renal failure on chronic kidney disease. 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 -DVT prophylaxis with subcutaneous heparin - Labs CBC & Chem 7: 07/13/20 03:27 07/14/20 06:50 Labs: Abnormal Lab Results - Last 24 Hours (Table) 07/13/20 07/13/20 07/13/20 Range/Units 12:06 12:07 14:27 Sodium 130 L (137-145) mmol/L Potassium 5.2 H (3.5-5.1) mmol/L Carbon Dioxide 18 L (22-30) mmol/L BUN 87 H (9-20) mg/dL Creatinine 2.98 H (0.66-1.25) mg/dL Est GFR (CKD-EPI)AfAm (60.0-200.0) Est GFR (CKD-EPI)NonAf (60.0-200.0) BUN/Creatinine Ratio (12.00-20.00) Ratio Glucose 143 H (74-99) mg/dL POC Glucose (mg/dL) 322 H 158 H (75-99) mg/dL Calcium 6.3 L* (8.4-10.2) mg/dL Ionized Calcium Valentino 3.9 L (4.5-5.3) mg/dL Phosphorus (2.4-5.1) mg/dL Alkaline Phosphatase 135 H (38-126) U/L Total Protein 4.8 L (6.3-8.2) g/dL Albumin 1.8 L (3.5-5.0) g/dL Albumin/Globulin Ratio (1.60-3.17) g/dL 07/13/20 07/13/20 07/14/20 Range/Units 17:46 20:40 00:26 Sodium (137-145) mmol/L Potassium (3.5-5.1) mmol/L Carbon Dioxide (22-30) mmol/L BUN (9-20) mg/dL Creatinine (0.66-1.25) mg/dL Est GFR (CKD-EPI)AfAm (60.0-200.0) Est GFR (CKD-EPI)NonAf (60.0-200.0) BUN/Creatinine Ratio (12.00-20.00) Ratio Glucose (74-99) mg/dL POC Glucose (mg/dL) 167 H 188 H 221 H (75-99) mg/dL Calcium (8.4-10.2) mg/dL Ionized Calcium Valentino (4.5-5.3) mg/dL Phosphorus (2.4-5.1) mg/dL Alkaline Phosphatase (38-126) U/L Total Protein (6.3-8.2) g/dL Albumin (3.5-5.0) g/dL Albumin/Globulin Ratio (1.60-3.17) g/dL 07/14/20 07/14/20 07/14/20 Range/Units 04:20 06:50 06:53 Sodium 131 L (137-145) mmol/L Potassium (3.5-5.1) mmol/L Carbon Dioxide 18.8 L (22-30) mmol/L BUN 89.0 H (9-20) mg/dL Creatinine 2.8 H (0.66-1.25) mg/dL Est GFR (CKD-EPI)AfAm 25.5 L (60.0-200.0) Est GFR (CKD-EPI)NonAf 22.0 L (60.0-200.0) BUN/Creatinine Ratio 31.79 H (12.00-20.00) Ratio Glucose 142 H (74-99) mg/dL POC Glucose (mg/dL) 188 H 161 H (75-99) mg/dL Calcium 6.6 L (8.4-10.2) mg/dL Ionized Calcium Valentino (4.5-5.3) mg/dL Phosphorus 7.5 H (2.4-5.1) mg/dL Alkaline Phosphatase 145 H (38-126) U/L Total Protein 4.6 L (6.3-8.2) g/dL Albumin 1.90 L (3.5-5.0) g/dL Albumin/Globulin Ratio 0.70 L (1.60-3.17) g/dL 07/14/20 Range/Units 11:26 Sodium (137-145) mmol/L Potassium (3.5-5.1) mmol/L Carbon Dioxide (22-30) mmol/L BUN (9-20) mg/dL Creatinine (0.66-1.25) mg/dL Est GFR (CKD-EPI)AfAm (60.0-200.0) Est GFR (CKD-EPI)NonAf (60.0-200.0) BUN/Creatinine Ratio (12.00-20.00) Ratio Glucose (74-99) mg/dL POC Glucose (mg/dL) 128 H (75-99) mg/dL Calcium (8.4-10.2) mg/dL Ionized Calcium Valentino (4.5-5.3) mg/dL Phosphorus (2.4-5.1) mg/dL Alkaline Phosphatase (38-126) U/L Total Protein (6.3-8.2) g/dL Albumin (3.5-5.0) g/dL Albumin/Globulin Ratio (1.60-3.17) g/dL Microbiology - Last 24 Hours (Table) 07/12/20 03:29 Blood Culture - Preliminary Blood No Growth after 48 hours 07/11/20 20:55 Urine Culture - Final Urine,Clean Catch
[2020-07-14 16:27] LABS: Glucose,Whole Blood 174 mg/dL (75-99)
[2020-07-14 20:17] LABS: Glucose,Whole Blood 191 mg/dL (75-99)
[2020-07-14 23:47] LABS: Glucose,Whole Blood 153 mg/dL (75-99)
--- NOTE | 2020-07-15 01:12 | PN ---
PROGRESS NOTE DATE OF SERVICE: 07/14/2020. REASON FOR FOLLOW UP: Left gluteal infected pressure ulcer. INTERVAL HISTORY: The patient is currently afebrile. The patient is breathing comfortably. Denies having any chest pain or shortness of breath or cough. No abdominal pain. No diarrhea. PHYSICAL EXAMINATION: Blood pressure 120/62 with a pulse of 84, temperature 98. He is 97% on room air. General description is an elderly male lying in bed in no distress. Respiratory system: Unlabored breathing, clear to auscultation anteriorly. Heart S1, S2. Regular rate and rhythm. Abdomen soft, no tenderness. LABS: No CBC was done today. DIAGNOSTIC IMPRESSION AND PLAN: Patient with left gluteal infected pressure ulcer. Status post debridement on his last visit. Culture multiple pathogen. Patient is covered with Zosyn. Local care to continue with Dakin solution. Keep the area dry and off the pressure. MMODL / IJN: [id number] /
[2020-07-15 04:06] LABS: Glucose,Whole Blood 119 mg/dL (75-99)
[2020-07-15] MEDS: INSULIN ASPART (NovoLOG) 100 UNIT/ML VIAL SQ SCH ×6 (04:08→20:49)
[2020-07-15] MEDS: DEXTROSE 10% IN WATER 500 ML in EMPTY BAG 1 BAG IV SCH (05:40)
[2020-07-15 06:53] LABS: Glucose,Whole Blood 164 mg/dL (75-99)
[2020-07-15 07:12] LABS: ALT 17 U/L (4-49); AST 22 U/L (17-59); African American GFR (CKD) 25 (>60 ml/min/1.73 sqM); Albumin/Globulin Ratio 0.7; Alkaline Phosphatase 108 U/L (38-126); Anion Gap 12 mmol/L; Blood Urea Nitrogen 84 mg/dL (9-20); Carbon Dioxide 18 mmol/L (22-30); Chloride 102 mmol/L (98-107); Globulin 2.9 g/dL; Glucose 105 mg/dL (74-99); Magnesium 2.2 mg/dL (1.6-2.3); Non-African American GFR(CKD) 21 (>60 ml/min/1.73 sqM); Potassium 4.1 mmol/L (3.5-5.1); Sodium 132 mmol/L (137-145); Total Bilirubin 1.2 mg/dL (0.2-1.3); Total Protein 4.9 g/dL (6.3-8.2)
[2020-07-15 07:27] LABS: Calcium 6.3 mg/dL (8.4-10.2)
[2020-07-15] MEDS: TORSEMIDE 20 MG TAB PO SCH (07:36)
[2020-07-15] MEDS: SODIUM BICARBONATE TAB 650 MG TAB PO SCH ×4 (07:36→20:49)
[2020-07-15] MEDS: PIPERACILLIN-TAZOBACTAM 3.375 GM in SODIUM CHLORIDE 0.9% 100 ML IVPB SCH ×2 (07:36→16:51)
[2020-07-15] MEDS: HEPARIN SODIUM,PORCINE 5,000 UNIT/ML 1 ML VIAL SQ SCH ×2 (07:36→20:49)
[2020-07-15] MEDS: traMADol 50 MG TAB PO PRN ×2 (07:37→12:33)
[2020-07-15] MEDS: FERROUS SULFATE 325 MG TAB PO SCH ×2 (07:38→20:49)
[2020-07-15] MEDS: TAMSULOSIN 0.4 MG CAP.ER.24H PO SCH (07:38)
[2020-07-15] MEDS: METOPROLOL TARTRATE 12.5 MG TAB PO SCH ×2 (07:38→20:49)
--- NOTE | 2020-07-15 11:16 | P.PN ---
Subjective Patient is seen in follow-up for acute kidney injury on chronic kidney disease. Creatinine was 3.35 on admission and is fairly stable at 2.89 today. Oral intake is fair. Denies chest pain or shortness of breath. I edema improving. No vomiting or diarrhea. Vital signs are stable. General: The patient appeared well nourished and normally developed. HEENT: Head exam is unremarkable. LUNGS: Breath sounds decreased. HEART: Rate and Rhythm are regular. ABDOMEN: Soft, obese. EXTREMITITES: 2+ edema. Objective - Vital Signs Vital signs: Vital Signs Temp 97.9 F 07/15/20 07:45 Pulse 71 07/15/20 08:05 Resp 16 07/15/20 08:05 BP 107/64 07/15/20 07:45 Pulse Ox 97 07/15/20 09:03 Intake & Output 07/14/20 07/15/20 07/15/20 18:59 06:59 18:59 Intake Total 765 840 Output Total 560 200 Balance 205 840 -200 Intake: IV 225 100 Piperacillin-Tazobactam 3 100 .375 gm In Sodium Chloride 0.9% 100 ml @ 25 mls/hr IVPB Q8HR [facility] Rx# :[id number] Intake, IV Titration 340 Amount Albumin Human 25% 50 ml 50 In Empty Bag 1 bag @ 50 mls/hr IVPB Q1H [facility] Rx#: [id number] Albumin Human 25% 50 ml 50 In Empty Bag 1 bag @ 50 mls/hr IVPB Q1H [facility] Rx#: [id number] Dextrose 10% in Water 500 120 ml In Empty Bag 1 bag @ 25 mls/hr IV .Q20H [facility] Rx #:[id number] Sodium Chloride 0.9% 250 120 ml @ 0 mls/hr IV [facility] Rx#:[id number] Oral 540 400 Output: Urine 350 Stool 200 200 Estimated Blood Loss 10 Other: Voiding Method Indwelling Catheter Indwelling Catheter Indwelling Catheter - Labs CBC & Chem 7: 07/13/20 03:27 07/15/20 06:24 Labs: Abnormal Lab Results - Last 24 Hours (Table) 07/14/20 07/14/20 07/14/20 Range/Units 06:50 11:26 14:24 Sodium 131 L (135-145) mmol/L Carbon Dioxide 18.8 L (21.6-31.8) mmol/L BUN 89.0 H (9.0-27.0) mg/dL Creatinine 2.8 H (0.6-1.5) mg/dL Est GFR (CKD-EPI)AfAm 25.5 L (60.0-200.0) Est GFR (CKD-EPI)NonAf 22.0 L (60.0-200.0) BUN/Creatinine Ratio 31.79 H (12.00-20.00) Ratio Glucose 142 H (70-110) mg/dL POC Glucose (mg/dL) 128 H 112 H (75-99) mg/dL Calcium 6.6 L (8.7-10.3) mg/dL Phosphorus 7.5 H (2.4-5.1) mg/dL Alkaline Phosphatase 145 H (41-126) U/L Total Protein 4.6 L (6.2-8.2) g/dL Albumin 1.90 L (3.80-4.90) g/dL Albumin/Globulin Ratio 0.70 L (1.60-3.17) g/dL 07/14/20 07/14/20 07/14/20 Range/Units 14:52 16:26 20:16 Sodium (135-145) mmol/L Carbon Dioxide (21.6-31.8) mmol/L BUN (9.0-27.0) mg/dL Creatinine (0.6-1.5) mg/dL Est GFR (CKD-EPI)AfAm (60.0-200.0) Est GFR (CKD-EPI)NonAf (60.0-200.0) BUN/Creatinine Ratio (12.00-20.00) Ratio Glucose (70-110) mg/dL POC Glucose (mg/dL) 138 H 174 H 191 H (75-99) mg/dL Calcium (8.7-10.3) mg/dL Phosphorus (2.4-5.1) mg/dL Alkaline Phosphatase (41-126) U/L Total Protein (6.2-8.2) g/dL Albumin (3.80-4.90) g/dL Albumin/Globulin Ratio (1.60-3.17) g/dL 07/14/20 07/15/20 07/15/20 Range/Units 23:45 04:03 06:24 Sodium 132 L (135-145) mmol/L Carbon Dioxide 18 L (21.6-31.8) mmol/L BUN 84 H (9.0-27.0) mg/dL Creatinine 2.89 H (0.6-1.5) mg/dL Est GFR (CKD-EPI)AfAm (60.0-200.0) Est GFR (CKD-EPI)NonAf (60.0-200.0) BUN/Creatinine Ratio (12.00-20.00) Ratio Glucose 105 H (70-110) mg/dL POC Glucose (mg/dL) 153 H 119 H (75-99) mg/dL Calcium 6.3 L* (8.7-10.3) mg/dL Phosphorus (2.4-5.1) mg/dL Alkaline Phosphatase (41-126) U/L Total Protein 4.9 L (6.2-8.2) g/dL Albumin 2.0 L (3.80-4.90) g/dL Albumin/Globulin Ratio (1.60-3.17) g/dL 07/15/20 Range/Units 06:52 Sodium (135-145) mmol/L Carbon Dioxide (21.6-31.8) mmol/L BUN (9.0-27.0) mg/dL Creatinine (0.6-1.5) mg/dL Est GFR (CKD-EPI)AfAm (60.0-200.0) Est GFR (CKD-EPI)NonAf (60.0-200.0) BUN/Creatinine Ratio (12.00-20.00) Ratio Glucose (70-110) mg/dL POC Glucose (mg/dL) 164 H (75-99) mg/dL Calcium (8.7-10.3) mg/dL Phosphorus (2.4-5.1) mg/dL Alkaline Phosphatase (41-126) U/L Total Protein (6.2-8.2) g/dL Albumin (3.80-4.90) g/dL Albumin/Globulin Ratio (1.60-3.17) g/dL Microbiology - Last 24 Hours (Table) 07/12/20 03:29 Blood Culture - Preliminary Blood No Growth after 72 hours Assessment and Plan Plan: Assessment: 1. Acute kidney injury secondary to ATN secondary to acute blood loss anemia and hypotension. Creatinine was 3.35 on admission and fairly stable at 2.89 as of today. 2. Chronic kidney disease stage IIIa with baseline creatinine near 1.5 secondary to diabetic kidney disease. 3. Acute on chronic diastolic CHF. 4. Lower extremity edema. 5. Gluteal pressure ulcer with concern for underlying osteomyelitis. Infectious disease following. S/p debridement. 6. Diabetes mellitus with hypoglycemia. Blood sugars now stable. 7. Metabolic acidosis secondary to acute kidney injury and IV fluids. 8. Hypervolemic hyponatremia. 9. Hypocalcemia secondary to acute kidney injury and hypoalbuminemia. Sofi ected calcium 8.1. 10. Hyperphosphatemia secondary to acute kidney injury. Plan: Maintain torsemide. Status post IV albumin July 14. Maintain oral bicarb. Low-salt diet and 1200 mL fluid restriction. 1 g IV calcium gluconate today. Add PhosLo with meals. Repeat BMP and magnesium level 2-3 days postdischarge. Follow up outpatient in 1 week.
--- NOTE | 2020-07-15 11:43 | P.PN ---
<Agens Rodriguez - Last Filed: 07/15/20 11:39> Subjective Progress Note Date: 07/15/20 CHIEF COMPLAINT: Left buttocks decubitus ulcer HISTORY OF PRESENT ILLNESS: Patient is status post debridement of left buttocks decubitus ulcer. Patient is sitting up in bed comfortably. He reports that he is feeling better today. He denies any nausea or vomiting. He is able to eat his full breakfast. He is afebrile. Creatinine 2.89 calcium 6.3 ionized calcium 3.9 patient receiving calcium gluconate. PHYSICAL EXAM: VITAL SIGNS: Reviewed. GENERAL: Well-developed in no acute distress. HEENT: No sclera icterus. Extraocular movements grossly intact. Moist buccal mucosa. Head is atraumatic, normocephalic. ABDOMEN: Soft. Nondistended. Nontender. NEUROLOGIC: Alert and oriented. Cranial nerves II through XII grossly intact. ASSESSMENT: 1. Left buttocks decubitus ulcer status post debridement PLAN: -Continue supportive care -Continue local wound care -Continue antibiotics per ID Physician Belt Sander Stone note has been reviewed by physician. Signing provider agrees with the documented findings, assessment, and plan of care. Objective - Vital Signs Vital signs: Vital Signs Temp 97.9 F 07/15/20 07:45 Pulse 71 07/15/20 08:05 Resp 16 07/15/20 08:05 BP 107/64 07/15/20 07:45 Pulse Ox 97 07/15/20 09:03 Intake & Output 07/14/20 07/15/20 07/15/20 18:59 06:59 18:59 Intake Total 765 840 Output Total 560 200 Balance 205 840 -200 Intake: IV 225 100 Piperacillin-Tazobactam 3 100 .375 gm In Sodium Chloride 0.9% 100 ml @ 25 mls/hr IVPB Q8HR [facility] Rx# :[id number] Intake, IV Titration 340 Amount Albumin Human 25% 50 ml 50 In Empty Bag 1 bag @ 50 mls/hr IVPB Q1H [facility] Rx#: [id number] Albumin Human 25% 50 ml 50 In Empty Bag 1 bag @ 50 mls/hr IVPB Q1H [facility] Rx#: [id number] Dextrose 10% in Water 500 120 ml In Empty Bag 1 bag @ 25 mls/hr IV .Q20H [facility] Rx #:[id number] Sodium Chloride 0.9% 250 120 ml @ 0 mls/hr IV .[email or web address] Rx#:[id number] Oral 540 400 Output: Urine 350 Stool 200 200 Estimated Blood Loss 10 Other: Voiding Method Indwelling Catheter Indwelling Catheter Indwelling Catheter - Labs CBC & Chem 7: 07/13/20 03:27 07/15/20 06:24 Labs: Abnormal Lab Results - Last 24 Hours (Table) 07/14/20 07/14/20 07/14/20 Range/Units 06:50 14:24 14:52 Sodium 131 L (135-145) mmol/L Carbon Dioxide 18.8 L (21.6-31.8) mmol/L BUN 89.0 H (9.0-27.0) mg/dL Creatinine 2.8 H (0.6-1.5) mg/dL Est GFR (CKD-EPI)AfAm 25.5 L (60.0-200.0) Est GFR (CKD-EPI)NonAf 22.0 L (60.0-200.0) BUN/Creatinine Ratio 31.79 H (12.00-20.00) Ratio Glucose 142 H (70-110) mg/dL POC Glucose (mg/dL) 112 H 138 H (75-99) mg/dL Calcium 6.6 L (8.7-10.3) mg/dL Phosphorus 7.5 H (2.4-5.1) mg/dL Alkaline Phosphatase 145 H (41-126) U/L Total Protein 4.6 L (6.2-8.2) g/dL Albumin 1.90 L (3.80-4.90) g/dL Albumin/Globulin Ratio 0.70 L (1.60-3.17) g/dL 07/14/20 07/14/20 07/14/20 Range/Units 16:26 20:16 23:45 Sodium (135-145) mmol/L Carbon Dioxide (21.6-31.8) mmol/L BUN (9.0-27.0) mg/dL Creatinine (0.6-1.5) mg/dL Est GFR (CKD-EPI)AfAm (60.0-200.0) Est GFR (CKD-EPI)NonAf (60.0-200.0) BUN/Creatinine Ratio (12.00-20.00) Ratio Glucose (70-110) mg/dL POC Glucose (mg/dL) 174 H 191 H 153 H (75-99) mg/dL Calcium (8.7-10.3) mg/dL Phosphorus (2.4-5.1) mg/dL Alkaline Phosphatase (41-126) U/L Total Protein (6.2-8.2) g/dL Albumin (3.80-4.90) g/dL Albumin/Globulin Ratio (1.60-3.17) g/dL 07/15/20 07/15/20 07/15/20 Range/Units 04:03 06:24 06:52 Sodium 132 L (135-145) mmol/L Carbon Dioxide 18 L (21.6-31.8) mmol/L BUN 84 H (9.0-27.0) mg/dL Creatinine 2.89 H (0.6-1.5) mg/dL Est GFR (CKD-EPI)AfAm (60.0-200.0) Est GFR (CKD-EPI)NonAf (60.0-200.0) BUN/Creatinine Ratio (12.00-20.00) Ratio Glucose 105 H (70-110) mg/dL POC Glucose (mg/dL) 119 H 164 H (75-99) mg/dL Calcium 6.3 L* (8.7-10.3) mg/dL Phosphorus (2.4-5.1) mg/dL Alkaline Phosphatase (41-126) U/L Total Protein 4.9 L (6.2-8.2) g/dL Albumin 2.0 L (3.80-4.90) g/dL Albumin/Globulin Ratio (1.60-3.17) g/dL Microbiology - Last 24 Hours (Table) 07/12/20 03:29 Blood Culture - Preliminary Blood No Growth after 72 hours <Moris Obrien - Last Filed: 07/15/20 12:02> Subjective As above. Patient without new complaints. Dressing just recently changed. Continue local wound care. Possible wound VAC per infectious disease. Continue offloading. Objective - Vital Signs Vital signs: Vital Signs Temp 97.9 F 07/15/20 07:45 Pulse 71 07/15/20 08:05 Resp 16 07/15/20 08:05 BP 107/64 07/15/20 07:45 Pulse Ox 97 07/15/20 09:03 Intake & Output 07/14/20 07/15/20 07/15/20 18:59 06:59 18:59 Intake Total 765 840 Output Total 560 200 Balance 205 840 -200 Intake: IV 225 100 Piperacillin-Tazobactam 3 100 .375 gm In Sodium Chloride 0.9% 100 ml @ 25 mls/hr IVPB Q8HR [facility] Rx# :[id number] Intake, IV Titration 340 Amount Albumin Human 25% 50 ml 50 In Empty Bag 1 bag @ 50 mls/hr IVPB Q1H [facility] Rx#: [id number] Albumin Human 25% 50 ml 50 In Empty Bag 1 bag @ 50 mls/hr IVPB Q1H [facility] Rx#: [id number] Dextrose 10% in Water 500 120 ml In Empty Bag 1 bag @ 25 mls/hr IV .Q20H [facility] Rx #:[id number] Sodium Chloride 0.9% 250 120 ml @ 0 mls/hr IV .[facility] Rx#:[id number] Oral 540 400 Output: Urine 350 Stool 200 200 Estimated Blood Loss 10 Other: Voiding Method Indwelling Catheter Indwelling Catheter Indwelling Catheter - Labs CBC & Chem 7: 07/13/20 03:27 07/15/20 06:24 Labs: Abnormal Lab Results - Last 24 Hours (Table) 07/14/20 07/14/20 07/14/20 Range/Units 14:24 14:52 16:26 Sodium (137-145) mmol/L Carbon Dioxide (22-30) mmol/L BUN (9-20) mg/dL Creatinine (0.66-1.25) mg/dL Glucose (74-99) mg/dL POC Glucose (mg/dL) 112 H 138 H 174 H (75-99) mg/dL Calcium (8.4-10.2) mg/dL Total Protein (6.3-8.2) g/dL Albumin (3.5-5.0) g/dL 07/14/20 07/14/20 07/15/20 Range/Units 20:16 23:45 04:03 Sodium (137-145) mmol/L Carbon Dioxide (22-30) mmol/L BUN (9-20) mg/dL Creatinine (0.66-1.25) mg/dL Glucose (74-99) mg/dL POC Glucose (mg/dL) 191 H 153 H 119 H (75-99) mg/dL Calcium (8.4-10.2) mg/dL Total Protein (6.3-8.2) g/dL Albumin (3.5-5.0) g/dL 07/15/20 07/15/20 07/15/20 Range/Units 06:24 06:52 11:42 Sodium 132 L (137-145) mmol/L Carbon Dioxide 18 L (22-30) mmol/L BUN 84 H (9-20) mg/dL Creatinine 2.89 H (0.66-1.25) mg/dL Glucose 105 H (74-99) mg/dL POC Glucose (mg/dL) 164 H 364 H (75-99) mg/dL Calcium 6.3 L* (8.4-10.2) mg/dL Total Protein 4.9 L (6.3-8.2) g/dL Albumin 2.0 L (3.5-5.0) g/dL Microbiology - Last 24 Hours (Table) 07/12/20 03:29 Blood Culture - Preliminary Blood No Growth after 72 hours Assessment and Plan (1) Decubitus ulcer of left buttock, stage 4 Current Visit: No Status: Acute Code(s): L89.324 - PRESSURE ULCER OF LEFT BUTTOCK, STAGE 4 SNOMED Code(s): 136913950
[2020-07-15 11:44] LABS: Glucose,Whole Blood 364 mg/dL (75-99)
[2020-07-15] MEDS ORDERED: CALCIUM GLUCONATE 1 GM in SODIUM CHLORIDE 0.9% 100 ML IVPB ONE (12:00)
[2020-07-15] MEDS: CALCIUM ACETATE 667 MG TAB PO SCH ×2 (12:33→17:54)
[2020-07-15] MEDS: SODIUM HYPOCHLORITE 0.25% 480 ML BOT MISCELLANE SCH (12:35)
--- NOTE | 2020-07-15 14:57 | P.PN ---
Subjective Progress Note Date: 07/15/20 Principal diagnosis: Altered mental status secondary to hypoglycemia acute metabolic encephalopathy This is a 70-year-old white male with history of multiple medical problems, quan yee is paraplegic related to previous fall and T11 fracture patient is also known to have history of ileostomy, neurogenic bladder, chronic bilateral lower extremity cellulitis, chronic left foot ulcers, sacral decubitus ulcer, type 2 diabetes, nephrolithiasis, [facility], mostly because he was noted to have a low hemoglobin and based on the blood test he had at the [facility]. However repeat hemoglobin in the ER showed a hemoglobin of 8. Further workup in the ER showed that the patient had a bit of acute renal failure with significant rise in his creatinine, it was 3.35 compared to 1.5 earlier. His rise in his creatinine was felt to be related to diuretics. That he was receiving during his inpatient stay last. Patient was admitted mostly for hydration to regular medical floor, but while on the floor, he had an episode of unresponsiveness, and profound weakness, GERD without to be that the patient had a very low blood sugar. Responded well to treatment with 1 amp of D50. However prior to this the patient had a CT of the brain, and it was basically unremarkable. Considering his sudden change in his neurological status, patient was transferred to the ICU, and I was asked to see him on consultation. Apparently his neurological status significantly improved post treatment of his hypoglycemia. I saw the patient this morning, and he seems to be doing quite well. Continues to have intermittent drops in her blood sugar, and he was placed on D5 0.9 normal saline by nephrology, and that seems to be helping. Again the patient is now back to his baseline. He is on room air with O2 saturation of 96%. His repeat hemoglobin today is 7.5. His urine output is about 30-40 mL/h. And he is hemodynamically stable. Not requiring any pressors. On 07/13/2020 patient seen in follow-up in the intensive care unit, he is awake and alert, oriented 3, neurologically intact, and some questions appropriately seems to be in no acute distress, breathing comfortably, he is on room air with pulse ox of 98%, his had no fever or chills, blood pressure has been stable, D5.9 at a rate of 75 ML per hour, his Levemir and Glucotrol have been on hold. he did have a hypoglycemic episode early this morning with a blood sugar of 47 which was treated, and most recent blood sugar is 143. His had no nausea vomiting or diarrhea, he is tolerating a renal diet. The rest of his labs reviewed today, showing white blood cell count 13.3, improved from admission, hemoglobin is 7.3, serum sodium remained stable at 128, potassium is 5.3, BUN of 85, creatinine of 3.07, his calcium level was 6.4 with ionized calcium at 4.1. Urinalysis showed possibility of urinary tract infection and patient Is currently on Zosyn. His urine culture has been Negative, blood culture show no growth at the 24-hour brayan, patient denies any cough, no phlegm production, no chest pain. He is breathing comfortably, although appears to be generally fluid overloaded, his IV fluids were switched from D5 point in the same to 10% dextrose at a rate of 25 ML per hour, he was also given a dose of IV Lasix 60 mg per nephrology, and he remains on oral sodium bicarbonate. Overnight he's had no other acute issues, he is receiving local wound care to stage IV coccyx dec ubitus ulcer, and infectious disease is managing that On 07/14/2020 patient seen in follow-up on medical floor. He is resting comfortably in bed, he is currently on 10% dextrose running at 20 ML per hour, no altered mentation at the time of our evaluation patient is on room air, breathing comfortably, lung sounds are clear, his had no fever or chills. He had episode of hypoglycemia at midnight with a blood sugar of 47, and again at 358 with a blood sugar of 47. Since then his Percent dextrose was increased to 20 ML. Patient currently nothing by mouth after midnight for debridement of the left buttocks decubitus ulcer. His diet will be restarted this afternoon, his labs have been reviewed, his serum sodium is improving up to 131, patient was given additional dose of Lasix, nephrology is following and managing serum sodium, no worsening dyspnea, however patient has generalized edema. Potassium is 5.0, BUN is 89, creatinine is 2.8. Remains on oral Demadex. He is on heparin 5000 units subcu every 12 hours. He remains on Zosyn for possibility of wound infection in the sacral stage IV decubitus ulcer. On 07/15/2020 patient seen in follow-up on medical floor. Patient is status post surgical debridement of his sacral wound yesterday on 07/14/2020, following his procedure he was requiring higher FiO2, today he is back to room air, his pulse ox is 98%, he is breathing comfortably, no cough, no shortness of breath, no chest pain. He is afebrile, hemodynamically patient is stable, patient is tolerating oral diet, however he still requiring 10% dextrose at 20 ML per hour, and when he was attempted to decrease the rate of the 10% dextrose apparently his blood sugars did trend down. Today's labs have been reviewed, creatinine is 2.89, BUN is 84, CO2 is 18, sodium is 132, the rest of electrolytes were within normal limits, she continues on Zosyn, he is on oral Demadex, is generally swollen, but breathing comfortably, nephrology is following. Patient is having his blood sugars checked every 4 hours, is on heparin subcu for DVT prophylaxis. He is on oral sodium bicarbonate. Objective - Vital Signs Vital signs: Vital Signs Temp 97.5 F L 07/15/20 14:00 Pulse 79 07/15/20 14:00 Resp 16 07/15/20 14:00 BP 115/67 07/15/20 14:00 Pulse Ox 98 07/15/20 14:00 Intake & Output 07/14/20 07/15/20 07/15/20 18:59 06:59 18:59 Intake Total 765 840 Output Total 560 200 Balance 205 840 -200 Intake: IV 225 100 Piperacillin-Tazobactam 3 100 .375 gm In Sodium Chloride 0.9% 100 ml @ 25 mls/hr IVPB Q8HR [facility] Rx# :[id number] Intake, IV Titration 340 Amount Albumin Human 25% 50 ml 50 In Empty Bag 1 bag @ 50 mls/hr IVPB Q1H [facility] Rx#: [id number] Albumin Human 25% 50 ml 50 In Empty Bag 1 bag @ 50 mls/hr IVPB Q1H [facility] Rx#: [id number] Dextrose 10% in Water 500 120 ml In Empty Bag 1 bag @ 25 mls/hr IV .Q20H [facility] Rx #:[id number] Sodium Chloride 0.9% 250 120 ml @ 0 mls/hr IV .STK-MED ONE Rx#:[id number] Oral 540 400 Output: Urine 350 Stool 200 200 Estimated Blood Loss 10 Other: Voiding Method Indwelling Catheter Indwelling Catheter Indwelling Catheter - Exam GENERAL EXAM: Alert, very pleasant, 70-year-old white male, on room air comfortable in no apparent distress. HEAD: Normocephalic/atraumatic. EYES: Normal reaction of pupils, equal size. Conjunctiva pink, sclera white. NOSE: Clear with pink turbinates. THROAT: No erythema or exudates. NECK: No masses, no JVD, no thyroid enlargement, no adenopathy. CHEST: No chest wall deformity. Symmetrical expansion. LUNGS: Equal air entry with no crackles, wheeze, rhonchi or dullness. CVS: Regular rate and rhythm, normal S1 and S2, no gallops, no murmurs, no rubs ABDOMEN: Soft, nontender. No hepatosplenomegaly, normal bowel sounds, no guarding or rigidity. EXTREMITIES: No clubbing, 1-2+ lower extremity edema no cyanosis, 2+ pulses and upper and lower extremities. MUSCULOSKELETAL: Muscle strength and tone normal. SPINE: No scoliosis or deformity SKIN: No rashes CENTRAL NERVOUS SYSTEM: Alert and oriented -3. No focal deficits, tone is normal in all 4 extremities. PSYCHIATRIC: Alert and oriented -3. Appropriate affect. Intact judgment and insight. - Labs CBC & Chem 7: 07/13/20 03:27 07/15/20 06:24 Labs: Abnormal Lab Results - Last 24 Hours (Table) 07/14/20 07/14/20 07/14/20 Range/Units 14:52 16:26 20:16 Sodium (137-145) mmol/L Carbon Dioxide (22-30) mmol/L BUN (9-20) mg/dL Creatinine (0.66-1.25) mg/dL Glucose (74-99) mg/dL POC Glucose (mg/dL) 138 H 174 H 191 H (75-99) mg/dL Calcium (8.4-10.2) mg/dL Total Protein (6.3-8.2) g/dL Albumin (3.5-5.0) g/dL 07/14/20 07/15/20 07/15/20 Range/Units 23:45 04:03 06:24 Sodium 132 L (137-145) mmol/L Carbon Dioxide 18 L (22-30) mmol/L BUN 84 H (9-20) mg/dL Creatinine 2.89 H (0.66-1.25) mg/dL Glucose 105 H (74-99) mg/dL POC Glucose (mg/dL) 153 H 119 H (75-99) mg/dL Calcium 6.3 L* (8.4-10.2) mg/dL Total Protein 4.9 L (6.3-8.2) g/dL Albumin 2.0 L (3.5-5.0) g/dL 07/15/20 07/15/20 Range/Units 06:52 11:42 Sodium (137-145) mmol/L Carbon Dioxide (22-30) mmol/L BUN (9-20) mg/dL Creatinine (0.66-1.25) mg/dL Glucose (74-99) mg/dL POC Glucose (mg/dL) 164 H 364 H (75-99) mg/dL Calcium (8.4-10.2) mg/dL Total Protein (6.3-8.2) g/dL Albumin (3.5-5.0) g/dL Microbiology - Last 24 Hours (Table) 07/12/20 03:29 Blood Culture - Preliminary Blood No Growth after 72 hours Assessment and Plan Plan: Assessment: #1. Altered mental status, secondary to hypoglycemia/acute metabolic encephalopathy, improved however patient still requiring 10% dextrose. His Glucotrol and Levemir are on hold #2. Acute on chronic kidney disease stage III #3. Hyponatremia, likely hypervolemic, patient was given a dose of IV Lasix, nephrology is following #4. History of paraplegia secondary to T11 fracture #5. History of neurogenic bladder #6. Type 2 diabetes mellitus #7. Multiple decubitus ulcers, including stage IV on the sacrum, status post surgical debridement of the sacral wound on 07/14/2020 #8. Possible urinary tract infection although urinary cultures have shown no growth, currently covered with Zosyn #9. Benign essential hypertension #10. Anemia of chronic kidney disease Plan: Stable from her pulmonary perspective, maintaining stable O2 saturations on room air, hemodynamically stable, no pulmonary complaints. Continues to require 10% dextrose, is stable, she was on oral hypoglycemics remain on hold. Patient is tolerating oral diet, no altered mentation. Pulmonary/critical care service will sign off and follow on as-needed basis I performed a history & physical examination of the patient and discussed their management with my nurse practitioner, Mag Frost. I reviewed the nurse practitioner's note and agree with the documented findings and plan of care. Lung sounds are positive for diminished breath sounds. The findings and the impression was discussed with the patient. I attest to the documentation by the nurse practitioner. Time with Patient: Less than 30
--- NOTE | 2020-07-15 15:07 | P.PN ---
Subjective Progress Note Date: 07/15/20 70-year-old male was sent in because of low hemoglobin. Patient hemoglobin at the custodial was around 6 apparently. Although repeat hemoglobin here twice is around 8. Patient hemoglobin during his last hospital admission and discharge was 9. Patient has a big decubitus ulcer stage IV for which patient is receiving IV antibiotics which had been continued here. Patient is found to have acute renal failure his creatinine during his last hospitalization and discharge was 1.5 presently 3.35. Patient was on Lasix for further hypervolemic state. Patient still has bilateral pedal edema. Patient does have a Bacon catheter nephrology valid the patient they believe Bacon catheter obstruction is a reason why patient has prerenal failure. Recommending flushing the Bacon catheter. Patient was treated for hyperkalemia during her last hospital admission although echocardiac evidence is not available. Patient still has some bilateral pedal edema. Patient was on diuretics since last hospitalization and patient is probably hypotensive from diuretics amlodipine and hydralazine light to possible acute tubular necrosis concern of ALLERGIC interstitial nephritis as well. Urinalysis will be obtained patient renal failure appears to be multifactorial. Do not sound is being obtained nephrology evaluated the patient. 07/12/2020 Patient was transferred to ICU yesterday. Patient had an episode of decreased responsiveness pinpoint pupils which was believed to be secondary to opiates and methadone, as a nursing staff to discontinue methadone unfortunately that was not done patient received 10 mg methadone today. Patient had stroke workup with a CT as stroke call pager was activated. CT did not show any significant abnormality during this event that his blood sugars are within normal limits later after transfer to ICU was found that patient blood sugars are extremely low in 20s after giving D50 50 patient's symptoms completely resolved. Patient is also a poor tensive. All the blood pressure recovered even without receiving any normal saline. Patient is presently in D5 0.9. Urine output is 30-40 mL per hour. Patient creatinine remained stable. Levemir was discontinued patient is presently only on sliding scale insulin patient did not require any pressor support last night. Patient doesn't have any evidence of further GI bleed at this time hemoglobin today 7. patient feels much better today 07/13/2020 Patient is receiving Lasix today because she has significant anasarca. Patient blood sugars are still low earlier today because of which D5 was switched to D10 at 20 mL per hour to decrease third spacing of fluids. Patient is more awake feels much better today patient pain is fairly well controlled with tramadol. 07/14/2020 Patient is seen and evaluated this morning and follow-up continues on Lasix with multiple medical consultations following. Surgery scheduled for debridement of decubitus ulcer today. Patient was lethargic on exam although arousable. Sodium slightly improved at 131 with a potassium of 5.0, current creatinine is 2.8 just trending down and nephrology following. She is maintained on dextrose with water and will also be receiving a dose of albumin today. Patient to continue with Demadex and patient is also maintained on sodium bicarb. Patient continues with IV Zosyn and infectious disease is following. 07/15/2020 Patient is seen this morning more awake and alert and currently eating a majority of his breakfast. Patient denies any nausea or vomiting. Patient is status post debridement of the decubitus ulcer with surgery yesterday. Patient states his pain is much improved. Nephrology following and creatinine is 2.89. Patient is maintained on Demadex along with sodium bicarb tablets. Patient does have a PICC line and is maintained on IV antibiotics and infectious disease is following. Discussed with the patient about discharge planning as he was recently at [facility] [place] although patient is refusing for rehab and states he will be going home on discharge. Patient also receiving calcium gluconate as his calcium was found to be 6.3 and current albumin is 2.0. Magnesium is 2.2 and current sodium is 132. Patient denies any chest pain or shortness of breath. Patient is afebrile. Constitutional: Denied any fatigue denied any fever. Cardio vascular: denied any chest pain, palpitations Gastrointestinal denied any nausea vomiting Pulmonary: Denied any shortness of breath cough Neurologic denied any new focal deficits All inpatient medications were reviewed and appropriate changes in these medi cations as dictated in the interval history and assessment and plan. Objective - Vital Signs Vital signs: Vital Signs Temp 97.9 F 07/15/20 07:45 Pulse 71 07/15/20 07:45 Resp 16 07/15/20 07:45 BP 107/64 07/15/20 07:45 Pulse Ox 97 07/15/20 09:03 Intake & Output 07/14/20 07/15/20 07/15/20 18:59 06:59 18:59 Intake Total 765 840 Output Total 560 Balance 205 840 Intake: IV 225 100 Piperacillin-Tazobactam 3 100 .375 gm In Sodium Chloride 0.9% 100 ml @ 25 mls/hr IVPB Q8HR [facility] Rx# :[id number] Intake, IV Titration 340 Amount Albumin Human 25% 50 ml 50 In Empty Bag 1 bag @ 50 mls/hr IVPB Q1H [facility] Rx#: [id number] Albumin Human 25% 50 ml 50 In Empty Bag 1 bag @ 50 mls/hr IVPB Q1H [facility] Rx#: [id number] Dextrose 10% in Water 500 120 ml In Empty Bag 1 bag @ 25 mls/hr IV .Q20H [facility] Rx #:[id number] Sodium Chloride 0.9% 250 120 ml @ 0 mls/hr IV .STK-[facility] ONE Rx#:[id number] Oral 540 400 Output: Urine 350 Stool 200 Estimated Blood Loss 10 Other: Voiding Method Indwelling Catheter Indwelling Catheter - Exam -Altered mental status decreased responsiveness secondary to hypoglycemia which resolved, may be a component of toxic encephalopathy from methadone which was discontinued. Patient has poor renal function patient probably has significantly decreased clearance of methadone. -Acute renal failure on chronic kidney disease stage III: Acute renal failure most probably multifactorial including obstructive uropathy , urinary bladder ultrasound did not show any hydronephrosis. Can be related to interstitial nephritis from antibiotics. The possibility of acute tubular necrosis from hypotension hold off antihypertensive medications . Patient is volume overloaded and was receiving IV Lasix and recently switched to Demadex. Nephrology following. Echocardiac exam was obtained which showed normal ejection fraction no evidence of diastolic dysfunction at this time. -Hyperkalemia secondary to acute renal failure. -Metabolic acidosis both the anion gap and non-and gap metabolic acidosis secondary to renal dysfunction patient is on bicarbonate supplementation -Hyperphosphatasemia secondary to acute renal failure on chronic kidney disease. -Leukocytosis -Sacral decubitus ulcer stage IV for which patient is on Unasyn which will be continued, underwent further debridement with surgery yesterday -Type 2 diabetes mellitus with hypoglycemia -hypertension -paraplegia secondary to T11 fracture -Multiple bilateral foot ulcers is a decubitus ulcers. -DVT prophylaxis with subcutaneous heparin Plan: Continue with current medications. We'll need to discuss with infectious disease about IV antibiotic therapy and case management also following as patient and state he will be returning home upon discharge and will not be going back to rehab. Nephrology also following and patient is maintained on Demadex along with sodium bicarb. Surgery following as well status post debridement of the decubitus ulcer and will discuss with them about further wound VAC will treatments moving forward. Will also discuss with case management about discharge planning needs. Possible discharge in 24-48 hours. - Labs CBC & Chem 7: 07/13/20 03:27 07/15/20 06:24 Labs: Abnormal Lab Results - Last 24 Hours (Table) 07/14/20 07/14/20 07/14/20 Range/Units 06:50 11:26 14:24 Sodium 131 L (135-145) mmol/L Carbon Dioxide 18.8 L (21.6-31.8) mmol/L BUN 89.0 H (9.0-27.0) mg/dL Creatinine 2.8 H (0.6-1.5) mg/dL Est GFR (CKD-EPI)AfAm 25.5 L (60.0-200.0) Est GFR (CKD-EPI)NonAf 22.0 L (60.0-200.0) BUN/Creatinine Ratio 31.79 H (12.00-20.00) Ratio Glucose 142 H (70-110) mg/dL POC Glucose (mg/dL) 128 H 112 H (75-99) mg/dL Calcium 6.6 L (8.7-10.3) mg/dL Phosphorus 7.5 H (2.4-5.1) mg/dL Alkaline Phosphatase 145 H (41-126) U/L Total Protein 4.6 L (6.2-8.2) g/dL Albumin 1.90 L (3.80-4.90) g/dL Albumin/Globulin Ratio 0.70 L (1.60-3.17) g/dL 07/14/20 07/14/20 07/14/20 Range/Units 14:52 16:26 20:16 Sodium (135-145) mmol/L Carbon Dioxide (21.6-31.8) mmol/L BUN (9.0-27.0) mg/dL Creatinine (0.6-1.5) mg/dL Est GFR (CKD-EPI)AfAm (60.0-200.0) Est GFR (CKD-EPI)NonAf (60.0-200.0) BUN/Creatinine Ratio (.00-.00) Ratio Glucose (70-110) mg/dL POC Glucose (mg/dL) 138 H 174 H 191 H (75-99) mg/dL Calcium (8.7-10.3) mg/dL Phosphorus (2.4-5.1) mg/dL Alkaline Phosphatase (41-126) U/L Total Protein (6.2-8.2) g/dL Albumin (3.80-4.90) g/dL Albumin/Globulin Ratio (1.60-3.17) g/dL 07/14/20 07/15/20 07/15/20 Range/Units 23:45 04:03 06:24 Sodium 132 L (135-145) mmol/L Carbon Dioxide 18 L (21.6-31.8) mmol/L BUN 84 H (9.0-27.0) mg/dL Creatinine 2.89 H (0.6-1.5) mg/dL Est GFR (CKD-EPI)AfAm (60.0-200.0) Est GFR (CKD-EPI)NonAf (60.0-200.0) BUN/Creatinine Ratio (.-) Ratio Glucose 105 H (70-110) mg/dL POC Glucose (mg/dL) 153 H 119 H (75-99) mg/dL Calcium 6.3 L* (8.7-10.3) mg/dL Phosphorus (2.4-5.1) mg/dL Alkaline Phosphatase (41-126) U/L Total Protein 4.9 L (6.2-8.2) g/dL Albumin 2.0 L (3.80-4.90) g/dL Albumin/Globulin Ratio (1.60-3.17) g/dL 07/15/20 Range/Units 06:52 Sodium (135-145) mmol/L Carbon Dioxide (21.6-31.8) mmol/L BUN (9.0-27.0) mg/dL Creatinine (0.6-1.5) mg/dL Est GFR (CKD-EPI)AfAm (60.0-200.0) Est GFR (CKD-EPI)NonAf (60.0-200.0) BUN/Creatinine Ratio (.00-.00) Ratio Glucose (70-110) mg/dL POC Glucose (mg/dL) 164 H (75-99) mg/dL Calcium (8.7-10.3) mg/dL Phosphorus (2.4-5.1) mg/dL Alkaline Phosphatase (41-126) U/L Total Protein (6.2-8.2) g/dL Albumin (3.80-4.90) g/dL Albumin/Globulin Ratio (1.60-3.17) g/dL Microbiology - Last 24 Hours (Table) 07/12/20 03:29 Blood Culture - Preliminary Blood No Growth after 72 hours
[2020-07-15] MEDS ORDERED: FUROSEMIDE 10 MG/ML 2 ML VIAL IV ONE (16:08)
[2020-07-15 16:39] LABS: Glucose,Whole Blood 200 mg/dL (75-99)
--- NOTE | 2020-07-15 18:04 | PN ---
PROGRESS NOTE DATE OF SERVICE: 07/15/2020 REASON FOR FOLLOWUP: Left gluteal infected pressure ulcer. INTERVAL HISTORY: The patient is currently afebrile. The patient is breathing comfortably. Denies having any chest pain or shortness of breath or cough. No abdominal pain or diarrhea. PHYSICAL EXAMINATION: Blood pressure 115/67, pulse of 79, temperature 97.5. He is 98% on room air. General description is an elderly male lying in bed in no distress. RESPIRATORY SYSTEM: Unlabored breathing. Clear to auscultation anteriorly. HEART: S1, S2. Regular rate and rhythm. ABDOMEN: Soft. No tenderness. Left gluteal wound is currently dressed. LABS: BUN of 84, creatinine is 2.89. DIAGNOSTIC IMPRESSION AND PLAN: Patient with left gluteal infected pressure ulcer. Culture has been positive for multiple pathogens, including proteus, enterococcus and klebsiella. Patient on Zosyn; dose adjusted to his kidney function. He will need to continue in the outpatient setting for a total of 6 weeks. Local wound care per wound care team. at the bedside. Questions and concerns were answered. Prescription provided to the watch case polisher. MMODL / IJN: [id number] /
[2020-07-15 20:27] LABS: Glucose,Whole Blood 136 mg/dL (75-99)
[2020-07-16] MEDS: INSULIN ASPART (NovoLOG) 100 UNIT/ML VIAL SQ SCH ×6 (00:45→20:18)
[2020-07-16 00:46] LABS: Glucose,Whole Blood 102 mg/dL (75-99)
[2020-07-16] MEDS: traMADol 50 MG TAB PO PRN ×4 (01:16→23:53)
[2020-07-16] MEDS: PIPERACILLIN-TAZOBACTAM 3.375 GM in SODIUM CHLORIDE 0.9% 100 ML IVPB SCH ×4 (01:17→23:54)
[2020-07-16] MEDS: ACETAMINOPHEN TAB 325 MG TAB PO PRN ×3 (02:51→19:52)
[2020-07-16 04:25] LABS: Glucose,Whole Blood 102 mg/dL (75-99)
[2020-07-16] MEDS: DEXTROSE 10% IN WATER 500 ML in EMPTY BAG 1 BAG IV SCH ×2 (05:39→06:26)
[2020-07-16 06:14] LABS: Glucose,Whole Blood 88 mg/dL (75-99)
[2020-07-16] MEDS: CALCIUM ACETATE 667 MG TAB PO SCH ×3 (06:27→17:05)
[2020-07-16 07:08] LABS: Glucose,Whole Blood 109 mg/dL (75-99)
[2020-07-16] MEDS: TAMSULOSIN 0.4 MG CAP.ER.24H PO SCH (08:48)
[2020-07-16] MEDS: HEPARIN SODIUM,PORCINE 5,000 UNIT/ML 1 ML VIAL SQ SCH ×3 (08:48→20:04)
[2020-07-16] MEDS: SODIUM BICARBONATE TAB 650 MG TAB PO SCH ×4 (08:49→19:53)
[2020-07-16] MEDS: TORSEMIDE 20 MG TAB PO SCH (08:49)
[2020-07-16] MEDS: FERROUS SULFATE 325 MG TAB PO SCH ×2 (08:49→19:53)
[2020-07-16] MEDS: METOPROLOL TARTRATE 12.5 MG TAB PO SCH ×2 (08:49→19:53)
--- NOTE | 2020-07-16 11:10 | P.PN ---
<Agnes Rodriguez - Last Filed: 07/16/20 11:07> Subjective Progress Note Date: 07/16/20 CHIEF COMPLAINT: Left buttocks decubitus ulcer HISTORY OF PRESENT ILLNESS: Patient is status post debridement of left buttocks decubitus ulcer. Postop day #2. Patient is sitting up in bed comfortably. He reports that he is feeling better today. He denies any nausea or vomiting. He is able to eat his full breakfast. He is having stool through his ostomy. He is afebrile. No new labs PHYSICAL EXAM: VITAL SIGNS: Reviewed. GENERAL: Well-developed in no acute distress. HEENT: No sclera icterus. Extraocular movements grossly intact. Moist buccal mucosa. Head is atraumatic, normocephalic. ABDOMEN: Soft. Nondistended. Nontender. NEUROLOGIC: Alert and oriented. Cranial nerves II through XII grossly intact. ASSESSMENT: 1. Left buttocks decubitus ulcer status post debridement PLAN: -Continue supportive care -Continue local wound care -Continue offloading -Continue antibiotics per ID -Possible wound VAC per ID Physician [employer] note has been reviewed by physician. Signing provider agrees with the documented findings, assessment, and plan of care. Objective - Vital Signs Vital signs: Vital Signs Temp 97.7 F 07/16/20 07:24 Pulse 65 07/16/20 08:00 Resp 17 07/16/20 08:00 BP 100/52 07/16/20 07:24 Pulse Ox 96 07/16/20 07:24 Intake & Output 07/15/20 07/16/20 07/16/20 18:59 06:59 18:59 Intake Total 760 Output Total 200 1500 Balance 560 -1500 Intake: IV 100 Piperacillin-Tazobactam 3 100 .375 gm In Sodium Chloride 0.9% 100 ml @ 25 mls/hr IVPB Q8HR [facility] Rx# :[id number] Intake, IV Titration 260 Amount Calcium Gluconate 1 gm In 100 Sodium Chloride 0.9% 100 ml @ 100 mls/hr IVPB ONCE ONE Rx#:[id number] Dextrose 10% in Water 500 160 ml In Empty Bag 1 bag @ 25 mls/hr IV .Q20H [facility] Rx #:[id number] Oral 400 Output: Urine 1500 Stool 200 Other: Voiding Method Indwelling Catheter Indwelling Catheter Indwelling Catheter - Labs CBC & Chem 7: 07/13/20 03:27 07/15/20 06:24 Labs: Abnormal Lab Results - Last 24 Hours (Table) 07/15/20 07/15/20 07/15/20 Range/Units 11:42 16:37 20:19 POC Glucose (mg/dL) 364 H 200 H 136 H (75-99) mg/dL 07/16/20 07/16/20 07/16/20 Range/Units 00:27 04:14 07:06 POC Glucose (mg/dL) 102 H 102 H 109 H (75-99) mg/dL Microbiology - Last 24 Hours (Table) 07/12/20 03:29 Blood Culture - Preliminary Blood No Growth after 96 hours <Moris Obrien - Last Filed: 07/16/20 15:54> Subjective As above. Patient's hemoglobin low today and for that reason he is not being discharged. Continue local wound care. If hemoglobin stable tomorrow stable for discharge from our standpoint. Objective - Vital Signs Vital signs: Vital Signs Temp 97.8 F 07/16/20 14:00 Pulse 64 07/16/20 14:00 Resp 16 07/16/20 14:00 BP 103/61 07/16/20 14:00 Pulse Ox 98 07/16/20 14:00 Intake & Output 07/15/20 07/16/20 07/16/20 18:59 06:59 18:59 Intake Total 760 Output Total 200 1500 Balance 560 -1500 Intake: IV 100 Piperacillin-Tazobactam 3 100 .375 gm In Sodium Chloride 0.9% 100 ml @ 25 mls/hr IVPB Q8HR [facility] Rx# :[id number] Intake, IV Titration 260 Amount Calcium Gluconate 1 gm In 100 Sodium Chloride 0.9% 100 ml @ 100 mls/hr IVPB ONCE ONE Rx#:[id number] Dextrose 10% in Water 500 160 ml In Empty Bag 1 bag @ 25 mls/hr IV .Q20H [facility] Rx #:[id number] Oral 400 Output: Urine 1500 Stool 200 Other: Voiding Method Indwelling Catheter Indwelling Catheter Indwelling Catheter - Labs CBC & Chem 7: 07/16/20 06:37 07/16/20 06:37 Labs: Abnormal Lab Results - Last 24 Hours (Table) 07/15/20 07/15/20 07/16/20 Range/Units 16:37 20:19 00:27 RBC (4.40-5.60) X 10*6/uL Hgb (13.0-17.0) g/dL Hct (39.6-50.0) % MCH (27.0-32.0) pg MCHC (32.0-37.0) g/dL RDW (11.5-14.5) % Plt Count (140-440) X 10*3/uL Plt Count Comment MPV (9.5-12.2) fL Immature Gran # (0.00-0.04) X 10*3/uL Immature Plt Fraction (1.1-6.1) % Sodium (135-145) mmol/L Potassium (3.5-5.5) mmol/L Carbon Dioxide (21.6-31.8) mmol/L Anion Gap (4.00-12.00) mmol/L BUN (9.0-27.0) mg/dL Creatinine (0.6-1.5) mg/dL Est GFR (CKD-EPI)AfAm (60.0-200.0) Est GFR (CKD-EPI)NonAf (60.0-200.0) BUN/Creatinine Ratio (12.00-20.00) Ratio POC Glucose (mg/dL) 200 H 136 H 102 H (75-99) mg/dL Calcium (8.7-10.3) mg/dL Total Protein (6.2-8.2) g/dL Albumin (3.80-4.90) g/dL Albumin/Globulin Ratio (1.60-3.17) g/dL 07/16/20 07/16/20 07/16/20 Range/Units 04:14 06:37 06:37 RBC 2.39 L (4.40-5.60) X 10*6/uL Hgb 6.4 L* (13.0-17.0) g/dL Hct 21.0 L (39.6-50.0) % MCH 26.8 L (27.0-32.0) pg MCHC 30.5 L (32.0-37.0) g/dL RDW 20.8 H (11.5-14.5) % Plt Count 83 L (140-440) X 10*3/uL Plt Count Comment DECREASED A MPV 12.8 H (9.5-12.2) fL Immature Gran # 0.10 H (0.00-0.04) X 10*3/uL Immature Plt Fraction 9.0 H (1.1-6.1) % Sodium 134 L (135-145) mmol/L Potassium 2.9 L (3.5-5.5) mmol/L Carbon Dioxide 20.4 L (21.6-31.8) mmol/L Anion Gap 12.60 H (4.00-12.00) mmol/L BUN 90.0 H (9.0-27.0) mg/dL Creatinine 2.7 H (0.6-1.5) mg/dL Est GFR (CKD-EPI)AfAm 26.7 L (60.0-200.0) Est GFR (CKD-EPI)NonAf 23.0 L (60.0-200.0) BUN/Creatinine Ratio 33.33 H (12.00-20.00) Ratio POC Glucose (mg/dL) 102 H (75-99) mg/dL Calcium 6.7 L (8.7-10.3) mg/dL Total Protein 4.7 L (6.2-8.2) g/dL Albumin 2.10 L (3.80-4.90) g/dL Albumin/Globulin Ratio 0.81 L (1.60-3.17) g/dL 07/16/07/16/20 Range/Units 07:06 12:00 RBC (4.40-5.60) X 10*6/uL Hgb (13.0-17.0) g/dL Hct (39.6-50.0) % MCH (27.0-32.0) pg MCHC (32.0-37.0) g/dL RDW (11.5-14.5) % Plt Count (140-440) X 10*3/uL Plt Count Comment MPV (9.5-12.2) fL Immature Gran # (0.00-0.04) X 10*3/uL Immature Plt Fraction (1.1-6.1) % Sodium (135-145) mmol/L Potassium (3.5-5.5) mmol/L Carbon Dioxide (21.6-31.8) mmol/L Anion Gap (4.00-12.00) mmol/L BUN (9.0-27.0) mg/dL Creatinine (0.6-1.5) mg/dL Est GFR (CKD-EPI)AfAm (60.0-200.0) Est GFR (CKD-EPI)NonAf (60.0-200.0) BUN/Creatinine Ratio (12.00-20.00) Ratio POC Glucose (mg/dL) 109 H 164 H (75-99) mg/dL Calcium (8.7-10.3) mg/dL Total Protein (6.2-8.2) g/dL Albumin (3.80-4.90) g/dL Albumin/Globulin Ratio (1.60-3.17) g/dL Microbiology - Last 24 Hours (Table) 07/12/20 03:29 Blood Culture - Preliminary Blood No Growth after 96 hours Assessment and Plan (1) Decubitus ulcer of left buttock, stage 4 Current Visit: No Status: Acute Code(s): L89.324 - PRESSURE ULCER OF LEFT BUTTOCK, STAGE 4 SNOMED Code(s): 862083746
--- NOTE | 2020-07-16 11:13 | P.PN ---
Subjective Patient is seen in follow-up for acute kidney injury on chronic kidney disease. Creatinine was 3.35 on admission and is fairly stable at 2.89 as of yesterday. Oral intake is fair. Denies chest pain or shortness of breath. Edema improving. No vomiting or diarrhea. Hemodynamically stable. No active complaints. Vital signs are stable. General: The patient appeared well nourished and normally developed. HEENT: Head exam is unremarkable. LUNGS: Breath sounds decreased. HEART: Rate and Rhythm are regular. ABDOMEN: Soft, obese. EXTREMITITES: 2+ edema. Objective - Vital Signs Vital signs: Vital Signs Temp 97.7 F 07/16/20 07:24 Pulse 65 07/16/20 08:00 Resp 17 07/16/20 08:00 BP 100/52 07/16/20 07:24 Pulse Ox 96 07/16/20 07:24 Intake & Output 07/15/20 07/16/20 07/16/20 18:59 06:59 18:59 Intake Total 760 Output Total 200 1500 Balance 560 -1500 Intake: IV 100 Piperacillin-Tazobactam 3 100 .375 gm In Sodium Chloride 0.9% 100 ml @ 25 mls/hr IVPB Q8HR [facility] Rx# :[id number] Intake, IV Titration 260 Amount Calcium Gluconate 1 gm In 100 Sodium Chloride 0.9% 100 ml @ 100 mls/hr IVPB ONCE ONE Rx#:[id number] Dextrose 10% in Water 500 160 ml In Empty Bag 1 bag @ 25 mls/hr IV .Q20H [facility] Rx #:[id number] Oral 400 Output: Urine 1500 Stool 200 Other: Voiding Method Indwelling Catheter Indwelling Catheter Indwelling Catheter - Labs CBC & Chem 7: 07/13/20 03:27 07/15/20 06:24 Labs: Abnormal Lab Results - Last 24 Hours (Table) 07/15/20 07/15/20 07/15/20 Range/Units 11:42 16:37 20:19 POC Glucose (mg/dL) 364 H 200 H 136 H (75-99) mg/dL 07/16/20 07/16/20 07/16/20 Range/Units 00:27 04:14 07:06 POC Glucose (mg/dL) 102 H 102 H 109 H (75-99) mg/dL Microbiology - Last 24 Hours (Table) 07/12/20 03:29 Blood Culture - Preliminary Blood No Growth after 96 hours Assessment and Plan Plan: Assessment: 1. Acute kidney injury secondary to ATN secondary to acute blood loss anemia and hypotension. Creatinine was 3.35 on admission and fairly stable at 2.89 as of yesterday. 2. Chronic kidney disease stage IIIa with baseline creatinine near 1.5 secondary to diabetic kidney disease. 3. Acute on chronic diastolic CHF. 4. Lower extremity edema. Improving with diuresis. 5. Gluteal pressure ulcer with concern for underlying osteomyelitis. Infectious disease following. S/p debridement. 6. Diabetes mellitus with hypoglycemia. Blood sugars now stable. 7. Metabolic acidosis secondary to acute kidney injury and IV fluids. Maintained on oral bicarb. 8. Hypervolemic hyponatremia. 9. Hypocalcemia secondary to acute kidney injury and hypoalbuminemia. Corrected calcium 8.1. Status post placement. 10. Hyperphosphatemia secondary to acute kidney injury. Maintained on PhosLo. Plan: Maintain torsemide. Low-salt diet and 1200 mL fluid restriction. Repeat BMP and magnesium level 2-3 days postdischarge. Follow up outpatient in 1 week.
[2020-07-16] MEDS: SODIUM HYPOCHLORITE 0.25% 480 ML BOT MISCELLANE SCH (11:19)
[2020-07-16 12:01] LABS: Glucose,Whole Blood 164 mg/dL (75-99)
[2020-07-16 12:33] LABS: Basophils # (A) 0.01 X 10*3/uL (0.00-0.10); Basophils % (A) 0.2 %; Eosinophils % (A) 1.6 %; Lymphocytes # (A) 0.91 X 10*3/uL (0.90-5.00); Lymphocytes % (A) 14.2 %; Monocytes # (A) 0.54 X 10*3/uL (0.20-1.00); Monocytes % (A) 8.4 %; Neutrophils # (A) 4.76 X 10*3/uL (1.80-7.70)
[2020-07-16 12:34] LABS: HGB 6.4 g/dL (13.0-17.0); MCH 26.8 pg (27.0-32.0); MCHC 30.5 g/dL (32.0-37.0); MCV 87.9 fL (80.0-97.0); Mean Platelet Volume 12.8 fL (9.5-12.2); Platelet Count 83 X 10*3/uL (140-440); RBC 2.39 X 10*6/uL (4.40-5.60); RDW 20.8 % (11.5-14.5); WBC 6.42 X 10*3/uL (4.50-10.00)
[2020-07-16 12:38] LABS: African American GFR (CKD) 26.7 (60.0-200.0); Albumin 2.1 g/dL (3.80-4.90); Albumin/Globulin Ratio 0.81 (1.60-3.17); Anion Gap 12.6 mmol/L (4.00-12.00); BUN/Creat Ratio 33.33 Ratio (12.00-20.00); Calcium 6.7 mg/dL (8.7-10.3); Carbon Dioxide 20.4 mmol/L (21.6-31.8); Globulin 2.6 g/dL (1.6-3.3); Potassium 2.9 mmol/L (3.5-5.5); Total Bilirubin 0.9 mg/dL (0.2-1.2); Total Protein 4.7 g/dL (6.2-8.2)
[2020-07-16] MEDS ORDERED: POTASSIUM CHLORIDE ER 20 MEQ TAB.ER PO STA (13:07)
--- NOTE | 2020-07-16 14:52 | P.PN ---
Subjective Progress Note Date: 07/16/20 70-year-old male was sent in because of low hemoglobin. Patient hemoglobin at the longterm was around 6 apparently. Although repeat hemoglobin here twice is around 8. Patient hemoglobin during his last hospital admission and discharge was 9. Patient has a big decubitus ulcer stage IV for which patient is receiving IV antibiotics which had been continued here. Patient is found to have acute renal failure his creatinine during his last hospitalization and discharge was 1.5 presently 3.35. Patient was on Lasix for further hypervolemic state. Patient still has bilateral pedal edema. Patient does have a Bacon catheter nephrology valid the patient they believe Bacon catheter obstruction is a reason why patient has prerenal failure. Recommending flushing the Bacon catheter. Patient was treated for hyperkalemia during her last hospital admission although echocardiac evidence is not available. Patient still has some bilateral pedal edema. Patient was on diuretics since last hospitalization and patient is probably hypotensive from diuretics amlodipine and hydralazine light to possible acute tubular necrosis concern of ALLERGIC interstitial nephritis as well. Urinalysis will be obtained patient renal failure appears to be multifactorial. Do not sound is being obtained nephrology evaluated the patient. 07/12/2020 Patient was transferred to ICU yesterday. Patient had an episode of decreased responsiveness pinpoint pupils which was believed to be secondary to opiates and methadone, as a nursing staff to discontinue methadone unfortunately that was not done patient received 10 mg methadone today. Patient had stroke workup with a CT as stroke call pager was activated. CT did not show any significant abnormality during this event that his blood sugars are within normal limits later after transfer to ICU was found that patient blood sugars are extremely low in 20s after giving D50 50 patient's symptoms completely resolved. Patient is also a poor tensive. All the blood pressure recovered even without receiving any normal saline. Patient is presently in D5 0.9. Urine output is 30-40 mL per hour. Patient creatinine remained stable. Levemir was discontinued patient is presently only on sliding scale insulin patient did not require any pressor support last night. Patient doesn't have any evidence of further GI bleed at this time hemoglobin today 7. patient feels much better today 07/13/2020 Patient is receiving Lasix today because she has significant anasarca. Patient blood sugars are still low earlier today because of which D5 was switched to D10 at 20 mL per hour to decrease third spacing of fluids. Patient is more awake feels much better today patient pain is fairly well controlled with tramadol. 07/14/2020 Patient is seen and evaluated this morning and follow-up continues on Lasix with multiple medical consultations following. Surgery scheduled for debridement of decubitus ulcer today. Patient was lethargic on exam although arousable. Sodium slightly improved at 131 with a potassium of 5.0, current creatinine is 2.8 just trending down and nephrology following. She is maintained on dextrose with water and will also be receiving a dose of albumin today. Patient to continue with Demadex and patient is also maintained on sodium bicarb. Patient continues with IV Zosyn and infectious disease is following. 07/15/2020 Patient is seen this morning more awake and alert and currently eating a majority of his breakfast. Patient denies any nausea or vomiting. Patient is status post debridement of the decubitus ulcer with surgery yesterday. Patient states his pain is much improved. Nephrology following and creatinine is 2.89. Patient is maintained on Demadex along with sodium bicarb tablets. Patient does have a PICC line and is maintained on IV antibiotics and infectious disease is following. Discussed with the patient about discharge planning as he was recently at [facility] on the [place] although patient is refusing for rehab and states he will be going home on discharge. Patient also receiving calcium gluconate as his calcium was found to be 6.3 and current albumin is 2.0. Magnesium is 2.2 and current sodium is 132. Patient denies any chest pain or shortness of breath. Patient is afebrile. 07/16/2020 Patient is seen and evaluated this morning hemoglobin was found to be 6.4 and currently awaiting for a unit of blood. Sodium is 134 and potassium also low at 2.9 and being replaced. Creatinine slightly improved at 2.7. Nephrology is following. Patient recently underwent repeat debridement of the decubitus ulcer and will be requiring continued IV antibiotic therapy in the outpatient setting. No wound VAC at this time. Case management following and making arrangements for discharge planning needs [facility] and patient are refusing rehab at this time. Constitutional: Denied any fatigue denied any fever. Cardio vascular: denied any chest pain, palpitations Gastrointestinal denied any nausea vomiting Pulmonary: Denied any shortness of breath cough Neurologic denied any new focal deficits All inpatient medications were reviewed and appropriate changes in these medications as dictated in the interval history and assessment and plan. Objective - Vital Signs Vital signs: Vital Signs Temp 97.7 F 07/16/20 07:24 Pulse 65 07/16/20 08:00 Resp 17 07/16/20 08:00 BP 100/52 07/16/20 07:24 Pulse Ox 96 07/16/20 07:24 Intake & Output 07/15/20 07/16/20 07/16/20 18:59 06:59 18:59 Intake Total 760 Output Total 200 1500 Balance 560 -1500 Intake: IV 100 Piperacillin-Tazobactam 3 100 .375 gm In Sodium Chloride 0.9% 100 ml @ 25 mls/hr IVPB Q8HR [facility] Rx# :[id number] Intake, IV Titration 260 Amount Calcium Gluconate 1 gm In 100 Sodium Chloride 0.9% 100 ml @ 100 mls/hr IVPB ONCE ONE Rx#:[id number] Dextrose 10% in Water 500 160 ml In Empty Bag 1 bag @ 25 mls/hr IV .Q20H [facility] Rx #:[id number] Oral 400 Output: Urine 1500 Stool 200 Other: Voiding Method Indwelling Catheter Indwelling Catheter Indwelling Catheter - Exam PHYSICAL EXAMINATION: GENERAL: The patient is alert and oriented x3, not in any acute distress. Well developed, well nourished. Patient has significant anasarca scrotal swelling and extremity edema, slightly improved HEENT: Pupils are round and equally reacting to light. EOMI. No scleral icterus. No conjunctival pallor. Normocephalic, atraumatic. No pharyngeal erythema. No thyromegaly. CARDIOVASCULAR: S1 and S2 present. No murmurs, rubs, or gallops. PULMONARY: Chest is clear to auscultation, no wheezing or crackles. ABDOMEN: Soft, nontender, nondistended, normoactive bowel sounds. No palpable organomegaly. MUSCULOSKELETAL: No joint swelling or deformity. EXTREMITIES: No cyanosis, clubbing, does have some pedal edema NEUROLOGICAL: Gross neurological examination did not reveal any focal deficits. SKIN: Stage IV sacral decubitus ulcer status post repeat debridement Assessment and plan: -Altered mental status decreased responsiveness secondary to hypoglycemia which resolved, may be a component of toxic encephalopathy from methadone which was discontinued. Patient has poor renal function patient probably has significantl y decreased clearance of methadone. -Acute renal failure on chronic kidney disease stage III: Acute renal failure most probably multifactorial including obstructive uropathy , urinary bladder ultrasound did not show any hydronephrosis. Can be related to interstitial nephritis from antibiotics. The possibility of acute tubular necrosis from hypotension hold off antihypertensive medications . Patient is volume overloaded and was receiving IV Lasix and recently switched to Demadex. Nephrology following. Echocardiac exam was obtained which showed normal ejection fraction no evidence of diastolic dysfunction at this time. -Hyperkalemia secondary to acute renal failure. -Metabolic acidosis both the anion gap and non-and gap metabolic acidosis secondary to renal dysfunction patient is on bicarbonate supplementation -Hyperphosphatasemia secondary to acute renal failure on chronic kidney disease. 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 -DVT prophylaxis with subcutaneous heparin Plan: Continue with current medications. Patient will need IV antibiotic therapy and case management [facility] making [facility] for this. Nephrology also following and patient is maintained on Demadex along with sodium bicarb. Surgery following as well status post debridement of the decubitus ulcer and patient will not be having a wound VAC. Patient's hemoglobin found to be 6.4 and waiting receive a unit of PRBC. Will repeat a.m. labs Possible discharge in 24 hours. - Labs CBC & Chem 7: 07/16/20 06:37 07/16/20 06:37 Labs: Abnormal Lab Results - Last 24 Hours (Table) 07/15/20 07/15/20 07/16/20 Range/Units 16:37 20:19 00:27 RBC (4.40-5.60) X 10*6/uL Hgb (13.0-17.0) g/dL Hct (39.6-50.0) % MCH (27.0-32.0) pg MCHC (32.0-37.0) g/dL RDW (11.5-14.5) % Plt Count (140-440) X 10*3/uL Plt Count Comment MPV (9.5-12.2) fL Immature Gran # (0.00-0.04) X 10*3/uL Immature Plt Fraction (1.1-6.1) % Sodium (135-145) mmol/L Potassium (3.5-5.5) mmol/L Carbon Dioxide (21.6-31.8) mmol/L Anion Gap (4.00-12.00) mmol/L BUN (9.0-27.0) mg/dL Creatinine (0.6-1.5) mg/dL Est GFR (CKD-EPI)AfAm (60.0-200.0) Est GFR (CKD-EPI)NonAf (60.0-200.0) BUN/Creatinine Ratio (12.00-20.00) Ratio POC Glucose (mg/dL) 200 H 136 H 102 H (75-99) mg/dL Calcium (8.7-10.3) mg/dL Total Protein (6.2-8.2) g/dL Albumin (3.80-4.90) g/dL Albumin/Globulin Ratio (1.60-3.17) g/dL 07/16/20 07/16/20 07/16/20 Range/Units 04:14 06:37 06:37 RBC 2.39 L (4.40-5.60) X 10*6/uL Hgb 6.4 L* (13.0-17.0) g/dL Hct 21.0 L (39.6-50.0) % MCH 26.8 L (27.0-32.0) pg MCHC 30.5 L (32.0-37.0) g/dL RDW 20.8 H (11.5-14.5) % Plt Count 83 L (140-440) X 10*3/uL Plt Count Comment DECREASED A MPV 12.8 H (9.5-12.2) fL Immature Gran # 0.10 H (0.00-0.04) X 10*3/uL Immature Plt Fraction 9.0 H (1.1-6.1) % Sodium 134 L (135-145) mmol/L Potassium 2.9 L (3.5-5.5) mmol/L Carbon Dioxide 20.4 L (21.6-31.8) mmol/L Anion Gap 12.60 H (4.00-12.00) mmol/L BUN 90.0 H (9.0-27.0) mg/dL Creatinine 2.7 H (0.6-1.5) mg/dL Est GFR (CKD-EPI)AfAm 26.7 L (60.0-200.0) Est GFR (CKD-EPI)NonAf 23.0 L (60.0-200.0) BUN/Creatinine Ratio 33.33 H (12.00-20.00) Ratio POC Glucose (mg/dL) 102 H (75-99) mg/dL Calcium 6.7 L (8.7-10.3) mg/dL Total Protein 4.7 L (6.2-8.2) g/dL Albumin 2.10 L (3.80-4.90) g/dL Albumin/Globulin Ratio 0.81 L (1.60-3.17) g/dL 07/16/20 07/16/20 Range/Units 07:06 12:00 RBC (4.40-5.60) X 10*6/uL Hgb (13.0-17.0) g/dL Hct (39.6-50.0) % MCH (27.0-32.0) pg MCHC (32.0-37.0) g/dL RDW (11.5-14.5) % Plt Count (140-440) X 10*3/uL Plt Count Comment MPV (9.5-12.2) fL Immature Gran # (0.00-0.04) X 10*3/uL Immature Plt Fraction (1.1-6.1) % Sodium (135-145) mmol/L Potassium (3.5-5.5) mmol/L Carbon Dioxide (21.6-31.8) mmol/L Anion Gap (4.00-12.00) mmol/L BUN (9.0-27.0) mg/dL Creatinine (0.6-1.5) mg/dL Est GFR (CKD-EPI)AfAm (60.0-200.0) Est GFR (CKD-EPI)NonAf (60.0-200.0) BUN/Creatinine Ratio (12.00-20.00) Ratio POC Glucose (mg/dL) 109 H 164 H (75-99) mg/dL Calcium (8.7-10.3) mg/dL Total Protein (6.2-8.2) g/dL Albumin (3.80-4.90) g/dL Albumin/Globulin Ratio (1.60-3.17) g/dL Microbiology - Last 24 Hours (Table) 07/12/20 03:29 Blood Culture - Preliminary Blood No Growth after 96 hours
[2020-07-16] MEDS: COLLAGENASE 250 UNIT/GM OINTMENT 30 GM TUBE TOPICAL SCH (16:18)
--- NOTE | 2020-07-16 16:41 | PN ---
PROGRESS NOTE DATE OF SERVICE: 07/16/2020 REASON FOR FOLLOWUP: Infected left gluteal pressure ulcer. INTERVAL HISTORY: The patient is currently afebrile. The patient is breathing comfortably. The patient denies having any chest pain or shortness of breath or cough. Abdominal pain is currently controlled. No nausea, no vomiting or diarrhea. PHYSICAL EXAMINATION: Blood pressure 103/61 with a pulse of 64, temperature 97.8. He is 98% on room air. General description is an elderly male lying in bed in no distress. RESPIRATORY SYSTEM: Unlabored breathing. Clear to auscultation anteriorly. HEART: S1, S2. Regular rate and rhythm. ABDOMEN: Soft. No tenderness. Left gluteal wound did have some slough tissue. The wound extends from his previous wound. No surrounding redness or foul-smelling drainage. LABS: Hemoglobin 6.4, white count 6.42, creatinine is 2.7. DIAGNOSTIC IMPRESSION AND PLAN: Patient with a left gluteal infected pressure ulcer, status post debridement. Wound still has slough tissue. Recommend local care with Santyl followed by moist dressing. Keep the area off pressure. Antibiotic in the form of Zosyn for at least 4 more weeks to finish a 6-week course of therapy and close outpatient followup. MMODL / IJN: [id number] /
[2020-07-16 17:17] LABS: Glucose,Whole Blood 226 mg/dL (75-99)
[2020-07-16 20:14] LABS: Glucose,Whole Blood 255 mg/dL (75-99)
[2020-07-16 23:54] LABS: Glucose,Whole Blood 150 mg/dL (75-99)
[2020-07-17] MEDS: INSULIN ASPART (NovoLOG) 100 UNIT/ML VIAL SQ SCH ×6 (00:22→20:45)
[2020-07-17 05:10] LABS: Glucose,Whole Blood 95 mg/dL (75-99)
[2020-07-17 06:30] LABS: Anisocytosis Slight; Basophils % (A) 1 %; Eosinophils # (A) 0.1 k/uL (0-0.7); Eosinophils % (A) 2 %; HCT 25.6 % (39.0-53.0); HGB 8.1 gm/dL (13.0-17.5); Hypochromasia Moderate; Lymphocytes # (A) 0.7 k/uL (1.0-4.8); Lymphocytes % (A) 11 %; MCH 27.7 pg (25.0-35.0); MCHC 31.8 g/dL (31.0-37.0); MCV 87.1 fL (80.0-100.0); Mean Platelet Volume 10.3; Monocytes # (A) 0.3 k/uL (0-1.0); Monocytes % (A) 4 %; Neutrophils % (A) 81 %; Poikilocytosis Slight; RBC 2.94 m/uL (4.30-5.90); RDW 19.6 % (11.5-15.5); WBC 6.2 k/uL (3.8-10.6)
[2020-07-17 06:39] LABS: ALT 15 U/L (4-49); AST 20 U/L (17-59); African American GFR (CKD) 31 (>60 ml/min/1.73 sqM); Albumin 2.1 g/dL (3.5-5.0); Albumin/Globulin Ratio 0.7; Alkaline Phosphatase 110 U/L (38-126); Anion Gap 11 mmol/L; Blood Urea Nitrogen 79 mg/dL (9-20); Calcium 6.6 mg/dL (8.4-10.2); Carbon Dioxide 19 mmol/L (22-30); Chloride 103 mmol/L (98-107); Glucose 92 mg/dL (74-99); Non-African American GFR(CKD) 27 (>60 ml/min/1.73 sqM); Sodium 133 mmol/L (137-145); Total Bilirubin 1.1 mg/dL (0.2-1.3); Total Protein 5.1 g/dL (6.3-8.2)
[2020-07-17 06:43] LABS: Potassium 2.5 mmol/L (3.5-5.1)
[2020-07-17] MEDS ORDERED: Potassium Replacement Protocol 1 EACH MISC MISCELLANE PRN (06:43)
[2020-07-17 06:48] LABS: Glucose,Whole Blood 124 mg/dL (75-99)
[2020-07-17 07:18] LABS: Polychromasia Present
[2020-07-17 07:20] LABS: Platelet Count 80 k/uL (150-450)
[2020-07-17] MEDS: METOPROLOL TARTRATE 12.5 MG TAB PO SCH ×2 (07:45→23:24)
[2020-07-17] MEDS: FERROUS SULFATE 325 MG TAB PO SCH ×2 (07:45→23:23)
[2020-07-17] MEDS: TORSEMIDE 20 MG TAB PO SCH (07:45)
[2020-07-17] MEDS: COLLAGENASE 250 UNIT/GM OINTMENT 30 GM TUBE TOPICAL SCH (07:45)
[2020-07-17] MEDS: CALCIUM ACETATE 667 MG TAB PO SCH ×3 (07:45→17:24)
[2020-07-17] MEDS: SODIUM BICARBONATE TAB 650 MG TAB PO SCH ×4 (07:45→23:24)
[2020-07-17] MEDS: PIPERACILLIN-TAZOBACTAM 3.375 GM in SODIUM CHLORIDE 0.9% 100 ML IVPB SCH ×2 (07:45→15:35)
[2020-07-17] MEDS: TAMSULOSIN 0.4 MG CAP.ER.24H PO SCH (07:46)
[2020-07-17] MEDS: HEPARIN SODIUM,PORCINE 5,000 UNIT/ML 1 ML VIAL SQ SCH ×2 (07:46→20:45)
[2020-07-17] MEDS ORDERED: POTASSIUM CHLORIDE ER 20 MEQ TAB.ER PO STA (08:47)
[2020-07-17] MEDS ORDERED: COLLAGENASE 250 UNIT/GM OINTMENT 30 GM TUBE TOPICAL SCH (09:00)
[2020-07-17] MEDS: POTASSIUM CHLORIDE ER 20 MEQ TAB.ER PO SCH ×4 (10:18→17:24)
[2020-07-17 11:40] LABS: Glucose,Whole Blood 146 mg/dL (75-99)
--- NOTE | 2020-07-17 12:13 | P.PN ---
Subjective Progress Note Date: 07/17/20 CHIEF COMPLAINT: Left buttocks decubitus ulcer HISTORY OF PRESENT ILLNESS: Patient is status post debridement of left buttocks decubitus ulcer. Postop day #3. Patient is sitting up in bed comfortably. He has no new complaints. He denies any nausea or vomiting. He is tolerating diet. He is having stool through his ostomy. He is afebrile. WBC 6.2 Hgb 6.4 up to 8.1 after blood transfusion yesterday. Potassium 2.5 PHYSICAL EXAM: VITAL SIGNS: Reviewed. GENERAL: Well-developed in no acute distress. HEENT: No sclera icterus. Extraocular movements grossly intact. Moist buccal mucosa. Head is atraumatic, normocephalic. ABDOMEN: Soft. Nondistended. Nontender. NEUROLOGIC: Alert and oriented. Cranial nerves II through XII grossly intact. ASSESSMENT: 1. Left buttocks decubitus ulcer status post debridement PLAN: -Continue supportive care -Continue local wound care -Continue offloading -Continue antibiotics per ID -Potassium being replaced by medicine service Physician Lab Rn note has been reviewed by physician. Signing provider agrees with the documented findings, assessment, and plan of care. Objective - Vital Signs Vital signs: Vital Signs Temp 97.6 F 07/17/20 07:13 Pulse 62 07/17/20 07:47 Resp 18 07/17/20 07:47 BP 145/65 07/17/20 07:13 Pulse Ox 98 07/17/20 07:13 Intake & Output 07/16/20 07/17/20 07/17/20 18:59 06:59 18:59 Intake Total 100 310 Output Total 2400 Balance 100 -2090 Weight 136.078 kg Intake: Intake, IV Titration 100 Amount Piperacillin-Tazobactam 3 100 .375 gm In Sodium Chloride 0.9% 100 ml @ 25 mls/hr IVPB Q8HR [facility] Rx# :[id number] Blood Product 310 Rc Cpda-1 Unit 310 [id number] Output: Urine 2400 Other: Voiding Method Indwelling Catheter Indwelling Catheter Indwelling Catheter - Labs CBC & Chem 7: 07/17/20 06:11 07/17/20 06:11 Labs: Abnormal Lab Results - Last 24 Hours (Table) 07/16/20 07/16/20 07/16/20 Range/Units 06:37 06:37 16:20 RBC 2.39 L (4.40-5.60) X 10*6/uL Hgb 6.4 L* (13.0-17.0) g/dL Hct 21.0 L (39.6-50.0) % MCH 26.8 L (27.0-32.0) pg MCHC 30.5 L (32.0-37.0) g/dL RDW 20.8 H (11.5-14.5) % Plt Count 83 L (140-440) X 10*3/uL Plt Count Comment DECREASED A MPV 12.8 H (9.5-12.2) fL Immature Gran # 0.10 H (0.00-0.04) X 10*3/uL Lymphocytes # (1.0-4.8) k/uL Immature Plt Fraction 9.0 H (1.1-6.1) % Sodium 134 L (135-145) mmol/L Potassium 2.9 L (3.5-5.5) mmol/L Carbon Dioxide 20.4 L (21.6-31.8) mmol/L Anion Gap 12.60 H (4.00-12.00) mmol/L BUN 90.0 H (9.0-27.0) mg/dL Creatinine 2.7 H (0.6-1.5) mg/dL Est GFR (CKD-EPI)AfAm 26.7 L (60.0-200.0) Est GFR (CKD-EPI)NonAf 23.0 L (60.0-200.0) BUN/Creatinine Ratio 33.33 H (12.00-20.00) Ratio POC Glucose (mg/dL) (75-99) mg/dL Calcium 6.7 L (8.7-10.3) mg/dL Total Protein 4.7 L (6.2-8.2) g/dL Albumin 2.10 L (3.80-4.90) g/dL Albumin/Globulin Ratio 0.81 L (1.60-3.17) g/dL Crossmatch See Detail 07/16/20 07/16/20 07/16/20 Range/Units 17:16 20:11 23:53 RBC (4.40-5.60) X 10*6/uL Hgb (13.0-17.0) g/dL Hct (39.6-50.0) % MCH (27.0-32.0) pg MCHC (32.0-37.0) g/dL RDW (11.5-14.5) % Plt Count (140-440) X 10*3/uL Plt Count Comment MPV (9.5-12.2) fL Immature Gran # (0.00-0.04) X 10*3/uL Lymphocytes # (1.0-4.8) k/uL Immature Plt Fraction (1.1-6.1) % Sodium (135-145) mmol/L Potassium (3.5-5.5) mmol/L Carbon Dioxide (21.6-31.8) mmol/L Anion Gap (4.00-12.00) mmol/L BUN (9.0-27.0) mg/dL Creatinine (0.6-1.5) mg/dL Est GFR (CKD-EPI)AfAm (60.0-200.0) Est GFR (CKD-EPI)NonAf (60.0-200.0) BUN/Creatinine Ratio (12.00-20.00) Ratio POC Glucose (mg/dL) 226 H 255 H 150 H (75-99) mg/dL Calcium (8.7-10.3) mg/dL Total Protein (6.2-8.2) g/dL Albumin (3.80-4.90) g/dL Albumin/Globulin Ratio (1.60-3.17) g/dL Crossmatch 07/17/20 07/17/20 07/17/20 Range/Units 06:11 06:11 06:46 RBC 2.94 L (4.40-5.60) X 10*6/uL Hgb 8.1 L (13.0-17.0) g/dL Hct 25.6 L (39.6-50.0) % MCH (27.0-32.0) pg MCHC (32.0-37.0) g/dL RDW 19.6 H (11.5-14.5) % Plt Count 80 L (140-440) X 10*3/uL Plt Count Comment MPV (9.5-12.2) fL Immature Gran # (0.00-0.04) X 10*3/uL Lymphocytes # 0.7 L (1.0-4.8) k/uL Immature Plt Fraction (1.1-6.1) % Sodium 133 L (135-145) mmol/L Potassium 2.5 L* (3.5-5.5) mmol/L Carbon Dioxide 19 L (21.6-31.8) mmol/L Anion Gap (4.00-12.00) mmol/L BUN 79 H (9.0-27.0) mg/dL Creatinine 2.37 H (0.6-1.5) mg/dL Est GFR (CKD-EPI)AfAm (60.0-200.0) Est GFR (CKD-EPI)NonAf (60.0-200.0) BUN/Creatinine Ratio (12.00-20.00) Ratio POC Glucose (mg/dL) 124 H (75-99) mg/dL Calcium 6.6 L (8.7-10.3) mg/dL Total Protein 5.1 L (6.2-8.2) g/dL Albumin 2.1 L (3.80-4.90) g/dL Albumin/Globulin Ratio (1.60-3.17) g/dL Crossmatch 07/17/20 Range/Units 11:36 RBC (4.40-5.60) X 10*6/uL Hgb (13.0-17.0) g/dL Hct (39.6-50.0) % MCH (27.0-32.0) pg MCHC (32.0-37.0) g/dL RDW (11.5-14.5) % Plt Count (140-440) X 10*3/uL Plt Count Comment MPV (9.5-12.2) fL Immature Gran # (0.00-0.04) X 10*3/uL Lymphocytes # (1.0-4.8) k/uL Immature Plt Fraction (1.1-6.1) % Sodium (135-145) mmol/L Potassium (3.5-5.5) mmol/L Carbon Dioxide (21.6-31.8) mmol/L Anion Gap (4.00-12.00) mmol/L BUN (9.0-27.0) mg/dL Creatinine (0.6-1.5) mg/dL Est GFR (CKD-EPI)AfAm (60.0-200.0) Est GFR (CKD-EPI)NonAf (60.0-200.0) BUN/Creatinine Ratio (12.00-20.00) Ratio POC Glucose (mg/dL) 146 H (75-99) mg/dL Calcium (8.7-10.3) mg/dL Total Protein (6.2-8.2) g/dL Albumin (3.80-4.90) g/dL Albumin/Globulin Ratio (1.60-3.17) g/dL Crossmatch Microbiology - Last 24 Hours (Table) 07/12/20 03:29 Blood Culture - Preliminary Blood No Growth after 120 hours
--- NOTE | 2020-07-17 12:39 | P.PN ---
Subjective Progress Note Date: 07/17/20 70-year-old male was sent in because of low hemoglobin. Patient hemoglobin at the care home was around 6 apparently. Although repeat hemoglobin here twice is around 8. Patient hemoglobin during his last hospital admission and discharge was 9. Patient has a big decubitus ulcer stage IV for which patient is receiving IV antibiotics which had been continued here. Patient is found to have acute renal failure his creatinine during his last hospitalization and discharge was 1.5 presently 3.35. Patient was on Lasix for further hypervolemic state. Patient still has bilateral pedal edema. Patient does have a Bacon catheter nephrology valid the patient they believe Bacon catheter obstruction is a reason why patient has prerenal failure. Recommending flushing the Bacon catheter. Patient was treated for hyperkalemia during her last hospital admission although echocardiac evidence is not available. Patient still has some bilateral pedal edema. Patient was on diuretics since last hospitalization and patient is probably hypotensive from diuretics amlodipine and hydralazine light to possible acute tubular necrosis concern of ALLERGIC interstitial nephritis as well. Urinalysis will be obtained patient renal failure appears to be multifactorial. Do not sound is being obtained nephrology evaluated the patient. 07/12/2020 Patient was transferred to ICU yesterday. Patient had an episode of decreased responsiveness pinpoint pupils which was believed to be secondary to opiates and methadone, as a nursing staff to discontinue methadone unfortunately that was not done patient received 10 mg methadone today. Patient had stroke workup with a CT as stroke call pager was activated. CT did not show any significant abnormality during this event that his blood sugars are within normal limits later after transfer to ICU was found that patient blood sugars are extremely low in 20s after giving D50 50 patient's symptoms completely resolved. Patient is also a poor tensive. All the blood pressure recovered even without receiving any normal saline. Patient is presently in D5 0.9. Urine output is 30-40 mL per hour. Patient creatinine remained stable. Levemir was discontinued patient is presently only on sliding scale insulin patient did not require any pressor support last night. Patient doesn't have any evidence of further GI bleed at this time hemoglobin today 7. patient feels much better today 07/13/2020 Patient is receiving Lasix today because she has significant anasarca. Patient blood sugars are still low earlier today because of which D5 was switched to D10 at 20 mL per hour to decrease third spacing of fluids. Patient is more awake feels much better today patient pain is fairly well controlled with tramadol. 07/14/2020 Patient is seen and evaluated this morning and follow-up continues on Lasix with multiple medical consultations following. Surgery scheduled for debridement of decubitus ulcer today. Patient was lethargic on exam although arousable. Sodium slightly improved at 131 with a potassium of 5.0, current creatinine is 2.8 just trending down and nephrology following. She is maintained on dextrose with water and will also be receiving a dose of albumin today. Patient to continue with Demadex and patient is also maintained on sodium bicarb. Patient continues with IV Zosyn and infectious disease is following. 07/15/2020 Patient is seen this morning more awake and alert and currently eating a majority of his breakfast. Patient denies any nausea or vomiting. Patient is status post debridement of the decubitus ulcer with surgery yesterday. Patient states his pain is much improved. Nephrology following and creatinine is 2.89. Patient is maintained on Demadex along with sodium bicarb tablets. Patient does have a PICC line and is maintained on IV antibiotics and infectious disease is following. Discussed with the patient about discharge planning as he was recently at [facility] the [place] although patient is refusing for rehab and states he will be going home on discharge. Patient also receiving calcium gluconate as his calcium was found to be 6.3 and current albumin is 2.0. Magnesium is 2.2 and current sodium is 132. Patient denies any chest pain or shortness of breath. Patient is afebrile. 07/16/2020 Patient is seen and evaluated this morning hemoglobin was found to be 6.4 and currently awaiting for a unit of blood. Sodium is 134 and potassium also low at 2.9 and being replaced. Creatinine slightly improved at 2.7. Nephrology is following. Patient recently underwent repeat debridement of the decubitus ulcer and will be requiring continued IV antibiotic therapy in the outpatient setting. No wound VAC at this time. Case management following and making arrangements for discharge planning [facility] and patient are refusing re[facility] at this time. 07/17/2020 Patient is seen and evaluated in follow-up this morning with no acute overnight issues. Patient is lethargic although easily arousable. Patient appears to be baseline. Patient did have a unit of PRBCs yesterday and hemoglobin today is 8.1 with no active bleeding noted. Patient is status post debridement of the decubitus ulcer and is maintained on IV antibiotic therapy. Patient does have a PICC line and will be continuing with outpatient IV antibiotics. Case management has made arrangements for home care through the [facility] and they are scheduled to visit him on Monday. Patient is potassium this morning critically low at 2.5 and currently being replaced. We'll recheck this afternoon and closely monitor and continue to replace per protocol. Constitutional: Denied any fatigue denied any fever. Cardio vascular: denied any chest pain, palpitations Gastrointestinal denied any nausea vomiting Pulmonary: Denied any shortness of breath cough Neurologic denied any new focal deficits All inpatient medications were reviewed and appropriate changes in these medications as dictated in the interval history and assessment and plan. Objective - Vital Signs Vital signs: Vital Signs Temp 97.6 F 07/17/20 07:13 Pulse 62 07/17/20 07:47 Resp 18 07/17/20 07:47 BP 145/65 07/17/20 07:13 Pulse Ox 98 07/17/20 07:13 Intake & Output 07/16/20 07/17/20 07/17/20 18:59 06:59 18:59 Intake Total 100 310 Output Total 2400 Balance 100 -2090 Weight 136.078 kg Intake: Intake, IV Titration 100 Amount Piperacillin-Tazobactam 3 100 .375 gm In Sodium Chloride 0.9% 100 ml @ 25 mls/hr IVPB Q8HR [facility] Rx# :[id number] Blood Product 310 Rc Cpda-1 Unit 310 [id number] Output: Urine 2400 Other: Voiding Method Indwelling Catheter Indwelling Catheter Indwelling Catheter - Exam PHYSICAL EXAMINATION: GENERAL: The patient is alert and oriented x3, not in any acute distress. Well developed, well nourished. Patient has significant anasarca scrotal swelling and extremity edema, slightly improved HEENT: Pupils are round and equally reacting to light. EOMI. No scleral icterus. No conjunctival pallor. Normocephalic, atraumatic. No pharyngeal erythema. No thyromegaly. CARDIOVASCULAR: S1 and S2 present. No murmurs, rubs, or gallops. PULMONARY: Chest is clear to auscultation, no wheezing or crackles. ABDOMEN: Soft, nontender, nondistended, normoactive bowel sounds. No palpable organomegaly. MUSCULOSKELETAL: No joint swelling or deformity. EXTREMITIES: No cyanosis, clubbing, does have some pedal edema and lower extremity 1-2+ pitting NEUROLOGICAL: Gross neurological examination did not reveal any focal deficits. SKIN: Stage IV sacral decubitus ulcer status post repeat debridement - Labs CBC & Chem 7: 07/17/20 06:11 07/17/20 06:11 Labs: Abnormal Lab Results - Last 24 Hours (Table) 07/16/20 07/16/20 07/16/20 Range/Units 06:37 06:37 16:20 RBC 2.39 L (4.40-5.60) X 10*6/uL Hgb 6.4 L* (13.0-17.0) g/dL Hct 21.0 L (39.6-50.0) % MCH 26.8 L (27.0-32.0) pg MCHC 30.5 L (32.0-37.0) g/dL RDW 20.8 H (11.5-14.5) % Plt Count 83 L (140-440) X 10*3/uL Plt Count Comment DECREASED A MPV 12.8 H (9.5-12.2) fL Immature Gran # 0.10 H (0.00-0.04) X 10*3/uL Lymphocytes # (1.0-4.8) k/uL Immature Plt Fraction 9.0 H (1.1-6.1) % Sodium 134 L (135-145) mmol/L Potassium 2.9 L (3.5-5.5) mmol/L Carbon Dioxide 20.4 L (21.6-31.8) mmol/L Anion Gap 12.60 H (4.00-12.00) mmol/L BUN 90.0 H (9.0-27.0) mg/dL Creatinine 2.7 H (0.6-1.5) mg/dL Est GFR (CKD-EPI)AfAm 26.7 L (60.0-200.0) Est GFR (CKD-EPI)NonAf 23.0 L (60.0-200.0) BUN/Creatinine Ratio 33.33 H (12.00-20.00) Ratio POC Glucose (mg/dL) (75-99) mg/dL Calcium 6.7 L (8.7-10.3) mg/dL Total Protein 4.7 L (6.2-8.2) g/dL Albumin 2.10 L (3.80-4.90) g/dL Albumin/Globulin Ratio 0.81 L (1.60-3.17) g/dL Crossmatch See Detail 07/16/20 07/16/20 07/16/20 Range/Units 17:16 20:11 23:53 RBC (4.40-5.60) X 10*6/uL Hgb (13.0-17.0) g/dL Hct (39.6-50.0) % MCH (27.0-32.0) pg MCHC (32.0-37.0) g/dL RDW (11.5-14.5) % Plt Count (140-440) X 10*3/uL Plt Count Comment MPV (9.5-12.2) fL Immature Gran # (0.00-0.04) X 10*3/uL Lymphocytes # (1.0-4.8) k/uL Immature Plt Fraction (1.1-6.1) % Sodium (135-145) mmol/L Potassium (3.5-5.5) mmol/L Carbon Dioxide (21.6-31.8) mmol/L Anion Gap (4.00-12.00) mmol/L BUN (9.0-27.0) mg/dL Creatinine (0.6-1.5) mg/dL Est GFR (CKD-EPI)AfAm (60.0-200.0) Est GFR (CKD-EPI)NonAf (60.0-200.0) BUN/Creatinine Ratio (12.00-20.00) Ratio POC Glucose (mg/dL) 226 H 255 H 150 H (75-99) mg/dL Calcium (8.7-10.3) mg/dL Total Protein (6.2-8.2) g/dL Albumin (3.80-4.90) g/dL Albumin/Globulin Ratio (1.60-3.17) g/dL Crossmatch 07/17/20 07/17/20 07/17/20 Range/Units 06:11 06:11 06:46 RBC 2.94 L (4.40-5.60) X 10*6/uL Hgb 8.1 L (13.0-17.0) g/dL Hct 25.6 L (39.6-50.0) % MCH (27.0-32.0) pg MCHC (32.0-37.0) g/dL RDW 19.6 H (11.5-14.5) % Plt Count 80 L (140-440) X 10*3/uL Plt Count Comment MPV (9.5-12.2) fL Immature Gran # (0.00-0.04) X 10*3/uL Lymphocytes # 0.7 L (1.0-4.8) k/uL Immature Plt Fraction (1.1-6.1) % Sodium 133 L (135-145) mmol/L Potassium 2.5 L* (3.5-5.5) mmol/L Carbon Dioxide 19 L (21.6-31.8) mmol/L Anion Gap (4.00-12.00) mmol/L BUN 79 H (9.0-27.0) mg/dL Creatinine 2.37 H (0.6-1.5) mg/dL Est GFR (CKD-EPI)AfAm (60.0-200.0) Est GFR (CKD-EPI)NonAf (60.0-200.0) BUN/Creatinine Ratio (12.00-20.00) Ratio POC Glucose (mg/dL) 124 H (75-99) mg/dL Calcium 6.6 L (8.7-10.3) mg/dL Total Protein 5.1 L (6.2-8.2) g/dL Albumin 2.1 L (3.80-4.90) g/dL Albumin/Globulin Ratio (1.60-3.17) g/dL Crossmatch 07/17/20 Range/Units 11:36 RBC (4.40-5.60) X 10*6/uL Hgb (13.0-17.0) g/dL Hct (39.6-50.0) % MCH (27.0-32.0) pg MCHC (32.0-37.0) g/dL RDW (11.5-14.5) % Plt Count (140-440) X 10*3/uL Plt Count Comment MPV (9.5-12.2) fL Immature Gran # (0.00-0.04) X 10*3/uL Lymphocytes # (1.0-4.8) k/uL Immature Plt Fraction (1.1-6.1) % Sodium (135-145) mmol/L Potassium (3.5-5.5) mmol/L Carbon Dioxide (21.6-31.8) mmol/L Anion Gap (4.00-12.00) mmol/L BUN (9.0-27.0) mg/dL Creatinine (0.6-1.5) mg/dL Est GFR (CKD-EPI)AfAm (60.0-200.0) Est GFR (CKD-EPI)NonAf (60.0-200.0) BUN/Creatinine Ratio (12.00-20.00) Ratio POC Glucose (mg/dL) 146 H (75-99) mg/dL Calcium (8.7-10.3) mg/dL Total Protein (6.2-8.2) g/dL Albumin (3.80-4.90) g/dL Albumin/Globulin Ratio (1.60-3.17) g/dL Crossmatch Microbiology - Last 24 Hours (Table) 07/12/20 03:29 Blood Culture - Preliminary Blood No Growth after 120 hours Assessment and Plan Assessment: -Altered mental status decreased responsiveness secondary to hypoglycemia which resolved, may be a component of toxic encephalopathy from methadone which was discontinued. Patient has poor renal function patient probably has significantly decreased clearance of methadone. -Anemia of chronic disease: Patient received a unit of PRBCs yesterday for a hemoglobin of 6.4 and today's hemoglobin is 8.1 with no active bleeding noted. Most likely a component of chronic kidney disease -Acute renal failure on chronic kidney disease stage III: Acute renal failure most probably multifactorial including obstructive uropathy , urinary bladder ultrasound did not show any hydronephrosis. Can be related to interstitial nephritis from antibiotics. The possibility of acute tubular necrosis from hypotension hold off antihypertensive medications . Patient is volume overloaded and was receiving IV Lasix and recently switched to Demadex. Nephrology following. Echocardiac exam was obtained which showed normal ejection fraction no evidence of diastolic dysfunction at this time. -Hyperkalemia secondary to acute renal failure. Resolved -Hypokalemia presently: Potassium is 2.5 and being replaced today will repeat this afternoon and monitor closely. continue to replace per protocol -Metabolic acidosis both the anion gap and non-and gap metabolic acidosis secondary to renal dysfunction patient is on bicarbonate supplementation -Hyperphosphatasemia secondary to acute renal failure on chronic kidney disease. 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 -DVT prophylaxis with subcutaneous heparin Plan: Continue with current medications. Patient will need IV antibiotic therapy and case management working with the [facility] making arrangements for this. Home care is arranged through the [facility] and is scheduled to come out on Monday. Potassium was found to be extremely low at 2.5 and being replaced. Will repeat and continue to replace per protocol. Patient's hemoglobin has improved and is 8.1 today status post PRBC. No active bleeding noted. Nephrology also following and patient is maintained on Demadex along with sodium bicarb. Surgery following as well status post debridement of the decubitus ulcer and patient will not be having a wound VAC. Will repeat labs. Possible discharge in 24-48 hours.
--- NOTE | 2020-07-17 12:39 | CDI ---
Documentation Clarification Form Date: 07/17/2020 12:19:48 PM From: Joellen Clifton CCS, CCDS Admit Date: 07/11/2020 07:28:00 PM Patient Name: Clem Parra Visit Number: [id number] Discharge Date: ATTENTION: The Clinical Documentation Specialists (CDI) and [facility] Coding Staff appreciate your assistance in clarifying documentation. Please respond to the clarification below the line at the bottom and electronically sign. The CDI & [facility] Coding staff will review the response and follow-up if needed. Please note: Queries are made part of the Legal Health Record. If you have any questions, please contact the author of this message via ITS. Dr. Patito Rubin: Per the 07/09 Nephrology Consult: "Ruled out Bacon obstruction, acute interstitial nephritis cannot be ruled out." Per the Pulmonary Progress Notes 07/13 through 07/15: "Urinalysis showed possibility of urinary tract infection, currently on Zosyn." Per the 07/11 Nephrology Consult and subsequent Progress Notes: "Acute kidney injury. Cause not very clear. Rule out Bacon obstruction, acute interstitial nephritis." Per the 07/11 History & Physical: "Possible acute tubular necrosis concern of ALLERGIC interstitial nephritis as well." History/Risk Factors per the 07/11 H/P Past Medical History: NIDDM II, Hypertension, Renal Disease (CKD IIIb), 07/14/99 Pt fell off scaffolding and had T11 Fracture/Paraplegia, Ileostomy, Neurogenic bladder/self caths, Nephrolithiasis, MRSA. Clinical Indicators: Presented to the ED on 07/11, transferred from a [facility] with low Hemoglobin (8.0). Per the 07/11 H/P: Has a big decubitus ulcer stage IV and ESMER. 07/11 VS: T 97.6, P 80, R 22, BP 149/98, PO 96 RA 07/11 LAB: WBC 14.4, Hgb 8.0, Pl Ct 135, Neut 13.10, Lymph 0.86, Uric Acid 12.6 07/11 UA: cloudy, Trace Protein, Trace ketones, Small Blood, Large Esterase, RBC 13, WBC 49. 07/11 Urine Cx: Negative 07/12 Blood Cx: Negative @ 120 hrs preliminary Treatment: IV fluid 1,000 mls @ 20 mls/hr q24H, IV fluid 1,000 mls @ 100 mls/hr q10H, IV Unasyn 3 gm q6H, IV Zosyn 100 mls@25 mls/hr q8H. Nephrology ordered flushing of Bacon catheter. In your professional opinion, can you please clarify the etiology of the UTI, if known? [ ] UTI related to Bacon catheter [ ] UTI not related to Bacon catheter [ ] Other condition, please specify [ ] Unable to determine (Last Revision: July 2017) Unable to determine MTDD
--- NOTE | 2020-07-17 12:59 | CDI ---
Documentation Clarification Form Date: 07/17/2020 12:42:50 PM From: Joellen Clifton CCS, CCDS Admit Date: 07/11/2020 07:28:00 PM Patient Name: Clem Parra Visit Number: [id number] Discharge Date: ATTENTION: The Clinical Documentation Specialists (CDI) and [facility] Coding Staff appreciate your assistance in clarifying documentation. Please respond to the clarification below the line at the bottom and electronically sign. The CDI & [facility] Coding staff will review the response and follow-up if needed. Please note: Queries are made part of the Legal Health Record. If you have any questions, please contact the author of this message via ITS. Dr. Patito Rubin: The patient presented with the following clinical indicators. Additional clarification regarding the etiology/cause of the clinical indicators is requested. Per the 07/11 History & Physical: "70-year-old male was sent in because of low hemoglobin. Patient's hemoglobin at the group home was around 6 apparently. Repeat hemoglobin here twice is around 8. Has a big decubitus ulcer stage IV receiving IV antibiotics which had been continued here. Found to have acute renal failure, has a Bacon catheter. Nephrology believes Bacon catheter obstruction is a reason why patient has prerenal failure. Probably hypotensive from diuretics, Amlodipine and Hydralazine. Possible acute tubular necrosis with concern of Allergic Interstitial Nephritis. UA will be obtained." History/Risk Factors per the 07/11 H/P Past Medical History: IDDM II, Hypertension, CKD IIIb, Paraplegia due to T11 fracture after fall from scaffolding in 1999, Ileostomy, Neurogenic Bladder: self caths (per documentation, has Bacon cath), MRSA, Bilateral lower extremity cellulitis, Left foot ulcers and Sacral Decubitus Ulcer. Clinical Indicators: Presented to the ED from a [facility] with per the above. 07/11 VS: T 97.6 - 96.2, P 80, R 22 - 14, BP 149/98 - 84/60, PO 96 - 93 RA 07/11 LAB: WBC 14.4 - 20.5, Hgb 8.0 - 7.7, Neut 13.10 - 17.80 07/11 UA: Cloudy, trace protein, trace Ketones, Small Blood, Negative nitrite, Large Esterase, WBC 49. 07/11 Urine Cx: final: negative. 07/12 blood Cx: preliminary: neg @ 120 hrs Treatment 07/11: IV fluid 1,000 mls @ 20 mls/hr q24H, IV fluid 1,000 mls @ 100 mls/hr q10H, IV Unasyn 3gm q6H, IV Lactated ringers 1,000 mls @ 75 mls/hr q13H, IV Zosyn, IV Na Bicarb, IV Lasix, IV Insulin. In your professional opinion, please clarify if these findings signify one of the following conditions: [ ] Sepsis POA [ ] Sepsis, Not POA [ ] Severe Sepsis with organ failure [ ] Other, please specify [ ] Unable to determine (Template Last Reviewed: June 2020) No sepsis MTDD
--- NOTE | 2020-07-17 13:04 | P.PN ---
Subjective Patient is seen in follow-up for acute kidney injury on chronic kidney disease. Creatinine was 3.35 on admission and is down to 2.37 today. Oral intake is fair. Denies chest pain or shortness of breath. Edema improving. No vomiting or diarrhea. Hemodynamically stable. No active complaints. Potassium is low and is being aggressively replaced. Vital signs are stable. General: The patient appeared well nourished and normally developed. HEENT: Head exam is unremarkable. LUNGS: Breath sounds decreased. HEART: Rate and Rhythm are regular. ABDOMEN: Soft, obese. EXTREMITITES: 2+ edema. Objective - Vital Signs Vital signs: Vital Signs Temp 97.6 F 07/17/20 07:13 Pulse 62 07/17/20 07:47 Resp 18 07/17/20 07:47 BP 145/65 07/17/20 07:13 Pulse Ox 98 07/17/20 07:13 Intake & Output 07/16/20 07/17/20 07/17/20 18:59 06:59 18:59 Intake Total 100 310 Output Total 2400 Balance 100 -2090 Weight 136.078 kg Intake: Intake, IV Titration 100 Amount Piperacillin-Tazobactam 3 100 .375 gm In Sodium Chloride 0.9% 100 ml @ 25 mls/hr IVPB Q8HR [facility] Rx# :[id number] Blood Product 310 Rc Cpda-1 Unit 310 [id number] Output: Urine 2400 Other: Voiding Method Indwelling Catheter Indwelling Catheter Indwelling Catheter - Labs CBC & Chem 7: 07/17/20 06:11 07/17/20 06:11 Labs: Abnormal Lab Results - Last 24 Hours (Table) 07/16/20 07/16/20 07/16/20 Range/Units 16:20 17:16 20:11 RBC (4.30-5.90) m/uL Hgb (13.0-17.5) gm/dL Hct (39.0-53.0) % RDW (11.5-15.5) % Plt Count (150-450) k/uL Lymphocytes # (1.0-4.8) k/uL Sodium (137-145) mmol/L Potassium (3.5-5.1) mmol/L Carbon Dioxide (22-30) mmol/L BUN (9-20) mg/dL Creatinine (0.66-1.25) mg/dL POC Glucose (mg/dL) 226 H 255 H (75-99) mg/dL Calcium (8.4-10.2) mg/dL Total Protein (6.3-8.2) g/dL Albumin (3.5-5.0) g/dL Crossmatch See Detail 07/16/20 07/17/20 07/17/20 Range/Units 23:53 06:11 06:11 RBC 2.94 L (4.30-5.90) m/uL Hgb 8.1 L (13.0-17.5) gm/dL Hct 25.6 L (39.0-53.0) % RDW 19.6 H (11.5-15.5) % Plt Count 80 L (150-450) k/uL Lymphocytes # 0.7 L (1.0-4.8) k/uL Sodium 133 L (137-145) mmol/L Potassium 2.5 L* (3.5-5.1) mmol/L Carbon Dioxide 19 L (22-30) mmol/L BUN 79 H (9-20) mg/dL Creatinine 2.37 H (0.66-1.25) mg/dL POC Glucose (mg/dL) 150 H (75-99) mg/dL Calcium 6.6 L (8.4-10.2) mg/dL Total Protein 5.1 L (6.3-8.2) g/dL Albumin 2.1 L (3.5-5.0) g/dL Crossmatch 07/17/20 07/17/20 Range/Units 06:46 11:36 RBC (4.30-5.90) m/uL Hgb (13.0-17.5) gm/dL Hct (39.0-53.0) % RDW (11.5-15.5) % Plt Count (150-450) k/uL Lymphocytes # (1.0-4.8) k/uL Sodium (137-145) mmol/L Potassium (3.5-5.1) mmol/L Carbon Dioxide (22-30) mmol/L BUN (9-20) mg/dL Creatinine (0.66-1.25) mg/dL POC Glucose (mg/dL) 124 H 146 H (75-99) mg/dL Calcium (8.4-10.2) mg/dL Total Protein (6.3-8.2) g/dL Albumin (3.5-5.0) g/dL Crossmatch Microbiology - Last 24 Hours (Table) 07/12/20 03:29 Blood Culture - Preliminary Blood No Growth after 120 hours Assessment and Plan Plan: Assessment: 1. Acute kidney injury secondary to ATN secondary to acute blood loss anemia and hypotension. Creatinine was 3.35 on admission and is down to 2.37 today. 2. Chronic kidney disease stage IIIa with baseline creatinine near 1.5 seconda ry to diabetic kidney disease. 3. Acute on chronic diastolic CHF. 4. Lower extremity edema. Improving with diuresis. 5. Gluteal pressure ulcer with concern for underlying osteomyelitis. Infectiou s disease following. S/p debridement. 6. Diabetes mellitus with hypoglycemia. Blood sugars now stable. 7. Metabolic acidosis secondary to acute kidney injury and IV fluids. Maintained on oral bicarb. 8. Hypervolemic hyponatremia. 9. Hypocalcemia secondary to acute kidney injury and hypoalbuminemia. Corrected calcium near normal. Status post placement. 10. Hyperphosphatemia secondary to acute kidney injury. Maintained on PhosLo. Plan: Maintain torsemide. Potassium being replaced. Also started on maintenance potassium supplementation. Low-salt diet and 1200 mL fluid restriction. Repeat BMP and magnesium level 2-3 days postdischarge. Follow up outpatient in 1 week.
[2020-07-17] MEDS ORDERED: ZINC OXIDE 20% OINT 28.4 GM TUBE TOPICAL PRN (15:20)
--- NOTE | 2020-07-17 15:25 | P.PN ---
Subjective Progress Note Date: 07/17/20 Principal diagnosis: Left buttocks ulcer Patient has no new complaints. Potassium was low today. Hemoglobin 8.1. Repeat electrolytes pending. Possible discharge to home tomorrow. Objective - Vital Signs Vital signs: Vital Signs Temp 97.8 F 07/17/20 14:00 Pulse 68 07/17/20 14:00 Resp 18 07/17/20 14:00 BP 123/76 07/17/20 14:00 Pulse Ox 99 07/17/20 14:00 Intake & Output 07/16/20 07/17/20 07/17/20 18:59 06:59 18:59 Intake Total 100 310 Output Total 2400 Balance 100 -2090 Weight 136.078 kg Intake: Intake, IV Titration 100 Amount Piperacillin-Tazobactam 3 100 .375 gm In Sodium Chloride 0.9% 100 ml @ 25 mls/hr IVPB Q8HR [facility] Rx# :[id number] Blood Product 310 Rc Cpda-1 Unit 310 [id number] Output: Urine 2400 Other: Voiding Method Indwelling Catheter Indwelling Catheter Indwelling Catheter - Exam Left but ox wound with some increased ischemic changes to the fat involving the new were 6 x 8 cm superficial buttocks ulcer that is lateral to the central deeper ulcer. The patient's scrotum is significantly edematous with some superficial skin excoriation and breakdown at the base of the scrotum. - Labs CBC & Chem 7: 07/17/20 06:11 07/17/20 06:11 Labs: Abnormal Lab Results - Last 24 Hours (Table) 07/16/20 07/16/20 07/16/20 Range/Units 16:20 17:16 20:11 RBC (4.30-5.90) m/uL Hgb (13.0-17.5) gm/dL Hct (39.0-53.0) % RDW (11.5-15.5) % Plt Count (150-450) k/uL Lymphocytes # (1.0-4.8) k/uL Sodium (137-145) mmol/L Potassium (3.5-5.1) mmol/L Carbon Dioxide (22-30) mmol/L BUN (9-20) mg/dL Creatinine (0.66-1.25) mg/dL POC Glucose (mg/dL) 226 H 255 H (75-99) mg/dL Calcium (8.4-10.2) mg/dL Total Protein (6.3-8.2) g/dL Albumin (3.5-5.0) g/dL Crossmatch See Detail 07/16/20 07/17/20 07/17/20 Range/Units 23:53 06:11 06:11 RBC 2.94 L (4.30-5.90) m/uL Hgb 8.1 L (13.0-17.5) gm/dL Hct 25.6 L (39.0-53.0) % RDW 19.6 H (11.5-15.5) % Plt Count 80 L (150-450) k/uL Lymphocytes # 0.7 L (1.0-4.8) k/uL Sodium 133 L (137-145) mmol/L Potassium 2.5 L* (3.5-5.1) mmol/L Carbon Dioxide 19 L (22-30) mmol/L BUN 79 H (9-20) mg/dL Creatinine 2.37 H (0.66-1.25) mg/dL POC Glucose (mg/dL) 150 H (75-99) mg/dL Calcium 6.6 L (8.4-10.2) mg/dL Total Protein 5.1 L (6.3-8.2) g/dL Albumin 2.1 L (3.5-5.0) g/dL Crossmatch 07/17/20 07/17/20 Range/Units 06:46 11:36 RBC (4.30-5.90) m/uL Hgb (13.0-17.5) gm/dL Hct (39.0-53.0) % RDW (11.5-15.5) % Plt Count (150-450) k/uL Lymphocytes # (1.0-4.8) k/uL Sodium (137-145) mmol/L Potassium (3.5-5.1) mmol/L Carbon Dioxide (22-30) mmol/L BUN (9-20) mg/dL Creatinine (0.66-1.25) mg/dL POC Glucose (mg/dL) 124 H 146 H (75-99) mg/dL Calcium (8.4-10.2) mg/dL Total Protein (6.3-8.2) g/dL Albumin (3.5-5.0) g/dL Crossmatch Microbiology - Last 24 Hours (Table) 07/12/20 03:29 Blood Culture - Preliminary Blood No Growth after 120 hours Assessment and Plan (1) Decubitus ulcer of left buttock, stage 4 Narrative/Plan: (Desitin barrier cream to the base of scrotum with scrotal elevation. Continue optimizing fluid status to minimize edema. Continue Santyl to the buttocks wound. Continue offloading. Wound evaluated in the presence of the patient's . All questions answered. Current Visit: No Status: Acute Code(s): L89.324 - PRESSURE ULCER OF LEFT BUTTOCK, STAGE 4 SNOMED Code(s): 986505321
[2020-07-17] MEDS: traMADol 50 MG TAB PO PRN (15:32)
[2020-07-17 16:40] LABS: Glucose,Whole Blood 189 mg/dL (75-99)
--- NOTE | 2020-07-17 18:58 | PN ---
PROGRESS NOTE DATE OF SERVICE: 07/17/2020 REASON FOR FOLLOWUP: Left gluteal infected pressure ulcer. INTERVAL HISTORY: The patient is currently afebrile. The patient is breathing comfortably. Denies having any chest pain or shortness of breath or cough. No nausea. No abdominal pain or pain to the left gluteal area. Currently waiting for arrangement for placement . PHYSICAL EXAMINATION: Blood pressure 123/76, pulse of 68, temperature 97.8. He is 99% on room air. General description is an elderly male lying in bed in no distress. RESPIRATORY SYSTEM: Unlabored breathing. Clear to auscultation anteriorly. HEART: S1, S2. Regular rate and rhythm. ABDOMEN: Soft. No tenderness. LABS: Hemoglobin is 8.1, white count 6.2. BUN of 79, creatinine is 2.37. DIAGNOSTIC IMPRESSION AND PLAN: Patient with left gluteal infected pressure ulcer, status post surgical debridement. Culture with multiple pathogens. Patient is covered with Zosyn. Local care with Santyl. Keep the area off pressure. Continue supportive care. MMODL / IJN: [id number] /
[2020-07-17] MEDS: DEXTROSE 10% IN WATER 500 ML in EMPTY BAG 1 BAG IV SCH (19:22)
[2020-07-17 20:04] LABS: Glucose,Whole Blood 132 mg/dL (75-99)
[2020-07-18] MEDS: INSULIN ASPART (NovoLOG) 100 UNIT/ML VIAL SQ SCH ×6 (01:59→20:32)
[2020-07-18] MEDS: PIPERACILLIN-TAZOBACTAM 3.375 GM in SODIUM CHLORIDE 0.9% 100 ML IVPB SCH ×3 (02:54→18:05)
[2020-07-18] MEDS: traMADol 50 MG TAB PO PRN ×2 (05:29→11:14)
[2020-07-18 06:25] LABS: Glucose,Whole Blood 104 mg/dL (75-99)
[2020-07-18 08:01] LABS: Anisocytosis Slight; Basophils % (A) 0 %; Eosinophils # (A) 0.1 k/uL (0-0.7); Eosinophils % (A) 1 %; HCT 25.8 % (39.0-53.0); HGB 8.1 gm/dL (13.0-17.5); Hypochromasia Moderate; Lymphocytes # (A) 0.8 k/uL (1.0-4.8); Lymphocytes % (A) 10 %; MCH 26.9 pg (25.0-35.0); MCHC 31.3 g/dL (31.0-37.0); MCV 85.9 fL (80.0-100.0); Mean Platelet Volume 11.1; Monocytes # (A) 0.4 k/uL (0-1.0); Monocytes % (A) 5 %; Neutrophils # (A) 6.3 k/uL (1.3-7.7); Neutrophils % (A) 82 %; Poikilocytosis Slight; RDW 19.8 % (11.5-15.5); WBC 7.7 k/uL (3.8-10.6)
[2020-07-18 08:12] LABS: Platelet Count 82 k/uL (150-450)
[2020-07-18 08:26] LABS: ALT 13 U/L (4-49); AST 19 U/L (17-59); African American GFR (CKD) 33 (>60 ml/min/1.73 sqM); Albumin/Globulin Ratio 0.7; Alkaline Phosphatase 101 U/L (38-126); Anion Gap 10 mmol/L; Blood Urea Nitrogen 85 mg/dL (9-20); Calcium 6.8 mg/dL (8.4-10.2); Carbon Dioxide 21 mmol/L (22-30); Chloride 104 mmol/L (98-107); Globulin 2.9 g/dL; Glucose 90 mg/dL (74-99); Non-African American GFR(CKD) 29 (>60 ml/min/1.73 sqM); Potassium 2.8 mmol/L (3.5-5.1); Sodium 135 mmol/L (137-145); Total Bilirubin 1.1 mg/dL (0.2-1.3); Total Protein 4.9 g/dL (6.3-8.2)
[2020-07-18 08:33] LABS: Glucose,Whole Blood 117 mg/dL (75-99)
[2020-07-18] MEDS ORDERED: Potassium Replacement Protocol 1 EACH MISC MISCELLANE PRN ×3 (08:33→23:26)
[2020-07-18] MEDS: METOPROLOL TARTRATE 12.5 MG TAB PO SCH ×2 (09:00→20:33)
[2020-07-18] MEDS: FERROUS SULFATE 325 MG TAB PO SCH ×2 (09:00→20:32)
[2020-07-18] MEDS: TAMSULOSIN 0.4 MG CAP.ER.24H PO SCH (09:00)
[2020-07-18] MEDS: SODIUM BICARBONATE TAB 650 MG TAB PO SCH ×4 (09:00→20:33)
[2020-07-18] MEDS: CALCIUM ACETATE 667 MG TAB PO SCH ×3 (09:00→18:05)
[2020-07-18] MEDS: POTASSIUM CHLORIDE ER 20 MEQ TAB.ER PO SCH ×8 (09:00→20:32)
[2020-07-18] MEDS: TORSEMIDE 20 MG TAB PO SCH (09:00)
[2020-07-18] MEDS: HEPARIN SODIUM,PORCINE 5,000 UNIT/ML 1 ML VIAL SQ SCH ×2 (09:01→20:33)
--- NOTE | 2020-07-18 10:32 | P.PN ---
Subjective Progress Note Date: 07/18/20 Principal diagnosis: Left buttocks ulcer Patient without new complaints. His resting on his right-hand side. Hemoglobin stable at 8.1. Potassium low again at 2.8. Objective - Vital Signs Vital signs: Vital Signs Temp 98.4 F 07/18/20 07:15 Pulse 68 07/18/20 07:30 Resp 18 07/18/20 07:30 BP 135/64 07/18/20 07:15 Pulse Ox 97 07/18/20 07:15 Intake & Output 07/17/20 07/18/20 07/18/20 18:59 06:59 18:59 Output Total 1900 700 700 Balance -1900 -700 -700 Output: Urine 1200 Stool 700 700 700 Other: Voiding Method Indwelling Catheter Indwelling Catheter Indwelling Catheter - Exam Left decubitus dressings in place with mild serosanguineous drainage - Labs CBC & Chem 7: 07/18/20 07:41 07/18/20 07:41 Labs: Abnormal Lab Results - Last 24 Hours (Table) 07/17/20 07/17/20 07/17/20 Range/Units 11:36 14:56 16:36 RBC (4.30-5.90) m/uL Hgb (13.0-17.5) gm/dL Hct (39.0-53.0) % RDW (11.5-15.5) % Plt Count (150-450) k/uL Lymphocytes # (1.0-4.8) k/uL Sodium (137-145) mmol/L Potassium 3.3 L (3.5-5.1) mmol/L Carbon Dioxide (22-30) mmol/L BUN (9-20) mg/dL Creatinine (0.66-1.25) mg/dL POC Glucose (mg/dL) 146 H 189 H (75-99) mg/dL Calcium (8.4-10.2) mg/dL Total Protein (6.3-8.2) g/dL Albumin (3.5-5.0) g/dL 07/17/20 07/18/20 07/18/20 Range/Units 20:02 06:23 07:41 RBC 3.00 L (4.30-5.90) m/uL Hgb 8.1 L (13.0-17.5) gm/dL Hct 25.8 L (39.0-53.0) % RDW 19.8 H (11.5-15.5) % Plt Count 82 L (150-450) k/uL Lymphocytes # 0.8 L (1.0-4.8) k/uL Sodium (137-145) mmol/L Potassium (3.5-5.1) mmol/L Carbon Dioxide (22-30) mmol/L BUN (9-20) mg/dL Creatinine (0.66-1.25) mg/dL POC Glucose (mg/dL) 132 H 104 H (75-99) mg/dL Calcium (8.4-10.2) mg/dL Total Protein (6.3-8.2) g/dL Albumin (3.5-5.0) g/dL 07/18/20 07/18/20 Range/Units 07:41 08:29 RBC (4.30-5.90) m/uL Hgb (13.0-17.5) gm/dL Hct (39.0-53.0) % RDW (11.5-15.5) % Plt Count (150-450) k/uL Lymphocytes # (1.0-4.8) k/uL Sodium 135 L (137-145) mmol/L Potassium 2.8 L (3.5-5.1) mmol/L Carbon Dioxide 21 L (22-30) mmol/L BUN 85 H (9-20) mg/dL Creatinine 2.25 H (0.66-1.25) mg/dL POC Glucose (mg/dL) 117 H (75-99) mg/dL Calcium 6.8 L (8.4-10.2) mg/dL Total Protein 4.9 L (6.3-8.2) g/dL Albumin 2.0 L (3.5-5.0) g/dL Microbiology - Last 24 Hours (Table) 07/12/20 03:29 Blood Culture - Final Blood No Growth after 144 hours Assessment and Plan (1) Decubitus ulcer of left buttock, stage 4 Narrative/Plan: Continue local wound care. Continue offloading. Appropriate management of the patient's edema and scrotal swelling. Current Visit: No Status: Acute Code(s): L89.324 - PRESSURE ULCER OF LEFT BUTTOCK, STAGE 4 SNOMED Code(s): 922416821
[2020-07-18 12:41] LABS: Glucose,Whole Blood 285 mg/dL (75-99)
--- NOTE | 2020-07-18 14:22 | PN ---
PROGRESS NOTE Patient is seen for followup for acute kidney injury. Serum creatinine has improved and it is now at about 2.2 from peak of 3.38 mg/dL. Currently patient is maintained on oral diuretics. He denies any significant complaints. EXAMINATION: Today blood pressure was 135/64, heart rate 68 per minute, he is afebrile. Examination of the heart S1, S2. Examination of the lungs, bilateral breath sounds are heard. Abdomen is soft, nontender. Examination of lower extremities shows 2+ edema. [employer] exam grossly intact. LAB: Show sodium 135, potassium 2.8, chloride 104, BUN 85, creatinine 2.25. ASSESSMENT: 1. Acute kidney injury, acute tubular necrosis from hypotension and anemia, currently improving. 2. Chronic kidney disease stage 3A secondary to diabetic kidney disease, baseline creatinine about 1.5. 3. Acute on chronic diastolic congestive heart failure. 4. Gluteal pressure ulcer with concern for possible osteomyelitis. 5. Hypervolemic hyponatremia. PLAN: Continue with the Demadex. Replace potassium. Encourage increased protein intake. Repeat labs in a.m. MMODL / IJN: [id number] /
[2020-07-18] MEDS ORDERED: FUROSEMIDE 10 MG/ML 4 ML VIAL IV STA (14:47)
[2020-07-18] MEDS: COLLAGENASE 250 UNIT/GM OINTMENT 30 GM TUBE TOPICAL SCH (15:00)
[2020-07-18 16:44] LABS: Glucose,Whole Blood 173 mg/dL (75-99)
--- NOTE | 2020-07-18 16:49 | PN ---
PROGRESS NOTE DATE OF SERVICE: 07/18/2020 REASON FOR FOLLOWUP: Left gluteal area infected pressure ulcer. INTERVAL HISTORY: Patient is currently afebrile. He is breathing comfortably. Denies having any chest pain, shortness of breath or cough. No abdominal pain or diarrhea. PHYSICAL EXAMINATION: Blood pressure 106/62 with a pulse of 68, temperature 97.4, he is 97% on room air. GENERAL DESCRIPTION: An elderly male lying in bed in no distress. RESPIRATORY SYSTEM: Unlabored breathing, clear to auscultation anteriorly. HEART: S1, S2. Regular rate and rhythm. ABDOMEN: Soft, no tenderness. LAB: Hemoglobin 8.1, white count 7.7, BUN of 85, creatinine 2.25, potassium is 2.8 and repeat is 3. Blood culture negative this admission. DIAGNOSTIC IMPRESSION AND PLAN: Patient with left gluteal infected pressure ulcer with underlying osteomyelitis in this patient with previous admission cultures positive for Proteus, Enterococcus, Klebsiella and anaerobes. The patient is covered with Zosyn. Plan is for a total of 6 weeks of antibiotic therapy. Local wound care with Santyl followed by moist dressing. Keep the area off the pressure and hopefully wound VAC application in a week or two. at the bedside and questions were answered. MMODL / IJN: [id number] /
--- NOTE | 2020-07-18 17:07 | P.PN ---
Subjective 70-year-old male was sent in because of low hemoglobin. Patient hemoglobin at the detention was around 6 apparently. Although repeat hemoglobin here twice is around 8. Patient hemoglobin during his last hospital admission and discharge was 9. Patient has a big decubitus ulcer stage IV for which patient is receiving IV antibiotics which had been continued here. Patient is found to have acute renal failure his creatinine during his last hospitalization and discharge was 1.5 presently 3.35. Patient was on Lasix for further hypervolemic state. Patient still has bilateral pedal edema. Patient does have a Bacon catheter nephrology valid the patient they believe Bacon catheter obstruction is a reason why patient has prerenal failure. Recommending flushing the Bacon catheter. Patient was treated for hyperkalemia during her last hospital admission although echocardiac evidence is not available. Patient still has some bilateral pedal edema. Patient was on diuretics since last hospitalization and patient is probably hypotensive from diuretics amlodipine and hydralazine light to possible acute tubular necrosis concern of ALLERGIC interstitial nephritis as well. Urinalysis will be obtained patient renal failure appears to be multifactorial. Do not sound is being obtained nephrology evaluated the patient. 07/12/2020 Patient was transferred to ICU yesterday. Patient had an episode of decreased responsiveness pinpoint pupils which was believed to be secondary to opiates and methadone, as a nursing staff to discontinue methadone unfortunately that was not done patient received 10 mg methadone today. Patient had stroke workup with a CT as stroke call pager was activated. CT did not show any significant abnormality during this event that his blood sugars are within normal limits later after transfer to ICU was found that patient blood sugars are extremely low in 20s after giving D50 50 patient's symptoms completely resolved. Patient is also a poor tensive. All the blood pressure recovered even without receiving any normal saline. Patient is presently in D5 0.9. Urine output is 30-40 mL per hour. Patient creatinine remained stable. Levemir was discontinued patient is presently only on sliding scale insulin patient did not require any pressor support last night. Patient doesn't have any evidence of further GI bleed at this time hemoglobin today 7. patient feels much better today 07/13/2020 Patient is receiving Lasix today because she has significant anasarca. Patient blood sugars are still low earlier today because of which D5 was switched to D10 at 20 mL per hour to decrease third spacing of fluids. Patient is more awake feels much better today patient pain is fairly well controlled with tramadol. 07/14/2020 Patient is seen and evaluated this morning and follow-up continues on Lasix with multiple medical consultations following. Surgery scheduled for debridement of decubitus ulcer today. Patient was lethargic on exam although arousable. Sodium slightly improved at 131 with a potassium of 5.0, current creatinine is 2.8 just trending down and nephrology following. She is maintained on dextrose with water and will also be receiving a dose of albumin today. Patient to continue with Demadex and patient is also maintained on sodium bicarb. Patient continues with IV Zosyn and infectious disease is following. 07/15/2020 Patient is seen this morning more awake and alert and currently eating a majority of his breakfast. Patient denies any nausea or vomiting. Patient is status post debridement of the decubitus ulcer with surgery yesterday. Patient states his pain is much improved. Nephrology following and creatinine is 2.89. Patient is maintained on Demadex along with sodium bicarb tablets. Patient does have a PICC line and is maintained on IV antibiotics and infectious disease is following. Discussed with the patient about discharge planning as he was recen [facility] the [address] although patient is refusing for rehab and states he will be going home on discharge. Patient also receiving calcium gluconate as his calcium was found to be 6.3 and current albumin is 2.0. Magnesium is 2.2 and current sodium is 132. Patient denies any chest pain or shortness of breath. Patient is afebrile. 07/16/2020 Patient is seen and evaluated this morning hemoglobin was found to be 6.4 and currently awaiting for a unit of blood. Sodium is 134 and potassium also low at 2.9 and being replaced. Creatinine slightly improved at 2.7. Nephrology is following. Patient recently underwent repeat debridement of the decubitus ulcer and will be requiring continued IV antibiotic therapy in the outpatient setting. No wound VAC at this time. Case management following and making arrangements for discharge planning [facility] and patient are refusing re[facility] at this time. 07/17/2020 Patient is seen and evaluated in follow-up this morning with no acute overnight issues. Patient is lethargic although easily arousable. Patient appears to be baseline. Patient did have a unit of PRBCs yesterday and hemoglobin today is 8.1 with no active bleeding noted. Patient is status post debridement of the decubitus ulcer and is maintained on IV antibiotic therapy. Patient does have a PICC line and will be continuing with outpatient IV antibiotics. Case management has made arrangements [facility] and they are scheduled to visit him on Monday. Patient is potassium this morning critically low at 2.5 and currently being replaced. We'll recheck this afternoon and closely monitor and continue to replace per protocol. 07/18/2020 exam patient potassium remains low in spite of aggressive supplementation patient this is secondary to Lasix he received patient the will get another dose of Lasix today patient present potassium is 3.1 we'll aggressively replace it with a 60-80 mEq more of potassium. Constitutional: Denied any fatigue denied any fever. Cardio vascular: denied any chest pain, palpitations Gastrointestinal denied any nausea vomiting Pulmonary: Denied any shortness of breath cough Neurologic denied any new focal deficits All inpatient medications were reviewed and appropriate changes in these medications as dictated in the interval history and assessment and plan. Objective - Vital Signs Vital signs: Vital Signs Temp 97.4 F L 07/18/20 13:52 Pulse 68 07/18/20 13:52 Resp 18 07/18/20 13:52 BP 106/62 07/18/20 13:52 Pulse Ox 97 07/18/20 13:52 Intake & Output 07/17/20 07/18/20 07/18/20 18:59 06:59 18:59 Output Total 1900 700 700 Balance -1900 -700 -700 Output: Urine 1200 Stool 700 700 700 Other: Voiding Method Indwelling Catheter Indwelling Catheter Indwelling Catheter - Exam PHYSICAL EXAMINATION: GENERAL: The patient is alert and oriented x3, not in any acute distress. Well developed, well nourished. Patient has significant anasarca scrotal swelling and extremity edema, slightly improved HEENT: Pupils are round and equally reacting to light. EOMI. No scleral icterus. No conjunctival pallor. Normocephalic, atraumatic. No pharyngeal erythema. No thyromegaly. CARDIOVASCULAR: S1 and S2 present. No murmurs, rubs, or gallops. PULMONARY: Chest is clear to auscultation, no wheezing or crackles. ABDOMEN: Soft, nontender, nondistended, normoactive bowel sounds. No palpable organomegaly. MUSCULOSKELETAL: No joint swelling or deformity. EXTREMITIES: No cyanosis, clubbing, does have some pedal edema and lower extremity 1-2+ pitting NEUROLOGICAL: Gross neurological examination did not reveal any focal deficits. SKIN: Stage IV sacral decubitus ulcer status post repeat debridement - Labs CBC & Chem 7: 07/18/20 07:41 07/18/20 15:05 Labs: Abnormal Lab Results - Last 24 Hours (Table) 07/17/20 07/18/20 07/18/20 Range/Units 20:02 06:23 07:41 RBC 3.00 L (4.30-5.90) m/uL Hgb 8.1 L (13.0-17.5) gm/dL Hct 25.8 L (39.0-53.0) % RDW 19.8 H (11.5-15.5) % Plt Count 82 L (150-450) k/uL Lymphocytes # 0.8 L (1.0-4.8) k/uL Sodium (137-145) mmol/L Potassium (3.5-5.1) mmol/L Carbon Dioxide (22-30) mmol/L BUN (9-20) mg/dL Creatinine (0.66-1.25) mg/dL POC Glucose (mg/dL) 132 H 104 H (75-99) mg/dL Calcium (8.4-10.2) mg/dL Total Protein (6.3-8.2) g/dL Albumin (3.5-5.0) g/dL 07/18/20 07/18/20 07/18/20 Range/Units 07:41 08:29 12:38 RBC (4.30-5.90) m/uL Hgb (13.0-17.5) gm/dL Hct (39.0-53.0) % RDW (11.5-15.5) % Plt Count (150-450) k/uL Lymphocytes # (1.0-4.8) k/uL Sodium 135 L (137-145) mmol/L Potassium 2.8 L (3.5-5.1) mmol/L Carbon Dioxide 21 L (22-30) mmol/L BUN 85 H (9-20) mg/dL Creatinine 2.25 H (0.66-1.25) mg/dL POC Glucose (mg/dL) 117 H 285 H (75-99) mg/dL Calcium 6.8 L (8.4-10.2) mg/dL Total Protein 4.9 L (6.3-8.2) g/dL Albumin 2.0 L (3.5-5.0) g/dL 07/18/20 07/18/20 Range/Units 15:05 16:42 RBC (4.30-5.90) m/uL Hgb (13.0-17.5) gm/dL Hct (39.0-53.0) % RDW (11.5-15.5) % Plt Count (150-450) k/uL Lymphocytes # (1.0-4.8) k/uL Sodium (137-145) mmol/L Potassium 3.0 L (3.5-5.1) mmol/L Carbon Dioxide (22-30) mmol/L BUN (9-20) mg/dL Creatinine (0.66-1.25) mg/dL POC Glucose (mg/dL) 173 H (75-99) mg/dL Calcium (8.4-10.2) mg/dL Total Protein (6.3-8.2) g/dL Albumin (3.5-5.0) g/dL Microbiology - Last 24 Hours (Table) 07/12/20 03:29 Blood Culture - Final Blood No Growth after 144 hours Assessment and Plan Plan: -Altered mental status decreased responsiveness secondary to hypoglycemia which resolved, may be a component of toxic encephalopathy from methadone which was discontinued. Patient has poor renal function patient probably has significantly decreased clearance of methadone. -Anemia of chronic disease: Patient received a unit of PRBCs yesterday for a hemoglobin of 6.4 and today's hemoglobin is 8.1 with no active bleeding noted. Most likely a component of chronic kidney disease -Acute renal failure on chronic kidney disease stage III: Acute renal failure most probably multifactorial including obstructive uropathy , urinary bladder ultrasound did not show any hydronephrosis. Can be related to interstitial nep hritis from antibiotics. The possibility of acute tubular necrosis from hypotension hold off antihypertensive medications . Patient is volume overloaded and was receiving IV Lasix and recently switched to Demadex. Nephrology following. Echocardiac exam was obtained which showed normal ejection fraction no evidence of diastolic dysfunction at this time. -Hyperkalemia secondary to acute renal failure. Resolved -Hypokalemia presently: Potassium is 2.5 and being replaced today will repeat this afternoon and monitor closely. continue to replace per protocol -Metabolic acidosis both the anion gap and non-and gap metabolic acidosis secondary to renal dysfunction patient is on bicarbonate supplementation -Hyperphosphatasemia secondary to acute renal failure on chronic kidney disease. 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 -DVT prophylaxis with subcutaneous heparin Plan: Continue with current medications. Patient will need IV antibiotic therapy and case management working with the [facility] making arrangements for this. Home care is arranged through the [facility] and is scheduled to come out on Monday. Potassium was found to be extremely low at 2.5 and being replaced. Will repeat and continue to replace per protocol. Patient's hemoglobin has improved and is 8.1 today status post PRBC. No active bleeding noted. Nephrology also following and patient is maintained on Demadex along with sodium bicarb. Surgery following as well status post debridement of the decubitus ulcer and patient will not be having a wound VAC. Will repeat labs. Possible discharge on Monday
[2020-07-18] MEDS: DEXTROSE 10% IN WATER 500 ML in EMPTY BAG 1 BAG IV SCH (18:07)
[2020-07-18 20:32] LABS: Glucose,Whole Blood 131 mg/dL (75-99)
[2020-07-19] LABS: Glucose,Whole Blood 202 mg/dL (75-99)
[2020-07-19] MEDS: POTASSIUM CHLORIDE ER 20 MEQ TAB.ER PO SCH ×6 (00:02→08:42)
[2020-07-19] MEDS: INSULIN ASPART (NovoLOG) 100 UNIT/ML VIAL SQ SCH ×7 (00:02→23:44)
[2020-07-19] MEDS: PIPERACILLIN-TAZOBACTAM 3.375 GM in SODIUM CHLORIDE 0.9% 100 ML IVPB SCH ×4 (00:02→23:45)
[2020-07-19] MEDS ORDERED: Potassium Replacement Protocol 1 EACH MISC MISCELLANE PRN ×2 (03:07→07:13)
[2020-07-19 04:14] LABS: Glucose,Whole Blood 123 mg/dL (75-99)
[2020-07-19] MEDS: DEXTROSE 10% IN WATER 500 ML in EMPTY BAG 1 BAG IV SCH ×2 (04:38→23:44)
[2020-07-19 08:06] LABS: Glucose,Whole Blood 125 mg/dL (75-99)
[2020-07-19] MEDS: HEPARIN SODIUM,PORCINE 5,000 UNIT/ML 1 ML VIAL SQ SCH ×2 (08:41→20:05)
[2020-07-19] MEDS: METOPROLOL TARTRATE 12.5 MG TAB PO SCH ×2 (08:42→20:05)
[2020-07-19] MEDS: POTASSIUM CHLORIDE 20 MEQ in WATER FOR INJECTION 1 100ML.BAG IVPB SCH ×3 (08:42→14:36)
[2020-07-19] MEDS: CALCIUM ACETATE 667 MG TAB PO SCH ×3 (08:42→16:51)
[2020-07-19] MEDS: SODIUM BICARBONATE TAB 650 MG TAB PO SCH ×4 (08:42→20:05)
[2020-07-19] MEDS: TORSEMIDE 20 MG TAB PO SCH (08:42)
[2020-07-19] MEDS: FERROUS SULFATE 325 MG TAB PO SCH ×2 (08:42→20:05)
[2020-07-19] MEDS: TAMSULOSIN 0.4 MG CAP.ER.24H PO SCH (08:42)
[2020-07-19] MEDS: traMADol 50 MG TAB PO PRN ×2 (08:42→16:51)
[2020-07-19] MEDS: COLLAGENASE 250 UNIT/GM OINTMENT 30 GM TUBE TOPICAL SCH (08:43)
--- NOTE | 2020-07-19 10:38 | P.PN ---
Subjective Progress Note Date: 07/19/20 Principal diagnosis: Left buttocks ulcer Patient without new complaints. Potassium unfortunate still low today is 2.9. Patient having good diuresis however. Objective - Vital Signs Vital signs: Vital Signs Temp 97.9 F 07/19/20 07:23 Pulse 80 07/19/20 08:00 Resp 18 07/19/20 08:00 BP 120/70 07/19/20 07:23 Pulse Ox 98 07/19/20 08:25 Intake & Output 07/18/20 07/19/20 07/19/20 18:59 06:59 18:59 Intake Total 670 Output Total 2200 3400 200 Balance -1530 -3400 -200 Intake: IV 100 Piperacillin-Tazobactam 3 100 .375 gm In Sodium Chloride 0.9% 100 ml @ 25 mls/hr IVPB Q8HR [facility] Rx# :[id number] Intake, IV Titration 120 Amount Sodium Chloride 0.9% 250 120 ml @ 0 mls/hr IV .[facility] Rx#:[id number] Oral 450 Output: Urine 1500 2200 Stool 700 1200 200 Other: Voiding Method Indwelling Catheter Indwelling Catheter Indwelling Catheter - Exam Left decubitus dressings in place with mild serosanguineous drainage - Labs CBC & Chem 7: 07/18/20 07:41 07/19/20 06:18 Labs: Abnormal Lab Results - Last 24 Hours (Table) 07/18/20 07/18/20 07/18/20 Range/Units 12:38 15:05 16:42 Potassium 3.0 L (3.5-5.1) mmol/L POC Glucose (mg/dL) 285 H 173 H (75-99) mg/dL 07/18/20 07/18/20 07/18/20 Range/Units 20:31 21:50 23:59 Potassium 3.3 L (3.5-5.1) mmol/L POC Glucose (mg/dL) 131 H 202 H (75-99) mg/dL 07/19/20 07/19/20 07/19/20 Range/Units 02:29 04:13 06:18 Potassium 2.8 L 2.9 L (3.5-5.1) mmol/L POC Glucose (mg/dL) 123 H (75-99) mg/dL 07/19/20 Range/Units 08:03 Potassium (3.5-5.1) mmol/L POC Glucose (mg/dL) 125 H (75-99) mg/dL Assessment and Plan (1) Decubitus ulcer of left buttock, stage 4 Narrative/Plan: Continue offloading. Continue correction of electrolyte imbalance. Continue local wound care. Current Visit: No Status: Acute Code(s): L89.324 - PRESSURE ULCER OF LEFT BUTTOCK, STAGE 4 SNOMED Code(s): 928914914
[2020-07-19] MEDS ORDERED: FUROSEMIDE 10 MG/ML 4 ML VIAL IV STA (11:26)
--- NOTE | 2020-07-19 11:31 | P.PN ---
Subjective 70-year-old male was sent in because of low hemoglobin. Patient hemoglobin at the group home was around 6 apparently. Although repeat hemoglobin here twice is around 8. Patient hemoglobin during his last hospital admission and discharge was 9. Patient has a big decubitus ulcer stage IV for which patient is receiving IV antibiotics which had been continued here. Patient is found to have acute renal failure his creatinine during his last hospitalization and discharge was 1.5 presently 3.35. Patient was on Lasix for further hypervolemic state. Patient still has bilateral pedal edema. Patient does have a Bacon catheter nephrology valid the patient they believe Bacon catheter obstruction is a reason why patient has prerenal failure. Recommending flushing the Bacon catheter. Patient was treated for hyperkalemia during her last hospital admission although echocardiac evidence is not available. Patient still has some bilateral pedal edema. Patient was on diuretics since last hospitalization and patient is probably hypotensive from diuretics amlodipine and hydralazine light to possible acute tubular necrosis concern of ALLERGIC interstitial nephritis as well. Urinalysis will be obtained patient renal failure appears to be multifactorial. Do not sound is being obtained nephrology evaluated the patient. 07/12/2020 Patient was transferred to ICU yesterday. Patient had an episode of decreased responsiveness pinpoint pupils which was believed to be secondary to opiates and methadone, as a nursing staff to discontinue methadone unfortunately that was not done patient received 10 mg methadone today. Patient had stroke workup with a CT as stroke call pager was activated. CT did not show any significant abnormality during this event that his blood sugars are within normal limits later after transfer to ICU was found that patient blood sugars are extremely low in 20s after giving D50 50 patient's symptoms completely resolved. Patient is also a poor tensive. All the blood pressure recovered even without receiving any normal saline. Patient is presently in D5 0.9. Urine output is 30-40 mL per hour. Patient creatinine remained stable. Levemir was discontinued patient is presently only on sliding scale insulin patient did not require any pressor support last night. Patient doesn't have any evidence of further GI bleed at this time hemoglobin today 7. patient feels much better today 07/13/2020 Patient is receiving Lasix today because she has significant anasarca. Patient blood sugars are still low earlier today because of which D5 was switched to D10 at 20 mL per hour to decrease third spacing of fluids. Patient is more awake feels much better today patient pain is fairly well controlled with tramadol. 07/14/2020 Patient is seen and evaluated this morning and follow-up continues on Lasix with multiple medical consultations following. Surgery scheduled for debridement of decubitus ulcer today. Patient was lethargic on exam although arousable. Sodium slightly improved at 131 with a potassium of 5.0, current creatinine is 2.8 just trending down and nephrology following. She is maintained on dextrose with water and will also be receiving a dose of albumin today. Patient to continue with Demadex and patient is also maintained on sodium bicarb. Patient continues with IV Zosyn and infectious disease is following. 07/15/2020 Patient is seen this morning more awake and alert and currently eating a majority of his breakfast. Patient denies any nausea or vomiting. Patient is status post debridement of the decubitus ulcer with surgery yesterday. Patient states his pain is much improved. Nephrology following and creatinine is 2.89. Patient is maintained on Demadex along with sodium bicarb tablets. Patient does have a PICC line and is maintained on IV antibiotics and infectious disease is following. Discussed with the patient about discharge planning as he was recen [facility] at [facility] on the [place] although patient is refusing for rehab and states he will be going home on discharge. Patient also receiving calcium gluconate as his calcium was found to be 6.3 and current albumin is 2.0. Magnesium is 2.2 and current sodium is 132. Patient denies any chest pain or shortness of breath. Patient is afebrile. 07/16/2020 Patient is seen and evaluated this morning hemoglobin was found to be 6.4 and currently awaiting for a unit of blood. Sodium is 134 and potassium also low at 2.9 and being replaced. Creatinine slightly improved at 2.7. Nephrology is following. Patient recently underwent repeat debridement of the decubitus ulcer and will be requiring continued IV antibiotic therapy in the outpatient setting. No wound VAC at this time. Case management following and making arrangements for discharge planning [facility] and patient are refusing re[facility] at this time. 07/17/2020 Patient is seen and evaluated in follow-up this morning with no acute overnight issues. Patient is lethargic although easily arousable. Patient appears to be baseline. Patient did have a unit of PRBCs yesterday and hemoglobin today is 8.1 with no active bleeding noted. Patient is status post debridement of the decubitus ulcer and is maintained on IV antibiotic therapy. Patient does have a PICC line and will be continuing with outpatient IV antibiotics. Case management has made arrangements for home care [place] and they are scheduled to visit him on Monday. Patient is potassium this morning critically low at 2.5 and currently being replaced. We'll recheck this afternoon and closely monitor and continue to replace per protocol. 07/18/2020 exam patient potassium remains low in spite of aggressive supplementation patient this is secondary to Lasix he received patient the will get another dose of Lasix today patient present potassium is 3.1 we'll aggressively replace it with a 60-80 mEq more of potassium. 07/19/2020 Patient is still having scrotal edema patient will be given another dose of Lasix. Potassium is still low at 2.9 patient will receive total of 100 mEq of potassium. It still expected to be low tomorrow. Constitutional: Denied any fatigue denied any fever. Cardio vascular: denied any chest pain, palpitations Gastrointestinal denied any nausea vomiting Pulmonary: Denied any shortness of breath cough Neurologic denied any new focal deficits All inpatient medications were reviewed and appropriate changes in these medications as dictated in the interval history and assessment and plan. Objective - Vital Signs Vital signs: Vital Signs Temp 97.9 F 07/19/20 07:23 Pulse 80 07/19/20 08:00 Resp 18 07/19/20 08:00 BP 120/70 07/19/20 07:23 Pulse Ox 98 07/19/20 08:25 Intake & Output 07/18/20 07/19/20 07/19/20 18:59 06:59 18:59 Intake Total 670 Output Total 2200 3400 200 Balance -1530 -3400 -200 Intake: IV 100 Piperacillin-Tazobactam 3 100 .375 gm In Sodium Chloride 0.9% 100 ml @ 25 mls/hr IVPB Q8HR [facility] Rx# :[id number] Intake, IV Titration 120 Amount Sodium Chloride 0.9% 250 120 ml @ 0 mls/hr IV [facility] Rx#:[id number] Oral 450 Output: Urine 1500 2200 Stool 700 1200 200 Other: Voiding Method Indwelling Catheter Indwelling Catheter Indwelling Catheter - Exam PHYSICAL EXAMINATION: GENERAL: The patient is alert and oriented x3, not in any acute distress. Well developed, well nourished. Patient has significant anasarca scrotal swelling and extremity edema, slightly improved HEENT: Pupils are round and equally reacting to light. EOMI. No scleral icterus. No conjunctival pallor. Normocephalic, atraumatic. No pharyngeal erythema. No thyromegaly. CARDIOVASCULAR: S1 and S2 present. No murmurs, rubs, or gallops. PULMONARY: Chest is clear to auscultation, no wheezing or crackles. ABDOMEN: Soft, nontender, nondistended, normoactive bowel sounds. No palpable organomegaly. MUSCULOSKELETAL: No joint swelling or deformity. EXTREMITIES: No cyanosis, clubbing, or edema and anasarca improved except for scrotal edema. NEUROLOGICAL: Gross neurological examination did not reveal any focal deficits. SKIN: Stage IV sacral decubitus ulcer status post repeat debridement - Labs CBC & Chem 7: 07/18/20 07:41 07/19/20 06:18 Labs: Abnormal Lab Results - Last 24 Hours (Table) 07/18/20 07/18/20 07/18/20 Range/Units 12:38 15:05 16:42 Potassium 3.0 L (3.5-5.1) mmol/L POC Glucose (mg/dL) 285 H 173 H (75-99) mg/dL 07/18/20 07/18/20 07/18/20 Range/Units 20:31 21:50 23:59 Potassium 3.3 L (3.5-5.1) mmol/L POC Glucose (mg/dL) 131 H 202 H (75-99) mg/dL 07/19/20 07/19/20 07/19/20 Range/Units 02:29 04:13 06:18 Potassium 2.8 L 2.9 L (3.5-5.1) mmol/L POC Glucose (mg/dL) 123 H (75-99) mg/dL 07/19/20 Range/Units 08:03 Potassium (3.5-5.1) mmol/L POC Glucose (mg/dL) 125 H (75-99) mg/dL Assessment and Plan Plan: -Altered mental status decreased responsiveness secondary to hypoglycemia which resolved, may be a component of toxic encephalopathy from methadone which was discontinued. Patient has poor renal function patient probably has significantly decreased clearance of methadone. -Anemia of chronic disease: Patient received a unit of PRBCs yesterday for a hemoglobin of 6.4 and today's hemoglobin is 8.1 with no active bleeding noted. Most likely a component of chronic kidney disease -Acute renal failure on chronic kidney disease stage III: Acute renal failure most probably multifactorial including obstructive uropathy , urinary bladder ultrasound did not show any hydronephrosis. Can be related to interstitial nephritis from antibiotics. The possibility of acute tubular necrosis from hypotension hold off antihypertensive medications . Patient is volume overloaded and was receiving IV Lasix and recently switched to Demadex. Nephrology following. Echocardiac exam was obtained which showed normal eject ion fraction no evidence of diastolic dysfunction at this time. -Hyperkalemia secondary to acute renal failure. Resolved -Hypokalemia presently: Potassium is 2.5 and being replaced today will repeat this afternoon and monitor closely. continue to replace per protocol -Metabolic acidosis both the anion gap and non-and gap metabolic acidosis secondary to renal dysfunction patient is on bicarbonate supplementation -Hyperphosphatasemia secondary to acute renal failure on chronic kidney disease. 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 -DVT prophylaxis with subcutaneous heparin Plan: Continue with current medications. Patient will need IV antibiotic therapy and case management working with the [place] making arrangements for this. Home care is arranged through the [place] and is scheduled to come out on Monday. Potassium was found to be extremely low at 2.5 and being replaced. Will repeat and continue to replace per protocol. Patient's hemoglobin has improved and is 8.1 today status post PRBC. No active bleeding noted. Nephrology also following and patient is maintained on Demadex along with sodium bicarb. Surgery following as well status post debridement of the decubitus ulcer and patient will not be having a wound VAC. Will repeat labs. Possible discharge on Monday
[2020-07-19 12:04] LABS: Glucose,Whole Blood 147 mg/dL (75-99)
[2020-07-19] MEDS ORDERED: POTASSIUM CHLORIDE ER 20 MEQ TAB.ER PO ONE (15:00)
--- NOTE | 2020-07-19 15:27 | PN ---
PROGRESS NOTE Patient is seen for followup for acute kidney injury. He remains hypokalemic and he has been getting potassium replacements. Serum creatinine had improved as of yesterday with creatinine down to 2.2 mg/dL from peak of 3.38. No significant complaints today. PHYSICAL EXAMINATION: On examination today blood pressure was 120/70, heart rate 80 per minute, he is afebrile. Examination of the heart S1, S2. Examination of the lungs, bilateral breath sounds are heard. Abdomen is soft, morbidly obese. Examination of lower extremities shows chronic skin changes, chronic edema. LAB: Show sodium 135, potassium 2.8 from yesterday, BUN 85, creatinine 2.25. Potassium today was up to 2.9. ASSESSMENT: 1. Acute kidney injury, acute tubular necrosis, from hypotension and anemia, stable and somewhat improved. 2. Chronic kidney disease stage 3A secondary to diabetic kidney disease, baseline creatinine 1.5. 3. Acute on chronic diastolic congestive heart failure. 4. Hypervolemic hyponatremia maintained on Demadex. 5. Sacral decubitus ulcer status post I and D. 6. Bilateral multiple feet ulcers. PLAN: Replace potassium aggressively. Check magnesium levels if not checked recently. MMODL / IJN: [id number] /
[2020-07-19 16:17] LABS: Glucose,Whole Blood 202 mg/dL (75-99)
[2020-07-19 17:54] LABS: Magnesium 1.8 mg/dL (1.6-2.3); Potassium 3.5 mmol/L (3.5-5.1)
[2020-07-19 20:02] LABS: Glucose,Whole Blood 276 mg/dL (75-99)
--- NOTE | 2020-07-19 23:35 | PN ---
PROGRESS NOTE DATE OF SERVICE: 07/19/2020 REASON FOR FOLLOWUP: Left gluteal pressure ulcer infected with osteomyelitis. INTERVAL HISTORY: Patient is currently afebrile. The patient is breathing comfortably. Denies having any chest pain. No shortness of breath or cough. No nausea, vomiting, abdominal pain or diarrhea. PHYSICAL EXAMINATION: Blood pressure 142/73 with a pulse of 85, temperature 97.5, he is 99% on room air. General description is an elderly male lying in bed in no distress. Respiratory system: Unlabored breathing, clear to auscultation anteriorly. Heart S1, S2. Regular rate and rhythm. Abdomen soft, no tenderness. LABS: Potassium is 3.5. DIAGNOSTIC IMPRESSION AND PLAN: Patient with left gluteal pressure ulcer with multiple pathogens on recent debridement and underlying osteomyelitis responded to Zosyn to continue for a total of 6 weeks and close outpatient followup. Local wound care with Santyl. Hopefully transition to wound VAC in outpatient setting. MMODL / IJN: [id number] /
[2020-07-19 23:44] LABS: Glucose,Whole Blood 115 mg/dL (75-99)
[2020-07-20 04:25] LABS: Glucose,Whole Blood 223 mg/dL (75-99)
[2020-07-20] MEDS: INSULIN ASPART (NovoLOG) 100 UNIT/ML VIAL SQ SCH ×5 (04:29→20:29)
[2020-07-20 08:06] LABS: Glucose,Whole Blood 120 mg/dL (75-99)
[2020-07-20] MEDS: PIPERACILLIN-TAZOBACTAM 3.375 GM in SODIUM CHLORIDE 0.9% 100 ML IVPB SCH ×3 (09:27→23:01)
[2020-07-20] MEDS: traMADol 50 MG TAB PO PRN ×2 (09:27→17:18)
[2020-07-20] MEDS: TAMSULOSIN 0.4 MG CAP.ER.24H PO SCH (09:28)
[2020-07-20] MEDS: POTASSIUM CHLORIDE ER 20 MEQ TAB.ER PO SCH ×2 (09:28→12:43)
[2020-07-20] MEDS: CALCIUM ACETATE 667 MG TAB PO SCH ×3 (09:28→17:18)
[2020-07-20] MEDS: METOPROLOL TARTRATE 12.5 MG TAB PO SCH ×2 (09:28→20:29)
[2020-07-20] MEDS: FERROUS SULFATE 325 MG TAB PO SCH ×2 (09:28→20:29)
[2020-07-20] MEDS: SODIUM BICARBONATE TAB 650 MG TAB PO SCH ×4 (09:28→20:29)
[2020-07-20] MEDS: TORSEMIDE 20 MG TAB PO SCH (09:28)
[2020-07-20] MEDS: HEPARIN SODIUM,PORCINE 5,000 UNIT/ML 1 ML VIAL SQ SCH ×2 (09:29→20:29)
[2020-07-20 09:52] LABS: African American GFR (CKD) 36.1 (60.0-200.0); Anion Gap 12.5 mmol/L (4.00-12.00); BUN/Creat Ratio 36.67 Ratio (12.00-20.00); Calcium 7.4 mg/dL (8.7-10.3); Carbon Dioxide 23.5 mmol/L (21.6-31.8); Non-African American GFR(CKD) 31.2 (60.0-200.0); Potassium 2.9 mmol/L (3.5-5.5)
[2020-07-20] MEDS ORDERED: POTASSIUM CHLORIDE ER 20 MEQ TAB.ER PO STA (10:39)
--- NOTE | 2020-07-20 10:50 | P.PN ---
<Agnes Rodriguez - Last Filed: 07/20/20 10:47> Subjective Progress Note Date: 07/20/20 CHIEF COMPLAINT: Left buttocks decubitus ulcer HISTORY OF PRESENT ILLNESS: Patient is status post debridement of left buttocks decubitus ulcer on 07/14/20. Patient is resting in bed comfortably. He has no new complaints. He denies any nausea or vomiting. He is tolerating diet. He is having stool through his ostomy. He is afebrile. Potassium 2.9 creatinine 2.1 PHYSICAL EXAM: VITAL SIGNS: Reviewed. GENERAL: Well-developed in no acute distress. HEENT: No sclera icterus. Extraocular movements grossly intact. Moist buccal mucosa. Head is atraumatic, normocephalic. ABDOMEN: Soft. Nondistended. Nontender. NEUROLOGIC: Alert and oriented. Cranial nerves II through XII grossly intact. ASSESSMENT: 1. Left buttocks decubitus ulcer, stage IV status post debridement PLAN: -Continue supportive care -Continue local wound care -Continue offloading -Continue antibiotics per ID -Potassium being replaced by medicine service Physician Electron Microscopist note has been reviewed by physician. Signing provider agrees with the documented findings, assessment, and plan of care. Objective - Vital Signs Vital signs: Vital Signs Temp 97.6 F 07/20/20 07:18 Pulse 86 07/20/20 07:50 Resp 18 07/20/20 07:50 BP 161/71 07/20/20 07:18 Pulse Ox 100 07/20/20 07:18 Intake & Output 07/19/20 07/20/20 07/20/20 18:59 06:59 18:59 Intake Total 750 350 Output Total 3800 2100 400 Balance -3050 -1750 -400 Intake: Intake, IV Titration 400 Amount Piperacillin-Tazobactam 3 100 .375 gm In Sodium Chloride 0.9% 100 ml @ 25 mls/hr IVPB Q8HR [facility] Rx# :[id number] Potassium Chloride 20 meq 300 In Water For Injection 1 100ml.bag @ 50 mls/hr IVPB Q2H [facility] Rx#: [id number] Oral 350 350 Output: Urine 1800 1700 Stool 2000 400 400 Other: Voiding Method Indwelling Catheter Indwelling Catheter - Labs CBC & Chem 7: 07/18/20 07:41 07/20/20 05:14 Labs: Abnormal Lab Results - Last 24 Hours (Table) 07/19/20 07/19/20 07/19/20 Range/Units 12:01 16:09 19:57 Potassium (3.5-5.5) mmol/L Anion Gap (4.00-12.00) mmol/L BUN (9.0-27.0) mg/dL Creatinine (0.6-1.5) mg/dL Est GFR (CKD-EPI)AfAm (60.0-200.0) Est GFR (CKD-EPI)NonAf (60.0-200.0) BUN/Creatinine Ratio (12.00-20.00) Ratio Glucose (70-110) mg/dL POC Glucose (mg/dL) 147 H 202 H 276 H (75-99) mg/dL Calcium (8.7-10.3) mg/dL 07/19/20 07/20/20 07/20/20 Range/Units 23:42 04:23 05:14 Potassium 2.9 L (3.5-5.5) mmol/L Anion Gap 12.50 H (4.00-12.00) mmol/L BUN 77.0 H (9.0-27.0) mg/dL Creatinine 2.1 H (0.6-1.5) mg/dL Est GFR (CKD-EPI)AfAm 36.1 L (60.0-200.0) Est GFR (CKD-EPI)NonAf 31.2 L (60.0-200.0) BUN/Creatinine Ratio 36.67 H (12.00-20.00) Ratio Glucose 156 H (70-110) mg/dL POC Glucose (mg/dL) 115 H 223 H (75-99) mg/dL Calcium 7.4 L (8.7-10.3) mg/dL 07/20/20 Range/Units 08:05 Potassium (3.5-5.5) mmol/L Anion Gap (4.00-12.00) mmol/L BUN (9.0-27.0) mg/dL Creatinine (0.6-1.5) mg/dL Est GFR (CKD-EPI)AfAm (60.0-200.0) Est GFR (CKD-EPI)NonAf (60.0-200.0) BUN/Creatinine Ratio (12.00-20.00) Ratio Glucose (70-110) mg/dL POC Glucose (mg/dL) 120 H (75-99) mg/dL Calcium (8.7-10.3) mg/dL <Moris Obrien - Last Filed: 07/20/20 14:39> Subjective As above. Patient feels well. Tolerating diet. No fevers. Labs noted. Continue electrolyte correction. Continue local wound care. Objective - Vital Signs Vital signs: Vital Signs Temp 97.6 F 07/20/20 07:18 Pulse 86 07/20/20 07:50 Resp 18 07/20/20 07:50 BP 161/71 07/20/20 07:18 Pulse Ox 100 07/20/20 07:18 Intake & Output 07/19/20 07/20/20 07/20/20 18:59 06:59 18:59 Intake Total 750 350 Output Total 3800 2100 400 Balance -3050 -1750 -400 Intake: Intake, IV Titration 400 Amount Piperacillin-Tazobactam 3 100 .375 gm In Sodium Chloride 0.9% 100 ml @ 25 mls/hr IVPB Q8HR [facility] Rx# :[id number] Potassium Chloride 20 meq 300 In Water For Injection 1 100ml.bag @ 50 mls/hr IVPB Q2H [facility] Rx#: [id number] Oral 350 350 Output: Urine 1800 1700 Stool 2000 400 400 Other: Voiding Method Indwelling Catheter Indwelling Catheter - Labs CBC & Chem 7: 07/18/20 07:41 07/20/20 14:02 Labs: Abnormal Lab Results - Last 24 Hours (Table) 07/19/20 07/19/20 07/19/20 Range/Units 16:09 19:57 23:42 Potassium (3.5-5.5) mmol/L Anion Gap (4.00-12.00) mmol/L BUN (9.0-27.0) mg/dL Creatinine (0.6-1.5) mg/dL Est GFR (CKD-EPI)AfAm (60.0-200.0) Est GFR (CKD-EPI)NonAf (60.0-200.0) BUN/Creatinine Ratio (12.00-20.00) Ratio Glucose (70-110) mg/dL POC Glucose (mg/dL) 202 H 276 H 115 H (75-99) mg/dL Calcium (8.7-10.3) mg/dL 07/20/20 07/20/20 07/20/20 Range/Units 04:23 05:14 08:05 Potassium 2.9 L (3.5-5.5) mmol/L Anion Gap 12.50 H (4.00-12.00) mmol/L BUN 77.0 H (9.0-27.0) mg/dL Creatinine 2.1 H (0.6-1.5) mg/dL Est GFR (CKD-EPI)AfAm 36.1 L (60.0-200.0) Est GFR (CKD-EPI)NonAf 31.2 L (60.0-200.0) BUN/Creatinine Ratio 36.67 H (12.00-20.00) Ratio Glucose 156 H (70-110) mg/dL POC Glucose (mg/dL) 223 H 120 H (75-99) mg/dL Calcium 7.4 L (8.7-10.3) mg/dL 07/20/20 07/20/20 Range/Units 12:03 14:02 Potassium 3.0 L (3.5-5.5) mmol/L Anion Gap (4.00-12.00) mmol/L BUN (9.0-27.0) mg/dL Creatinine (0.6-1.5) mg/dL Est GFR (CKD-EPI)AfAm (60.0-200.0) Est GFR (CKD-EPI)NonAf (60.0-200.0) BUN/Creatinine Ratio (12.00-20.00) Ratio Glucose (70-110) mg/dL POC Glucose (mg/dL) 227 H (75-99) mg/dL Calcium (8.7-10.3) mg/dL Assessment and Plan (1) Decubitus ulcer of left buttock, stage 4 Current Visit: No Status: Acute Code(s): L89.324 - PRESSURE ULCER OF LEFT BUTTOCK, STAGE 4 SNOMED Code(s): 726750460
[2020-07-20] MEDS: COLLAGENASE 250 UNIT/GM OINTMENT 30 GM TUBE TOPICAL SCH (11:12)
[2020-07-20 12:06] LABS: Glucose,Whole Blood 227 mg/dL (75-99)
[2020-07-20] MEDS: ACETAMINOPHEN TAB 325 MG TAB PO PRN (12:45)
--- NOTE | 2020-07-20 15:10 | P.PN ---
Subjective Progress Note Date: 07/20/20 70-year-old male was sent in because of low hemoglobin. Patient hemoglobin at the senior care was around 6 apparently. Although repeat hemoglobin here twice is around 8. Patient hemoglobin during his last hospital admission and discharge was 9. Patient has a big decubitus ulcer stage IV for which patient is receiving IV antibiotics which had been continued here. Patient is found to have acute renal failure his creatinine during his last hospitalization and discharge was 1.5 presently 3.35. Patient was on Lasix for further hypervolemic state. Patient still has bilateral pedal edema. Patient does have a Bacon catheter nephrology valid the patient they believe Bacon catheter obstruction is a reason why patient has prerenal failure. Recommending flushing the Bacon catheter. Patient was treated for hyperkalemia during her last hospital admission although echocardiac evidence is not available. Patient still has some bilateral pedal edema. Patient was on diuretics since last hospitalization and patient is probably hypotensive from diuretics amlodipine and hydralazine light to possible acute tubular necrosis concern of ALLERGIC interstitial nephritis as well. Urinalysis will be obtained patient renal failure appears to be multifactorial. Do not sound is being obtained nephrology evaluated the patient. 07/12/2020 Patient was transferred to ICU yesterday. Patient had an episode of decreased responsiveness pinpoint pupils which was believed to be secondary to opiates and methadone, as a nursing staff to discontinue methadone unfortunately that was not done patient received 10 mg methadone today. Patient had stroke workup with a CT as stroke call pager was activated. CT did not show any significant abnormality during this event that his blood sugars are within normal limits later after transfer to ICU was found that patient blood sugars are extremely low in 20s after giving D50 50 patient's symptoms completely resolved. Patient is also a poor tensive. All the blood pressure recovered even without receiving any normal saline. Patient is presently in D5 0.9. Urine output is 30-40 mL per hour. Patient creatinine remained stable. Levemir was discontinued patient is presently only on sliding scale insulin patient did not require any pressor support last night. Patient doesn't have any evidence of further GI bleed at this time hemoglobin today 7. patient feels much better today 07/13/2020 Patient is receiving Lasix today because she has significant anasarca. Patient blood sugars are still low earlier today because of which D5 was switched to D10 at 20 mL per hour to decrease third spacing of fluids. Patient is more awake feels much better today patient pain is fairly well controlled with tramadol. 07/14/2020 Patient is seen and evaluated this morning and follow-up continues on Lasix with multiple medical consultations following. Surgery scheduled for debridement of decubitus ulcer today. Patient was lethargic on exam although arousable. Sodium slightly improved at 131 with a potassium of 5.0, current creatinine is 2.8 just trending down and nephrology following. She is maintained on dextrose with water and will also be receiving a dose of albumin today. Patient to continue with Demadex and patient is also maintained on sodium bicarb. Patient continues with IV Zosyn and infectious disease is following. 07/15/2020 Patient is seen this morning more awake and alert and currently eating a majority of his breakfast. Patient denies any nausea or vomiting. Patient is status post debridement of the decubitus ulcer with surgery yesterday. Patient states his pain is much improved. Nephrology following and creatinine is 2.89. Patient is maintained on Demadex along with sodium bicarb tablets. Patient does have a PICC line and is maintained on IV antibiotics and infectious disease is following. Discussed with the patient about discharge planning as he was recently at [facility] on the [address] although patient is refusing for rehab and states he will be going home on discharge. Patient also receiving calcium gluconate as his calcium was found to be 6.3 and current albumin is 2.0. Magnesium is 2.2 and current sodium is 132. Patient denies any chest pain or shortness of breath. Patient is afebrile. 07/16/2020 Patient is seen and evaluated this morning hemoglobin was found to be 6.4 and currently awaiting for a unit of blood. Sodium is 134 and potassium also low at 2.9 and being replaced. Creatinine slightly improved at 2.7. Nephrology is following. Patient recently underwent repeat debridement of the decubitus ulcer and will be requiring continued IV antibiotic therapy in the outpatient setting. No wound VAC at this time. Case management following and making arrangements for discharge planning [facility] and patient are refusing re[facility] at this time. 07/17/2020 Patient is seen and evaluated in follow-up this morning with no acute overnight issues. Patient is lethargic although easily arousable. Patient appears to be baseline. Patient did have a unit of PRBCs yesterday and hemoglobin today is 8.1 with no active bleeding noted. Patient is status post debridement of the decubitus ulcer and is maintained on IV antibiotic therapy. Patient does have a PICC line and will be continuing with outpatient IV antibiotics. Case management has made arrangements for home care through the [facility] and they are scheduled to visit him on Monday. Patient is potassium this morning critically low at 2.5 and currently being replaced. We'll recheck this afternoon and closely monitor and continue to replace per protocol. 07/18/2020 exam patient potassium remains low in spite of aggressive supplementation patient this is secondary to Lasix he received patient the will get another dose of Lasix today patient present potassium is 3.1 we'll aggressively replace it with a 60-80 mEq more of potassium. 07/19/2020 Patient is still having scrotal edema patient will be given another dose of Lasix. Potassium is still low at 2.9 patient will receive total of 100 mEq of potassium. It still expected to be low tomorrow. 07/20/2020 Patient is seen and evaluated this morning with no acute overnight issues. Patient continues to have localized swelling of the scrotum along with lower extremities with some improvement. Patient is maintained on torsemide and will continue. Patient's potassium was again 2.9 And given 100 MEQ of potassium today as repeat potassium continues to only show 3.0. Patient was on 20 daily supplement and will increase that as well to 40. Working on arranging wound care and IV antibiotic therapy in the outpatient setting through the [facility] and patient will be discharged tomorrow. We'll provide prescriptions for repeat labs to monitor kidney functions as well as potassium in the outpatient setting. Constitutional: Denied any fatigue denied any fever. Cardio vascular: denied any chest pain, palpitations Gastrointestinal denied any nausea vomiting Pulmonary: Denied any shortness of breath cough Neurologic denied any new focal deficits All inpatient medications were reviewed and appropriate changes in these medications as dictated in the interval history and assessment and plan. Objective - Vital Signs Vital signs: Vital Signs Temp 97.6 F 07/20/20 07:18 Pulse 86 07/20/20 07:50 Resp 18 07/20/20 07:50 BP 161/71 07/20/20 07:18 Pulse Ox 100 07/20/20 07:18 Intake & Output 0307/20/20 07/20/20 18:59 06:59 18:59 Intake Total 750 350 Output Total 3800 2100 400 Balance -3050 -1750 -400 Intake: Intake, IV Titration 400 Amount Piperacillin-Tazobactam 3 100 .375 gm In Sodium Chloride 0.9% 100 ml @ 25 mls/hr IVPB Q8HR [facility] Rx# :[id number] Potassium Chloride 20 meq 300 In Water For Injection 1 100ml.bag @ 50 mls/hr IVPB Q2H [facility] Rx#: [id number] Oral 350 350 Output: Urine 1800 1700 Stool 2000 400 400 Other: Voiding Method Indwelling Catheter Indwelling Catheter - Exam PHYSICAL EXAMINATION: GENERAL: The patient is alert and oriented x3, not in any acute distress. Well developed, well nourished. Patient has anasarca scrotal swelling and extremity edema, slightly improved HEENT: Pupils are round and equally reacting to light. EOMI. No scleral icterus. No conjunctival pallor. Normocephalic, atraumatic. No pharyngeal erythema. No thyromegaly. CARDIOVASCULAR: S1 and S2 present. No murmurs, rubs, or gallops. PULMONARY: Chest is clear to auscultation, no wheezing or crackles. ABDOMEN: Soft, nontender, nondistended, normoactive bowel sounds. No palpable organomegaly. MUSCULOSKELETAL: No joint swelling or deformity. EXTREMITIES: No cyanosis, clubbing, does have some pedal edema and lower extremity 1-2+ pitting NEUROLOGICAL: Gross neurological examination did not reveal any focal deficits. SKIN: Stage IV sacral decubitus ulcer status post repeat debridement - Labs CBC & Chem 7: 07/18/20 07:41 07/20/20 14:02 Labs: Abnormal Lab Results - Last 24 Hours (Table) 07/19/20 07/19/20 07/19/20 Range/Units 16:09 19:57 23:42 Potassium (3.5-5.5) mmol/L Anion Gap (4.00-12.00) mmol/L BUN (9.0-27.0) mg/dL Creatinine (0.6-1.5) mg/dL Est GFR (CKD-EPI)AfAm (60.0-200.0) Est GFR (CKD-EPI)NonAf (60.0-200.0) BUN/Creatinine Ratio (12.00-20.00) Ratio Glucose (70-110) mg/dL POC Glucose (mg/dL) 202 H 276 H 115 H (75-99) mg/dL Calcium (8.7-10.3) mg/dL 07/20/20 07/20/20 07/20/20 Range/Units 04:23 05:14 08:05 Potassium 2.9 L (3.5-5.5) mmol/L Anion Gap 12.50 H (4.00-12.00) mmol/L BUN 77.0 H (9.0-27.0) mg/dL Creatinine 2.1 H (0.6-1.5) mg/dL Est GFR (CKD-EPI)AfAm 36.1 L (60.0-200.0) Est GFR (CKD-EPI)NonAf 31.2 L (60.0-200.0) BUN/Creatinine Ratio 36.67 H (12.00-20.00) Ratio Glucose 156 H (70-110) mg/dL POC Glucose (mg/dL) 223 H 120 H (75-99) mg/dL Calcium 7.4 L (8.7-10.3) mg/dL 07/20/20 07/20/20 Range/Units 12:03 14:02 Potassium 3.0 L (3.5-5.5) mmol/L Anion Gap (4.00-12.00) mmol/L BUN (9.0-27.0) mg/dL Creatinine (0.6-1.5) mg/dL Est GFR (CKD-EPI)AfAm (60.0-200.0) Est GFR (CKD-EPI)NonAf (60.0-200.0) BUN/Creatinine Ratio (12.00-20.00) Ratio Glucose (70-110) mg/dL POC Glucose (mg/dL) 227 H (75-99) mg/dL Calcium (8.7-10.3) mg/dL Assessment and Plan Assessment: -Altered mental status decreased responsiveness secondary to hypoglycemia which resolved, may be a component of toxic encephalopathy from methadone which was discontinued. Patient has poor renal function patient probably has significantly decreased clearance of methadone. -Anemia of chronic disease: Most likely a component of chronic kidney disease, stable with no active bleeding noted -Acute renal failure on chronic kidney disease stage III: Acute renal failure most probably multifactorial including obstructive uropathy , urinary bladder ultrasound did not show any hydronephrosis. Can be related to interstitial nephritis from antibiotics. The possibility of acute tubular necrosis from hypotension hold off antihypertensive medications . Patient is volume overloaded and was receiving IV Lasix and recently switched to Demadex. Nephrology following. Echocardiac exam was obtained which showed normal ejection fraction no evidence of diastolic dysfunction at this time. -Hyperkalemia secondary to acute renal failure. Resolved -Hypokalemia presently: Potassium is 2.9 and being replaced today and repeat this afternoon 3.0. Will give an additional 40 of potassium and repeat in the morning and monitor closely. continue to replace per protocol -Metabolic acidosis both the anion gap and non-and gap metabolic acidosis s econdary to renal dysfunction patient is on bicarbonate supplementation -Hyperphosphatasemia secondary to acute renal failure on chronic kidney disease. 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 -DVT prophylaxis with subcutaneous heparin Plan: Continue with current medications. Patient will need IV antibiotic therapy and case management working with the [facility] making arrangements for this. Home care is being arranged through the [facility] and is scheduled to come out to the home this week. Potassium was again found to be low at 2.9 and replaced repeat showing 3.0. Will repeat and continue to replace per protocol. Nephrology also following and patient is maintained on Demadex along with sodium bicarb. Surgery following as well status post debridement of the decubitus ulcer and patient will not be having a wound VAC. Will repeat labs. Anticipate discharge in 24 hours.
[2020-07-20 16:14] LABS: Glucose,Whole Blood 244 mg/dL (75-99)
[2020-07-20] MEDS: POTASSIUM CHLORIDE 10 MEQ in WATER FOR INJECTION 1 100ML.BAG IVPB SCH ×4 (17:19→22:13)
[2020-07-20 19:12] VITALS: RESP 16
[2020-07-20 19:51] LABS: Glucose,Whole Blood 211 mg/dL (75-99)
[2020-07-20] MEDS: DEXTROSE 10% IN WATER 500 ML in EMPTY BAG 1 BAG IV SCH (19:54)
[2020-07-21 00:19] LABS: Glucose,Whole Blood 180 mg/dL (75-99)
[2020-07-21] MEDS: INSULIN ASPART (NovoLOG) 100 UNIT/ML VIAL SQ SCH ×4 (00:19→12:28)
--- NOTE | 2020-07-21 01:26 | PN ---
PROGRESS NOTE DATE OF SERVICE: 07/20/2020 REASON FOR FOLLOWUP: Left gluteal infected pressure ulcer. INTERVAL HISTORY: Patient is currently afebrile. The patient is breathing comfortably. Denies having any chest pain, shortness of breath, cough. No abdominal pain. No diarrhea. PHYSICAL EXAMINATION: Blood pressure 124/74 with a pulse of 80, temperature 98.3. He is 99% on room air. General description is an elderly male lying in bed in no distress. Respiratory system: Unlabored breathing, clear to auscultation anteriorly. Heart S1, S2. Regular rate and rhythm. ABDOMEN: Soft, no tenderness. LABS: No new labs have been obtained today except potassium 3.0. Creatinine is 2.1. DIAGNOSTIC IMPRESSION AND PLAN: Patient left gluteal pressure ulcer infected stage IV wound with underlying osteomyelitis. Previous culture has been positive for Proteus mirabilis, Klebsiella, Enterococcus and anaerobes for which the patient is covered with Zosyn, admitted in the hospital with worsening failure. Local care to continue with Santyl moist dressing, keep the area off the pressure and continue supportive care. MMODL / IJN: [id number] /
[2020-07-21 04:44] LABS: Glucose,Whole Blood 186 mg/dL (75-99)
[2020-07-21] MEDS: PIPERACILLIN-TAZOBACTAM 3.375 GM in SODIUM CHLORIDE 0.9% 100 ML IVPB SCH ×2 (07:46→15:49)
[2020-07-21] MEDS: CALCIUM ACETATE 667 MG TAB PO SCH ×2 (07:46→12:37)
[2020-07-21] MEDS: SODIUM BICARBONATE TAB 650 MG TAB PO SCH ×2 (07:46→12:37)
[2020-07-21] MEDS: HEPARIN SODIUM,PORCINE 5,000 UNIT/ML 1 ML VIAL SQ SCH (07:46)
[2020-07-21] MEDS: POTASSIUM CHLORIDE ER 20 MEQ TAB.ER PO SCH (07:46)
[2020-07-21] MEDS: TORSEMIDE 20 MG TAB PO SCH (07:46)
[2020-07-21] MEDS: METOPROLOL TARTRATE 12.5 MG TAB PO SCH (07:46)
[2020-07-21] MEDS: FERROUS SULFATE 325 MG TAB PO SCH (07:47)
[2020-07-21] MEDS: COLLAGENASE 250 UNIT/GM OINTMENT 30 GM TUBE TOPICAL SCH (07:47)
[2020-07-21] MEDS: TAMSULOSIN 0.4 MG CAP.ER.24H PO SCH (07:47)
[2020-07-21 07:51] LABS: Glucose,Whole Blood 183 mg/dL (75-99)
[2020-07-21 09:07] LABS: African American GFR (CKD) 43 (>60 ml/min/1.73 sqM); Anion Gap 6 mmol/L; Blood Urea Nitrogen 67 mg/dL (9-20); Calcium 7.4 mg/dL (8.4-10.2); Carbon Dioxide 25 mmol/L (22-30); Chloride 103 mmol/L (98-107); Glucose 131 mg/dL (74-99); Non-African American GFR(CKD) 37 (>60 ml/min/1.73 sqM); Potassium 2.9 mmol/L (3.5-5.1); Sodium 134 mmol/L (137-145)
[2020-07-21] MEDS: POTASSIUM CHLORIDE 20 MEQ in WATER FOR INJECTION 1 100ML.BAG IVPB SCH ×2 (10:08→11:37)
[2020-07-21] MEDS ORDERED: POTASSIUM CHLORIDE ER 20 MEQ TAB.ER PO SCH (10:45)
--- NOTE | 2020-07-21 11:07 | P.PN ---
<Agnes Rodriguez - Last Filed: 07/21/20 11:05> Subjective Progress Note Date: 07/21/20 CHIEF COMPLAINT: Left buttocks decubitus ulcer HISTORY OF PRESENT ILLNESS: Patient is status post debridement of left buttocks decubitus ulcer on 07/14/20. Patient is sitting up in bed comfortably. He has no new complaints. He denies any nausea or vomiting. He is tolerating diet. He is having stool through his ostomy. He denies any increase in ostomy output. He is afebrile. Patient is still dealing with hypokalemia. Potassium is low at 2.9 PHYSICAL EXAM: VITAL SIGNS: Reviewed. GENERAL: Well-developed in no acute distress. HEENT: No sclera icterus. Extraocular movements grossly intact. Moist buccal mucosa. Head is atraumatic, normocephalic. ABDOMEN: Soft. Nondistended. Nontender. NEUROLOGIC: Alert and oriented. Cranial nerves II through XII grossly intact. ASSESSMENT: 1. Left buttocks decubitus ulcer, stage IV status post debridement PLAN: -Continue supportive care -Continue local wound care -Continue offloading -Continue antibiotics per ID -Potassium being replaced by medicine service Physician Equal Opportunity Counselor note has been reviewed by physician. Signing provider agrees with the documented findings, assessment, and plan of care. Objective - Vital Signs Vital signs: Vital Signs Temp 98.5 F 07/21/20 07:41 Pulse 95 07/21/20 08:00 Resp 16 07/21/20 08:00 BP 130/72 07/21/20 07:41 Pulse Ox 100 07/21/20 07:41 Intake & Output 07/20/20 07/21/20 07/21/20 18:59 06:59 18:59 Intake Total 850 Output Total 400 1900 Balance 450 -1900 Intake: Intake, IV Titration 200 Amount Piperacillin-Tazobactam 3 100 .375 gm In Sodium Chloride 0.9% 100 ml @ 25 mls/hr IVPB Q8HR [facility] Rx# :[id number] Potassium Chloride 10 meq 100 In Water For Injection 1 100ml.bag @ 100 mls/hr IVPB Q1HR [facility] Rx#: [id number] Oral 650 Output: Urine 1900 Stool 400 Other: Voiding Method Indwelling Catheter Indwelling Catheter Indwelling Catheter # Bowel Movements 1 - Labs CBC & Chem 7: 07/18/20 07:41 07/21/20 08:38 Labs: Abnormal Lab Results - Last 24 Hours (Table) 07/20/20 07/20/20 07/20/20 Range/Units 12:03 14:02 16:08 Sodium (137-145) mmol/L Potassium 3.0 L (3.5-5.1) mmol/L BUN (9-20) mg/dL Creatinine (0.66-1.25) mg/dL Glucose (74-99) mg/dL POC Glucose (mg/dL) 227 H 244 H (75-99) mg/dL Calcium (8.4-10.2) mg/dL 07/20/20 07/21/20 07/21/20 Range/Units 19:49 00:17 04:42 Sodium (137-145) mmol/L Potassium (3.5-5.1) mmol/L BUN (9-20) mg/dL Creatinine (0.66-1.25) mg/dL Glucose (74-99) mg/dL POC Glucose (mg/dL) 211 H 180 H 186 H (75-99) mg/dL Calcium (8.4-10.2) mg/dL 07/21/20 07/21/20 Range/Units 07:50 08:38 Sodium 134 L (137-145) mmol/L Potassium 2.9 L (3.5-5.1) mmol/L BUN 67 H (9-20) mg/dL Creatinine 1.82 H (0.66-1.25) mg/dL Glucose 131 H (74-99) mg/dL POC Glucose (mg/dL) 183 H (75-99) mg/dL Calcium 7.4 L (8.4-10.2) mg/dL <Moris Obrien - Last Filed: 07/21/20 16:15> Subjective As above. Plan is for discharge today. Continue local wound care. Objective - Vital Signs Vital signs: Vital Signs Temp 98.1 F 07/21/20 14:00 Pulse 87 07/21/20 14:00 Resp 16 07/21/20 14:00 BP 115/60 07/21/20 14:00 Pulse Ox 98 07/21/20 14:00 Intake & Output 07/20/20 07/21/20 07/21/20 18:59 06:59 18:59 Intake Total 850 Output Total 400 1900 Balance 450 -1900 Intake: Intake, IV Titration 200 Amount Piperacillin-Tazobactam 3 100 .375 gm In Sodium Chloride 0.9% 100 ml @ 25 mls/hr IVPB Q8HR [facility] Rx# :[id number] Potassium Chloride 10 meq 100 In Water For Injection 1 100ml.bag @ 100 mls/hr IVPB Q1HR [facility] Rx#: [id number] Oral 650 Output: Urine 1900 Stool 400 Other: Voiding Method Indwelling Catheter Indwelling Catheter Indwelling Catheter # Bowel Movements 1 - Labs CBC & Chem 7: 07/18/20 07:41 07/21/20 12:44 Labs: Abnormal Lab Results - Last 24 Hours (Table) 07/20/20 07/21/20 07/21/20 Range/Units 19:49 00:17 04:42 Sodium (137-145) mmol/L Potassium (3.5-5.1) mmol/L BUN (9-20) mg/dL Creatinine (0.66-1.25) mg/dL Glucose (74-99) mg/dL POC Glucose (mg/dL) 211 H 180 H 186 H (75-99) mg/dL Calcium (8.4-10.2) mg/dL 07/21/20 07/21/20 07/21/20 Range/Units 07:50 08:38 11:40 Sodium 134 L (137-145) mmol/L Potassium 2.9 L (3.5-5.1) mmol/L BUN 67 H (9-20) mg/dL Creatinine 1.82 H (0.66-1.25) mg/dL Glucose 131 H (74-99) mg/dL POC Glucose (mg/dL) 183 H 126 H (75-99) mg/dL Calcium 7.4 L (8.4-10.2) mg/dL Assessment and Plan (1) Decubitus ulcer of left buttock, stage 4 Current Visit: No Status: Acute Code(s): L89.324 - PRESSURE ULCER OF LEFT BUTTOCK, STAGE 4 SNOMED Code(s): 962379552
[2020-07-21 11:41] LABS: Glucose,Whole Blood 126 mg/dL (75-99)
[2020-07-21 14:12] VITALS: BP 115/60; PULSE 87; TEMP 98.1
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
--- NOTE | 2020-07-21 15:53 | PN ---
PROGRESS NOTE The patient is seen for followup for acute kidney injury. Renal function continues to improve. The patient has been hypokalemic and has had multiple potassium supplementations. The patient is comfortable today. He denies any significant complaints. PHYSICAL EXAMINATION: Blood pressure was 130/72, heart rate 95 per minute. Patient is afebrile. EXAMINATION OF THE HEART: S1, S2. EXAMINATION OF LUNGS: Decreased breath sounds at the bases. Abdomen is morbidly obese. Examination lower extremities shows chronic edema bilaterally. SILK SPOOLER exam shows patient is paraplegic. LABS: Labs show sodium 134, potassium 2.9, chloride 103, BUN 67 serum creatinine 1.82. ASSESSMENT: 1. Acute kidney injury, acute tubular necrosis, currently improving. 2. Hypokalemia associated with diuresis, being replaced aggressively. 3. 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 Baseline creatinine 1.5. 4. Hypervolemic hyponatremia, stable. 5. Sacral decubitus ulcer, status post I and D. 6. Bilateral lower extremity ulcers. PLAN: Continue with Demadex. Continue aggressive potassium replacement. Monitor labs as outpatient if patient is discharged. MMODL / IJN: [id number] /
[2020-07-21 16:28] LABS: Glucose,Whole Blood 196 mg/dL (75-99)
== END 2020-07-21 19:00 | disposition home health service (06) | DRG 673 ==
LOC: EC 04:18 → 4SSUR 07:51 → 2SICU 17:38 → OBSVTOIN 19:28 → 4SSUR 07-13 20:43
PROVIDERS: ADMIT Hospitalist; ATTEND Hospitalist
PROC: 02HV33Z Insertion of Infusion Device into Superior Vena Cava, Percutaneous Approach (ICD-10-PCS; 2020-07-13)
PROC: 0JB90ZZ Excision of Buttock Subcutaneous Tissue and Fascia, Open Approach (ICD-10-PCS; principal; 2020-07-14 09:45)
PROC: 30233N1 Transfusion of Nonautologous Red Blood Cells into Peripheral Vein, Percutaneous Approach (ICD-10-PCS; 2020-07-16)
DX: N17.0 Acute kidney failure with tubular necrosis (principal); G92 Toxic encephalopathy; L89.154 Pressure ulcer of sacral region, stage 4; I50.33 Acute on chronic diastolic (congestive) heart failure; G93.41 Metabolic encephalopathy; L89.324 Pressure ulcer of left buttock, stage 4; D62 Acute posthemorrhagic anemia; E87.2 Acidosis; I13.0 Hypertensive heart and chronic kidney disease with heart failure and stage 1 through stage 4 chronic kidney disease, or unspecified chronic kidney disease; E87.1 Hypo-osmolality and hyponatremia; M86.9 Osteomyelitis, unspecified; G82.20 Paraplegia, unspecified; T40.3X5A Adverse effect of methadone, initial encounter; Z20.822 Contact with and (suspected) exposure to COVID-19; Z79.4 Long term (current) use of insulin; Z88.2 Allergy status to sulfonamides; Z86.14 Personal history of Methicillin resistant Staphylococcus aureus infection; E11.621 Type 2 diabetes mellitus with foot ulcer; Z99.3 Dependence on wheelchair; N18.31 Chronic kidney disease, stage 3a; E11.22 Type 2 diabetes mellitus with diabetic chronic kidney disease; E87.5 Hyperkalemia; E83.39 Other disorders of phosphorus metabolism; E11.649 Type 2 diabetes mellitus with hypoglycemia without coma; E66.9 Obesity, unspecified; N31.9 Neuromuscular dysfunction of bladder, unspecified; N13.9 Obstructive and reflux uropathy, unspecified; I95.9 Hypotension, unspecified; E83.51 Hypocalcemia; D63.1 Anemia in chronic kidney disease; E88.09 Other disorders of plasma-protein metabolism, not elsewhere classified; E87.6 Hypokalemia; E11.69 Type 2 diabetes mellitus with other specified complication; Z93.2 Ileostomy status; N50.89 Other specified disorders of the male genital organs; E11.622 Type 2 diabetes mellitus with other skin ulcer; L97.519 Non-pressure chronic ulcer of other part of right foot with unspecified severity; K21.9 Gastro-esophageal reflux disease without esophagitis; T50.1X5A Adverse effect of loop [high-ceiling] diuretics, initial encounter; T50.2X5A Adverse effect of carbonic-anhydrase inhibitors, benzothiadiazides and other diuretics, initial encounter; T83.091A Other mechanical complication of indwelling urethral catheter, initial encounter; Z79.2 Long term (current) use of antibiotics; Z87.442 Personal history of urinary calculi; L97.529 Non-pressure chronic ulcer of other part of left foot with unspecified severity
CPT/HCPCS: 36415; 36573; 70450; 71045; 76770; 80048; 80053; 80306; 81001; 82330; 83605; 83735; 84100; 84132; 84484; 84550; 85025; 85610; 85652; 86140; 86850; 86900; 86901; 86920; 87040; 87086; 87635; 93005; 93306; 94760; 96372; 99285

== ENCOUNTER 2020-07-31 16:00 | Inpatient (IN) | payer OTHER, MEDICARE ==
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
[2020-07-31] MEDS ORDERED: PIPERACILLIN-TAZOBACTAM 4.5 GM in SODIUM CHLORIDE 0.9% 100 ML IVPB STA (16:23)
[2020-07-31 16:29] LABS: Anisocytosis Slight; Basophils % (A) 1 %; Eosinophils # (A) 0.1 k/uL (0-0.7); Eosinophils % (A) 2 %; HCT 25.5 % (39.0-53.0); HGB 8.1 gm/dL (13.0-17.5); Hypochromasia Marked; Lymphocytes # (A) 0.9 k/uL (1.0-4.8); Lymphocytes % (A) 15 %; MCH 28.3 pg (25.0-35.0); MCHC 31.9 g/dL (31.0-37.0); MCV 88.8 fL (80.0-100.0); Mean Platelet Volume 10.2; Monocytes # (A) 0.3 k/uL (0-1.0); Monocytes % (A) 5 %; Neutrophils # (A) 4.5 k/uL (1.3-7.7); Neutrophils % (A) 76 %; Poikilocytosis Slight; RBC 2.87 m/uL (4.30-5.90); RDW 19.3 % (11.5-15.5); WBC 5.9 k/uL (3.8-10.6)
[2020-07-31 16:34] LABS: Platelet Count 140 k/uL (150-450)
[2020-07-31 16:39] LABS: INR 1.2 (<1.2); Prothrombin Time 12.4 sec (9.0-12.0)
[2020-07-31 16:43] LABS: Calcium 7.8 mg/dL (8.4-10.2); Total Bilirubin 0.6 mg/dL (0.2-1.3); Total Protein 5.5 g/dL (6.3-8.2)
[2020-07-31 16:48] LABS: Potassium 7.3 mmol/L (3.5-5.1)
[2020-07-31] MEDS ORDERED: SODIUM CHLORIDE 0.9% 1,000 ML IV STA (16:50)
[2020-07-31] MEDS ORDERED: FUROSEMIDE 10 MG/ML 4 ML VIAL IV STA (16:50)
[2020-07-31] MEDS ORDERED: INSULIN REGULAR 100 UNIT/ML VIAL IV ONE ×2 (16:52→20:34)
[2020-07-31] MEDS ORDERED: CALCIUM GLUCONATE 1 GM in SODIUM CHLORIDE 0.9% 100 ML IVPB ONE (16:52)
[2020-07-31] MEDS ORDERED: SODIUM POLYSTYRENE SULFONATE 15 GM/60 ML BOTTLE PO ONE (16:52)
[2020-07-31] MEDS ORDERED: DEXTROSE 50% SYRINGE 50 ML IVP ONE (16:52)
[2020-07-31] MEDS ORDERED: ALBUTEROL NEB (CONC) 2.5 MG/0.5 ML INHALATION ONE (16:52)
[2020-07-31] MEDS ORDERED: SODIUM BICARB 8.4% 50 ML SYR (1 MEQ/ML) IV ONE (16:52)
[2020-07-31] MEDS ORDERED: NALOXONE 0.4 MG/ML 1 ML VIAL IV PRN (18:00)
[2020-07-31] MEDS ORDERED: LIDOCAINE 5% PATCH TOPICAL PRN (18:03)
[2020-07-31] MEDS ORDERED: HEPARIN SODIUM,PORCINE 5,000 UNIT/ML 1 ML VIAL SQ SCH (18:15)
[2020-07-31 19:47] LABS: Albumin 1.9 g/dL (3.5-5.0); Calcium 7.9 mg/dL (8.4-10.2); Total Bilirubin 0.5 mg/dL (0.2-1.3); Total Protein 5.1 g/dL (6.3-8.2)
[2020-07-31 19:48] LABS: Appearance,Urine Cloudy (Clear); Bacteria,Urine Rare /hpf; Bilirubin,Urine Negative (Negative); Blood,Urine Small (Negative); Budding Yeast,Urine Many /hpf; Color,Urine Yellow; Glucose,Urine (UA) Negative (Negative); Ketones,Urine Negative (Negative); Leukocyte Esterase,Urine Large (Negative); Mucus,Urine Rare /hpf; Nitrite,Urine Negative (Negative); Protein,Urine Trace (Negative); RBC,Urine 15 /hpf (0-5); Specific Gravity,Urine 1.014 (1.001-1.035); Squamous Epithelial Cell,Urine <1 /hpf (0-4); Urobilinogen,Urine <2.0 mg/dL (<2.0); WBC,Urine >182 /hpf (0-5)
[2020-07-31 19:57] LABS: Potassium 6.6 mmol/L (3.5-5.1)
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
[2020-07-31] MEDS ORDERED: DEXTROSE 50% SYRINGE 50 ML IVP STA (20:34)
[2020-07-31 20:44] LABS: Glucose,Whole Blood 338 mg/dL (75-99)
[2020-07-31] MEDS ORDERED: PIPERACILLIN TAZOBACTAM 2.25 GM IV SCH (22:00)
[2020-07-31] MEDS: SODIUM CHLORIDE 0.9% 1,000 ML IV SCH (22:22)
[2020-07-31] MEDS: METOPROLOL TARTRATE 12.5 MG TAB PO SCH (22:22)
[2020-07-31] MEDS: FERROUS SULFATE 325 MG TAB PO SCH (22:22)
[2020-07-31] MEDS: SODIUM BICARBONATE TAB 650 MG TAB PO SCH (22:22)
[2020-07-31] MEDS: PANTOPRAZOLE 40 MG/10 ML VIAL IVP SCH (22:29)
[2020-07-31 22:34] LABS: Glucose,Whole Blood 364 mg/dL (75-99)
[2020-07-31] MEDS: INSULIN DETEMIR (LEVEMIR) 100 UNIT/ML SYR SQ SCH (22:34)
[2020-08-01] MEDS: PIPERACILLIN-TAZOBACTAM 3.375 GM in SODIUM CHLORIDE 0.9% 100 ML IVPB SCH ×3 (00:27→19:46)
[2020-08-01] MEDS: tiZANidine 4 MG TAB PO SCH ×4 (00:27→21:02)
[2020-08-01] MEDS: METHADONE 10 MG TAB PO SCH ×4 (00:27→21:02)
[2020-08-01] MEDS: INSULIN ASPART (NovoLOG) 100 UNIT/ML VIAL SQ SCH ×5 (00:28→21:03)
[2020-08-01] MEDS: CLOTRIMAZOLE/BETAMETH 1-0.05% CREAM 45 GM TUBE TOPICAL SCH ×3 (00:28→20:54)
[2020-08-01] MEDS: ZINC OXIDE 20% OINT 28.4 GM TUBE TOPICAL SCH ×3 (00:28→20:54)
[2020-08-01] MEDS: BETAMETHASONE DIPROPIONATE 0.05% CREAM 15 GM TUBE TOPICAL SCH ×3 (00:28→20:54)
[2020-08-01] MEDS: ALBUTEROL NEBULIZED 2.5 MG/3 ML INHALATION SCH ×2 (00:42→08:49)
[2020-08-01] MEDS: SODIUM CHLORIDE 0.9% 1,000 ML IV SCH ×3 (02:13→19:47)
[2020-08-01 04:31] LABS: Anisocytosis Slight; Basophils % (A) 1 %; Eosinophils # (A) 0.1 k/uL (0-0.7); Eosinophils % (A) 2 %; HCT 23.6 % (39.0-53.0); HGB 7.3 gm/dL (13.0-17.5); Hypochromasia Marked; Lymphocytes # (A) 0.8 k/uL (1.0-4.8); Lymphocytes % (A) 17 %; MCH 27.2 pg (25.0-35.0); MCHC 30.9 g/dL (31.0-37.0); MCV 87.9 fL (80.0-100.0); Mean Platelet Volume 8.4; Monocytes # (A) 0.3 k/uL (0-1.0); Monocytes % (A) 6 %; Neutrophils # (A) 3.4 k/uL (1.3-7.7); Neutrophils % (A) 73 %; Platelet Count 139 k/uL (150-450); Poikilocytosis Slight; RBC 2.68 m/uL (4.30-5.90); RDW 19.4 % (11.5-15.5); WBC 4.6 k/uL (3.8-10.6)
[2020-08-01 04:37] LABS: Calcium 7.7 mg/dL (8.4-10.2); Magnesium 1.7 mg/dL (1.6-2.3); Potassium 5.5 mmol/L (3.5-5.1)
[2020-08-01 06:22] LABS: Glucose,Whole Blood 211 mg/dL (75-99)
[2020-08-01] MEDS ORDERED: glipiZIDE 10 MG TAB PO SCH (07:30)
[2020-08-01] MEDS ORDERED: NON FORMULARY DRUG (Juven Packet 1 PACKET Packet) PO SCH (07:30)
[2020-08-01] MEDS: FERROUS SULFATE 325 MG TAB PO SCH ×2 (08:51→21:02)
[2020-08-01] MEDS: METOPROLOL TARTRATE 12.5 MG TAB PO SCH ×2 (08:51→21:02)
[2020-08-01] MEDS: CALCIUM ACETATE 667 MG TAB PO SCH ×3 (08:51→16:51)
[2020-08-01] MEDS: TAMSULOSIN 0.4 MG CAP.ER.24H PO SCH (08:51)
[2020-08-01] MEDS: SODIUM BICARBONATE TAB 650 MG TAB PO SCH ×4 (08:51→21:02)
[2020-08-01] MEDS: PANTOPRAZOLE 40 MG/10 ML VIAL IVP SCH (08:52)
[2020-08-01] MEDS: TORSEMIDE 20 MG TAB PO SCH (08:54)
[2020-08-01] MEDS ORDERED: COLLAGENASE 250 UNIT/GM OINTMENT 30 GM TUBE TOPICAL SCH (09:00)
[2020-08-01 11:55] LABS: Glucose,Whole Blood 285 mg/dL (75-99)
[2020-08-01 12:02] VITALS: BMI 47.9
[2020-08-01] MEDS ORDERED: SODIUM POLYSTYRENE SULFONATE 15 GM/60 ML BOTTLE PO STA (14:17)
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
[2020-08-01 16:53] LABS: Glucose,Whole Blood 353 mg/dL (75-99)
[2020-08-01] MEDS ORDERED: FUROSEMIDE 10 MG/ML 4 ML VIAL IV STA (18:20)
[2020-08-01 20:25] LABS: Glucose,Whole Blood 388 mg/dL (75-99)
[2020-08-01] MEDS: INSULIN DETEMIR (LEVEMIR) 100 UNIT/ML SYR SQ SCH (21:02)
[2020-08-01] MEDS: COLLAGENASE 250 UNIT/GM OINTMENT 30 GM TUBE TOPICAL SCH (21:02)
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
[2020-08-02] MEDS: PIPERACILLIN-TAZOBACTAM 3.375 GM in SODIUM CHLORIDE 0.9% 100 ML IVPB SCH ×4 (00:03→23:30)
[2020-08-02 06:18] LABS: Glucose,Whole Blood 199 mg/dL (75-99)
[2020-08-02] MEDS: INSULIN ASPART (NovoLOG) 100 UNIT/ML VIAL SQ SCH ×4 (06:27→21:04)
[2020-08-02] MEDS: CALCIUM ACETATE 667 MG TAB PO SCH ×3 (06:28→17:50)
[2020-08-02 07:39] LABS: Anisocytosis Slight; Calcium 7.6 mg/dL (8.4-10.2); HCT 27.8 % (39.0-53.0); HGB 8.7 gm/dL (13.0-17.5); Hypochromasia Marked; MCH 27.6 pg (25.0-35.0); MCHC 31.4 g/dL (31.0-37.0); Mean Platelet Volume 9.7; Platelet Count 146 k/uL (150-450); Poikilocytosis Moderate; Potassium 4.1 mmol/L (3.5-5.1); RBC 3.16 m/uL (4.30-5.90); RDW 18.6 % (11.5-15.5); WBC 5.4 k/uL (3.8-10.6)
[2020-08-02] MEDS: METHADONE 10 MG TAB PO SCH ×3 (08:22→21:03)
[2020-08-02] MEDS: tiZANidine 4 MG TAB PO SCH ×3 (08:22→21:02)
[2020-08-02] MEDS: TAMSULOSIN 0.4 MG CAP.ER.24H PO SCH (08:22)
[2020-08-02] MEDS: SODIUM BICARBONATE TAB 650 MG TAB PO SCH ×4 (08:23→21:02)
[2020-08-02] MEDS: PANTOPRAZOLE 40 MG/10 ML VIAL IVP SCH (08:23)
[2020-08-02] MEDS: METOPROLOL TARTRATE 12.5 MG TAB PO SCH ×2 (08:23→21:02)
[2020-08-02] MEDS: TORSEMIDE 20 MG TAB PO SCH (08:23)
[2020-08-02] MEDS: CLOTRIMAZOLE/BETAMETH 1-0.05% CREAM 45 GM TUBE TOPICAL SCH ×2 (08:24→20:56)
[2020-08-02] MEDS: BETAMETHASONE DIPROPIONATE 0.05% CREAM 15 GM TUBE TOPICAL SCH ×2 (08:24→20:56)
[2020-08-02] MEDS: ZINC OXIDE 20% OINT 28.4 GM TUBE TOPICAL SCH ×2 (08:24→21:15)
[2020-08-02] MEDS: FERROUS SULFATE 325 MG TAB PO SCH ×2 (08:24→21:04)
[2020-08-02 12:31] LABS: Glucose,Whole Blood 477 mg/dL (75-99)
--- NOTE | 2020-08-02 13:18 | P.PN ---
Subjective Progress Note Date: 08/02/20 Follow-up for acute kidney injury and hyperkalemia. Doing much better. No nausea vomiting diarrhea. Objective - Vital Signs Vital signs: Vital Signs Temp 97.8 F 08/02/20 11:55 Pulse 66 08/02/20 11:55 Resp 18 08/02/20 11:55 BP 147/67 08/02/20 11:55 Pulse Ox 97 08/02/20 11:55 Intake & Output 08/01/20 08/02/20 08/02/20 18:59 06:59 18:59 Intake Total 700 550 125 Output Total 2575 Balance 700 -5 125 Weight 169.3 kg 168 kg Intake: Intake, IV Titration 100 Amount Piperacillin-Tazobactam 3 100 .375 gm In Sodium Chloride 0.9% 100 ml @ 25 mls/hr IVPB Q8HR [facility] Rx# :[id number] Oral 600 240 125 Blood Product 0 310 Rc As-1 Unit 0 310 [id number] Output: Urine 2575 Other: Voiding Method Indwelling Catheter # Bowel Movements 1 1 - Exam No acute distress S1-S2 heard Decreased breath sounds Edema - Labs CBC & Chem 7: 08/02/20 07:13 08/02/20 07:13 Labs: Abnormal Lab Results - Last 24 Hours (Table) 07/31/20 08/01/20 08/01/20 Range/Units 19:17 16:50 20:23 RBC (4.30-5.90) m/uL Hgb (13.0-17.5) gm/dL Hct (39.0-53.0) % RDW (11.5-15.5) % Plt Count (150-450) k/uL Sodium (137-145) mmol/L BUN (9-20) mg/dL Creatinine (0.66-1.25) mg/dL Glucose (74-99) mg/dL POC Glucose (mg/dL) 353 H 388 H (75-99) mg/dL Calcium (8.4-10.2) mg/dL Crossmatch See Detail 08/02/20 08/02/20 08/02/20 Range/Units 06:16 07:13 07:13 RBC 3.16 L (4.30-5.90) m/uL Hgb 8.7 L (13.0-17.5) gm/dL Hct 27.8 L (39.0-53.0) % RDW 18.6 H (11.5-15.5) % Plt Count 146 L (150-450) k/uL Sodium 133 L (137-145) mmol/L BUN 50 H (9-20) mg/dL Creatinine 1.72 H (0.66-1.25) mg/dL Glucose 172 H (74-99) mg/dL POC Glucose (mg/dL) 199 H (75-99) mg/dL Calcium 7.6 L (8.4-10.2) mg/dL Crossmatch 08/02/20 Range/Units 12:00 RBC (4.30-5.90) m/uL Hgb (13.0-17.5) gm/dL Hct (39.0-53.0) % RDW (11.5-15.5) % Plt Count (150-450) k/uL Sodium (137-145) mmol/L BUN (9-20) mg/dL Creatinine (0.66-1.25) mg/dL Glucose (74-99) mg/dL POC Glucose (mg/dL) 477 H (75-99) mg/dL Calcium (8.4-10.2) mg/dL Crossmatch Microbiology - Last 24 Hours (Table) 07/31/20 19:38 Urine Culture - Preliminary Urine,Voided Yeast species Assessment and Plan Assessment: #1 hyperkalemia secondary to potassium supplements. #2 Chronic kidney disease stage III secondary to recurrent urinary tract infections From neurogenic bladder. Baseline creatinine about 1.8-2.2 MG per DL. #3 lower extremity edema #4 paraplegia requiring straight caths from neurogenic bladder #5 urinary tract infection on Zosyn #6 hypervolemic hyponatremia Plan: #1 continue torsemide 20 mg by mouth daily. #2 agree with holding potassium supplements. #3 creatinine currently around baseline. Avoid nephrotoxic agents and hypotensive episodes. #4 discharge on diuretics monitor weekly labs, based on the labs replace potassium and magnesium
[2020-08-02] MEDS: INSULIN DETEMIR (LEVEMIR) 100 UNIT/ML SYR SQ SCH ×2 (14:23→21:04)
[2020-08-02 14:41] LABS: Glucose,Whole Blood 487 mg/dL (75-99)
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
[2020-08-02 17:39] LABS: Glucose,Whole Blood 139 mg/dL (75-99)
--- NOTE | 2020-08-02 19:18 | PN ---
PROGRESS NOTE DATE OF SERVICE: 08/02/2020 REASON FOR FOLLOWUP: 1. Left gluteal stage IV pressure ulcer with underlying osteomyelitis. 2. Bilateral heel pressure ulcer. INTERVAL HISTORY: Patient is currently afebrile. Patient is breathing comfortably. Denies having any chest pain, shortness of breath or cough. No nausea. No abdominal pain, no diarrhea. PHYSICAL EXAMINATION: Blood pressure 105/65, pulse of 68, temperature 98.8. He is 100% on room air. General description is an elderly male lying in bed in no distress. Respiratory system: Unlabored breathing, clear to auscultation anteriorly. Heart S1, S2. Regular rate and rhythm. Abdomen soft, no tenderness. LABS: Hemoglobin 8.7, white count 5.4, BUN of 15, creatinine 1.72. DIAGNOSTIC IMPRESSION AND PLAN: 1. Patient with stage IV left gluteal pressure ulcer with multiple pathogens on previous debridement, covered with Zosyn to continue. Local wound care with Santyl and moist dressing. Keep the area off the pressure. 2. Bilateral heel ulcer. Local care with dry protective dressing. Keep the area off the pressure. MMODL / IJN: [id number] /
[2020-08-02 20:15] LABS: Glucose,Whole Blood 348 mg/dL (75-99)
[2020-08-02] MEDS: SODIUM CHLORIDE 0.9% 1,000 ML IV SCH (21:05)
[2020-08-02] MEDS: COLLAGENASE 250 UNIT/GM OINTMENT 30 GM TUBE TOPICAL SCH (21:05)
[2020-08-03 06:03] LABS: Glucose,Whole Blood 239 mg/dL (75-99)
[2020-08-03] MEDS: INSULIN ASPART (NovoLOG) 100 UNIT/ML VIAL SQ SCH ×4 (06:33→21:21)
[2020-08-03] MEDS: CALCIUM ACETATE 667 MG TAB PO SCH ×3 (06:33→17:19)
[2020-08-03 08:14] LABS: Anisocytosis Slight; HCT 26.8 % (39.0-53.0); HGB 8.8 gm/dL (13.0-17.5); Hypochromasia Moderate; MCH 28.8 pg (25.0-35.0); MCHC 32.9 g/dL (31.0-37.0); MCV 87.6 fL (80.0-100.0); Mean Platelet Volume 9.3; Platelet Count 156 k/uL (150-450); Poikilocytosis Moderate; RBC 3.06 m/uL (4.30-5.90); WBC 6.9 k/uL (3.8-10.6)
[2020-08-03 08:35] LABS: Calcium 7.5 mg/dL (8.4-10.2); Potassium 3.4 mmol/L (3.5-5.1)
[2020-08-03] MEDS: TAMSULOSIN 0.4 MG CAP.ER.24H PO SCH (09:30)
[2020-08-03] MEDS: SODIUM BICARBONATE TAB 650 MG TAB PO SCH ×4 (09:30→21:23)
[2020-08-03] MEDS: METOPROLOL TARTRATE 12.5 MG TAB PO SCH ×2 (09:30→21:22)
[2020-08-03] MEDS: tiZANidine 4 MG TAB PO SCH ×3 (09:30→21:23)
[2020-08-03] MEDS: CLOTRIMAZOLE/BETAMETH 1-0.05% CREAM 45 GM TUBE TOPICAL SCH ×2 (09:30→21:21)
[2020-08-03] MEDS: TORSEMIDE 20 MG TAB PO SCH (09:30)
[2020-08-03] MEDS: FERROUS SULFATE 325 MG TAB PO SCH ×2 (09:30→21:21)
[2020-08-03] MEDS: ZINC OXIDE 20% OINT 28.4 GM TUBE TOPICAL SCH ×2 (09:30→21:22)
[2020-08-03] MEDS: PANTOPRAZOLE 40 MG/10 ML VIAL IVP SCH (09:30)
[2020-08-03] MEDS: PIPERACILLIN-TAZOBACTAM 3.375 GM in SODIUM CHLORIDE 0.9% 100 ML IVPB SCH ×2 (09:30→17:20)
[2020-08-03] MEDS: BETAMETHASONE DIPROPIONATE 0.05% CREAM 15 GM TUBE TOPICAL SCH ×2 (09:30→21:21)
[2020-08-03] MEDS: METHADONE 10 MG TAB PO SCH ×3 (09:38→21:22)
[2020-08-03] MEDS: INSULIN DETEMIR (LEVEMIR) 100 UNIT/ML SYR SQ SCH ×2 (09:38→21:21)
[2020-08-03] MEDS: MULTIVITAMINS, THERA 1 EACH TAB PO SCH (12:14)
[2020-08-03] MEDS: FOLIC ACID 1 MG TAB PO SCH (12:14)
[2020-08-03] MEDS: THIAMINE 100 MG TAB PO SCH (12:14)
[2020-08-03 12:23] LABS: Glucose,Whole Blood 163 mg/dL (75-99)
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
--- NOTE | 2020-08-03 14:47 | PN ---
PROGRESS NOTE Patient is seen for followup for acute kidney injury. His renal function is currently improving. Creatinine down to 1.59 from about 2 mg/dL. The patient is currently not on any diuretics. Patient is currently not on any IV diuretics. He is maintained on oral Demadex. PHYSICAL EXAMINATION: On examination today, blood pressure was 119/56, heart rate 73 per minute. He is afebrile. EXAMINATION OF THE HEART: S1, S2. EXAMINATION OF THE LUNGS: Decreased breath sounds at bases. ABDOMEN: Soft, nontender, obese. Examination of lower extremities shows edema bilaterally. The patient does not move his lower extremities. LABS: Labs show sodium 133, potassium 3.4, chloride 101, BUN 48, creatinine 1.59, hemoglobin 8.8 g/dL. ASSESSMENT: 1. Acute kidney injury, currently improving. Continue with oral diuretics. 2. Chronic kidney disease stage 3 secondary to nephrosclerosis, neurogenic bladder, chronic recurrent urinary tract infection. Baseline creatinine 1.8-2.2 mg/dL. 3. Chronic lower extremity edema. 4. Paraplegia requiring straight catheterization for neurogenic bladder. 5. Urinary tract infection, maintained on Zosyn. 6. Hypervolemic hyponatremia. 7. Hypokalemia from diuretics. PLAN: Replace potassium. Continue with oral Demadex and monitor renal function. MMODL / IJN: [id number] /
[2020-08-03] MEDS ORDERED: POTASSIUM CHLORIDE ER 20 MEQ TAB.ER PO STA (15:30)
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
[2020-08-03 15:51] LABS: Hemoglobin A1C 6.1 % (4.0-6.0)
[2020-08-03 17:10] LABS: Glucose,Whole Blood 144 mg/dL (75-99)
[2020-08-03 20:24] LABS: Glucose,Whole Blood 222 mg/dL (75-99)
[2020-08-03] MEDS: COLLAGENASE 250 UNIT/GM OINTMENT 30 GM TUBE TOPICAL SCH (21:21)
--- NOTE | 2020-08-03 23:33 | PN ---
PROGRESS NOTE DATE OF SERVICE: 08/03/2020 REASON FOR FOLLOWUP: 1. Left gluteal stage IV pressure ulcer. 2. Multiple pressure ulcers to the lower extremity. INTERVAL HISTORY: The patient is currently afebrile. The patient is slightly frustrated for his hemoglobin is low. The patient denies having any chest pain, shortness of breath or cough. No abdominal pain or any worsening pain to the left gluteal area. PHYSICAL EXAMINATION: Blood pressure 139/73 with a pulse of 66, temperature 97.6. He is 99% on room air. General description is an elderly male lying in bed in no distress. RESPIRATORY SYSTEM: Unlabored breathing. Clear to auscultation anteriorly. HEART: S1, S2. Regular rate and rhythm. ABDOMEN: Soft. No tenderness. LAB: Hemoglobin 8.8, white count 6.9, BUN 48, creatinine 1.59. Urine with Carly albicans. DIAGNOSTIC IMPRESSION AND PLAN: 1. Patient with a left gluteal infected pressure ulcer. Previous culture multiple pathogens, for which the patient is currently covered with Zosyn; continue to finish his 6 week course of therapy. Local wound care with Santyl and moist dressing. Keep the area off pressure. 2. Patient with a positive urine culture with yeast, possible Bacon colonization. Will change his Bacon catheter and obtain urine culture from the new Bacon. MMODL / IJN: [id number] / [email or web address]
[2020-08-04] MEDS: SODIUM CHLORIDE 0.9% 1,000 ML IV SCH ×2 (00:06→16:53)
[2020-08-04] MEDS: PIPERACILLIN-TAZOBACTAM 3.375 GM in SODIUM CHLORIDE 0.9% 100 ML IVPB SCH ×3 (00:24→16:52)
[2020-08-04 06:15] LABS: Glucose,Whole Blood 124 mg/dL (75-99)
[2020-08-04] MEDS: INSULIN ASPART (NovoLOG) 100 UNIT/ML VIAL SQ SCH ×2 (06:20→13:41)
[2020-08-04] MEDS: CALCIUM ACETATE 667 MG TAB PO SCH ×3 (06:45→16:42)
[2020-08-04] MEDS: FERROUS SULFATE 325 MG TAB PO SCH (08:49)
[2020-08-04] MEDS: METHADONE 10 MG TAB PO SCH ×2 (08:49→16:42)
[2020-08-04] MEDS: METOPROLOL TARTRATE 12.5 MG TAB PO SCH (08:51)
[2020-08-04] MEDS: PANTOPRAZOLE 40 MG/10 ML VIAL IVP SCH (08:52)
[2020-08-04] MEDS: TAMSULOSIN 0.4 MG CAP.ER.24H PO SCH (08:53)
[2020-08-04] MEDS: tiZANidine 4 MG TAB PO SCH ×2 (09:00→16:42)
[2020-08-04] MEDS ORDERED: FLUCONAZOLE 100 MG TAB PO SCH (09:00)
[2020-08-04] MEDS: INSULIN DETEMIR (LEVEMIR) 100 UNIT/ML SYR SQ SCH (09:02)
[2020-08-04 09:41] VITALS: RESP 16
[2020-08-04 11:50] LABS: Glucose,Whole Blood 186 mg/dL (75-99)
[2020-08-04] MEDS ORDERED: POTASSIUM CHLORIDE ER 20 MEQ TAB.ER PO STA (11:51)
[2020-08-04] MEDS: FOLIC ACID 1 MG TAB PO SCH (11:55)
[2020-08-04] MEDS: CLOTRIMAZOLE/BETAMETH 1-0.05% CREAM 45 GM TUBE TOPICAL SCH (11:55)
[2020-08-04] MEDS: THIAMINE 100 MG TAB PO SCH (11:55)
[2020-08-04] MEDS: BETAMETHASONE DIPROPIONATE 0.05% CREAM 15 GM TUBE TOPICAL SCH (11:55)
[2020-08-04] MEDS: SODIUM BICARBONATE TAB 650 MG TAB PO SCH ×2 (11:55→16:46)
[2020-08-04] MEDS: MULTIVITAMINS, THERA 1 EACH TAB PO SCH (11:55)
[2020-08-04] MEDS: ZINC OXIDE 20% OINT 28.4 GM TUBE TOPICAL SCH (11:56)
[2020-08-04 13:01] VITALS: BP 115/68; PULSE 68; TEMP 97.9
[2020-08-04] MEDS: TORSEMIDE 20 MG TAB PO SCH (13:40)
[2020-08-04 13:48] LABS: Appearance,Urine Cloudy (Clear); Bacteria,Urine Rare /hpf; Bilirubin,Urine Negative (Negative); Blood,Urine Small (Negative); Color,Urine Yellow; Glucose,Urine (UA) Negative (Negative); Ketones,Urine Negative (Negative); Leukocyte Esterase,Urine Large (Negative); Mucus,Urine Rare /hpf; Nitrite,Urine Negative (Negative); PH, Urine 5.5 (5.0-8.0); Protein,Urine Trace (Negative); RBC,Urine 11 /hpf (0-5); Specific Gravity,Urine 1.009 (1.001-1.035); Squamous Epithelial Cell,Urine 1 /hpf (0-4); Urobilinogen,Urine <2.0 mg/dL (<2.0); WBC,Urine >182 /hpf (0-5)
--- NOTE | 2020-08-04 16:16 | PN ---
PROGRESS NOTE Patient is seen for followup for acute kidney injury, volume overload. He is currently being diuresed. Overall, he states better. There are plans for possible discharge today. He is complaining of scrotal swelling which is still present quite a bit. PHYSICAL EXAMINATION: On examination today, blood pressure is 114/56, heart rate of 70 per minute. Patient is afebrile. EXAMINATION OF THE HEART: S1, S2. EXAMINATION OF THE LUNGS: Bilateral breath sounds are heard. Abdomen is soft, nontender, obese. Examination of lower extremities still shows 2+ edema with scrotal edema noted as well. LABS: Labs are not available from today. Serum creatinine 1.59 yesterday with potassium 3.4, sodium 133. ASSESSMENT: 1. Acute kidney injury, currently improving, mostly cardiorenal. 2. Chronic kidney disease stage 3 secondary to nephrosclerosis, neurogenic bladder, chronic urinary tract infection, baseline creatinine 1.8-2.2. 3. Paraplegia requiring catheterizations for neurogenic bladder. 4. Urinary tract infection. 5. Volume overload. 6. Hypervolemic hyponatremia. PLAN: Patient can be discharged on current dose of Demadex. Add Zaroxolyn 5 mg 3 times a week and we will see the patient for followup in about one week's time. Continue salt and fluid restriction post discharge as well. MMODL / IJN: [id number] /
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
[2020-08-04 16:36] LABS: Glucose,Whole Blood 335 mg/dL (75-99)
--- NOTE | 2020-08-04 21:28 | P.PN ---
Progress Note - Text Progress Note Date: 08/04/20 REASON FOR FOLLOWUP: 1. Left gluteal stage IV pressure ulcer. 2. Multiple pressure ulcers to the lower extremity. INTERVAL HISTORY: The patient is afebrile. The patient denies having any chest pain, shortness of breath or cough. No abdominal pain or any worsening pain to the left gluteal area. PHYSICAL EXAMINATION: Blood pressure 130/70 with a pulse of 66, temperature 97.6. He is 99% on room air. General description is an elderly male lying in bed in no distress. RESPIRATORY SYSTEM: Unlabored breathing. Clear to auscultation anteriorly. HEART: S1, S2. Regular rate and rhythm. ABDOMEN: Soft. No tenderness. LAB: reviewed. DIAGNOSTIC IMPRESSION AND PLAN: 1. Patient with a left gluteal infected pressure ulcer. Previous culture multiple pathogens, for which the patient is currently covered with Zosyn; continue to finish his 6 week course of therapy. Local wound care with Santyl and moist dressing. Keep the area off pressure. follow up 2 weeks in wound care 2. Patient with a positive urine culture with yeast, possible Bacon colonization. await change his Bacon catheter and obtain urine from the new Bacon, if positive will add diflucan , discussed with PUBLIC SAFETY DIRECTOR for admitting team
== END 2020-08-04 18:35 | disposition home health service (06) | DRG 377 ==
LOC: EC 16:00 → 3SCARD 18:01
PROVIDERS: ADMIT Hospitalist; ATTEND Hospitalist
PROC: 30233N1 Transfusion of Nonautologous Red Blood Cells into Peripheral Vein, Percutaneous Approach (ICD-10-PCS; principal; 2020-08-01)
DX: K92.2 Gastrointestinal hemorrhage, unspecified (principal); L89.324 Pressure ulcer of left buttock, stage 4; L89.623 Pressure ulcer of left heel, stage 3; L89.154 Pressure ulcer of sacral region, stage 4; G82.20 Paraplegia, unspecified; N17.9 Acute kidney failure, unspecified; E87.1 Hypo-osmolality and hyponatremia; E44.1 Mild protein-calorie malnutrition; Z68.42 Body mass index [BMI] 45.0-49.9, adult; N39.0 Urinary tract infection, site not specified; M86.9 Osteomyelitis, unspecified; D62 Acute posthemorrhagic anemia; L03.90 Cellulitis, unspecified; E87.5 Hyperkalemia; Z20.822 Contact with and (suspected) exposure to COVID-19; R10.9 Unspecified abdominal pain; I12.9 Hypertensive chronic kidney disease with stage 1 through stage 4 chronic kidney disease, or unspecified chronic kidney disease; N18.30 Chronic kidney disease, stage 3 unspecified; E11.22 Type 2 diabetes mellitus with diabetic chronic kidney disease; D64.9 Anemia, unspecified; E86.0 Dehydration; N31.9 Neuromuscular dysfunction of bladder, unspecified; D69.6 Thrombocytopenia, unspecified; E66.01 Morbid (severe) obesity due to excess calories; Z86.14 Personal history of Methicillin resistant Staphylococcus aureus infection; Z79.84 Long term (current) use of oral hypoglycemic drugs; E87.70 Fluid overload, unspecified; Z87.442 Personal history of urinary calculi; E11.69 Type 2 diabetes mellitus with other specified complication; Z93.2 Ileostomy status; L89.610 Pressure ulcer of right heel, unstageable; E11.622 Type 2 diabetes mellitus with other skin ulcer; N50.89 Other specified disorders of the male genital organs; E87.6 Hypokalemia; T50.2X5A Adverse effect of carbonic-anhydrase inhibitors, benzothiadiazides and other diuretics, initial encounter; Z87.440 Personal history of urinary (tract) infections
CPT/HCPCS: 36415; 80048; 80053; 81001; 83036; 83735; 84132; 85025; 85027; 85610; 85730; 86850; 86900; 86901; 86920; 87086; 87635; 93005; 94640; 96365; 96375; 99285

== ENCOUNTER 2020-12-01 14:46 | Inpatient (IN) | payer OTHER, MEDICARE ==
[2020-12-01] MEDS ORDERED: MORPHINE SULFATE 4 MG/ML SYRINGE IV STA (15:11)
[2020-12-01] MEDS ORDERED: SODIUM CHLORIDE 0.9% 500 ML 500 ML IV STA (15:11)
[2020-12-01 15:33] LABS: Anisocytosis Slight; Basophils # (A) 0.1 k/uL (0-0.2); Basophils % (A) 1 %; Eosinophils % (A) 0 %; HCT 36.2 % (39.0-53.0); HGB 11.1 gm/dL (13.0-17.5); Hypochromasia Marked; Lymphocytes # (A) 0.7 k/uL (1.0-4.8); Lymphocytes % (A) 7 %; MCH 30.2 pg (25.0-35.0); MCHC 30.7 g/dL (31.0-37.0); MCV 98.4 fL (80.0-100.0); Macrocytosis Moderate; Mean Platelet Volume 7.9; Monocytes # (A) 0.5 k/uL (0-1.0); Monocytes % (A) 6 %; Neutrophils # (A) 8.2 k/uL (1.3-7.7); Neutrophils % (A) 84 %; Platelet Count 456 k/uL (150-450); Poikilocytosis Slight; RBC 3.68 m/uL (4.30-5.90); RDW 19.5 % (11.5-15.5); WBC 9.7 k/uL (3.8-10.6)
[2020-12-01 15:40] LABS: ALT 12 U/L (4-49); AST 27 U/L (17-59); African American GFR (CKD) 32 (>60 ml/min/1.73 sqM); Albumin 2.2 g/dL (3.5-5.0); Alkaline Phosphatase 128 U/L (38-126); Amylase <30 U/L (30-110); Anion Gap 11 mmol/L; Blood Urea Nitrogen 64 mg/dL (9-20); Carbon Dioxide 12 mmol/L (22-30); Chloride 106 mmol/L (98-107); Glucose 168 mg/dL (74-99); Lipase 26 U/L (23-300); Non-African American GFR(CKD) 28 (>60 ml/min/1.73 sqM); Sodium 129 mmol/L (137-145); Total Bilirubin 0.6 mg/dL (0.2-1.3); Total Protein 5.8 g/dL (6.3-8.2)
[2020-12-01 15:43] LABS: INR 1.2 (<1.2); Partial Thromboplastin Time 29.1 sec (22.0-30.0); Prothrombin Time 12.4 sec (9.0-12.0)
[2020-12-01 15:50] LABS: Appearance,Urine Turbid (Clear); Bilirubin,Urine Negative (Negative); Blood,Urine Small (Negative); Budding Yeast,Urine Many /hpf; Color,Urine Red; Glucose,Urine (UA) Negative (Negative); Ketones,Urine Negative (Negative); Leukocyte Esterase,Urine Large (Negative); Nitrite,Urine Negative (Negative); PH, Urine 5.5 (5.0-8.0); Protein,Urine 2+ (Negative); RBC,Urine 143 /hpf (0-5); Urobilinogen,Urine <2.0 mg/dL (<2.0); WBC,Urine >182 /hpf (0-5)
[2020-12-01 15:51] LABS: Potassium 6.2 mmol/L (3.5-5.1); Specific Gravity,Urine 1.017 (1.001-1.035)
[2020-12-01] MEDS ORDERED: CALCIUM GLUCONATE 1 GM in SODIUM CHLORIDE 0.9% 100 ML IVPB ONE (16:08)
[2020-12-01] MEDS ORDERED: PIPERACILLIN-TAZOBACTAM 3.375 GM in SODIUM CHLORIDE 0.9% 100 ML IVPB STA (16:09)
[2020-12-01] MEDS ORDERED: LEVOFLOXACIN 500MG-D5W PMX 500 MG in DEXTROSE/WATER 1 100ML.BAG IVPB STA (16:09)
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
--- NOTE | 2020-12-01 16:20 | XR ---
EXAMINATION TYPE: XR chest 1V portable DATE OF EXAM: 12/01/2020 COMPARISON: Chest x-ray July 13, 2020 HISTORY: Difficulty in breathing TECHNIQUE: Single AP portable frontal upright view of the chest is obtained. FINDINGS: Patient more rotated to the right with completely opacified right hemithorax. No definitive mediastinal shift. Poor inspiration left lung. Silhouetting right heart border and hemidiaphragm not ed. Postsurgical change at the thoracolumbar junction redemonstrated. IMPRESSION: New opacified right hemithorax consider infiltrate and/or atelectasis. Possible underlyi ng mass. Correlate clinically. Follow-up advised.
[2020-12-01] MEDS: SODIUM CHLORIDE 0.9% 1,000 ML IV SCH (16:51)
--- NOTE | 2020-12-01 16:53 | CT ---
EXAMINATION TYPE: CT abdomen pelvis wo con DATE OF EXAM: 12/01/2020 COMPARISON: None HISTORY: Decreased ileostomy output. CT DLP: 1910.2 mGycm Automated exposure control for dose reduction was used. Images obtained from the diaphragm to the floor the pelvis with no contrast. There is large right pleural effusion. There is a smaller left pleural effusion. There is pericardial effusion. Heart size is normal. There is some consolidation and atelectasis at both lung bases. Liver appears irregular and small and consistent with cirrhosis. The spleen is intact. There is mild abdominal ascites. Stomach is intact. There is no evidence of pancreatic mass. There is subcutaneous edema around the abdomen and pelvis. There is multilevel posterior fusion surgery at the thoracolumba r junction. The bony pelvis is intact. The hip joints are intact. There is some osteopenia. There is Bacon catheter in the urinary bladder. Bladder is almost empty. There is rectal stump that contains d ebris and measures 8.5 cm in diameter. There is apparent total colectomy. There are multiple dilated small bowel loops with numerous air-flu id levels. Small bowel measures up to 4 cm. There is some fecal material in the ileostomy. Small monie l appears dilated up to the ileostomy. There is air in the distal ileum extending through the ileosto my. There is extensive soft tissue calcification and soft tissue mass lateral to the left iliac bone that measures 14 x 11 cm. Iliac bone shows some areas of lytic and blastic change. IMPRESSION: Dilated small bowel up to the ileostomy. There is some retained fecal material at the ileostomy. It i s not clear if this is producing obstruction. Numerous air-fluid levels suggestive of mechanical smal l bowel obstruction or small bowel ileus. Abdominal ascites. Bilateral moderate pleural effusions. Abdominal and pelvic subcutaneous edema. Sma ll liver suggestive of cirrhosis. Inspissated material in the rectal stump which is dilated. Soft tissue mass lateral to the left ileum and left hip joint with amorphous calcification. The appea navarro is nonspecific. There are small lytic and blastic areas in the left ilium. 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
[2020-12-01] MEDS ORDERED: ONDANSETRON 4 MG/2 ML VIAL IVP STA (18:26)
[2020-12-01] MEDS ORDERED: NALOXONE 0.4 MG/ML 1 ML VIAL IV PRN (18:28)
[2020-12-01] MEDS ORDERED: ACETAMINOPHEN TAB 325 MG TAB PO PRN (18:28)
[2020-12-01] MEDS: HYDROmorphone 0.5 MG/0.5 ML SYRINGE IVP PRN ×2 (19:58→23:15)
--- NOTE | 2020-12-01 21:11 | XR ---
EXAMINATION TYPE: XR chest 1V portable DATE OF EXAM: 12/01/2020 COMPARISON: Today HISTORY: Short of breath TECHNIQUE: Single view FINDINGS: There is nasogastric tube and the tip appears to be in the right lower lobe bronchus. There is opacification right hemithorax. Left lung is relatively clear. There is multilevel fusion surgery at the lower thoracic spine. There is no heart failure. IMPRESSION: Right-sided hydrothorax. Unchanged. Malposition of the nasogastric tube in the right lowe r lobe bronchus.
[2020-12-01] MEDS ORDERED: VANCOMYCIN IV PER PHARMACY 1 EACH MISC MISCELLANE PRN (22:04)
--- NOTE | 2020-12-01 22:51 | XR ---
EXAMINATION TYPE: XR chest 1V portable DATE OF EXAM: 12/01/2020 COMPARISON: Today HISTORY: Check tube placement TECHNIQUE: 2 view FINDINGS: There is left-sided central venous catheter with tip in the superior vena cava. There is na sogastric tube well into the stomach. There is distended gas-filled stomach. There is opacification r ight hemithorax. IMPRESSION: Nasogastric tube is in good position in the stomach. There is right-sided hydrothorax wit hout change. Left lung appears fairly clear.
[2020-12-01] MEDS ORDERED: VANCOMYCIN 2,250 MG in SODIUM CHLORIDE 0.9% 500 ML 500 ML IVPB ONE (23:00)
[2020-12-01 23:35] LABS: Glucose,Whole Blood 194 mg/dL (75-99)
--- NOTE | 2020-12-01 23:42 | CT ---
EXAMINATION TYPE: CT chest wo con DATE OF EXAM: 12/01/2020 COMPARISON: None HISTORY: Right-sided hydrothorax CT DLP: mGycm Automated exposure control for dose reduction was used. Images obtained from the thoracic inlet to the diaphragm with no contrast. There is large right pleural effusion. There is complete atelectasis of the right lung. There is a sm all left pleural effusion. Heart size is normal. There is mild pericardial effusion. There is complet e occlusion of the right mainstem bronchus. An obstructing mass is not definitely seen. There is coronary artery calcification. Thoracic aorta shows no aneurysm. I see no mediastinal adenop athy. There is some mild atelectasis at the left lung base. There is some spurring in the thoracic spine. There is nasogastric tube in the stomach. There is mult ilevel posterior fusion surgery in the lower thoracic spine. IMPRESSION: Right-sided hydrothorax with complete atelectasis right lung. No definite hilar mass identified. Smal l pericardial effusion. Small left pleural effusion.
[2020-12-02] MEDS ORDERED: PIPERACILLIN-TAZOBACTAM 3.375 GM in SODIUM CHLORIDE 0.9% 100 ML IVPB SCH ×2
[2020-12-02] MEDS ORDERED: LACTATED RINGERS 1,000 ML IV ONE (03:26)
[2020-12-02] MEDS: HYDROmorphone 0.5 MG/0.5 ML SYRINGE IVP PRN ×3 (03:34→20:54)
[2020-12-02 03:44] LABS: Anisocytosis Slight; HCT 35.9 % (39.0-53.0); HGB 10.5 gm/dL (13.0-17.5); Hypochromasia Marked; MCH 29.7 pg (25.0-35.0); MCHC 29.4 g/dL (31.0-37.0); MCV 101.3 fL (80.0-100.0); Macrocytosis Moderate; Mean Platelet Volume 7.6; Platelet Count 317 k/uL (150-450); Poikilocytosis Slight; RBC 3.55 m/uL (4.30-5.90); RDW 19.3 % (11.5-15.5); WBC 13.5 k/uL (3.8-10.6)
[2020-12-02 03:56] LABS: Calcium 7.9 mg/dL (8.4-10.2)
[2020-12-02 04:07] LABS: Potassium 6.1 mmol/L (3.5-5.1)
[2020-12-02] MEDS ORDERED: SODIUM BICARB 8.4% 50 ML SYR (1 MEQ/ML) IV STA ×2 (05:23→09:13)
[2020-12-02] MEDS ORDERED: DEXTROSE 50% SYRINGE 50 ML IVP STA (05:24)
[2020-12-02] MEDS ORDERED: INSULIN REGULAR 100 UNIT/ML VIAL (IV) IV ONE (05:30)
[2020-12-02] MEDS ORDERED: CALCIUM GLUCONATE 1 GM in SODIUM CHLORIDE 0.9% 100 ML IVPB ONE (05:30)
[2020-12-02] MEDS: INSULIN ASPART (NovoLOG) 100 UNIT/ML VIAL SQ SCH ×3 (06:36→20:01)
[2020-12-02] MEDS: SODIUM CHLORIDE 0.9% 1,000 ML IV SCH (06:37)
[2020-12-02 06:44] LABS: Glucose,Whole Blood 200 mg/dL (75-99)
[2020-12-02] MEDS ORDERED: FUROSEMIDE 10 MG/ML 10 ML VIAL IV STA (09:13)
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
--- NOTE | 2020-12-02 09:35 | US ---
EXAMINATION TYPE: US chest DATE OF EXAM: 12/02/2020 COMPARISON: NONE CLINICAL HISTORY: right pleural effusion. SOB, pleural effusion TECHNIQUE: Targeted ultrasound of the posterior lower Right EXAM MEASUREMENTS: Right Pleural Effusion pocket size: 14.2 cm Right skin surface to fluid distance: 4.5 cm Right side marked for possible thoracentesis outside the dept. Dr Orr present for imaging and antoina rajan began after Pulmonologists are able to review the images in the patient?s EMR. IMPRESSIONS: 1. Right pleural effusion
--- NOTE | 2020-12-02 09:36 | XR ---
EXAMINATION TYPE: XR chest 1V portable DATE OF EXAM: 12/02/2020 COMPARISON: 12/01/2020 INDICATION: Right post thoracentesis TECHNIQUE: Single frontal view of the chest is obtained. FINDINGS: The heart size is normal. The pulmonary vasculature is normal. There is a small right pleural effusion. No pneumothorax is evident. Opacification is largely resolve d. PICC line enters on left superior vena cava region. IMPRESSION: 1. No pneumothorax postthoracentesis. Large right pleural effusion has largely resolved
[2020-12-02 09:42] LABS: Total Protein 5.6 g/dL (6.3-8.2)
[2020-12-02] MEDS ORDERED: DAPTOMYCIN IVPB SCH (10:00)
[2020-12-02] MEDS ORDERED: SODIUM CHLORIDE 0.9% IVPB SCH (10:00)
[2020-12-02] MEDS: HEPARIN SODIUM,PORCINE/PF 5,000 UNIT/0.5 ML SYRINGE SQ SCH ×2 (10:09→20:26)
[2020-12-02] MEDS: FAMOTIDINE 20 MG/2 ML VIAL IV SCH (10:10)
[2020-12-02] MEDS: PIPERACILLIN-TAZOBACTAM 3.375 GM in SODIUM CHLORIDE 0.9% 100 ML IVPB SCH ×2 (10:10→17:11)
[2020-12-02] MEDS: DEXTROSE 5% IN WATER 1,000 ML with SODIUM BICARB (1 MEQ/ML) 150 ML IV SCH (10:57)
[2020-12-02 11:10] VITALS: BMI 52.0
[2020-12-02 11:40] LABS: Glucose,Whole Blood 122 mg/dL (75-99)
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
--- NOTE | 2020-12-02 12:11 | US ---
EXAMINATION TYPE: US kidneys/renal and bladder DATE OF EXAM: 12/02/2020 COMPARISON: NONE CLINICAL HISTORY: Renal disease. EXAM MEASUREMENTS: Right Kidney: 11.9 x 5.2 x 6.0 cm Left Kidney: 11.6 x 5.0 x 5.0 cm Technical limitations due to patient's body habitus (400+ pounds) Right Kidney: limited evaluation, no evidence of hydronephrosis as visualized Left Kidney: limited evaluation, no evidence of hydronephrosis as visualized Bilateral Renal cortices appear thinned which may be related to some renal failure. Bladder: Decompressed with a Bacon Catheter IMPRESSION: 1. Limited examination due to body habitus. 2. Findings suggestive for some renal failure.
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
[2020-12-02] MEDS ORDERED: COLLAGENASE 250 UNIT/GM OINTMENT 30 GM TUBE TOPICAL SCH (13:30)
[2020-12-02] MEDS ORDERED: NOREPINEPHRINE 32 MG in SODIUM CHLORIDE 0.9% 218 ML IV SCH (14:30)
[2020-12-02] MEDS: NOREPINEPHRINE 4 MG in SODIUM CHLORIDE 0.9% 250 ML IV SCH ×2 (14:38→20:58)
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
--- NOTE | 2020-12-02 15:31 | PCN ---
PROCEDURE NOTE OPERATIVE REPORT: Right-sided thoracentesis. PREOPERATIVE DIAGNOSIS: Large right pleural effusion. POSTOPERATIVE DIAGNOSIS: Large right pleural effusion. ANESTHESIA USED: 2 mL of 1% lidocaine. PROCEDURE DETAILS: The patient was placed in a sitting upright position, the fluid was localized with ultrasound guidance, and a marking was placed at the tip of the scapula and 8th intercostal space. Then, the area was prepared in a sterile fashion, drapes were applied. The area was locally anesthetized, and a 26-gauge needle inserted at the same site into the pleural space. The fluid was localized with a needle. Then a small tiny incision was made and a standard thoracentesis catheter and needle were used inserted at the same site, advanced into the pleural space. Fluid was obtained and as soon as the fluid was obtained, the catheter was advanced over the needle into the pleural space and the needle was pulled out of the pleural space. Freely flowing fluid, was removed, roughly 3150 mL drained from the right pleural space slightly yellow in color, free-flowing, and non-bloody, no evidence of any immediate complications. Chest x-ray showed almost near complete resolution of the pleural effusion and no evidence of complications. No pneumothorax. The fluid was sent for different diagnostic studies. MMODL / IJN: [id number] /
[2020-12-02 17:28] LABS: Appearance,BF Hazy; Color,BF Yellow; Nucleated Cells, Body Fluid 48 /uL; RBC, Body Fluid 231 /uL
[2020-12-02 17:30] LABS: Mononuclear WBC,Body Fluid 79 %; Polynuclear WBC,Body Fluid 21 %; Total Cells Counted,Body Fluid 100
--- NOTE | 2020-12-02 18:49 | CONS ---
CONSULTATION DATE OF SERVICE: 12/02/2020 REASON FOR CONSULTATION: Sepsis. HISTORY OF PRESENT ILLNESS: The patient is a 70-year-old male with a past medical history significant for paraplegia after the patient did have a fall from the [employer] and rocking back in in 1999. The patient did have a history of diabetes and recent admission to hospital for left gluteal pressure ulcer, which the patient did have debridement and completed a course of antibiotics for underlying osteomyelitis. The patient subsequently has been admitted at the [facility], where the patient did have a further surgical debridement and drainage of an abscess, and the patient is currently being treated with IV antibiotic to the left arm PICC line. However, the patient is not sure about the name of those antibiotics. The patient presented to [facility] yesterday afternoon for evaluation of abdominal pain and distention that has been getting worse for the last 2 days. The pain to be more of a sharp and squeezing pain than his normal ( ), no radiation. The patient has been noted for followup from his ileostomy and no urine in his ostomy over last 2-3 days. With these symptoms, the patient was brought to the hospital for further evaluation. On arrival to the ER, the patient was afebrile, subsequent did have an episode of hypertension. He was tachycardic and hypertensive and they started on Lopressor. Did have elevated lactic acid. The patient's initial white count was normal. Subsequent was up to 13.5. The patient did have a lactic acid of 2.723, and did have elevated BUN and creatinine. The patient did have multiple investigations including a CT of abdomen and pelvis, which shows dilated small bowel up to the ostomy. Maintain PICC and ileostomy. Pneumatocele fluid suggestive of mechanical small-bowel obstruction. The patient was started on vancomycin was admitted by ICU. Infectious was consulted for further management of antibiotic therapy. The patient was not a very good historian, so most of the information has been extracted from review of the chart and talking to nursing staff. The patient is status post thoracocentesis with most of the pleural fluid per Pulmonary this afternoon. REVIEW OF SYSTEMS: Positive points have been mentioned in HPI. Rest of systems negative. PAST MEDICAL HISTORY: Diabetes mellitus, hypertension, renal insufficiency, history of paraplegia, left gluteal pressure ulcer with underlying osteomyelitis and pressure ulcer to the lower extremity. PAST SURGICAL HISTORY: Back surgery, orthopedic surgery, exploratory laparotomy, ileostomy and history of left ( .) SOCIAL HISTORY: No history of smoking, drinking, drug use. FAMILY HISTORY: Mother with history of not. ALLERGIES: To SULFAMETHOXAZOLE, MEPERIDINE AND BACLOFEN. USUAL MEDICATIONS INCLUDE: The patient is currently on Tylenol, Ventolin, Dilaudid, NovoLog, Narcan, norepinephrine and has received a dose of vancomycin. PHYSICAL EXAMINATION: Blood pressure 89/56, pulse of 120, temperature 95.4. He is 94% on 2 L nasal cannula. Currently, is an elderly male lying in bed in no distress. No tachypnea or accessory muscles of respiration use. HEENT: Examination shows pallor, no scleral icterus. Oral mucous membrane is dry, neck trach, symptomatic lungs, unlabored breathing, decreased breath sounds at bases. No wheeze or crackle. HEART S1, S2. Tachycardic. Abdomen: Soft, mildly distended, no rigidity. Extremities 2+ edema, feet. Examination of left scrotal wound is deep with some slough tissue and did have a gush of purulent fluid come out. Neurological: The patient is lethargic to arousable, oriented x2. Mood and affect normal. LABS: Hemoglobin is 10.5, white count 13.5, BUN of 54, creatinine 2.8, lactic acid 3.8, potassium 6.2, glucose is normal. Urine is positive. CT report mentioned above. DIAGNOSTIC IMPRESSION AND PLAN: 1. Patient admitted to the hospital with sepsis and this patient did have a hypothermia, leukocytosis, tachycardia, hypertension, source is likely combination possible abdominal source in this patient who did have evidence of ileus, as well as left gluteal pressure ulcer infected with recent surgery done at [facility] ( ) for the patient was getting antibiotics through the PICC line. However, the patient is not sure about the name of those antibiotics. 2. Patient did have renal insufficiency and high risk of nephrotoxicity from the vancomycin. PLAN: 1. Discontinue vancomycin. 2. We will start the patient on daptomycin 6 mg/kg, along with Zosyn 3.375 g q.8 hours. 3. Local care to continue to the left groin mass as per the wound care team. 4. The patient is currently being transferred to [facility] for further care as per discussion with the nurse. 5. Overall prognosis remains to be guarded. Thank you for this consultation. Will follow the patient closely in the hospital. MMCATHYL / IJN: [id number] /
[2020-12-02 20:00] LABS: Glucose,Whole Blood 100 mg/dL (75-99)
[2020-12-02] MEDS ORDERED: VANCOMYCIN 2,250 MG in SODIUM CHLORIDE 0.9% 500 ML 500 ML IVPB SCH (22:00)
[2020-12-03] MEDS: PIPERACILLIN-TAZOBACTAM 3.375 GM in SODIUM CHLORIDE 0.9% 100 ML IVPB SCH ×2 (01:15→08:45)
[2020-12-03 01:22] LABS: Glucose,Whole Blood 75 mg/dL (75-99)
[2020-12-03] MEDS: INSULIN ASPART (NovoLOG) 100 UNIT/ML VIAL SQ SCH ×2 (01:23→05:26)
[2020-12-03] MEDS: HYDROmorphone 0.5 MG/0.5 ML SYRINGE IVP PRN ×2 (01:57→05:16)
[2020-12-03 03:08] LABS: Total Protein, Body Fluid 915.9 mg/dL
[2020-12-03 03:32] LABS: Glucose, BF Source Pleural Fluid; Glucose, Body Fluid 158 mg/dL; LDH, Body Fluid Source Pleural Fluid
[2020-12-03] MEDS: NOREPINEPHRINE 4 MG in SODIUM CHLORIDE 0.9% 250 ML IV SCH ×2 (04:45→08:53)
[2020-12-03 04:56] LABS: Anisocytosis Slight; HCT 36.1 % (39.0-53.0); HGB 10.3 gm/dL (13.0-17.5); Hypochromasia Marked; MCH 30.5 pg (25.0-35.0); MCHC 28.6 g/dL (31.0-37.0); Macrocytosis Marked; Mean Platelet Volume 7.1; Platelet Count 273 k/uL (150-450); Poikilocytosis Slight; RBC 3.38 m/uL (4.30-5.90); RDW 19.6 % (11.5-15.5)
[2020-12-03 04:57] LABS: MCV 106.6 fL (80.0-100.0)
[2020-12-03 05:11] LABS: Band Neutrophils % 11 %; Lymphocytes # (M) 1.08 k/uL (1.0-4.8); Metamyelocytes # (M) 0.18 k/uL (0); Metamyelocytes % 1 %; Monocytes # (M) 1.08 k/uL (0-1.0); Neutrophils % (M) 76 %; Nucleated Red Blood Cells 0 /100 WBC (0-0); Total Cells Counted 200
[2020-12-03 05:12] LABS: Anisocytosis (M) Present; Poikilocytosis (M) Present; Polychromasia Present; Toxic Granulation Present
[2020-12-03 05:22] LABS: Glucose,Whole Blood 68 mg/dL (75-99)
[2020-12-03] MEDS ORDERED: DEXTROSE 50% SYRINGE 50 ML IVP STA (05:22)
[2020-12-03 06:11] LABS: Glucose,Whole Blood 103 mg/dL (75-99)
--- NOTE | 2020-12-03 06:34 | XR ---
EXAMINATION TYPE: XR chest 1V portable DATE OF EXAM: 12/03/2020 CLINICAL HISTORY: Difficulty breathing and pleural effusion progress study. TECHNIQUE: Single AP portable semiupright view of the chest is obtained. COMPARISON: Chest x-ray from one day earlier and older studies. CT chest 2 days ago. FINDINGS: Stable left-sided PICC line. Recurrent increased right lung opacity. Left-sided tracheal deviation from one day earlier. Left lung remains clear. Partial visualization of surgical change thoracolumbar spine. Large spurs superior to this redemonstrated. New silhouetting right heart border and hemidiaphragm. Gas prominent stomach bu bble partially imaged. IMPRESSION: Increased right lung opacity with right sided expansion consistent with recurrent moderat e to large size right pleural effusion and associated atelectasis and/or infiltrate from one day shira ier.
[2020-12-03 06:55] LABS: Calcium 7.2 mg/dL (8.4-10.2); Potassium 5.4 mmol/L (3.5-5.1)
--- NOTE | 2020-12-03 07:18 | ECHOF ---
Referral Reason:hypotension MEASUREMENTS -------- HEIGHT: 188.0 cm WEIGHT: 183.7 kg BP: 72/44 IVSd: 1.5 cm (0.6 - 1.1) LVIDd: 3.1 cm (3.9 - 5.3) LVPWd: 1.5 cm (0.6 - 1.1) IVSs: 1.9 cm LVIDs: 1.5 cm LVPWs: 1.6 cm LAESV Index (A-L): 13.98 ml/m MV E Keshav: 0.51 m/s MV DecT: 151 ms MV A Keshav: 1.01 m/s MV E/A Ratio: 0.51 RAP: 5.00 mmHg RVSP: 39.25 mmHg FINDINGS -------- Sinus rhythm. This was a technically difficult study with suboptimal views. The left ventricular size is normal. There is moderate concentric left ventricular hypertrophy. O verall left ventricular systolic function is normal with, an EF between 55 - 60 %. Possible LVOT Ob struction. The right ventricle is normal in size. Normal LA size by volume 22+/-6 ml/m2. The right atrium was not well visualized. 5.0mg of Lumason was utilized for enhancement of images Interatrial and interventricular septum intact. Aortic valve is trileaflet and is mildly thickened. There is no evidence of aortic regurgitation. There is no evidence of aortic stenosis. Mild mitral annular calcification present. Mild mitral regurgitation is present. The tricuspid valve appears structurally normal. Mild tricuspid regurgitation present. There is m ild pulmonary hypertension. The right ventricular systolic pressure, as measured by Doppler, is 39. 25mmHg. There is no pulmonic regurgitation present. The aortic root size is normal. IVC Not well visulized. There is no pericardial effusion. CONCLUSIONS -------- 1. This was a technically difficult study with suboptimal views. 2. There is moderate concentric left ventricular hypertrophy. 3. Overall left ventricular systolic function is normal with, an EF between 55 - 60 %. 4. Normal LA size by volume 22+/-6 ml/m2. 5. Aortic valve is trileaflet and is mildly thickened. 6. Mild mitral regurgitation is present. 7. Mild tricuspid regurgitation present. 8. There is mild pulmonary hypertension. PIN PULLER: Phyllis Rojas [facility]
--- NOTE | 2020-12-03 08:37 | P.PN ---
Subjective Patient is seen in follow-up for acute kidney injury on chronic kidney disease. Creatinine is stable. Patient is oliguric. Potassium remains on the higher side. Bicarb level is better but remains acidotic. Currently on bicarb drip. Also on 15 mics of Levophed. Patient remains lethargic and is not a reliable historian. Vital signs are stable. On vasopressor support. General: The patient appeared well nourished and normally developed. HEENT: Head exam is unremarkable. On nasal cannula. LUNGS: Breath sounds decreased. HEART: Tachycardic. ABDOMEN: Soft, no distention. EXTREMITITES: 2+ edema. Objective - Vital Signs Vital signs: Vital Signs Temp 97.9 F 12/03/20 04:00 Pulse 85 12/03/20 07:00 Resp 15 12/03/20 07:00 BP 101/51 12/03/20 07:00 Pulse Ox 97 12/03/20 07:00 Intake & Output 12/02/20 12/03/20 12/03/20 18:59 06:59 18:59 Intake Total 875 1184.443 50 Output Total 5 50 0 Balance 870 1134.443 50 Weight 183.75 kg 191 kg Intake: IV 875 700 50 .9 225 DAPTOmycin 1,100 mg In 50 Sodium Chloride 0.9% 50 ml @ 100 mls/hr IVPB Q48H [facility] Rx#:[id number] Dextrose 5% in Water 1, 400 600 50 000 ml @ 50 mls/hr IV . Q23H [facility] with Sodium Bicarb (1 Meq/ml) 150 ml Rx#:[id number] Piperacillin-Tazobactam 3 200 .375 gm In Sodium Chloride 0.9% 100 ml @ 25 mls/hr IVPB Q8HR [facility] Rx# :[id number] Piperacillin-Tazobactam 3 100 .375 gm In Sodium Chloride 0.9% 100 ml @ 25 mls/hr IVPB Q8HR [facility] Rx# :[id number] Intake, IV Titration 484.443 Amount Norepinephrine 4 mg In 484.443 Sodium Chloride 0.9% 250 ml @ 0.05 MCG/KG/MIN 35. 004 mls/hr IV .Q7H16M [facility] Rx#:[id number] Output: Urine 5 50 0 Other: Voiding Method Indwelling Catheter Indwelling Catheter - Labs CBC & Chem 7: 12/03/20 04:35 12/03/20 06:37 Labs: Abnormal Lab Results - Last 24 Hours (Table) 12/02/20 12/02/20 12/02/20 Range/Units 08:00 08:00 08:00 WBC (3.8-10.6) k/uL RBC (4.30-5.90) m/uL Hgb (13.0-17.5) gm/dL Hct (39.0-53.0) % MCV (80.0-100.0) fL MCHC (31.0-37.0) g/dL RDW (11.5-15.5) % Neutrophils # (Manual) (1.3-7.7) k/uL Monocytes # (Manual) (0-1.0) k/uL Metamyelocytes # (Man) (0) k/uL Macrocytosis Sodium (137-145) mmol/L Potassium 5.5 H (3.5-5.1) mmol/L Carbon Dioxide (22-30) mmol/L BUN (9-20) mg/dL Creatinine (0.66-1.25) mg/dL Glucose (74-99) mg/dL POC Glucose (mg/dL) (75-99) mg/dL Plasma Lactic Acid Davion 2.5 H* (0.7-2.0) mmol/L Calcium (8.4-10.2) mg/dL Lactate Dehydrogenase 834 H (313-618) U/L Total Protein 5.6 L (6.3-8.2) g/dL 12/02/20 12/02/20 12/02/20 Range/Units 10:54 11:28 19:59 WBC (3.8-10.6) k/uL RBC (4.30-5.90) m/uL Hgb (13.0-17.5) gm/dL Hct (39.0-53.0) % MCV (80.0-100.0) fL MCHC (31.0-37.0) g/dL RDW (11.5-15.5) % Neutrophils # (Manual) (1.3-7.7) k/uL Monocytes # (Manual) (0-1.0) k/uL Metamyelocytes # (Man) (0) k/uL Macrocytosis Sodium (137-145) mmol/L Potassium (3.5-5.1) mmol/L Carbon Dioxide (22-30) mmol/L BUN (9-20) mg/dL Creatinine (0.66-1.25) mg/dL Glucose (74-99) mg/dL POC Glucose (mg/dL) 122 H 100 H (75-99) mg/dL Plasma Lactic Acid Davion 2.4 H* (0.7-2.0) mmol/L Calcium (8.4-10.2) mg/dL Lactate Dehydrogenase (313-618) U/L Total Protein (6.3-8.2) g/dL 12/03/20 12/03/20 12/03/20 Range/Units 04:35 05:20 06:09 WBC 18.0 H (3.8-10.6) k/uL RBC 3.38 L (4.30-5.90) m/uL Hgb 10.3 L (13.0-17.5) gm/dL Hct 36.1 L (39.0-53.0) % MCV 106.6 H D (80.0-100.0) fL MCHC 28.6 L (31.0-37.0) g/dL RDW 19.6 H (11.5-15.5) % Neutrophils # (Manual) 15.60 H (1.3-7.7) k/uL Monocytes # (Manual) 1.08 H (0-1.0) k/uL Metamyelocytes # (Man) 0.18 H (0) k/uL Macrocytosis Marked A Sodium (137-145) mmol/L Potassium (3.5-5.1) mmol/L Carbon Dioxide (22-30) mmol/L BUN (9-20) mg/dL Creatinine (0.66-1.25) mg/dL Glucose (74-99) mg/dL POC Glucose (mg/dL) 68 L 103 H (75-99) mg/dL Plasma Lactic Acid Davion (0.7-2.0) mmol/L Calcium (8.4-10.2) mg/dL Lactate Dehydrogenase (313-618) U/L Total Protein (6.3-8.2) g/dL 12/03/20 Range/Units 06:37 WBC (3.8-10.6) k/uL RBC (4.30-5.90) m/uL Hgb (13.0-17.5) gm/dL Hct (39.0-53.0) % MCV (80.0-100.0) fL MCHC (31.0-37.0) g/dL RDW (11.5-15.5) % Neutrophils # (Manual) (1.3-7.7) k/uL Monocytes # (Manual) (0-1.0) k/uL Metamyelocytes # (Man) (0) k/uL Macrocytosis Sodium 132 L (137-145) mmol/L Potassium 5.4 H (3.5-5.1) mmol/L Carbon Dioxide 18 L (22-30) mmol/L BUN 68 H (9-20) mg/dL Creatinine 2.69 H (0.66-1.25) mg/dL Glucose 119 H (74-99) mg/dL POC Glucose (mg/dL) (75-99) mg/dL Plasma Lactic Acid Davion (0.7-2.0) mmol/L Calcium 7.2 L (8.4-10.2) mg/dL Lactate Dehydrogenase (313-618) U/L Total Protein (6.3-8.2) g/dL Microbiology - Last 24 Hours (Table) 12/02/20 09:15 Wound Culture - Preliminary Other - Other 12/02/20 09:15 Wound Culture - Preliminary Leg - Left 12/02/20 09:00 Body Fluid Culture - Preliminary Pleural Fluid 12/01/20 15:18 Urine Culture - Preliminary Urine,Voided 12/01/20 15:54 Blood Culture - Preliminary Blood No Growth after 24 hours 12/01/20 15:44 Blood Culture - Preliminary Blood No Growth after 24 hours Assessment and Plan Plan: Assessment: 1. Acute kidney injury secondary to ATN secondary to hypotension and infection. Creatinine was 2.33 on admission and is stable at 2.69 today. No hydronephrosis noted on kidney ultrasound. No response in urine output with high-dose Lasix. 2. Chronic kidney disease stage IIIB with baseline creatinine 1.5-1.6. 3. Hyperkalemia secondary to acute kidney injury and metabolic acidosis. Improved with medical management. 4. Hyponatremia secondary to acute kidney injury. Hypervolemic. 5. Volume overload. Status post right-sided thoracentesis with over 3 L drained December 02. 6. Metabolic acidosis secondary to acute kidney injury. On bicarb drip. 7. Septic shock secondary to UTI. Also has sacral ulcers. Plan: Maintain bicarb drip. Follow-up cultures. Avoid nephrotoxins. Due to oliguria, volume overload as well as electrolyte imbalance, initiate renal replacement therapy. Consult vascular surgery for dialysis catheter placement. Plan for first treatment of hemodialysis today and second treatment tomorrow.
[2020-12-03] MEDS: HEPARIN SODIUM,PORCINE/PF 5,000 UNIT/0.5 ML SYRINGE SQ SCH (08:46)
[2020-12-03] MEDS: FAMOTIDINE 20 MG/2 ML VIAL IV SCH (08:46)
[2020-12-03 12:17] VITALS: BP 104/57; PULSE 110; RESP 0; TEMP 96.3
[2020-12-03] MEDS: DEXTROSE 5% IN WATER 1,000 ML with SODIUM BICARB (1 MEQ/ML) 150 ML IV SCH (12:18)
--- NOTE | 2020-12-03 12:26 | P.PN ---
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 Workup in the ER showed significant abnormalities, patient was metabolically acidotic, he was hyperkalemic, he was noted to have acute on chronic renal failure with a BUN of 63 and creatinine 2.3. Patient was also noted to have lactic acidosis, grossly infected urine, ration was also noted to have significant abdominal wall edema and possibly ascites as well as abdominal distention. CT of the abdomen and pelvis showed small bowel obstruction it also showed significant calcification in the left ilium area most likely secondary to chronic infection involving the left buttock and left ilium although the radiologist raised the possibility of sarcoma, however this is the same site where his infection is and the patient does have a large sacral and left buttock ulcer extending all the way to the ileum. Patient was also noted to have a large right-sided pleural effusion, and I was asked to see him on consultation. I reviewed the clinical history at night and I discussed his condition with the ER physician, recommended broad-spectrum antibiotics, and re commended admitting the patient to the ICU and set of sending him to the regular medical floor. I saw the patient this morning, and I went ahead and performed ultrasound-guided right-sided thoracentesis, and I was able to drain over 3000 mL of freely flowing fluid, seems to be transudative in nature, relatively clear, and nonbloody, not serosanguineous. And does not seem to be infected. Follow-up chest x-ray showed significant expansion of the right lung, and a dramatic improvement in the right-sided pleural effusion. In the meantime I discussed his overall condition with the admitting physician, and I have a strong feeling that the patient needs a tertiary care placement or referral bec ause of his other comorbidities including the large left buttock ulcer that's extending all the way down to the ileum, and the patient may need surgical evaluation/debridement. May even need plastic surgery evaluation. Patient was placed on broad-spectrum antibiotics, and he will be seen in the meantime by different consultants including infectious disease for his infection/sepsis-type of picture, he will be seen by general surgery for surgical wound debridement and he will be seen by nephrology for his acute on chronic renal failure with hyperkalemia. Patient was reevaluated today on 12/03/2020, patient is not making significant improvement over the last 24 hours. Continues to have poor urine output, continues to have significant fluid retention, remains on norepinephrine at 15 mcg/m. Remains on bicarb drip. Chest x-ray is showing reaccumulation of his right-sided pleural effusion and he will definitely need to repeat thoracentesis or possibly a pigtail catheter placement for drainage of the fluid patient was seen by nephrology, and recommending hemodialysis. Echocardiogram showed no evidence of pericardial effusion and it showed good LV function. The chemistry on the pleural effusion that was drained yesterday is pointing to transudative pleural effusion. Today I went ahead and discuss his condition with the after discussing his condition with other consultants/nephrology on the case, and discussed the different options with the including aggressive measures with right-sided fluid drainage, hemodialysis option, and aggressive medical therapy knowing in fact that the patient has a very poor prognosis. The is agreeable to go to comfort care measures/hospice. I think considering the patient's condition and multiple comorbidities, I believe this would be a very appropriate decision to make. Hence we'll consult hospice, will cancel further diagnostic workup, we will discontinue norepinephrine, and will let nephrology no that the patient will not need to be on hemodialysis. Mostly because we're heading into hospice and comfort care measures as per 's wishes. Objective - Vital Signs Vital signs: Vital Signs Temp 97.9 F 12/03/20 04:00 Pulse 85 12/03/20 07:00 Resp 15 12/03/20 07:00 BP 101/51 12/03/20 07:00 Pulse Ox 97 12/03/20 07:00 Intake & Output 12/02/20 12/03/20 12/03/20 18:59 06:59 18:59 Intake Total 875 1184.443 240.307 Output Total 5 50 0 Balance 870 1134.443 240.307 Weight 183.75 kg 191 kg Intake: IV 875 700 50 .9 225 DAPTOmycin 1,100 mg In 50 Sodium Chloride 0.9% 50 ml @ 100 mls/hr IVPB Q48H [facility] Rx#:[id number] Dextrose 5% in Water 1, 400 600 50 000 ml @ 50 mls/hr IV . Q23H [facility] with Sodium Bicarb (1 Meq/ml) 150 ml Rx#:[id number] Piperacillin-Tazobactam 3 200 .375 gm In Sodium Chloride 0.9% 100 ml @ 25 mls/hr IVPB Q8HR [facility] Rx# :[id number] Piperacillin-Tazobactam 3 100 .375 gm In Sodium Chloride 0.9% 100 ml @ 25 mls/hr IVPB Q8HR [facility] Rx# :[id number] Intake, IV Titration 484.443 190.307 Amount Norepinephrine 4 mg In 484.443 190.307 Sodium Chloride 0.9% 250 ml @ 0.05 MCG/KG/MIN 35. 004 mls/hr IV .Q7H16M [facility] Rx#:[id number] Output: Urine 5 50 0 Other: Voiding Method Indwelling Catheter Indwelling Catheter - Exam GENERAL: Revealed a 70-year-old white male, paraplegic, in bed, in no distress, on 3 L nasal cannula with O2 saturation 97%. Head: Atraumatic, normocephalic. Patient looks a little pale HEENT: PERRLA, EOMI, nonicteric. No neck masses no JVD no stridor. CARDIOVASCULAR: Normal S1 and S2, no S3 gallop, no murmur. PULMONARY: Symmetrical chest expansion, significant chest wall edema noted anteriorly, and diminished breath sounds and dullness on the right side posteriorly. Good breath sounds on the left side.. ABDOMEN: Distended, slightly tender, significant abdominal wall edema is noted, ileostomy is intact, MUSCULOSKELETAL: Significant deformities noted in the left foot with multiple amputations of toes noted, and the foot is deformed. EXTREMITIES: 3+ bipedal edema. Large left buttock ulcer and sacral decubitus ulcer noted, it is a stage IV ulcer extending all the way deep to the ileum. Significant purulent material and purulent discharge noted from the ulcer itself, there is also multiple ulcers on the left foot stage II and stage III with purulent drainage noted. And there is deformity of the left foot as noted above. Necrotic pressure ulcer noted on the left heel with black discoloration noted. NEUROLOGICAL: Paraplegic otherwise unremarkable.. SKIN: Stage IV sacral decubitus ulcer and multiple ulcers noted on the left lower extremity left foot, left calf region, - Labs CBC & Chem 7: 12/03/20 04:35 12/03/20 06:37 Labs: Abnormal Lab Results - Last 24 Hours (Table) 12/02/20 12/03/20 12/03/20 Range/Units 19:59 04:35 05:20 WBC 18.0 H (3.8-10.6) k/uL RBC 3.38 L (4.30-5.90) m/uL Hgb 10.3 L (13.0-17.5) gm/dL Hct 36.1 L (39.0-53.0) % MCV 106.6 H D (80.0-100.0) fL MCHC 28.6 L (31.0-37.0) g/dL RDW 19.6 H (11.5-15.5) % Neutrophils # (Manual) 15.60 H (1.3-7.7) k/uL Monocytes # (Manual) 1.08 H (0-1.0) k/uL Metamyelocytes # (Man) 0.18 H (0) k/uL Macrocytosis Marked A Sodium (137-145) mmol/L Potassium (3.5-5.1) mmol/L Carbon Dioxide (22-30) mmol/L BUN (9-20) mg/dL Creatinine (0.66-1.25) mg/dL Glucose (74-99) mg/dL POC Glucose (mg/dL) 100 H 68 L (75-99) mg/dL Calcium (8.4-10.2) mg/dL 12/03/20 12/03/20 Range/Units 06:09 06:37 WBC (3.8-10.6) k/uL RBC (4.30-5.90) m/uL Hgb (13.0-17.5) gm/dL Hct (39.0-53.0) % MCV (80.0-100.0) fL MCHC (31.0-37.0) g/dL RDW (11.5-15.5) % Neutrophils # (Manual) (1.3-7.7) k/uL Monocytes # (Manual) (0-1.0) k/uL Metamyelocytes # (Man) (0) k/uL Macrocytosis Sodium 132 L (137-145) mmol/L Potassium 5.4 H (3.5-5.1) mmol/L Carbon Dioxide 18 L (22-30) mmol/L BUN 68 H (9-20) mg/dL Creatinine 2.69 H (0.66-1.25) mg/dL Glucose 119 H (74-99) mg/dL POC Glucose (mg/dL) 103 H (75-99) mg/dL Calcium 7.2 L (8.4-10.2) mg/dL Microbiology - Last 24 Hours (Table) 12/02/20 09:00 Gram Stain - Preliminary Pleural Fluid Body Fluid Culture - Preliminary 12/02/20 09:15 Gram Stain - Preliminary Other - Other Wound Culture - Preliminary 12/02/20 09:15 Gram Stain - Preliminary Leg - Left Wound Culture - Preliminary 12/01/20 15:18 Urine Culture - Preliminary Urine,Voided 12/01/20 15:54 Blood Culture - Preliminary Blood No Growth after 24 hours 12/01/20 15:44 Blood Culture - Preliminary Blood No Growth after 24 hours Assessment and Plan Assessment: Impression: Severe Sepsis secondary to multiple ulcers including a large sacral decubitus ulcer stage IV, and multiple ulcers stage II and 3 noted on the left lower extremity and left foot. Also secondary to urinary tract infection. Acute urinary tract infection, patient has a chronic recurrent urinary tract infection and has a neurogenic bladder. Acute on chronic kidney injury secondary to acute tubular necrosis secondary to hypotension and sepsis. Acute kidney injury with metabolic acidosis and hyperkalemia, being addressed by nephrology. History of paraplegia secondary to T11 fracture. History of ileostomy History of neurogenic bladder Chronic cellulitis of lower extremities Chronic left foot deformities secondary to injuries and multiple surgeries with multiple toes amputated Type 2 diabetes. History of nephrolithiasis. Recommendation: Today I went ahead and discussed his condition with the on the phone, and explained to her that her is not doing too great. The fluid on the right side of the lung disease coming back and will need to be drained again. The patient is now on norepinephrine to maintain adequate blood pressure. His urine output is very poor, and the patient will need to be dialyzed as per nephrology recommendation. Also explained to the his overall clinical status and comorbid conditions including his nonhealing gluteal ulcer as well as multiple ulcers involving the left lower extremity left foot and sacral area, the was given the option of aggressive supportive measures, or the option of comfort care measures and hospice. She is very agreeable to proceed with hospice and comfort care measures, and I believe this is a very reasonable decision to make considering his comorbidities. And considering his prognosis. Hence we'll cancel plans for dialysis and will proceed with comfort care measures and discontinue norepinephrine. Time with Patient: Less than 30
--- NOTE | 2020-12-03 12:43 | P.PN ---
Subjective Progress Note Date: 12/03/20 CHIEF COMPLAINT: Abdominal pain and distention HISTORY OF PRESENT ILLNESS: Patient currently in the ICU. He is requiring Levophed. He is more confused today. He has had poor urine output. Patient's right-sided pleural effusion has reaccumulated after thoracentesis yesterday. The patient is still not having any stool through his ostomy. He does have air present. Nephrology recommended starting hemodialysis. Patient's overall condition is very poor and guarded. He has significant sacral wounds. His white count is trending upwards. Patient's family is to meet with hospice this afternoon. Afebrile. PHYSICAL EXAM: VITAL SIGNS: Reviewed. GENERAL: Well-developed in no acute distress. HEENT: No sclera icterus. Extraocular movements grossly intact. Moist buccal mucosa. Head is atraumatic, normocephalic. ABDOMEN: Soft. Mildly distended. Ostomy with air present NEUROLOGIC: Confused ASSESSMENT: 1. Partial small bowel obstruction. Patient now having air through his ostomy bag 2. Stage IV sacral decubitus ulcer requiring debridements in the past PLAN: -No surgical intervention planned -Agree with hospice consult -Continue ICU management and supportive care -Keep patient nothing by mouth Physician Fringe Knotter note has been reviewed by physician. Signing provider agrees with the documented findings, assessment, and plan of care. Objective - Vital Signs Vital signs: Vital Signs Temp 96.3 F L 12/03/20 12:00 Pulse 110 H 12/03/20 12:00 Resp 0 L 12/03/20 12:00 BP 104/57 12/03/20 12:00 Pulse Ox 97 12/03/20 12:00 Intake & Output 12/02/20 12/03/20 12/03/20 18:59 06:59 18:59 Intake Total 875 1184.443 590.307 Output Total 5 50 5 Balance 870 1134.443 585.307 Weight 183.75 kg 191 kg Intake: IV 875 700 400 .9 225 DAPTOmycin 1,100 mg In 50 Sodium Chloride 0.9% 50 ml @ 100 mls/hr IVPB Q48H [facility] Rx#:[id number] Dextrose 5% in Water 1, 400 600 300 000 ml @ 50 mls/hr IV . Q23H [facility] with Sodium Bicarb (1 Meq/ml) 150 ml Rx#:[id number] Piperacillin-Tazobactam 3 200 .375 gm In Sodium Chloride 0.9% 100 ml @ 25 mls/hr IVPB Q8HR [facility] Rx# :[id number] Piperacillin-Tazobactam 3 100 100 .375 gm In Sodium Chloride 0.9% 100 ml @ 25 mls/hr IVPB Q8HR [facility] Rx# :[id number] Intake, IV Titration 484.443 190.307 Amount Norepinephrine 4 mg In 484.443 190.307 Sodium Chloride 0.9% 250 ml @ 0.05 MCG/KG/MIN 35. 004 mls/hr IV .Q7H16M [facility] Rx#:[id number] Output: Urine 5 50 5 Other: Voiding Method Indwelling Catheter Indwelling Catheter - Labs CBC & Chem 7: 12/03/20 04:35 12/03/20 06:37 Labs: Abnormal Lab Results - Last 24 Hours (Table) 12/02/20 12/03/20 12/03/20 Range/Units 19:59 04:35 05:20 WBC 18.0 H (3.8-10.6) k/uL RBC 3.38 L (4.30-5.90) m/uL Hgb 10.3 L (13.0-17.5) gm/dL Hct 36.1 L (39.0-53.0) % MCV 106.6 H D (80.0-100.0) fL MCHC 28.6 L (31.0-37.0) g/dL RDW 19.6 H (11.5-15.5) % Neutrophils # (Manual) 15.60 H (1.3-7.7) k/uL Monocytes # (Manual) 1.08 H (0-1.0) k/uL Metamyelocytes # (Man) 0.18 H (0) k/uL Macrocytosis Marked A Sodium (137-145) mmol/L Potassium (3.5-5.1) mmol/L Carbon Dioxide (22-30) mmol/L BUN (9-20) mg/dL Creatinine (0.66-1.25) mg/dL Glucose (74-99) mg/dL POC Glucose (mg/dL) 100 H 68 L (75-99) mg/dL Calcium (8.4-10.2) mg/dL 12/03/20 12/03/20 Range/Units 06:09 06:37 WBC (3.8-10.6) k/uL RBC (4.30-5.90) m/uL Hgb (13.0-17.5) gm/dL Hct (39.0-53.0) % MCV (80.0-100.0) fL MCHC (31.0-37.0) g/dL RDW (11.5-15.5) % Neutrophils # (Manual) (1.3-7.7) k/uL Monocytes # (Manual) (0-1.0) k/uL Metamyelocytes # (Man) (0) k/uL Macrocytosis Sodium 132 L (137-145) mmol/L Potassium 5.4 H (3.5-5.1) mmol/L Carbon Dioxide 18 L (22-30) mmol/L BUN 68 H (9-20) mg/dL Creatinine 2.69 H (0.66-1.25) mg/dL Glucose 119 H (74-99) mg/dL POC Glucose (mg/dL) 103 H (75-99) mg/dL Calcium 7.2 L (8.4-10.2) mg/dL Microbiology - Last 24 Hours (Table) 12/02/20 09:00 Gram Stain - Preliminary Pleural Fluid Body Fluid Culture - Preliminary 12/02/20 09:15 Gram Stain - Preliminary Other - Other Wound Culture - Preliminary 12/02/20 09:15 Gram Stain - Preliminary Leg - Left Wound Culture - Preliminary 12/01/20 15:18 Urine Culture - Preliminary Urine,Voided 12/01/20 15:54 Blood Culture - Preliminary Blood No Growth after 24 hours 12/01/20 15:44 Blood Culture - Preliminary Blood No Growth after 24 hours
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
== END 2020-12-03 13:17 | disposition hospice, inpatient (51) | DRG 871 ==
LOC: EC 14:46 → 4SSUR 18:28 → 2SICU 22:09
PROVIDERS: ADMIT Internal Medicine; ATTEND Internal Medicine
PROC: 0D9670Z Drainage of Stomach with Drainage Device, Via Natural or Artificial Opening (ICD-10-PCS; principal; 2020-12-01)
PROC: 0W993ZZ Drainage of Right Pleural Cavity, Percutaneous Approach (ICD-10-PCS; 2020-12-02 08:25)
DX: A41.9 Sepsis, unspecified organism (principal); L89.154 Pressure ulcer of sacral region, stage 4; L89.324 Pressure ulcer of left buttock, stage 4; J96.01 Acute respiratory failure with hypoxia; N17.0 Acute kidney failure with tubular necrosis; R65.21 Severe sepsis with septic shock; E87.1 Hypo-osmolality and hyponatremia; E87.2 Acidosis; G82.20 Paraplegia, unspecified; I31.3 Pericardial effusion (noninflammatory); J90 Pleural effusion, not elsewhere classified; J94.8 Other specified pleural conditions; J98.11 Atelectasis; K56.600 Partial intestinal obstruction, unspecified as to cause; K56.7 Ileus, unspecified; L03.115 Cellulitis of right lower limb; L03.116 Cellulitis of left lower limb; L97.229 Non-pressure chronic ulcer of left calf with unspecified severity; L97.922 Non-pressure chronic ulcer of unspecified part of left lower leg with fat layer exposed; N39.0 Urinary tract infection, site not specified; R18.8 Other ascites; J98.19 Other pulmonary collapse; I96 Gangrene, not elsewhere classified; Z20.822 Contact with and (suspected) exposure to COVID-19; Z51.5 Encounter for palliative care; Z66 Do not resuscitate; D64.9 Anemia, unspecified; E11.22 Type 2 diabetes mellitus with diabetic chronic kidney disease; E11.621 Type 2 diabetes mellitus with foot ulcer; E11.622 Type 2 diabetes mellitus with other skin ulcer; E11.69 Type 2 diabetes mellitus with other specified complication; E87.5 Hyperkalemia; E87.70 Fluid overload, unspecified; I12.9 Hypertensive chronic kidney disease with stage 1 through stage 4 chronic kidney disease, or unspecified chronic kidney disease; J98.4 Other disorders of lung; L89.529 Pressure ulcer of left ankle, unspecified stage; L89.610 Pressure ulcer of right heel, unstageable; T68.XXXA Hypothermia, initial encounter; L97.529 Non-pressure chronic ulcer of other part of left foot with unspecified severity; L98.492 Non-pressure chronic ulcer of skin of other sites with fat layer exposed; M21.962 Unspecified acquired deformity of left lower leg; N18.32 Chronic kidney disease, stage 3b; N31.9 Neuromuscular dysfunction of bladder, unspecified; Z74.01 Bed confinement status; Z79.899 Other long term (current) drug therapy; Z86.14 Personal history of Methicillin resistant Staphylococcus aureus infection; Z87.442 Personal history of urinary calculi; Z93.2 Ileostomy status; Z88.2 Allergy status to sulfonamides; Z88.8 Allergy status to other drugs, medicaments and biological substances; Z88.1 Allergy status to other antibiotic agents; Z79.84 Long term (current) use of oral hypoglycemic drugs; Z87.828 Personal history of other (healed) physical injury and trauma
CPT/HCPCS: 36410; 36415; 71045; 71250; 74176; 76604; 76770; 76937; 80048; 80053; 81001; 82150; 82945; 83605; 83615; 83690; 84132; 84155; 84157; 85025; 85027; 85610; 85730; 86850; 86900; 86901; 87040; 87070; 87077; 87086; 87186; 87205; 87635; 88305; 89050; 93005; 93306; 96361; 96365; 96366; 96368; 96375; 99291

== ENCOUNTER 2020-12-03 11:09 | Inpatient (IN) | payer MEDICAID ==
[2020-12-03] MEDS ORDERED: ATROPINE OPHTH SOLN 1% 5ML BTL SUBLINGUAL PRN (13:02)
[2020-12-03] MEDS ORDERED: LORazepam 2 MG/ML INJ IV PRN (13:02)
[2020-12-03] MEDS: HYDROmorphone 0.5 MG/0.5 ML SYRINGE IVP PRN ×3 (13:55→21:30)
[2020-12-03] MEDS: NOREPINEPHRINE 4 MG in SODIUM CHLORIDE 0.9% 250 ML IV SCH ×2 (13:57→19:17)
[2020-12-03] MEDS: SCOPOLAMINE 1.5MG/72HR PATCH TRANSDERM SCH (20:38)
[2020-12-04] MEDS: HYDROmorphone 0.5 MG/0.5 ML SYRINGE IVP PRN ×7 (00:01→18:36)
[2020-12-04] MEDS: NOREPINEPHRINE 4 MG in SODIUM CHLORIDE 0.9% 250 ML IV SCH ×3 (00:02→09:53)
[2020-12-04] MEDS: SCOPOLAMINE 1.5MG/72HR PATCH TRANSDERM SCH (04:49)
[2020-12-04 08:41] VITALS: TEMP 96.9
[2020-12-04 11:40] VITALS: PULSE 105
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
[2020-12-04] MEDS ORDERED: MORPHINE SULFATE (100 MG/2 ML) 100 MG in SODIUM CHLORIDE 0.9% 100 ML IV SCH (17:45)
[2020-12-05] MEDS: NOREPINEPHRINE 4 MG in SODIUM CHLORIDE 0.9% 250 ML IV SCH (00:42)
[2020-12-05 12:04] VITALS: RESP 8
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
== END 2020-12-05 15:15 | disposition expired | DRG 951 ==
LOC: 2SICU 13:18
PROVIDERS: ADMIT Internal Medicine; ATTEND Internal Medicine
DX: Z51.5 Encounter for palliative care (principal); A41.9 Sepsis, unspecified organism; J96.01 Acute respiratory failure with hypoxia; R65.21 Severe sepsis with septic shock; G82.20 Paraplegia, unspecified; J94.8 Other specified pleural conditions; J98.11 Atelectasis; N17.9 Acute kidney failure, unspecified; K56.7 Ileus, unspecified; R18.8 Other ascites; E87.2 Acidosis; N39.0 Urinary tract infection, site not specified; E11.22 Type 2 diabetes mellitus with diabetic chronic kidney disease; I12.9 Hypertensive chronic kidney disease with stage 1 through stage 4 chronic kidney disease, or unspecified chronic kidney disease; K74.60 Unspecified cirrhosis of liver; E87.5 Hyperkalemia; L89.159 Pressure ulcer of sacral region, unspecified stage; N18.30 Chronic kidney disease, stage 3 unspecified; N31.9 Neuromuscular dysfunction of bladder, unspecified; Z79.899 Other long term (current) drug therapy; Z82.49 Family history of ischemic heart disease and other diseases of the circulatory system; Z66 Do not resuscitate; Z86.14 Personal history of Methicillin resistant Staphylococcus aureus infection; Z87.442 Personal history of urinary calculi; Z93.2 Ileostomy status; Z98.890 Other specified postprocedural states; Z89.429 Acquired absence of other toe(s), unspecified side; Z99.3 Dependence on wheelchair; T14.90XS Injury, unspecified, sequela; W17.89XS Other fall from one level to another, sequela; Z88.2 Allergy status to sulfonamides; Z88.8 Allergy status to other drugs, medicaments and biological substances; Z82.0 Family history of epilepsy and other diseases of the nervous system